=== PATIENT | male | born 1945 | race Caucasian/White ===

== ENCOUNTER 2019-01-15 12:32 | Observation (INO) | payer MEDICARE, OTHER, SELFPAY ==
[2018-10-01 10:01] VITALS: BMI 36.8
[2019-01-15] VITALS (12 sets, daily range): BP systolic 113–134; BP diastolic 54–76; PULSE 56–65; RESP 15–18; TEMP 36.4–36.9; O2SAT 92–95; BMI 36.1; BMI 36.2; BMI 35.9
--- NOTE | 2019-01-15 12:39 | EKG12_ITS ---
Test Reason : CP Blood Pressure : / mmHG Vent. Rate : 056 BPM Atrial Rate : 056 BPM P-R Int : 186 ms QRS Dur : 106 ms QT Int : 430 ms P-R-T Axes : 047 013 068 degrees QTc Int : 414 ms Sinus bradycardia Cannot rule out Inferior infarct , age undetermined Abnormal ECG Confirmed by WILLI CORDERO, CATRACHITO ([id number]), photo editor CRISTOPHER HALL ([id number]) on 01/18/2019 11:43:28 AM Referred By: Alma Dowling Confirmed By:CATRACHITO MÁRQUEZ MD
--- NOTE | 2019-01-15 12:39 | RAD_ITS ---
STUDY: X-RAY CHEST REASON FOR EXAM: Male, 73 years old. Chest pain. TECHNIQUE: Single AP portable view of the chest. COMPARISON: December 26, 2016. FINDINGS: The lungs are clear and expanded. There is no demonstrated pleural abnormality. Sternal cerclage wires are present from a prior sternotomy. Normal mediastinum and lei. Normal visualized pulmonary arteries. There is atherosclerotic calcification of the aortic arch with tortuosity. There are diffuse degenerative changes of the visualized thoracic spine. Normal visualized ribs, clavicles, and shoulders. There is no demonstrated abnormality of the visualized soft tissue structures of the upper abdomen. RAD/Chest 1 View (Portable) IMPRESSION: Degenerative changes, as described above. No demonstrated acute cardiopulmonary process. Electronically Signed: Gareth Garcia MD at 13:08 EDT , Service support ,
[2019-01-15 13:25] LABS: Absolute Neutrophil Count 5.8 X10^3/uL (2.0-7.7); Basophil# 0.04 X10^3/uL; Basophil% 0.4 % (0-1); Eosinophils% 2.2 % (0-5); Hematocrit 39.6 % (40-54); Lymphocyte % 23.5 % (19-41); Mean Corp Hgb Conc 32.8 g/gl (32-36); Mean Corpuscular Hgb 31.4 pg (27.0-32.0); Mean Corpuscular Volume 95.7 fL (80-94); Mean Platelet Vol. 11.5 fl (6.2-12.0); Monocyte# 0.78 X10^3/uL; Monocyte% 8.7 % (0-10); Neutrophil # 5.81 X10^3/uL (2.7-7.7); POSITIVE COUNT NO; POSITIVE DIFFERENTIAL NO; POSITIVE MORPHOLOGY NO; Platelet Count 206 K/mm3 (150-450); RBC Distribution Width SD 48.6 fl (35.1-43.9); Red Blood Count 4.14 M/mm3 (4.6-6.2)
[2019-01-15 13:41] LABS: Anion Gap 8 (5-15); BUN 28 mg/dL (7-18); BUN/Creat Ratio 26.7 RATIO (10-20); Calcium,Total 8.6 mg/dL (8.5-10.1); Chloride 111 mmol/L (98-107); Creatinine, Serum 1.05 mg/dL (0.70-1.30); EST Glomerular Filtration Rate 74 mL/min (>60); Est Glom Filt Rate - Afr Amer 89 mL/min (>60); Estimated Creatinine Clearance 61.52 ml/min; Glucose 70 mg/dL (74-106); Potassium 4.1 mmol/L (3.5-5.1); Sodium Level 142 mmol/L (136-145)
--- NOTE | 2019-01-15 14:22 | ED.DCSUM_ITS ---
- ER Visit Summary Date of Service: 01/15/19 Chief Complaint: Chest pain History of Present Illness: The patient is a 73 M who developed chest pain around 9 AM this morning. He points to the left upper chest wall. He denies shortness of breath or sweating. He took nitro without improvement. Patient does have history of coronary disease and OK. He has 12 cardiac stents and has had bypass surgery. Physical Examination: Vital signs unremarkable. Patient sitting upright in bed no acute distress. Head and neck examination normal. Heart is regular rate and rhythm. Lung sounds are clear. Abdomen is soft with no focal tenderness. Abdomen is distended. Lower extremity examination was 3+ edema to the left lower extremity and 1+ edema to the right lower extremity. Patient states this is chronic and unchanged after his cardiac bypass surgery. Test Results: Portable chest x-ray shows degenerative changes with no acute process. EKG is sinus bradycardia at 56 bpm with no sign of acute ischemia. CBC is unremarkable. Chemistry studies reveal BUN of 28 and a glucose of 70. Troponin is less than 0.015. Emergency Department Course and Treatment: Was given aspirin with EMS. On repeat evaluation patient is resting comfortably. Given his significant cardiac history I recommended observation overnight for cycling of cardiac enzymes. Patient is given oni angi to drink secondary to his blood glucose of 70. Treatment Plan: [] Disposition: Admit Impression: Chest pain This note was generated with [employer] dictation software. It may contain incorrect words, spelling, and punctuation that were not noted in review of the chart prior to signing ED Disposition - Plan for ED Patient: [facility] -
--- NOTE | 2019-01-15 14:28 | ED.RN ---
[facility]S AHEAD OF ME. I WAS NOT ABLE TO REACH THEM.
--- NOTE | 2019-01-15 14:28 | PCM.HP.STD ---
Problem List (1) Chest pain Status: Acute Qualifiers: Chest pain type: unspecified Qualified Code(s): R07.9 - Chest pain, unspecified (2) Atherosclerotic heart disease of [place] coronary artery without angina pectoris Status: Chronic Qualifiers: [place] vs. transplanted heart: unspecified whether [place] or transplanted heart Qualified Code(s): I25.10 - Atherosclerotic heart disease of [place] coronary artery without angina pectoris (3) AAA (abdominal aortic aneurysm) without rupture Status: Chronic (4) HLD (hyperlipidemia) Status: Chronic Qualifiers: Hyperlipidemia type: pure hypercholesterolemia Qualified Code(s): E78.00 - Pure hypercholesterolemia, unspecified; E78.0 - Pure hypercholesterolemia (5) Diabetes mellitus with polyneuropathy Status: Chronic Qualifiers: Diabetes mellitus type: type 2 Qualified Code(s): E11.42 - Type 2 diabetes mellitus with diabetic polyneuropathy (6) CAD (coronary artery disease) Status: Chronic Qualifiers: Coronary Disease-Associated Artery/Lesion type: unspecified vessel or lesion type [place] vs. transplanted heart: unspecified whether [place] or transplanted heart Associated angina: angina presence unspecified Qualified Code(s): I25.10 - Atherosclerotic heart disease of [place] coronary artery without angina pectoris Comment: 1995 JENSEN -LAD, SVG-om1. SVG-PLB of RCA, SVG-D1 (7) COPD (chronic obstructive pulmonary disease) Status: Chronic Qualifiers: COPD type: unspecified COPD Qualified Code(s): J44.9 - Chronic obstructive pulmonary disease, unspecified (8) Hx of CABG Status: Chronic Comment: [id number], SVG-OM1, SVG-PLB of RCA, SVG-D1; (9) HTN (hypertension) Status: Chronic Qualifiers: Hypertension type: essential hypertension Qualified Code(s): I10 - Essential (primary) hypertension (10) Venous stasis Status: Chronic Comment: chronic venous stasis with lymphedema History of Present Illness Date of Admission: 01/15/19 Chief Complaint: Chest pain The patient is a 73 y/o M w/ PMHx: HTN, HLD, Obesity, Diabetes mellitus type II w/ Neuropathy, Chronic COPD, CAD s/p PCI x 12 and CABG x 4, Chronic Venous Stasis w/ Chronic BL LE Lymphedema, Hx AAA who presents to the [facility] ED on 01/15/19 with history of sharp stabbing sensation chest pain, left upper chest without radiation starting at ~ 9 am, rated 4/10 when occurring, lasting seconds only and then dissipating, onset while working on the house but not markedly exerting himself, noted the discomfort coming on intermittently with no associated dyspnea, diaphoresis, nausea or emesis. His spouse passed within the last 2 weeks. Daughter noted concern for his mood but patient on examination appeared in decent spirts. Work-up in the ED included T 98, heart rate 61, BP 113/54, respiratory rate 15, 95% on room air, CBC with WBC 9, hemoglobin 13, platelet 206 without shift, BMP with chloride 111, BUN/creatinine 28/1.05, glucose 70, troponin less than 0.015, EKG with SR without acute evidence of ischemia, chest x-ray with no acute cardia pulmonary findings. In the ED patient ministered normal saline. Past Medical History Past Medical History (Chronic Problems): Chronic Problems (Last Reviewed 10/01/18 @ 10:23 by Shay Colon MD) Hypotension (Chronic) Encounter for long-term current use of high risk medication (Chronic) Old myocardial infarction (Chronic) Atherosclerotic heart disease of [place] coronary artery without angina pectoris (Chronic) AAA (abdominal aortic aneurysm) without rupture (Chronic) HLD (hyperlipidemia) (Chronic) Diabetes mellitus with polyneuropathy (Chronic) CAD (coronary artery disease) (Chronic) 1995 JENSEN -LAD, SVG-om1. SVG-PLB of RCA, SVG-D1 COPD (chronic obstructive pulmonary disease) (Chronic) Tinea pedis (Chronic) Hx of CABG (Chronic) [id number], SVG-OM1, SVG-PLB of RCA, SVG-D1; Type II diabetes mellitus (Chronic) HTN (hypertension) (Chronic) Stented coronary artery (Chronic) [facility] w/PCI-SETVE X 2-SVG-OM3 2008; [facility] w/PCI-Steve right post AV artery X 1; STEVE-RCA X 3 10/30/13; [facility]-PCI-PLB of RCA 8.12.16 @ [facility] Venous stasis (Chronic) chronic venous stasis with lymphedema Morbid obesity (Chronic) Peripheral neuropathy (Chronic) Medical History: Medical History (Last Reviewed 10/01/18 @ 10:23 by Shay Colon MD) HLD (hyperlipidemia) (Chronic) E78.5 CAD (coronary artery disease) (Chronic) I25.10 1995 JENSEN -LAD, SVG-om1. SVG-PLB of RCA, SVG-D1 HTN (hypertension) (Chronic) I10 Dyspnea on exertion R06.09 Allergies lisinopril Allergy (Verified 01/15/19 12:38) Angioedema Sulfa (Sulfonamide Antibiotics) Allergy (Verified 01/15/19 12:38) Hives piperacillin Adverse Reaction (Severe, Verified 01/15/19 12:38) Unknown Home Medications: Ambulatory Orders Medication Instructions Recorded Amlodipine [Norvasc] 5 mg PO DAILY 12/07/13 Clopidogrel Bisulfate [Plavix] 75 mg PO DAILY 12/07/13 Insulin Aspart [Novolog Flexpen] See Protocol SQ DINNER 12/07/13 Insulin Glargine [Lantus SoloStar 47 units SC BID 12/07/13 Pen] Isosorbide Mononitrate [Isosorbide 60 mg PO DAILY 12/07/13 Mononitrate ER] Losartan Potassium [Cozaar] 25 mg PO DAILY 12/07/13 Metformin HCl [Glucophage] 1,000 mg PO BIDCM 12/07/13 Metoprolol Tartrate [Lopressor 100 mg PO BID 12/07/13 (beta aixa)] buPROPion tablets [Wellbutrin 100 mg PO BID PRN PRN 12/07/13 tablets] Acetaminophen [Tylenol Tablet] 650 mg PO Q4H PRN PRN #0 tab 09/05/16 Albuterol Inhaler [Ventolin Hfa] 1 - 2 puff INHALATION Q4H PRN PRN 09/05/16 #1 inhaler Aspirin [Aspir-Low] 81 mg PO DAILY 12/26/16 Atorvastatin Calcium [Lipitor] 80 mg PO QHS 12/26/16 Budesonide/Formoterol 160/4.5 2 puff INHALATION BID 12/26/16 [Symbicort 160/4.5 Mcg Inhaler (SP)] Cefadroxil Hydrate [Duricef] 500 mg PO BID #60 cap 01/13/17 Ibuprofen 2 - 3 mg PO TID PRN #1 tab 01/13/17 nitroglycerin 0.4 mg sublingual 0.4 mg SUBLINGUAL Q5M PRN 02/09/18 tablet Surgical History: Surgical History (Last Reviewed 10/01/18 @ 10:23 by Shay Colon MD) Hx of cataract surgery (Resolved) Z98.49 Hx of CABG (Chronic) [id number], SVG-OM1, SVG-PLB of RCA, SVG-D1; Stented coronary artery (Chronic) [facility] w/PCI-STEVE X 2-SVG-OM3 2008; [facility] w/PCI-Steve right post AV artery X 1; STEVE-RCA X 3 10/30/13; [facility]-PCI-PLB of RCA 8.12.16 @ [facility] Surgical History: coronary bypass surgery - 20 years ago., - - cardiac stents x 13 Psychiatric History: Anxiety, Depression Lives: Alone - recently passed. Smoking Status: Former smoker - Patient quit approximately 30 years prior with prior to this a 2 to 3 pack/day tobacco cigarette usage. 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 Drugs: None - *Family History Paternal Family History: Family History (Last Reviewed 10/01/18 @ 10:23 by Shay Colon MD) Mother Heart disease History Items: Diabetes - Mother, Heart Disease - Father, - - Patient was notable alcoholic. Maternal Family History: Family History (Last Reviewed 10/01/18 @ 10:23 by Shay Colon MD) Mother Heart disease History Items: Diabetes, Heart Disease Review of Systems Constitutional: Reports: Fatigue. Denies: Chills, Fever, Weight Change HEENT: Denies: Head Aches, Sinus Congestion, Sinus Drainage Cardiovascular: Reports: Chest Pain, Edema. Denies: Chest Pressure, Chest Tightness, Heaviness, Light Headedness, Orthopnea, Palpitations, Syncope Respiratory: Denies: Cough, Shortness of Breath, Shortness of breath at rest, Shortness of breath upon exertion, Sputum production, Wheezing Gastrointestinal: Denies: Abdominal Pain, Nausea, Vomiting Genitourinary: Denies: Dysuria Musculoskeletal: Reports: Joint Pain, Leg Pain. Denies: Joint Tenderness Skin: Reports: Skin Changes. Denies: Rash, Wounds Neurological: Denies: Numbness, Tingling, Focal weakness Psychiatric: Reports: Anxiety, Depression. Denies: Homicidal Ideations, Suicidal Ideations Hematologic/ Lymphatic: Reports: Easy Bruising, Easy Bleeding VTE Information - Inpt Only VTE Present on Admission: No VTE Mechan Device Prophylaxis: SCD's VTE Pharm Prophylaxis ordered?: Yes Patient Problems: Active and Suspected Problems (Last Reviewed 10/01/18 @ 10:23 by Shay Colon MD) Chest pain (Acute) Subjective: Seated upright in ED bed, no acute distress, notes chest discomfort is very sharp in nature lasting only seconds to the left side of the chest. He denies any current discomfort. Objective: Physical Examination: General: awake, alert, oriented x 3 and cooperative, seated upright in the ED bed in no apparent distress, denies any current chest discomfort. Skin: normal color, turgor, no icterus, cyanosis. HEENT: AT/NC, EOMI, PERRLA, mildly dry MM, no carotid bruits or JVD noted. Lungs: CTA bilaterally, moderate effort, mild decrease BL bases, no rales, ronchi or wheezing. Heart: Mildly bradycardic with regular rhythm; no gallop, rub audible. Abdomen: soft, obese, NTTP, ND, normal BS, no HSM; however, habitus makes examination difficult. Extremities: no cyanosis, clubbing, chronic left greater than right edema, left pitting, chronic. Neurological: patient awake, alert, oriented x 3; cognitive function intact; pupils equally reactive to light and accomodation; cranial nerves II-XII grossly normal, moving all 4 extremities, no focal deficits, strength mildly globally decreased secondary to acute presentation. Psychiatric: affect appears normal, despite recent of his he does not appear depressed or anxious. - Physical Exam Vital Signs Temp Pulse Resp BP Pulse Ox 98.0 F 56 L 15 113/54 L 94 01/15/19 12:34 01/15/19 14:11 01/15/19 14:11 01/15/19 12:34 01/15/19 14:11 Oxygen Delivery Method Room Air Weight: 238 lb Body Mass Index (BMI) 36.1 Finger Stick Blood Glucose 133 Laboratory Tests Past 24 Hrs 01/15/19 01/15/19 13:00 13:00 WBC 9.0 RBC 4.14 L Hgb 13.0 Hct 39.6 L MCV 95.7 H MCH 31.4 MCHC 32.8 RDW 14.0 RDW Differential 48.6 H Plt Count 206 MPV 11.5 Immature Gran % (Auto) 0.200 Neut % (Auto) 65.0 Lymph % (Auto) 23.5 [place] % (Auto) 8.7 Eos % (Auto) 2.2 Baso % (Auto) 0.4 Absolute Neuts (auto) 5.8 Absolute Lymphs (auto) 2.10 Total Counted Not Reportable Sodium 142 Potassium 4.1 Chloride 111 H Carbon Dioxide 23.0 Anion Gap 8 BUN 28 H Creatinine 1.05 Estim Creat Clear Calc 61.52 Est GFR (MDRD) Af Amer 89 Est GFR (MDRD) Non-Af 74 BUN/Creatinine Ratio 26.7 H Glucose 70 L Calcium 8.6 Troponin I < 0.015 Assessment/Plan All Active Problems (Last Reviewed 10/01/18 @ 10:23 by Shay Colon MD) Chest pain (Acute) Hx of cataract surgery (Resolved) Fracture of phalanx of toe of right foot with delayed healing (Acute) Gout of knee (Acute) Cellulitis of toe of left foot (Acute) Septic arthritis of interphalangeal joint of toe of left foot (Acute) Septic arthritis of interphalangeal joint of toe of left foot (Acute) Gout of foot (Acute) Hypophosphatemia (Acute) Streptococcal cellulitis (Acute) Severe sepsis (Acute) Streptococcal bacteremia (Acute) Influenza A (Resolved) The patient is a 73 y/o M w/ PMHx: HTN, HLD, Obesity, Diabetes mellitus type II w/ Neuropathy, Chronic COPD, CAD s/p PCI x 12 and CABG x 4, Chronic Venous Stasis w/ Chronic BL LE Lymphedema, Hx AAA who presents to the [facility] ED on 01/15/19 with history of sharp stabbing sensation chest pain, left upper chest without radiation starting at ~ 9 am, rated 4/10 when occurring, lasting seconds only and then dissipating. (1) Chest Pain, Atypical: Given description, less suspicious for cardiac etiology, but notable cardiac history. Work-up in the ED included T 98, heart rate 61, BP 113/54, respiratory rate 15, 95% on room air, CBC with WBC 9, hemoglobin 13, platelet 206 without shift, BMP with chloride 111, BUN/creatinine 28/1.05, glucose 70, troponin less than 0.015, EKG with SR without acute evidence of ischemia, chest x-ray with no acute cardia pulmonary findings. Will admit to PCU, place on a monitored bed to assure no acute myocardial infarction with serial cardiac enzymes and EKGs. Patient is able to perform exercise and does not have LBBB or V-pacing but does have history of PCI/ST-T changes with unclear wall motion abnormality at rest thus will proceed with AM nuclear treadmill stress test. ASA, NG, morphine. FLP in AM. Mag pending. (2) CAD: s/p CABG x 4 and PCI x 12 total, 1995 JENSEN-LAD, SVG-om1, SVG-PLB of RCA, SVG-D1 and C w/PCI-STEVE X 2-SVG-OM3 2008; [facility] w/PCI-Steve right post AV artery X 1; STEVE-RCA X 3 10/30/13; [facility]-PCI-PLB of RCA, continue home regimen aspirin, Plavix, statin, metoprolol, losartan. (3) Hypertension: Continue home regimen including Norvasc, isosorbide, losartan, metoprolol, PRN hydralazine. (4) Hyperlipidemia: Continue home statin regimen. AM FLP. (5) Chronic COPD: ATC duonebs, PRN albuterol, HOB, IS parameters. (6) Diabetes mellitus type II: Hold oral home regimen, continue home insulin regimen, ADA diet, accu checks w/ ISS, in consultation for education and teaching. (7) Gout: Continue home allopurinol and colchicine regimen. (8) Anxiety and Depression: Continue home Wellbutrin regimen. (9) Obesity: Weight loss and lifestyle changes encouraged, nutrition consultation for education and teaching. (10) Chronic BL LE, L>L Lymphedema, PVD: RYAN wraps, elevation. (11) ALLISON: CPAP q HS. Needs to have CM assist w/ [facility]-ass[facility] of his machine. (12) DVT Prophylaxis: SCDs, lovenox. Code Visit OBSV E&M: 51419 Initial observation care L3
--- NOTE | 2019-01-15 14:43 | HP.PCM_ITS ---
Problem List (1) Chest pain Status: Acute Qualifiers: Chest pain type: unspecified Qualified Code(s): R07.9 - Chest pain, unspecified (2) Atherosclerotic heart disease of [place] coronary artery without angina pectoris Status: Chronic Qualifiers: [place] vs. transplanted heart: unspecified whether [place] or transplanted heart Qualified Code(s): I25.10 - Atherosclerotic heart disease of [place] coronary artery without angina pectoris (3) AAA (abdominal aortic aneurysm) without rupture Status: Chronic (4) HLD (hyperlipidemia) Status: Chronic Qualifiers: Hyperlipidemia type: pure hypercholesterolemia Qualified Code(s): E78.00 - Pure hypercholesterolemia, unspecified; E78.0 - Pure hypercholesterolemia (5) Diabetes mellitus with polyneuropathy Status: Chronic Qualifiers: Diabetes mellitus type: type 2 Qualified Code(s): E11.42 - Type 2 diabetes mellitus with diabetic polyneuropathy (6) CAD (coronary artery disease) Status: Chronic Qualifiers: Coronary Disease-Associated Artery/Lesion type: unspecified vessel or lesion type [place] vs. transplanted heart: unspecified whether [place] or transplanted heart Associated angina: angina presence unspecified Qualified Code(s): I25.10 - Atherosclerotic heart disease of [place] coronary artery without angina pectoris Comment: 1995 JENSEN -LAD, SVG-om1. SVG-PLB of RCA, SVG-D1 (7) COPD (chronic obstructive pulmonary disease) Status: Chronic Qualifiers: COPD type: unspecified COPD Qualified Code(s): J44.9 - Chronic obstructive pulmonary disease, unspecified (8) Hx of CABG Status: Chronic Comment: [id number], SVG-OM1, SVG-PLB of RCA, SVG-D1; (9) HTN (hypertension) Status: Chronic Qualifiers: Hypertension type: essential hypertension Qualified Code(s): I10 - Essential (primary) hypertension (10) Venous stasis Status: Chronic Comment: chronic venous stasis with lymphedema History of Present Illness Date of Admission: 01/15/19 Chief Complaint: Chest pain The patient is a 73 y/o M w/ PMHx: HTN, HLD, Obesity, Diabetes mellitus type II w/ Neuropathy, Chronic COPD, CAD s/p PCI x 12 and CABG x 4, Chronic Venous Stasis w/ Chronic BL LE Lymphedema, Hx AAA who presents to the [facility] ED on 01/15/19 with history of sharp stabbing sensation chest pain, left upper chest without radiation starting at ~ 9 am, rated 4/10 when occurring, lasting seconds only and then dissipating, onset while working on the house but not markedly exerting himself, noted the discomfort coming on intermittently with no associated dyspnea, diaphoresis, nausea or emesis. His spouse passed within the last 2 week s. Daughter noted concern for his mood but patient on examination appeared in decent spirts. Work-up in the ED included T 98, heart rate 61, BP 113/54, respiratory rate 15, 95% on room air, CBC with WBC 9, hemoglobin 13, platelet 206 without shift, BMP with chloride 111, BUN/creatinine 28/1.05, glucose 70, troponin less than 0.015, EKG with SR without acute evidence of ischemia, chest x-ray with no acute cardia pulmonary findings. In the ED patient ministered normal saline. Past Medical History Past Medical History (Chronic Problems): Chronic Problems (Last Reviewed 10/01/18 @ 10:23 by Shay Colon MD) Hypotension (Chronic) Encounter for long-term current use of high risk medication (Chronic) Old myocardial infarction (Chronic) Atherosclerotic heart disease of [place] coronary artery without angina pectoris (Chronic) AAA (abdominal aortic aneurysm) without rupture (Chronic) HLD (hyperlipidemia) (Chronic) Diabetes mellitus with polyneuropathy (Chronic) CAD (coronary artery disease) (Chronic) 1995 JENSEN -LAD, SVG-om1. SVG-PLB of RCA, SVG-D1 COPD (chronic obstructive pulmonary disease) (Chronic) Tinea pedis (Chronic) Hx of CABG (Chronic) [id number], SVG-OM1, SVG-PLB of RCA, SVG-D1; Type II diabetes mellitus (Chronic) HTN (hypertension) (Chronic) Stented coronary artery (Chronic) [facility] w/PCI-STEVE X 2-SVG-OM3 2008; [facility] w/PCI-Steve right post AV artery X 1; STEVE- RCA X 3 10/30/13; [facility]-PCI-PLB of RCA 8.12.16 @ [facility] Venous stasis (Chronic) chronic venous stasis with lymphedema Morbid obesity (Chronic) Peripheral neuropathy (Chronic) Medical History: Medical History (Last Reviewed 10/01/18 @ 10:23 by Shay Colon MD) HLD (hyperlipidemia) (Chronic) E78.5 CAD (coronary artery disease) (Chronic) I25.10 1995 JENSEN -LAD, SVG-om1. SVG-PLB of RCA, SVG-D1 HTN (hypertension) (Chronic) I10 Dyspnea on exertion R06.09 Allergies lisinopril Allergy (Verified 01/15/19 12:38) Angioedema Sulfa (Sulfonamide Antibiotics) Allergy (Verified 01/15/19 12:38) Hives piperacillin Adverse Reaction (Severe, Verified 01/15/19 12:38) Unknown Home Medications: Ambulatory Orders Medication Instructions Recorded Amlodipine [Norvasc] 5 mg PO DAILY 12/07/13 Clopidogrel Bisulfate [Plavix] 75 mg PO DAILY 12/07/13 Insulin Aspart [Novolog Flexpen] See Protocol SQ DINNER 12/07/13 Insulin Glargine [Lantus SoloStar 47 units SC BID 12/07/13 Pen] Isosorbide Mononitrate [Isosorbide 60 mg PO DAILY 12/07/13 Mononitrate ER] Losartan Potassium [Cozaar] 25 mg PO DAILY 12/07/13 Metformin HCl [Glucophage] 1,000 mg PO BIDCM 12/07/13 Metoprolol Tartrate [Lopressor 100 mg PO BID 12/07/13 (beta aixa)] buPROPion tablets [Wellbutrin 100 mg PO BID PRN PRN 12/07/13 tablets] Acetaminophen [Tylenol Tablet] 650 mg PO Q4H PRN PRN #0 tab 09/05/16 Albuterol Inhaler [Ventolin Hfa] 1 - 2 puff INHALATION Q4H PRN PRN 09/05/16 #1 inhaler Aspirin [Aspir-Low] 81 mg PO DAILY 12/26/16 Atorvastatin Calcium [Lipitor] 80 mg PO QHS 12/26/16 Budesonide/Formoterol 160/4.5 2 puff INHALATION BID 12/26/16 [Symbicort 160/4.5 Mcg Inhaler (SP)] Cefadroxil Hydrate [Duricef] 500 mg PO BID #60 cap 01/13/17 Ibuprofen 2 - 3 mg PO TID PRN #1 tab 01/13/17 nitroglycerin 0.4 mg sublingual 0.4 mg SUBLINGUAL Q5M PRN 02/09/18 tablet Surgical History: Surgical History (Last Reviewed 10/01/18 @ 10:23 by Shay Colon MD) Hx of cataract surgery (Resolved) Z98.49 Hx of CABG (Chronic) [id number], SVG-OM1, SVG-PLB of RCA, SVG-D1; Stented coronary artery (Chronic) [facility] w/PCI-STEVE X 2-SVG-OM3 2008; [facility] w/PCI-Steve right post AV artery X 1; STEVE- RCA X 3 10/30/13; [facility]-PCI-PLB of RCA 8.12.16 @ [facility] Surgical History: coronary bypass surgery - 20 years ago., - - cardiac stents x 13 Psychiatric History: Anxiety, Depression Lives: Alone - recently passed. Smoking Status: Former smoker - Patient quit approximately 30 years prior with prior to this a 2 to 3 pack/day tobacco cigarette usage. 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 Drugs: None - *Family History Paternal Family History: Family History (Last Reviewed 10/01/18 @ 10:23 by Shay Colon MD) Mother Heart disease History Items: Diabetes - Mother, Heart Disease - Father, - - Patient was notable alcoholic. Maternal Family History: Family History (Last Reviewed 10/01/18 @ 10:23 by Shay Colon MD) Mother Heart disease History Items: Diabetes, Heart Disease Review of Systems Constitutional: Reports: Fatigue. Denies: Chills, Fever, Weight Change HEENT: Denies: Head Aches, Sinus Congestion, Sinus Drainage Cardiovascular: Reports: Chest Pain, Edema. Denies: Chest Pressure, Chest Tightness, Heaviness, Light Headedness, Orthopnea, Palpitations, Syncope Respiratory: Denies: Cough, Shortness of Breath, Shortness of breath at rest, Shortness of breath upon exertion, Sputum production, Wheezing Gastrointestinal: Denies: Abdominal Pain, Nausea, Vomiting Genitourinary: Denies: Dysuria Musculoskeletal: Reports: Joint Pain, Leg Pain. Denies: Joint Tenderness Skin: Reports: Skin Changes. Denies: Rash, Wounds Neurological: Denies: Numbness, Tingling, Focal weakness Psychiatric: Reports: Anxiety, Depression. Denies: Homicidal Ideations, Suicidal Ideations Hematologic/ Lymphatic: Reports: Easy Bruising, Easy Bleeding VTE Information - Inpt Only VTE Present on Admission: No VTE Mechan Device Prophylaxis: SCD's VTE Pharm Prophylaxis ordered?: Yes Patient Problems: Active and Suspected Problems (Last Reviewed 10/01/18 @ 10:23 by Shay Colon MD) Chest pain (Acute) Subjective: Seated upright in ED bed, no acute distress, notes chest discomfort is very sharp in nature lasting only seconds to the left side of the chest. He denies any current discomfort. Objective: Physical Examination: General: awake, alert, oriented x 3 and cooperative, seated upright in the ED bed in no apparent distress, denies any current chest discomfort. Skin: normal color, turgor, no icterus, cyanosis. HEENT: AT/NC, EOMI, PERRLA, mildly dry MM, no carotid bruits or JVD noted. Lungs: CTA bilaterally, moderate effort, mild decrease BL bases, no rales, ronchi or wheezing. Heart: Mildly bradycardic with regular rhythm; no gallop, rub audible. Abdomen: soft, obese, NTTP, ND, normal BS, no HSM; however, habitus makes examination difficult. Extremities: no cyanosis, clubbing, chronic left greater than right edema, left pitting, chronic. Neurological: patient awake, alert, oriented x 3; cognitive function intact; pupils equally reactive to light and accomodation; cranial nerves II-XII grossly normal, moving all 4 extremities, no focal deficits, strength mildly globally decreased secondary to acute presentation. Psychiatric: affect appears normal, despite recent of his he does not appear depressed or anxious. - Physical Exam Vital Signs Temp Pulse Resp BP Pulse Ox 98.0 F 56 L 15 113/54 L 94 01/15/19 12:34 01/15/19 14:11 01/15/19 14:11 01/15/19 12:34 01/15/19 14:11 Oxygen Delivery Method Room Air Weight: 238 lb Body Mass Index (BMI) 36.1 Finger Stick Blood Glucose 133 Laboratory Tests Past 24 Hrs 01/15/19 01/15/19 13:00 13:00 WBC 9.0 RBC 4.14 L Hgb 13.0 Hct 39.6 L MCV 95.7 H MCH 31.4 MCHC 32.8 RDW 14.0 RDW Differential 48.6 H Plt Count 206 MPV 11.5 Immature Gran % (Auto) 0.200 Neut % (Auto) 65.0 Lymph % (Auto) 23.5 [place] % (Auto) 8.7 Eos % (Auto) 2.2 Baso % (Auto) 0.4 Absolute Neuts (auto) 5.8 Absolute Lymphs (auto) 2.10 Total Counted Not Reportable Sodium 142 Potassium 4.1 Chloride 111 H Carbon Dioxide 23.0 Anion Gap 8 BUN 28 H Creatinine 1.05 Estim Creat Clear Calc 61.52 Est GFR (MDRD) Af Amer 89 Est GFR (MDRD) Non-Af 74 BUN/Creatinine Ratio 26.7 H Glucose 70 L Calcium 8.6 Troponin I < 0.015 Assessment/Plan All Active Problems (Last Reviewed 10/01/18 @ 10:23 by Shay Colon MD) Chest pain (Acute) Hx of cataract surgery (Resolved) Fracture of phalanx of toe of right foot with delayed healing (Acute) Gout of knee (Acute) Cellulitis of toe of left foot (Acute) Septic arthritis of interphalangeal joint of toe of left foot (Acute) Septic arthritis of interphalangeal joint of toe of left foot (Acute) Gout of foot (Acute) Hypophosphatemia (Acute) Streptococcal cellulitis (Acute) Severe sepsis (Acute) Streptococcal bacteremia (Acute) Influenza A (Resolved) The patient is a 73 y/o M w/ PMHx: HTN, HLD, Obesity, Diabetes mellitus type II w/ Neuropathy, Chronic COPD, CAD s/p PCI x 12 and CABG x 4, Chronic Venous Stasis w/ Chronic BL LE Lymphedema, Hx AAA who presents to the [facility] ED on 01/15/19 with history of sharp stabbing sensation chest pain, left upper chest without radiation starting at ~ 9 am, rated 4/10 when occurring, lasting seconds only and then dissipating. (1) Chest Pain, Atypical: Given description, less suspicious for cardiac etiology, but notable cardiac history. Work-up in the ED included T 98, heart rate 61, BP 113/54, respiratory rate 15, 95% on room air, CBC with WBC 9, hemoglobin 13, platelet 206 without shift, BMP with chloride 111, BUN/creatinine 28/1.05, glucose 70, troponin less than 0.015, EKG with SR without acute evidence of ischemia, chest x-ray with no acute cardia pulmonary findings. Will admit to PCU, place on a monitored bed to assure no acute myocardial infarction with serial cardiac enzymes and EKGs. Patient is able to perform exercise and does not have LBBB or V-pacing but does have history of PCI/ST-T changes with unclear wall motion abnormality at rest thus will proceed with AM nuclear treadmill stress test. ASA, NG, morphine. FLP in AM. Mag pending. (2) CAD: s/p CABG x 4 and PCI x 12 total, 1995 JENSEN-LAD, SVG-om1, SVG-PLB of RCA, SVG-D1 and [facility] w/PCI-STEVE X 2-SVG-OM3 2008; [facility] w/PCI-Steve right post AV artery X 1; STEVE-RCA X 3 10/30/13; [facility]-PCI-PLB of RCA, continue home regimen aspirin, Plavix, statin, metoprolol, losartan. (3) Hypertension: Continue home regimen including Norvasc, isosorbide, losartan, metoprolol, PRN hydralazine. (4) Hyperlipidemia: Continue home statin regimen. AM FLP. (5) Chronic COPD: ATC duonebs, PRN albuterol, HOB, IS parameters. (6) Diabetes mellitus type II: Hold oral home regimen, continue home insulin regimen, ADA diet, accu checks w/ ISS, in consultation for education and teaching. (7) Gout: Continue home allopurinol and colchicine regimen. (8) Anxiety and Depression: Continue home Wellbutrin regimen. (9) Obesity: Weight loss and lifestyle changes encouraged, nutrition consultation for education and teaching. (10) Chronic BL LE, L>L Lymphedema, PVD: RYAN wraps, elevation. (11) ALLISON: CPAP q HS. Needs to have CM assist w/ [facility] set-up/re-assessment of his machine. (12) DVT Prophylaxis: SCDs, lovenox. Code Visit OBSV E&M: 22141 Initial observation care L3
--- NOTE | 2019-01-15 15:51 | EKG12_ITS ---
Test Reason : AM EKG Blood Pressure : / mmHG Vent. Rate : 063 BPM Atrial Rate : 063 BPM P-R Int : 190 ms QRS Dur : 114 ms QT Int : 422 ms P-R-T Axes : 056 029 062 degrees QTc Int : 431 ms Normal sinus rhythm Normal ECG Confirmed by WILLI CORDERO, CATRACHITO ([id number]), graphics editor CRISTOPHER HALL ([id number]) on 01/19/2019 11:28:20 AM Referred By: Alma Dowling Confirmed By:CATRACHITO MÁRQUEZ MD
[2019-01-15 16:12] LABS: Magnesium 1.7 mg/dL (1.6-2.6)
[2019-01-15 16:35] LABS: Bedside Glucose 60 mg/dL (70-110)
[2019-01-15] MEDS: Ipratropium/Albuterol Sulfate 3 ML AMPUL.NEB INHALATION (18:51)
[2019-01-15] MEDS: Metoprolol Tartrate 100 MG Tablet PO (22:07)
[2019-01-15] MEDS: Atorvastatin Calcium 80 MG Tablet PO (22:07)
[2019-01-15] MEDS: buPROPion 100 MG Tablet PO (22:08)
[2019-01-15] MEDS: Topiramate 100 MG Tablet PO (22:09)
[2019-01-15] MEDS: Insulin Lispro 100 UNIT/ML INSULN.PEN SC (22:11)
[2019-01-15 22:26] LABS: Bedside Glucose 170 mg/dL (70-110)
[2019-01-16] VITALS (15 sets, daily range): BP systolic 106–131; BP diastolic 57–68; PULSE 54–70; RESP 16–20; TEMP 36.4–37; O2SAT 92–98
[2019-01-16] MEDS: 0.9% Normal Saline 1,000 ML 100 ML IV ×3 (00:02→22:36)
--- NOTE | 2019-01-16 05:55 | EKG12_ITS ---
Test Reason : AM EKG Blood Pressure : / mmHG Vent. Rate : 061 BPM Atrial Rate : 061 BPM P-R Int : 202 ms QRS Dur : 110 ms QT Int : 412 ms P-R-T Axes : 051 024 063 degrees QTc Int : 414 ms Normal sinus rhythm Normal ECG Confirmed by WILLI CORDERO, CATRACHITO ([id number]), web editor CRISTOPHER AHLL ([id number]) on 01/19/2019 11:35:25 AM Referred By: Alma Dowling Confirmed By:CATRACHITO MÁRQUEZ MD
[2019-01-16] MEDS: Aspirin E.C. 81 MG Tablet PO (06:05)
[2019-01-16] MEDS: Losartan Potassium 25 MG Tablet PO (06:05)
[2019-01-16] MEDS: Clopidogrel Bisulfate 75 MG Tablet PO (06:05)
[2019-01-16 06:52] LABS: International Normalized Ratio 1.1; Prothrombin Time (Protime)PT. 13.6 SECONDS (11.7-14.9)
[2019-01-16 06:53] LABS: Hematocrit 37.9 % (40-54); Hemoglobin 12.6 g/dl (13.0-16.5); Mean Corp Hgb Conc 33.2 g/gl (32-36); Mean Corpuscular Hgb 31.8 pg (27.0-32.0); Mean Corpuscular Volume 95.7 fL (80-94); Mean Platelet Vol. 11.7 fl (6.2-12.0); Partial Thromboplast Time 26.8 Seconds (24.1-36.2); Platelet Count 191 K/mm3 (150-450); RBC Distribution Width CV 13.7 % (11.6-14.6); Red Blood Count 3.96 M/mm3 (4.6-6.2); White Blood Count 6.9 K/mm3 (4.4-11.0)
[2019-01-16 06:54] LABS: Scan Indicated on CBC? Y/N NO
[2019-01-16] MEDS: Ipratropium/Albuterol Sulfate 3 ML AMPUL.NEB INHALATION ×3 (06:55→21:51)
[2019-01-16 06:56] LABS: Bedside Glucose 90 mg/dL (70-110)
[2019-01-16 07:13] LABS: ALB/GLOB Ratio 0.8 RATIO (0.9-2.4); AST(SGOT) 23 U/L (15-37); Alanine Aminotransfer ALT/SGPT 35 U/L (16-61); Albumin, Serum 2.9 g/dL (3.2-5.0); Alkaline Phosphatase 63 U/L (45-117); Anion Gap 5 (5-15); BUN 19 mg/dL (7-18); BUN/Creat Ratio 19.1 RATIO (10-20); Calcium,Total 8.5 mg/dL (8.5-10.1); Chloride 113 mmol/L (98-107); Cholesterol 97 mg/dL (200); Creatinine, Serum 0.99 mg/dL (0.70-1.30); EST Glomerular Filtration Rate 79 mL/min (>60); Est Glom Filt Rate - Afr Amer 95 mL/min (>60); Estimated Creatinine Clearance 65.25 ml/min; Globulin 3.8 g/dL (2.2-4.2); Glucose 98 mg/dL (74-106); High Density Lipoprotein 30 mg/dL; Protein, Total 6.7 g/dL (6.4-8.2); Sodium Level 144 mmol/L (136-145); Triglycerides 128 mg/dL; Very Low Density Lipoprotein 26 mg/dL (5-40)
--- NOTE | 2019-01-16 08:08 | CM.UR ---
Addendum entered by Brenda Tripp 01/16/19 14:05: Also noted that there were orders from to help with cpap replacement. Fabiola states his is very old. Alerted him that [facility]. Explained they do not accept orders from non-[facility] for cpap. States he has one but it is very old. Instructed him to contact [facility] and ask for pulmonary. Explain to them his concerns and they will determine what is needed and get him scheduled. Verb understanding. Robert Tripp RN, CCM. Original Note: Addendum entered by Brenda Tripp 01/16/19 13:37: spoke with Angie again explaining fabiola's stress test was positive and needs a heart cath. Explained fabiola states he is 100% SC and would like transport to [facility] for further treatment. Angie stated there are currently no PCU beds available. Explained there may be some available tomorrow. States to fax clinical to [phone]. Done at this time. Robert Tripp RN, CCM. Original Note: Received call from CAYDEN Jeff, Charge nurse stating patient was very concerned about his bill. States he was hesitant to have stress test this am d/t cost. Spoke with him via phone and explained that I can't give him details about how much he would owe. Explained that in obs he has a copay for each procedure done. Discussed the [facility] option. Fabiola said he is 100% service connected. the ED hadn't been able to get ahold of anyone in transfer center yesterday so the admitted him under his [employer]. Fabiola states that his has been ill lately and he has a lot of medical bills associated with her care. Explained that he can always set up a payment plan. fabiola is agreeable to stay at this time. Contacted [place] transfer center at this time. Spoke with Angie. States they are changing their phone system and hence the trouble getting through. Gave information regarding Fabiola's admission at this time. Robert Tripp RN, CCM.
[2019-01-16] MEDS: Metoprolol Tartrate 100 MG Tablet PO ×2 (12:02→22:40)
[2019-01-16] MEDS: Topiramate 100 MG Tablet PO ×2 (12:03→22:41)
[2019-01-16] MEDS: buPROPion 100 MG Tablet PO ×2 (12:03→22:40)
[2019-01-16] MEDS: Isosorbide Mononitrate 60 MG Tablet PO (12:03)
[2019-01-16] MEDS: amLODIPine 5 MG Tablet PO (12:03)
--- NOTE | 2019-01-16 12:11 | STRESSREP ---
Stress Test Report Date: 01-16-19 Procedure: Pharmacologic stress nuclear imaging study Indications: Chest pain; CAD; status post PCI; status post CABG Consent: Per the patient Procedure: The patient underwent pharmacologic (Regadenoson) evaluation with a peak heart rate of 76 beats per minute (51 %predicted maximal heart rate) and a peak blood pressure of 124/68 mmHg. The baseline ECG demonstrated sinus bradycardia. The peak pharmacologic ECG demonstrated no obvious ECG changes. [There were no cardiac dysrhythmias pretest, during pharmacologic infusion, or recovery]. [There was no complaint of chest discomfort during pharmacologic infusion or recovery]. The examination was discontinued secondary to completion of protocol. Impression: 1. Pharmacologic (Regadenoson) evaluation 2. Peak pharmacologic ECG with no obvious ECG changes. 3. [There were no cardiac dysrhythmias pretest, during pharmacologic infusion, or recovery]. 4. Nuclear images pending Myocardial perfusion imaging study: Technique: The patient was injected with 14.5 millicuries of technetium 99m Cardiolite and subsequently rest SPECT Cardiolite nuclear imaging was obtained in the horizontal long, vertical long, and short axis views. The patient underwent pharmacologic (Regadenoson) evaluation with a peak heart rate of 76 beats per minute (51 % percent predicted maximal heart rate) and a peak blood pressure of 124/68 mmHg. The patient was injected with 44.7 millicuries of technetium 99m Cardiolite and subsequently stress SPECT Cardiolite nuclear imaging was obtained in the horizontal long, vertical long, and short axis views. A gated Cardiolite study at peak stress was obtained. Interpretation: Rest and stress SPECT Cardiolite nuclear imaging status post realignment, normalization, and attenuation correction demonstrate at rest the appearance of relative uniform tracer uptake and myocardial perfusion appearing within normal limits. Status post stress there is notation of diminished myocardial perfusion/tracer uptake in the basal towards distal lateral segments. There are similar type findings on the resting and stress polar map images.. There is diminished and systolic thickening and brightening.. [The gated Cardiolite study demonstrates myocardial thickening and inward wall motion]. The reported LVEF is 52%. Impression: 1. Rest and stress SPECT Cardiolite nuclear imaging demonstrate myocardial perfusion changes compatible with an area of stress-induced myocardial ischemia involving portions of the basal towards distal lateral segments. 2. The gated Cardiolite study reports an LVEF of 52%. This note was generated with Dragon dictation software. It may contain incorrect words, spelling, and punctuation that were not noted in checking the note before signing.
[2019-01-16 12:15] LABS: Bedside Glucose 141 mg/dL (70-110)
--- NOTE | 2019-01-16 12:59 | PCM.PN.HOSP ---
Patient Problems: Active and Suspected Problems (Last Reviewed 10/01/18 @ 10:23 by Shay Colon MD) Chest pain (Acute) Subjective: Patient seen and examined. He was admitted with complaint of chest pain. He has stressed that this morning which was abnormal. Patient has no complaints and feels well. Chest pain hasnt recurred. Labs and vitals reviewed. Vitals/I&O's: Vital Signs Temp Pulse Resp BP Pulse Ox 97.5 F L 60 16 119/57 L 98 01/16/19 11:57 01/16/19 12:02 01/16/19 11:57 01/16/19 12:02 01/16/19 11:57 Oxygen Delivery Method Room Air Weight: 235 lb 14.314 oz Body Mass Index (BMI) 35.9 Finger Stick Blood Glucose 133 Intake and Output for Last 24 Hours 01/14/19 01/15/19 01/16/19 23:59 23:59 23:59 Intake Total 480 / 480 877 / 877 Balance 480 / 480 877 / 877 General: Alert, Oriented x3, Cooperative, No apparent distress HEENT: Atraumatic, EOMI, Normocephalic Oral: Moist Mucosa Neck: Supple Lungs: Clear to auscultation, Normal air movement Cardiovascular: Regular rate, Regular Rhythm, Normal S1, Normal S2, No murmurs Abdomen: Bowel Sounds Present, Soft, Non Tender Extremities: No clubbing, No cyanosis, No edema, Capillary Refill Less than 3 Seconds Skin: No rashes, No breakdown Musculoskeletal: No Tenderness to Palpation of Joints or Extremities Lymphatic: No Cervical, Supraclavicular, or Inguinal Adenopathy Neurological: Cranial nerves II-XII grossly intact, Neuro grossly intact, Motor Exam 5/5 strength throughout Psych/Mental Status: Normal Affect, Appropriate, Alert and oriented to time, place, person, mood and affect Laboratory Results 01/15/19 13:00: WBC 9.0, RBC 4.14 L, Hgb 13.0, Hct 39.6 L, MCV 95.7 H, MCH 31.4, MCHC 32.8, RDW 14.0, RDW Differential 48.6 H, Plt Count 206, MPV 11.5, Immature Gran % (Auto) 0.200, Neut % (Auto) 65.0, Lymph % (Auto) 23.5, Ray % (Auto) 8.7, Eos % (Auto) 2.2, Baso % (Auto) 0.4, Absolute Neuts (auto) 5.8, Absolute Lymphs (auto) 2.10, Total Counted Not Reportable 01/15/19 13:00: Sodium 142, Potassium 4.1, Chloride 111 H, Carbon Dioxide 23.0, Anion Gap 8, BUN 28 H, Creatinine 1.05, Estim Creat Clear Calc 61.52, Est GFR (MDRD) Af Amer 89, Est GFR (MDRD) Non-Af 74, BUN/Creatinine Ratio 26.7 H, Glucose 70 L, Calcium 8.6, Troponin I < 0.015 01/15/19 13:00: Magnesium 1.7 01/15/19 16:31: POC Glucose 60 L 01/15/19 16:35: Troponin I < 0.015 01/15/19 19:15: Troponin I < 0.015 01/15/19 22:04: POC Glucose 170 H 01/16/19 06:18: WBC 6.9, RBC 3.96 L, Hgb 12.6 L, Hct 37.9 L, MCV 95.7 H, MCH 31.8, MCHC 33.2, RDW 13.7, RDW Differential 46.0 H, Plt Count 191, MPV 11.7 01/16/19 06:18: Sodium 144, Potassium 4.0, Chloride 113 H, Carbon Dioxide 26.0, Anion Gap 5, BUN 19 H, Creatinine 0.99, Estim Creat Clear Calc 65.25, Est GFR (MDRD) Af Amer 95, Est GFR (MDRD) Non-Af 79, BUN/Creatinine Ratio 19.1, Glucose 98, Calcium 8.5, Total Bilirubin 0.50, AST 23, ALT 35, Alkaline Phosphatase 63, Total Protein 6.7, Albumin 2.9 L, Globulin 3.8, Albumin/Globulin Ratio 0.8 L, Triglycerides 128, Cholesterol 97, LDL Cholesterol 41, VLDL Cholesterol 26, HDL Cholesterol 30 L 01/16/19 06:18: PT 13.6, INR 1.1, APTT 26.8 01/16/19 06:35: POC Glucose 90 01/16/19 11:54: POC Glucose 141 H Diagnostic Data Chest X-Ray 01/15/19 12:39 IMPRESSION: Degenerative changes, as described above. No demonstrated acute cardiopulmonary process. Electronically Signed: Gareth Garcia MD at 13:08 EDT , Service support , Current Medications Acetaminophen (Tylenol) 650 mg PO Q6H PRN PRN PRN Reason: Non-cardiac pain (mod-severe) Al Hydroxide/Mg Hydroxide (Mylanta Ii) 15 - 30 ml PO Q4H PRN PRN PRN Reason: INDIGESTION Albuterol Sulfate (Ventolin Aerosols) 2.5 mg INHALATION Q2H PRN PRN PRN Reason: dyspnea, wheezing Albuterol/Ipratropium (Duoneb) 3 ml INHALATION Q6HWA.RT [facility] Last Admin: 01/16/19 12:58 Dose: 3 ml Amlodipine Besylate (Norvasc) 5 mg PO DAILY [facility] Last Admin: 01/16/19 12:03 Dose: 5 mg Aspirin (Ecotrin) 81 mg PO DAILYCM [facility] Last Admin: 01/16/19 06:05 Dose: 81 mg Atorvastatin Calcium (Lipitor) 80 mg PO QHS [facility] Last Admin: 01/15/19 22:07 Dose: 80 mg Bupropion HCl (Wellbutrin Tablets) 100 mg PO BID [facility] Last Admin: 01/16/19 12:03 Dose: 100 mg Clopidogrel Bisulfate (Plavix) 75 mg PO DAILY [facility] Last Admin: 01/16/19 06:05 Dose: 75 mg Colchicine (Colchicine) 0.6 mg PO DAILY PRN PRN PRN Reason: GOUT FLARE UP Emollient Ointment (Eucerin Intensive Repair) 1 applic TOPICAL 4X/DAY [facility]; Protocol Last Admin: 01/16/19 12:04 Dose: 1 applicatio Enoxaparin Sodium (Lovenox) 40 mg SC DAILY@1000 [facility] Last Admin: 01/16/19 10:48 Dose: Not Given Hydralazine HCl (Apresoline Iv) 10 mg IV Q4H PRN PRN PRN Reason: SBP > 160 Sodium Chloride () 1,000 mls @ 100 mls/hr IV .Q10H [facility] Last Admin: 01/16/19 12:08 Dose: 100 mls/hr Insulin Glargine (Lantus (Bkc)) 47 units SC BID [facility] Last Admin: 01/16/19 12:03 Dose: 47 u Insulin Human Lispro (Humalog Kwikpen ([facility])) 0 unit SC ACHS [facility]; Protocol Last Admin: 01/16/19 11:59 Dose: Not Given Isosorbide Mononitrate (Imdur) 60 mg PO DAILY [facility] Last Admin: 01/16/19 12:03 Dose: 60 mg Losartan Potassium (Cozaar) 25 mg PO DAILY [facility] Last Admin: 01/16/19 06:05 Dose: 25 mg Magnesium Hydroxide (Milk Of Magnesia) 30 ml PO DAILY PRN PRN Reason: Constipation Metoprolol Tartrate (Lopressor (Beta Nhaeed)) 100 mg PO BID [facility] Last Admin: 01/16/19 12:02 Dose: 100 mg Morphine Sulfate () 1 - 2 mg IV Q4H PRN PRN PRN Reason: PAIN Nitroglycerin (Nitrostat) 0.4 mg SUBLINGUAL Q5M PRN PRN Reason: CARDIAC/CHEST PAIN Nutritional Formula (Lactose Free) (Glucerna Shake) 120 ml PO 4X/DAY [facility] Ondansetron HCl (Zofran) 4 mg IV Q8H PRN PRN PRN Reason: NAUSEA/VOMITING Oxycodone HCl (Oxyir) 5 - 10 mg PO Q4H PRN PRN PRN Reason: SEVERE PAIN (6-10/10) Sodium Chloride () 5 - 15 ml IV UD PRN PRN Reason: SALINE FLUSH Topiramate (Topamax) 100 mg PO BID [facility] Last Admin: 01/16/19 12:03 Dose: 100 mg Medical Necessity - Tobacco Use Smoking Status: Former smoker Tobacco Use: Cigarettes Assessment/Plan All Active Problems (Last Reviewed 10/01/18 @ 10:23 by Shay Colon MD) Chest pain (Acute) Hx of cataract surgery (Resolved) Fracture of phalanx of toe of right foot with delayed healing (Acute) Gout of knee (Acute) Cellulitis of toe of left foot (Acute) Septic arthritis of interphalangeal joint of toe of left foot (Acute) Septic arthritis of interphalangeal joint of toe of left foot (Acute) Gout of foot (Acute) Hypophosphatemia (Acute) Streptococcal cellulitis (Acute) Severe sepsis (Acute) Streptococcal bacteremia (Acute) Influenza A (Resolved) 1. Chest pain, to r/o ACS troponin x 3 wre negative stress test showed: Myocardial perfusion changes compatible with an area of stress-induced myocardial ischemia involving portions of the basal towards distal lateral segments and LVEF of 52%. Will consult cardiology. On aspirin 81 mg daily and statin as well as Imdur. Nitroglycerin as needed. 2. CAD status post stent x12 and CABG x4: On aspirin, Plavix, statin, metoprolol and losartan. 3. Hypertension: Controlled. On amlodipine, losartan and metoprolol. Hydralazine as needed. 4. Hyperlipidemia: On statin. 5. COPD: Chronic and currently stable. On breathing treatments. 6. Type 2 diabetes mellitus: On insulin. Hx AC at bedtime. Insulin sliding scale. 7. Gout: On allopurinol and colchicine 8. Anxiety depression: Wellbutrin. 9. ALLISON: On CPAP nightly. 10. Chronic bilateral lower extremity edema: Yoan wraps. To elevate lower extremities. DVT prophylaxis: Lovenox Code Visit Inpatient E&M: 68321 Subs Hosp L2
--- NOTE | 2019-01-16 13:03 | PN_ITS ---
Patient Problems: Active and Suspected Problems (Last Reviewed 10/01/18 @ 10:23 by Shay Colon MD) Chest pain (Acute) Subjective: Patient seen and examined. He was admitted with complaint of chest pain. He has stressed that this morning which was abnormal. Patient has no complaints and feels well. Chest pain hasnt recurred. Labs and vitals reviewed. Vitals/I&O's: Vital Signs Temp Pulse Resp BP Pulse Ox 97.5 F L 60 16 119/57 L 98 01/16/19 11:57 01/16/19 12:02 01/16/19 11:57 01/16/19 12:02 01/16/19 11:57 Oxygen Delivery Method Room Air Weight: 235 lb 14.314 oz Body Mass Index (BMI) 35.9 Finger Stick Blood Glucose 133 Intake and Output for Last 24 Hours 01/14/19 01/15/19 01/16/19 23:59 23:59 23:59 Intake Total 480 / 480 877 / 877 Balance 480 / 480 877 / 877 General: Alert, Oriented x3, Cooperative, No apparent distress HEENT: Atraumatic, EOMI, Normocephalic Oral: Moist Mucosa Neck: Supple Lungs: Clear to auscultation, Normal air movement Cardiovascular: Regular rate, Regular Rhythm, Normal S1, Normal S2, No murmurs Abdomen: Bowel Sounds Present, Soft, Non Tender Extremities: No clubbing, No cyanosis, No edema, Capillary Refill Less than 3 Seconds Skin: No rashes, No breakdown Musculoskeletal: No Tenderness to Palpation of Joints or Extremities Lymphatic: No Cervical, Supraclavicular, or Inguinal Adenopathy Neurological: Cranial nerves II-XII grossly intact, Neuro grossly intact, Motor Exam 5/5 strength throughout Psych/Mental Status: Normal Affect, Appropriate, Alert and oriented to time, place, person, mood and affect Laboratory Results 01/15/19 13:00: WBC 9.0, RBC 4.14 L, Hgb 13.0, Hct 39.6 L, MCV 95.7 H, MCH 31.4, MCHC 32.8, RDW 14.0, RDW Differential 48.6 H, Plt Count 206, MPV 11.5, Immature Gran % (Auto) 0.200, Neut % (Auto) 65.0, Lymph % (Auto) 23.5, [place] % (Auto) 8.7, Eos % (Auto) 2.2, Baso % (Auto) 0.4, Absolute Neuts (auto) 5.8, Absolute Lymphs (auto) 2.10, Total Counted Not Reportable 01/15/19 13:00: Sodium 142, Potassium 4.1, Chloride 111 H, Carbon Dioxide 23.0, Anion Gap 8, BUN 28 H, Creatinine 1.05, Estim Creat Clear Calc 61.52, Est GFR (MDRD) Af Amer 89, Est GFR (MDRD) Non-Af 74, BUN/Creatinine Ratio 26.7 H, Glucose 70 L, Calcium 8.6, Troponin I < 0.015 01/15/19 13:00: Magnesium 1.7 01/15/19 16:31: POC Glucose 60 L 01/15/19 16:35: Troponin I < 0.015 01/15/19 19:15: Troponin I < 0.015 01/15/19 22:04: POC Glucose 170 H 01/16/19 06:18: WBC 6.9, RBC 3.96 L, Hgb 12.6 L, Hct 37.9 L, MCV 95.7 H, MCH 31.8, MCHC 33.2, RDW 13.7, RDW Differential 46.0 H, Plt Count 191, MPV 11.7 01/16/19 06:18: Sodium 144, Potassium 4.0, Chloride 113 H, Carbon Dioxide 26.0, Anion Gap 5, BUN 19 H, Creatinine 0.99, Estim Creat Clear Calc 65.25, Est GFR (MDRD) Af Amer 95, Est GFR (MDRD) Non-Af 79, BUN/Creatinine Ratio 19.1, Glucose 98, Calcium 8.5, Total Bilirubin 0.50, AST 23, ALT 35, Alkaline Phosphatase 63, Total Protein 6.7, Albumin 2.9 L, Globulin 3.8, Albumin/Globulin Ratio 0.8 L, Triglycerides 128, Cholesterol 97, LDL Cholesterol 41, VLDL Cholesterol 26, HDL Cholesterol 30 L 01/16/19 06:18: PT 13.6, INR 1.1, APTT 26.8 01/16/19 06:35: POC Glucose 90 01/16/19 11:54: POC Glucose 141 H Diagnostic Data Chest X-Ray 01/15/19 12:39 IMPRESSION: Degenerative changes, as described above. No demonstrated acute cardiopulmonary process. Electronically Signed: Gareth Garcia MD at 13:08 EDT , Service support , Current Medications Acetaminophen (Tylenol) 650 mg PO Q6H PRN PRN PRN Reason: Non-cardiac pain (mod-severe) Al Hydroxide/Mg Hydroxide (Mylanta Ii) 15 - 30 ml PO Q4H PRN PRN PRN Reason: INDIGESTION Albuterol Sulfate (Ventolin Aerosols) 2.5 mg INHALATION Q2H PRN PRN PRN Reason: dyspnea, wheezing Albuterol/Ipratropium (Duoneb) 3 ml INHALATION Q6HWA.RT [facility] Last Admin: 01/16/19 12:58 Dose: 3 ml Amlodipine Besylate (Norvasc) 5 mg PO DAILY [facility] Last Admin: 01/16/19 12:03 Dose: 5 mg Aspirin (Ecotrin) 81 mg PO DAILYCM [facility] Last Admin: 01/16/19 06:05 Dose: 81 mg Atorvastatin Calcium (Lipitor) 80 mg PO QHS [facility] Last Admin: 01/15/19 22:07 Dose: 80 mg Bupropion HCl (Wellbutrin Tablets) 100 mg PO BID [facility] Last Admin: 01/16/19 12:03 Dose: 100 mg Clopidogrel Bisulfate (Plavix) 75 mg PO DAILY [facility] Last Admin: 01/16/19 06:05 Dose: 75 mg Colchicine (Colchicine) 0.6 mg PO DAILY PRN PRN PRN Reason: GOUT FLARE UP Emollient Ointment (Eucerin Intensive Repair) 1 applic TOPICAL 4X/DAY [facility]; Protocol Last Admin: 01/16/19 12:04 Dose: 1 applicatio Enoxaparin Sodium (Lovenox) 40 mg SC DAILY@1000 [facility] Last Admin: 01/16/19 10:48 Dose: Not Given Hydralazine HCl (Apresoline Iv) 10 mg IV Q4H PRN PRN PRN Reason: SBP > 160 Sodium Chloride () 1,000 mls @ 100 mls/hr IV .Q10H [facility] Last Admin: 01/16/19 12:08 Dose: 100 mls/hr Insulin Glargine (Lantus (Bkc)) 47 units SC BID [facility] Last Admin: 01/16/19 12:03 Dose: 47 u Insulin Human Lispro (Humalog Kwikpen ([facility])) 0 unit SC ACHS [facility]; Protocol Last Admin: 01/16/19 11:59 Dose: Not Given Isosorbide Mononitrate (Imdur) 60 mg PO DAILY [facility] Last Admin: 01/16/19 12:03 Dose: 60 mg Losartan Potassium (Cozaar) 25 mg PO DAILY [facility] Last Admin: 01/16/19 06:05 Dose: 25 mg Magnesium Hydroxide (Milk Of Magnesia) 30 ml PO DAILY PRN PRN Reason: Constipation Metoprolol Tartrate (Lopressor (Beta Naheed)) 100 mg PO BID [facility] Last Admin: 01/16/19 12:02 Dose: 100 mg Morphine Sulfate () 1 - 2 mg IV Q4H PRN PRN PRN Reason: PAIN Nitroglycerin (Nitrostat) 0.4 mg SUBLINGUAL Q5M PRN PRN Reason: CARDIAC/CHEST PAIN Nutritional Formula (Lactose Free) (Glucerna Shake) 120 ml PO 4X/DAY [facility] Ondansetron HCl (Zofran) 4 mg IV Q8H PRN PRN PRN Reason: NAUSEA/VOMITING Oxycodone HCl (Oxyir) 5 - 10 mg PO Q4H PRN PRN PRN Reason: SEVERE PAIN (6-10/10) Sodium Chloride () 5 - 15 ml IV UD PRN PRN Reason: SALINE FLUSH Topiramate (Topamax) 100 mg PO BID [facility] Last Admin: 01/16/19 12:03 Dose: 100 mg Medical Necessity - Tobacco Use Smoking Status: Former smoker Tobacco Use: Cigarettes Assessment/Plan All Active Problems (Last Reviewed 10/01/18 @ 10:23 by Shay Colon MD) Chest pain (Acute) Hx of cataract surgery (Resolved) Fracture of phalanx of toe of right foot with delayed healing (Acute) Gout of knee (Acute) Cellulitis of toe of left foot (Acute) Septic arthritis of interphalangeal joint of toe of left foot (Acute) Septic arthritis of interphalangeal joint of toe of left foot (Acute) Gout of foot (Acute) Hypophosphatemia (Acute) Streptococcal cellulitis (Acute) Severe sepsis (Acute) Streptococcal bacteremia (Acute) Influenza A (Resolved) 1. Chest pain, to r/o ACS * troponin x 3 wre negative * stress test showed: Myocardial perfusion changes compatible with an area of stress-induced myocardial ischemia involving portions of the basal towards distal lateral segments and LVEF of 52%. * Will consult cardiology. * On aspirin 81 mg daily and statin as well as Imdur. Nitroglycerin as needed. * 2. CAD status post stent x12 and CABG x4: On aspirin, Plavix, statin, metoprolol and losartan. 3. Hypertension: Controlled. On amlodipine, losartan and metoprolol. Hydralazine as needed. 4. Hyperlipidemia: On statin. 5. COPD: Chronic and currently stable. On breathing treatments. 6. Type 2 diabetes mellitus: On insulin. Hx AC at bedtime. Insulin sliding scale. 7. Gout: On allopurinol and colchicine 8. Anxiety depression: Wellbutrin. 9. ALLISON: On CPAP nightly. 10. Chronic bilateral lower extremity edema: Yoan wraps. To elevate lower extremities. DVT prophylaxis: Lovenox Code Visit Inpatient E&M: 16542 Subs Hosp L2
[2019-01-16] MEDS: Insulin Lispro 100 UNIT/ML INSULN.PEN SC (16:38)
[2019-01-16] MEDS: Glucerna Shake 120 ML LIQUID PO ×2 (16:43→22:37)
--- NOTE | 2019-01-16 16:57 | PCM.CONS.C ---
Problem List (1) Chest pain Status: Acute Qualifiers: Chest pain type: unspecified Qualified Code(s): R07.9 - Chest pain, unspecified (2) CAD (coronary artery disease) Status: Chronic Qualifiers: Coronary Disease-Associated Artery/Lesion type: unspecified vessel or lesion type [place] vs. transplanted heart: unspecified whether [place] or transplanted heart Associated angina: angina presence unspecified Qualified Code(s): I25.10 - Atherosclerotic heart disease of [place] coronary artery without angina pectoris Comment: 1995 JENSEN -LAD, SVG-om1. SVG-PLB of RCA, SVG-D1 (3) Hx of CABG Status: Chronic Comment: [id number], SVG-OM1, SVG-PLB of RCA, SVG-D1; (4) Stented coronary artery Status: Chronic Comment: [facility] w/PCI-STEVE X 2-SVG-OM3 2008; [facility] w/PCI-Steve right post AV artery X 1; STEVE-RCA X 3 10/30/13; [facility]-PCI-PLB of RCA 8.12.16 @ [facility] (5) HLD (hyperlipidemia) Status: Chronic Qualifiers: Hyperlipidemia type: pure hypercholesterolemia Qualified Code(s): E78.00 - Pure hypercholesterolemia, unspecified; E78.0 - Pure hypercholesterolemia (6) HTN (hypertension) Status: Chronic Qualifiers: Hypertension type: essential hypertension Qualified Code(s): I10 - Essential (primary) hypertension (7) Type II diabetes mellitus Status: Chronic (8) AAA (abdominal aortic aneurysm) without rupture Status: Chronic (9) COPD (chronic obstructive pulmonary disease) Status: Chronic Qualifiers: COPD type: unspecified COPD Qualified Code(s): J44.9 - Chronic obstructive pulmonary disease, unspecified Reason for Consult Date of Consultation: 01/16/19 History of Present Illness: The patient is a 73 year old white male with a past cardiovascular history which is included underlying hyperlipidemia, hypertension, CAD, PR, CABG, PCI, superimposed on diabetes mellitus and COPD who was referred for evaluation of chest pain and a subsequent abnormal pharmacologic stress nuclear imaging study. The patient states that his recently, his children have been in his home, and he was experiencing chest discomfort which he described as a sharp left-sided chest discomfort. He states he attributed this to the recent emotional stress . However based upon these concerns he presented to the emergency department for further evaluation and care. He was evaluated and soundly brought into the hospital for further evaluation and care. He states that he believes his symptoms abated without any specific therapy. He has been undergoing evaluation with cardiac enzymes which have been negative. His ECG demonstrated sinus rhythm with no acute ECG changes. A chest x-ray was performed which appeared to demonstrate no acute cardiopulmonary findings. He subsequently underwent evaluation with a pharmacologic stress nuclear imaging study. This was considered abnormal for evidence of stress-induced myocardial ischemia in the lateral distribution. The patient denies any ongoing symptoms of orthopnea or PND. He states he has had chronic left lower extremity edema since his CABG. He has had no near syncope or syncope. He notes that his chest discomfort appeared to be somewhat different from discomfort he has had in the past which he believes is correlated with his underlying CAD. He has undergone extensive cardiovascular evaluation in the past at the [facility] as well as [facility] in [facility]. He is undergone evaluation with diagnostic cardiac catheterization and subsequent PCI. [] Past Medical History Allergies/Adverse Reactions: Allergies lisinopril Allergy (Verified 01/15/19 12:38) Angioedema Sulfa (Sulfonamide Antibiotics) Allergy (Verified 01/15/19 12:38) Hives piperacillin Adverse Reaction (Severe, Verified 01/15/19 12:38) Unknown Home Medications: Ambulatory Orders Medication Instructions Recorded Amlodipine [Norvasc] 5 mg PO DAILY 12/07/13 Clopidogrel Bisulfate [Plavix] 75 mg PO DAILY 12/07/13 Insulin Aspart [Novolog Flexpen] See Protocol SQ TIDCM 12/07/13 Insulin Glargine [Lantus SoloStar 70 units SC QHS 12/07/13 Pen] Isosorbide Mononitrate [Isosorbide 60 mg PO DAILY 12/07/13 Mononitrate ER] Losartan Potassium [Cozaar] 25 mg PO DAILY 12/07/13 Metformin HCl [Glucophage] 1,000 mg PO BIDCM 12/07/13 Metoprolol Tartrate [Lopressor 100 mg PO BID 12/07/13 (beta aixa)] buPROPion tablets [Wellbutrin 100 mg PO BID 12/07/13 tablets] Acetaminophen [Tylenol Tablet] 650 mg PO Q4H PRN PRN #0 tab 09/05/16 Albuterol Inhaler [Ventolin Hfa] 1 - 2 puff INHALATION Q4H PRN PRN 09/05/16 #1 inhaler Aspirin [Aspir-Low] 81 mg PO DAILY 12/26/16 Atorvastatin Calcium [Lipitor] 80 mg PO QHS 12/26/16 Budesonide/Formoterol 160/4.5 2 puff INHALATION BID 12/26/16 [Symbicort 160/4.5 Mcg Inhaler (SP)] Cefadroxil Hydrate [Duricef] 500 mg PO BID #60 cap 01/13/17 Ibuprofen 2 - 3 mg PO TID PRN #1 tab 01/13/17 nitroglycerin 0.4 mg sublingual 0.4 mg SUBLINGUAL Q5M PRN 02/09/18 tablet Past Medical History (Chronic Problems): Chronic Problems (Last Reviewed 10/01/18 @ 10:23 by Shay Colon MD) Hypotension (Chronic) Encounter for long-term current use of high risk medication (Chronic) Old myocardial infarction (Chronic) Atherosclerotic heart disease of [place] coronary artery without angina pectoris (Chronic) AAA (abdominal aortic aneurysm) without rupture (Chronic) HLD (hyperlipidemia) (Chronic) Diabetes mellitus with polyneuropathy (Chronic) CAD (coronary artery disease) (Chronic) 1995 JENSEN -LAD, SVG-om1. SVG-PLB of RCA, SVG-D1 COPD (chronic obstructive pulmonary disease) (Chronic) Tinea pedis (Chronic) Hx of CABG (Chronic) [id number], SVG-OM1, SVG-PLB of RCA, SVG-D1; Type II diabetes mellitus (Chronic) HTN (hypertension) (Chronic) Stented coronary artery (Chronic) [facility] w/PCI-STEVE X 2-SVG-OM3 2008; [facility] w/PCI-Steve right post AV artery X 1; STEVE-RCA X 3 10/30/13; [facility]-PCI-PLB of RCA 8.12.16 @ [facility] Venous stasis (Chronic) chronic venous stasis with lymphedema Morbid obesity (Chronic) Peripheral neuropathy (Chronic) Surgical History: angioplasty, coronary bypass surgery - 20 years ago., - - cardiac stents x 13 Psychiatric History: Anxiety, Depression - *Family History Paternal Family History: Family History (Last Reviewed 10/01/18 @ 10:23 by Sahy Colon MD) Mother Heart disease History Items: Diabetes - Mother, Heart Disease - Father, - - Patient was notable alcoholic. Maternal Family History: Family History (Last Reviewed 10/01/18 @ 10:23 by Shay Colon MD) Mother Heart disease History Items: Diabetes, Heart Disease Lives: Alone - recently passed. 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 Drugs: None Review of Systems - Review of Systems General: Denies: Fever, Night Sweats, Fatigue Cardiovascular: Reports: Chest Discomfort, Chest Discomfort at Rest, Peripheral Edema. Denies: Shortness of Breath, Orthopnea, PND, Palpitations, Lightheadedness, Dizziness, Near Syncope, Syncope Respiratory: Denies: Cough, Sputum Production, Hemoptysis Gastrointestinal: Denies: Hematemesis, Hematochezia, Melena Genitourinary: Denies: Dysuria, Hematuria Skin: Denies: Rash Subjectve: This is a 73-year-old white male who appears to be resting comfortably at the moment in no acute distress. Objective: Vital Signs Temp Pulse Resp BP Pulse Ox 97.6 F L 59 L 16 109/61 97 01/16/19 15:35 01/16/19 15:35 01/16/19 15:35 01/16/19 15:35 01/16/19 15:35 Oxygen Delivery Method Room Air Weight: 235 lb 14.314 oz Body Mass Index (BMI) 35.9 Finger Stick Blood Glucose 133 Intake and Output for Last 24 Hours 01/14/19 01/15/19 01/16/19 23:59 23:59 23:59 Intake Total 480 / 480 877 / 877 Balance 480 / 480 877 / 877 General: Awake, Alert, Oriented x 3, Cooperative, No Acute Distress HEENT: Atraumatic, Normocephalic, PERRL, EOMI, Sclera Non Icteric Oral: Moist Mucosa Neck: Supple, Good ROM, No JVD Lungs: Clear to auscultation Cardiovascular: Regular Rhythm, Normal S1, Normal S2 Vascular: No Carotid Bruits Abdomen: Bowel Sounds Present, Soft, Non Tender Extremities: No Cyanosis, No Clubbing, Mild LLE Edema Neurological: No Focal Motor or Sensory Deficit Psych/Mental Status: Appropriate 01/15/19 16:35: Troponin I < 0.015 01/15/19 19:15: Troponin I < 0.015 01/16/19 06:18: WBC 6.9, RBC 3.96 L, Hgb 12.6 L, Hct 37.9 L, MCV 95.7 H, MCH 31.8, MCHC 33.2, RDW 13.7, RDW Differential 46.0 H, Plt Count 191, MPV 11.7 01/16/19 06:18: Sodium 144, Potassium 4.0, Chloride 113 H, Carbon Dioxide 26.0, Anion Gap 5, BUN 19 H, Creatinine 0.99, Est GFR (MDRD) Af Amer 95, Est GFR (MDRD) Non-Af 79, BUN/Creatinine Ratio 19.1, Glucose 98, Calcium 8.5, Total Bilirubin 0.50, Triglycerides 128, Cholesterol 97, LDL Cholesterol 41, VLDL Cholesterol 26, HDL Cholesterol 30 L 01/16/19 06:18: PT 13.6, INR 1.1, APTT 26.8 Rhythm: Sinus rhythm EKG: As noted above ECHO: 12-27-16: Left ventricle considered normal with reported LVEF of 65%; mild concentric LVH; moderate left atrial enlargement; moderate right atrial enlargement; moderate mitral annular calcification; mild diffuse mitral valve thickening with trivial MR; mild TR; mild diffuse aortic valve thickening; mild atherosclerosis of the aortic arch; estimated RV systolic pressure 58 mmHg compatible with pulmonary hypertension Stress Test: Date: 01-16-19 Procedure: Pharmacologic stress nuclear imaging study Indications: Chest pain; CAD; status post PCI; status post CABG Consent: Per the patient Procedure: The patient underwent pharmacologic (Regadenoson) evaluation with a peak heart rate of 76 beats per minute (51 %predicted maximal heart rate) and a peak blood pressure of 124/68 mmHg. The baseline ECG demonstrated sinus bradycardia. The peak pharmacologic ECG demonstrated no obvious ECG changes. [There were no cardiac dysrhythmias pretest, during pharmacologic infusion, or recovery]. [There was no complaint of chest discomfort during pharmacologic infusion or recovery]. The examination was discontinued secondary to completion of protocol. Impression: 1. Pharmacologic (Regadenoson) evaluation 2. Peak pharmacologic ECG with no obvious ECG changes. 3. [There were no cardiac dysrhythmias pretest, during pharmacologic infusion, or recovery]. 4. Nuclear images pending Myocardial perfusion imaging study: Technique: The patient was injected with 14.5 millicuries of technetium 99m Cardiolite and subsequently rest SPECT Cardiolite nuclear imaging was obtained in the horizontal long, vertical long, and short axis views. The patient underwent pharmacologic (Regadenoson) evaluation with a peak heart rate of 76 beats per minute (51 % percent predicted maximal heart rate) and a peak blood pressure of 124/68 mmHg. The patient was injected with 44.7 millicuries of technetium 99m Cardiolite and subsequently stress SPECT Cardiolite nuclear imaging was obtained in the horizontal long, vertical long, and short axis views. A gated Cardiolite study at peak stress was obtained. Interpretation: Rest and stress SPECT Cardiolite nuclear imaging status post realignment, normalization, and attenuation correction demonstrate at rest the appearance of relative uniform tracer uptake and myocardial perfusion appearing within normal limits. Status post stress there is notation of diminished myocardial perfusion/tracer uptake in the basal towards distal lateral segments. There are similar type findings on the resting and stress polar map images.. There is diminished and systolic thickening and brightening.. [The gated Cardiolite study demonstrates myocardial thickening and inward wall motion]. The reported LVEF is 52%. Impression: 1. Rest and stress SPECT Cardiolite nuclear imaging demonstrate myocardial perfusion changes compatible with an area of stress-induced myocardial ischemia involving portions of the basal towards distal lateral segments. 2. The gated Cardiolite study reports an LVEF of 52%. Cardiac Cath: 05-03-16: [facility]: Left ventricle: Moderate global left ventricular hypokinesis with an LVEF of 40 to 45% Left main coronary artery with no obstructing lesions LAD with proximal 90% stenosis and a patent pre-existing stent with 20% in-stent restenosis LCx with 100% occlusion RCA with a patent pre-existing stent which was patent Right AV segment with 90% stenosis JENSEN graft to the LAD and sequential portion to the diagonal branch patent Right to left collateral flow SVG grafts known to be occluded on previous cardiac catheterization Successful PTCA to the right AV segment 12-07-13: [facility]: Left ventricle: LVEF of 65% with moderate hypokinesis of the inferobasilar wall and moderate global left ventricular hypokinesis Left main coronary artery patent LAD reported as giving rise to a single diagonal branch artery LCx reported as giving rise to a single OM artery RCA reported as having a right AV artery being occluded and a subsequent proximal to mid 90% stenosis JENSEN graft to the LAD and diagonal branch patent SVG graft to the diagonal branch occluded SVG graft to the OM branch occluded SVG graft to the right posterior lateral branch occluded Left to left collateral flow Successful PTCA/STEVE to the right AV segment Successful PTCA/STEVE to the proximal to mid RCA PCI: 05-03-16: [facility]: Successful PTCA to the right AV segment 12-07-13: [facility]: Successful PTCA/STEVE to the right AV segment and successful PTCA/STEVE to the proximal to mid RCA CT Surgery: 1995: Reported with a JENSEN to the LAD with sequential portion to the diagonal branch; SVG to the diagonal branch; SVG to the OM; SVG to the RCA system CXR: Preliminary report: Post operative changes: No acute cardiopulmonary disease appreciated: Please see official report Assessment/Plan 1. Chest pain The patient has had chest pain. The chest pain appears to be somewhat atypical. However at the same time the patient has been found to have evidence of an abnormal pharmacologic stress nuclear imaging study suggesting stress-induced myocardial ischemia and portions of the lateral segments. At the present time the patient's rule out PR protocol appears to be negative based upon negative cardiac enzymes and no acute ECG changes. He has been on medical therapy with aspirin, antiplatelets, nitrates, beta-blockers, afterload reducing agents, and lipid-lowering agents. He is also been receiving anticoagulant therapy while in the hospital. At the present time the patient would be recommended for continued cardiac rhythm monitoring and subsequent evaluation with diagnostic cardiac catheterization. The procedure risks has been discussed with the patient. He is agreeable to this approach. Based upon his [facility] coverage an attempt is being made to have the patient transported to the [facility] for further evaluation and care. 2. CAD status post CABG status post PCI The patient has a history of extensive underlying cardiovascular disease as previously documented. At the moment his rule out PR protocol is negative. His pharmacologic stress nuclear imaging study is abnormal. He will continue medical management. He will continue with plans for future diagnostic cardiac catheterization. Again an attempt is being made to arrange for the patient to be transferred to the [facility] for further evaluation and care. 3. Hyperlipidemia The patient will continue risk factor modification and medical management. 4. Hypertension The patient's blood pressure will be followed. He will continue medical therapy with adjustment as needed. 5. Diabetes mellitus The patient will continue under the care of internal medicine. 6. Abdominal aortic aneurysm The patient has a history of an abdominal aortic aneurysm. The details are unknown at this time. Depending upon the details of his abdominal aortic aneurysm history and follow-up this may need to be reassessed noninvasively with either ultrasound studies or abdominal CT scans, etc. 7. COPD The patient will continue evaluation care per his primary care physicians. Comment: The above was discussed and reviewed with the patient. He was agreeable to this approach. This note was generated with [employer] dictation software. It may contain incorrect words, spelling, and punctuation that were not noted in checking the note before signing.
--- NOTE | 2019-01-16 17:01 | CON.PCM_ITS ---
Problem List (1) Chest pain Status: Acute Qualifiers: Chest pain type: unspecified Qualified Code(s): R07.9 - Chest pain, unspecified (2) CAD (coronary artery disease) Status: Chronic Qualifiers: Coronary Disease-Associated Artery/Lesion type: unspecified vessel or lesion type [place] vs. transplanted heart: unspecified whether barrow or transplanted heart Associated angina: angina presence unspecified Qualified Code(s): I25.10 - Atherosclerotic heart disease of barrow coronary artery without angina pectoris Comment: 1995 JENSEN -LAD, SVG-om1. SVG-PLB of RCA, SVG-D1 (3) Hx of CABG Status: Chronic Comment: [id number], SVG-OM1, SVG-PLB of RCA, SVG-D1; (4) Stented coronary artery Status: Chronic Comment: [facility] w/PCI-STEVE X 2-SVG-OM3 2008; [facility] w/PCI-Steve right post AV artery X 1; STEVE-RCA X 3 10/30/13; [facility]-PCI-PLB of RCA 8.12.16 @ [facility] (5) HLD (hyperlipidemia) Status: Chronic Qualifiers: Hyperlipidemia type: pure hypercholesterolemia Qualified Code(s): E78.00 - Pure hypercholesterolemia, unspecified; E78.0 - Pure hypercholesterolemia (6) HTN (hypertension) Status: Chronic Qualifiers: Hypertension type: essential hypertension Qualified Code(s): I10 - Essential (primary) hypertension (7) Type II diabetes mellitus Status: Chronic (8) AAA (abdominal aortic aneurysm) without rupture Status: Chronic (9) COPD (chronic obstructive pulmonary disease) Status: Chronic Qualifiers: COPD type: unspecified COPD Qualified Code(s): J44.9 - Chronic obstructive pulmonary disease, unspecified Reason for Consult Date of Consultation: 01/16/19 History of Present Illness: The patient is a 73 year old white male with a past cardiovascular history which is included underlying hyperlipidemia, hypertension, CAD, SC, CABG, PCI, superimposed on diabetes mellitus and COPD who was referred for evaluation of chest pain and a subsequent abnormal pharmacologic stress nuclear imaging study. The patient states that his recently, his children have been in his home, and he was experiencing chest discomfort which he described as a sharp left-sided chest discomfort. He states he attributed this to the recent emotional stress . However based upon these concerns he presented to the emergency department for further evaluation and care. He was evaluated and soundly brought into the hospital for further evaluation and care. He states that he believes his symptoms abated without any specific therapy. He has been undergoing evaluation with cardiac enzymes which have been negative. His ECG demonstrated sinus rhythm with no acute ECG changes. A chest x-ray was performed which appeared to demonstrate no acute cardiopulmonary findings. He subsequently underwent evaluation with a pharmacologic stress nuclear imaging study. This was considered abnormal for evidence of stress-induced myocardial ischemia in the lateral distribution. The patient denies any ongoing symptoms of orthopnea or PND. He states he has had chronic left lower extremity edema since his CABG. He has had no near syncope or syncope. He notes that his chest discomfort appeared to be somewhat different from discomfort he has had in the past which he believes is correlated with his underlying CAD. He has undergone extensive cardiovascular evaluation in the past at the [facility] as well as [facility] in [facility]. He is undergone evaluation with diagnostic cardiac catheterization and subsequent PCI. [] Past Medical History Allergies/Adverse Reactions: Allergies lisinopril Allergy (Verified 01/15/19 12:38) Angioedema Sulfa (Sulfonamide Antibiotics) Allergy (Verified 01/15/19 12:38) Hives piperacillin Adverse Reaction (Severe, Verified 01/15/19 12:38) Unknown Home Medications: Ambulatory Orders Medication Instructions Recorded Amlodipine [Norvasc] 5 mg PO DAILY 12/07/13 Clopidogrel Bisulfate [Plavix] 75 mg PO DAILY 12/07/13 Insulin Aspart [Novolog Flexpen] See Protocol SQ TIDCM 12/07/13 Insulin Glargine [Lantus SoloStar 70 units SC QHS 12/07/13 Pen] Isosorbide Mononitrate [Isosorbide 60 mg PO DAILY 12/07/13 Mononitrate ER] Losartan Potassium [Cozaar] 25 mg PO DAILY 12/07/13 Metformin HCl [Glucophage] 1,000 mg PO BIDCM 12/07/13 Metoprolol Tartrate [Lopressor 100 mg PO BID 12/07/13 (beta aixa)] buPROPion tablets [Wellbutrin 100 mg PO BID 12/07/13 tablets] Acetaminophen [Tylenol Tablet] 650 mg PO Q4H PRN PRN #0 tab 09/05/16 Albuterol Inhaler [Ventolin Hfa] 1 - 2 puff INHALATION Q4H PRN PRN 09/05/16 #1 inhaler Aspirin [Aspir-Low] 81 mg PO DAILY 12/26/16 Atorvastatin Calcium [Lipitor] 80 mg PO QHS 12/26/16 Budesonide/Formoterol 160/4.5 2 puff INHALATION BID 12/26/16 [Symbicort 160/4.5 Mcg Inhaler (SP)] Cefadroxil Hydrate [Duricef] 500 mg PO BID #60 cap 01/13/17 Ibuprofen 2 - 3 mg PO TID PRN #1 tab 01/13/17 nitroglycerin 0.4 mg sublingual 0.4 mg SUBLINGUAL Q5M PRN 02/09/18 tablet Past Medical History (Chronic Problems): Chronic Problems (Last Reviewed 10/01/18 @ 10:23 by Shay Colon MD) Hypotension (Chronic) Encounter for long-term current use of high risk medication (Chronic) Old myocardial infarction (Chronic) Atherosclerotic heart disease of barrow coronary artery without angina pectoris (Chronic) AAA (abdominal aortic aneurysm) without rupture (Chronic) HLD (hyperlipidemia) (Chronic) Diabetes mellitus with polyneuropathy (Chronic) CAD (coronary artery disease) (Chronic) 1995 JENSEN -LAD, SVG-om1. SVG-PLB of RCA, SVG-D1 COPD (chronic obstructive pulmonary disease) (Chronic) Tinea pedis (Chronic) Hx of CABG (Chronic) [id number], SVG-OM1, SVG-PLB of RCA, SVG-D1; Type II diabetes mellitus (Chronic) HTN (hypertension) (Chronic) Stented coronary artery (Chronic) [facility] w/PCI-STEVE X 2-SVG-OM3 2008; [facility] w/PCI-Steve right post AV artery X 1; STEVE- RCA X 3 10/30/13; [facility]-PCI-PLB of RCA 8.12.16 @ [facility] Venous stasis (Chronic) chronic venous stasis with lymphedema Morbid obesity (Chronic) Peripheral neuropathy (Chronic) Surgical History: angioplasty, coronary bypass surgery - 20 years ago., - - cardiac stents x 13 Psychiatric History: Anxiety, Depression - *Family History Paternal Family History: Family History (Last Reviewed 10/01/18 @ 10:23 by Shay Colon MD) Mother Heart disease History Items: Diabetes - Mother, Heart Disease - Father, - - Patient was notable alcoholic. Maternal Family History: Family History (Last Reviewed 10/01/18 @ 10:23 by Shay Colon MD) Mother Heart disease History Items: Diabetes, Heart Disease Lives: Alone - recently passed. 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 Drugs: None Review of Systems - Review of Systems General: Denies: Fever, Night Sweats, Fatigue Cardiovascular: Reports: Chest Discomfort, Chest Discomfort at Rest, Peripheral Edema. Denies: Shortness of Breath, Orthopnea, PND, Palpitations, Lightheadedness, Dizziness, Near Syncope, Syncope Respiratory: Denies: Cough, Sputum Production, Hemoptysis Gastrointestinal: Denies: Hematemesis, Hematochezia, Melena Genitourinary: Denies: Dysuria, Hematuria Skin: Denies: Rash Subjectve: This is a 73-year-old white male who appears to be resting comfortably at the moment in no acute distress. Objective: Vital Signs Temp Pulse Resp BP Pulse Ox 97.6 F L 59 L 16 109/61 97 01/16/19 15:35 01/16/19 15:35 01/16/19 15:35 01/16/19 15:35 01/16/19 15:35 Oxygen Delivery Method Room Air Weight: 235 lb 14.314 oz Body Mass Index (BMI) 35.9 Finger Stick Blood Glucose 133 Intake and Output for Last 24 Hours 01/14/19 01/15/19 01/16/19 23:59 23:59 23:59 Intake Total 480 / 480 877 / 877 Balance 480 / 480 877 / 877 General: Awake, Alert, Oriented x 3, Cooperative, No Acute Distress HEENT: Atraumatic, Normocephalic, PERRL, EOMI, Sclera Non Icteric Oral: Moist Mucosa Neck: Supple, Good ROM, No JVD Lungs: Clear to auscultation Cardiovascular: Regular Rhythm, Normal S1, Normal S2 Vascular: No Carotid Bruits Abdomen: Bowel Sounds Present, Soft, Non Tender Extremities: No Cyanosis, No Clubbing, Mild LLE Edema Neurological: No Focal Motor or Sensory Deficit Psych/Mental Status: Appropriate 01/15/19 16:35: Troponin I < 0.015 01/15/19 19:15: Troponin I < 0.015 01/16/19 06:18: WBC 6.9, RBC 3.96 L, Hgb 12.6 L, Hct 37.9 L, MCV 95.7 H, MCH 31.8, MCHC 33.2, RDW 13.7, RDW Differential 46.0 H, Plt Count 191, MPV 11.7 01/16/19 06:18: Sodium 144, Potassium 4.0, Chloride 113 H, Carbon Dioxide 26.0, Anion Gap 5, BUN 19 H, Creatinine 0.99, Est GFR (MDRD) Af Amer 95, Est GFR (MDRD) Non-Af 79, BUN/Creatinine Ratio 19.1, Glucose 98, Calcium 8.5, Total Bilirubin 0.50, Triglycerides 128, Cholesterol 97, LDL Cholesterol 41, VLDL Cholesterol 26, HDL Cholesterol 30 L 01/16/19 06:18: PT 13.6, INR 1.1, APTT 26.8 Rhythm: Sinus rhythm EKG: As noted above ECHO: 12-27-16: Left ventricle considered normal with reported LVEF of 65%; mild concentric LVH; moderate left atrial enlargement; moderate right atrial enlargement; moderate mitral annular calcification; mild diffuse mitral valve thickening with trivial MR; mild TR; mild diffuse aortic valve thickening; mild atherosclerosis of the aortic arch; estimated RV systolic pressure 58 mmHg compatible with pulmonary hypertension Stress Test: Date: 01-16-19 Procedure: Pharmacologic stress nuclear imaging study Indications: Chest pain; CAD; status post PCI; status post CABG Consent: Per the patient Procedure: The patient underwent pharmacologic (Regadenoson) evaluation with a peak heart rate of 76 beats per minute (51 %predicted maximal heart rate) and a peak blood pressure of 124/68 mmHg. The baseline ECG demonstrated sinus bradycardia. The peak pharmacologic ECG demonstrated no obvious ECG changes. [There were no cardiac dysrhythmias pretest, during pharmacologic infusion, or recovery]. [There was no complaint of chest discomfort during pharmacologic infusion or recovery]. The examination was discontinued secondary to completion of protocol. Impression: 1. Pharmacologic (Regadenoson) evaluation 2. Peak pharmacologic ECG with no obvious ECG changes. 3. [There were no cardiac dysrhythmias pretest, during pharmacologic infusion, or recovery]. 4. Nuclear images pending Myocardial perfusion imaging study: Technique: The patient was injected with 14.5 millicuries of technetium 99m Cardiolite and subsequently rest SPECT Cardiolite nuclear imaging was obtained in the horizontal long, vertical long, and short axis views. The patient underwent pharmacologic (Regadenoson) evaluation with a peak heart rate of 76 beats per minute (51 % percent predicted maximal heart rate) and a peak blood pressure of 124/68 mmHg. The patient was injected with 44.7 millicuries of technetium 99m Cardiolite and subsequently stress SPECT Cardiolite nuclear imaging was obtained in the horizontal long, vertical long, and short axis views. A gated Cardiolite study at peak stress was obtained. Interpretation: Rest and stress SPECT Cardiolite nuclear imaging status post realignment, normalization, and attenuation correction demonstrate at rest the appearance of relative uniform tracer uptake and myocardial perfusion appearing within normal limits. Status post stress there is notation of diminished myocardial perfusion/tracer uptake in the basal towards distal lateral segments. There are similar type findings on the resting and stress polar map images.. There is diminished and systolic thickening and brightening.. [The gated Cardiolite study demonstrates myocardial thickening and inward wall motion]. The reported LVEF is 52%. Impression: 1. Rest and stress SPECT Cardiolite nuclear imaging demonstrate myocardial perfusion changes compatible with an area of stress-induced myocardial ischemia involving portions of the basal towards distal lateral segments. 2. The gated Cardiolite study reports an LVEF of 52%. Cardiac Cath: 05-03-16: [facility]: Left ventricle: Moderate global left ventricular hypokinesis with an LVEF of 40 to 45% Left main coronary artery with no obstructing lesions LAD with proximal 90% stenosis and a patent pre-existing stent with 20% in-stent restenosis LCx with 100% occlusion RCA with a patent pre-existing stent which was patent Right AV segment with 90% stenosis JENSEN graft to the LAD and sequential portion to the diagonal branch patent Right to left collateral flow SVG grafts known to be occluded on previous cardiac catheterization Successful PTCA to the right AV segment 12-07-13: [facility]: Left ventricle: LVEF of 65% with moderate hypokinesis of the inferobasilar wall and moderate global left ventricular hypokinesis Left main coronary artery patent LAD reported as giving rise to a single diagonal branch artery LCx reported as giving rise to a single OM artery RCA reported as having a right AV artery being occluded and a subsequent proximal to mid 90% stenosis JENSEN graft to the LAD and diagonal branch patent SVG graft to the diagonal branch occluded SVG graft to the OM branch occluded SVG graft to the right posterior lateral branch occluded Left to left collateral flow Successful PTCA/STEVE to the right AV segment Successful PTCA/STEVE to the proximal to mid RCA PCI: 05-03-16: [facility]: Successful PTCA to the right AV segment 12-07-13: [facility]: Successful PTCA/STEVE to the right AV segment and successful PTCA/STEVE to the proximal to mid RCA CT Surgery: 1995: Reported with a JENSEN to the LAD with sequential portion to the diagonal branch; SVG to the diagonal branch; SVG to the OM; SVG to the RCA system CXR: Preliminary report: Post operative changes: No acute cardiopulmonary disease appreciated: Please see official report Assessment/Plan 1. Chest pain The patient has had chest pain. The chest pain appears to be somewhat atypical. However at the same time the patient has been found to have evidence of an abnormal pharmacologic stress nuclear imaging study suggesting stress-induced myocardial ischemia and portions of the lateral segments. At the present time the patient's rule out SC protocol appears to be negative based upon negative cardiac enzymes and no acute ECG changes. He has been on medical therapy with aspirin, antiplatelets, nitrates, beta- blockers, afterload reducing agents, and lipid-lowering agents. He is also been receiving anticoagulant therapy while in the hospital. At the present time the patient would be recommended for continued cardiac rhythm monitoring and subsequent evaluation with diagnostic cardiac catheterization. The procedure risks has been discussed with the patient. He is agreeable to this approach. Based upon his [facility] coverage an attempt is being made to have the patient khalil sported to the [facility] for further evaluation and care. 2. CAD status post CABG status post PCI The patient has a history of extensive underlying cardiovascular disease as previously documented. At the moment his rule out SC protocol is negative. His pharmacologic stress nuclear imaging study is abnormal. He will continue medical management. He will continue with plans for future diagnostic cardiac catheterization. Again an attempt is being made to arrange for the patient to be transferred to the [facility] for further evaluation and care. 3. Hyperlipidemia The patient will continue risk factor modification and medical management. 4. Hypertension The patient's blood pressure will be followed. He will continue medical therapy with adjustment as needed. 5. Diabetes mellitus The patient will continue under the care of internal medicine. 6. Abdominal aortic aneurysm The patient has a history of an abdominal aortic aneurysm. The details are unknown at this time. Depending upon the details of his abdominal aortic aneurysm history and follow-up this may need to be reassessed noninvasively with either ultrasound studies or abdominal CT scans, etc. 7. COPD The patient will continue evaluation care per his primary care physicians. Comment: The above was discussed and reviewed with the patient. He was agreeable to this approach. This note was generated with [employer] software. It may contain incorrect words, spelling, and punctuation that were not noted in checking the note before signing.
[2019-01-16] MEDS: Atorvastatin Calcium 80 MG Tablet PO (22:40)
[2019-01-16 22:56] LABS: Bedside Glucose 157 mg/dL (70-110)
[2019-01-16 22:56] LABS: Bedside Glucose 133 mg/dL (70-110)
[2019-01-17] VITALS (14 sets, daily range): BP systolic 115–129; BP diastolic 54–70; PULSE 57–70; RESP 16–18; TEMP 36.4–36.9; O2SAT 94–97
--- NOTE | 2019-01-17 02:38 | CPS ---
pt doesn''t wear cpap at home
[2019-01-17 06:12] LABS: Absolute Lymphocyte Count 2.02 X10^3/ul (0.83-4.51); Absolute Neutrophil Count 3.9 X10^3/uL (2.0-7.7); Basophil# 0.05 X10^3/uL; Basophil% 0.7 % (0-1); Eosinophil# 0.31 X10^3/uL; Eosinophils% 4.3 % (0-5); Hematocrit 36.9 % (40-54); Hemoglobin 12.1 g/dl (13.0-16.5); Lymphocyte # 2.02 X10^3/ul (4.0); Lymphocyte % 28.2 % (19-41); Mean Corp Hgb Conc 32.8 g/gl (32-36); Mean Corpuscular Hgb 31.4 pg (27.0-32.0); Mean Corpuscular Volume 95.8 fL (80-94); Mean Platelet Vol. 11.1 fl (6.2-12.0); Monocyte# 0.88 X10^3/uL; Monocyte% 12.3 % (0-10); Neutrophil # 3.88 X10^3/uL (2.7-7.7); Neutrophil % 54.1 % (47-70); Platelet Count 202 K/mm3 (150-450); RBC Distribution Width SD 48.9 fl (35.1-43.9); Red Blood Count 3.85 M/mm3 (4.6-6.2); White Blood Count 7.2 K/mm3 (4.4-11.0)
[2019-01-17 06:19] LABS: POSITIVE COUNT NO; POSITIVE DIFFERENTIAL NO; POSITIVE MORPHOLOGY NO
[2019-01-17 06:56] LABS: Anion Gap 7 (5-15); BUN 15 mg/dL (7-18); Calcium,Total 8.4 mg/dL (8.5-10.1); Chloride 116 mmol/L (98-107); Creatinine, Serum 0.94 mg/dL (0.70-1.30); EST Glomerular Filtration Rate 84 mL/min (>60); Est Glom Filt Rate - Afr Amer 102 mL/min (>60); Estimated Creatinine Clearance 68.72 ml/min; Glucose 86 mg/dL (74-106); Potassium 3.8 mmol/L (3.5-5.1); Sodium Level 146 mmol/L (136-145)
[2019-01-17] MEDS: Ipratropium/Albuterol Sulfate 3 ML AMPUL.NEB INHALATION ×2 (06:59→13:07)
[2019-01-17 07:00] LABS: Bedside Glucose 88 mg/dL (70-110)
[2019-01-17] MEDS: Glucerna Shake 120 ML LIQUID PO ×4 (08:45→21:17)
[2019-01-17] MEDS: Losartan Potassium 25 MG Tablet PO (08:46)
[2019-01-17] MEDS: Topiramate 100 MG Tablet PO ×2 (08:46→21:23)
[2019-01-17] MEDS: amLODIPine 5 MG Tablet PO (08:46)
[2019-01-17] MEDS: Metoprolol Tartrate 100 MG Tablet PO ×2 (08:46→21:23)
[2019-01-17] MEDS: Enoxaparin 40 MG/0.4 ML Syringe SC (08:47)
[2019-01-17] MEDS: Isosorbide Mononitrate 60 MG Tablet PO (08:47)
[2019-01-17] MEDS: Aspirin E.C. 81 MG Tablet PO (08:47)
[2019-01-17] MEDS: buPROPion 100 MG Tablet PO ×2 (08:47→21:23)
[2019-01-17] MEDS: Clopidogrel Bisulfate 75 MG Tablet PO (08:48)
[2019-01-17] MEDS: Insulin Lispro 100 UNIT/ML INSULN.PEN SC ×3 (11:25→21:24)
[2019-01-17 11:30] LABS: Bedside Glucose 165 mg/dL (70-110)
--- NOTE | 2019-01-17 12:58 | PCM.PN.CARD ---
Subjectve: The patient states he is resting comfortably at this time. He has been up and ambulating in his room. He denies ongoing chest discomfort. He is still waiting for word from the [facility] as to whether or not he can be transferred there for further evaluation and care. Objective: Vital Signs Temp Pulse Resp BP Pulse Ox 98.4 F 61 18 123/54 H 96 01/17/19 08:40 01/17/19 10:47 01/17/19 08:40 01/17/19 08:46 01/17/19 08:40 Oxygen Flow Rate (L/min) 2 Oxygen Delivery Method Room Air Weight: 235 lb 14.314 oz Body Mass Index (BMI) 35.9 Finger Stick Blood Glucose 133 Intake and Output for Last 24 Hours 01/15/19 01/16/19 01/17/19 23:59 23:59 23:59 Intake Total 480 / 480 2365 / 2365 1338 / 1338 Balance 480 / 480 2365 / 2365 1338 / 1338 General: Awake, Alert, Oriented x 3, Cooperative, No Acute Distress, Obese HEENT: Atraumatic, Normocephalic, PERRL Oral: Moist Mucosa Neck: Supple, Good ROM, No JVD Lungs: Clear to auscultation Cardiovascular: Regular Rhythm, Normal S1, Normal S2 Abdomen: Bowel Sounds Present, Soft, Non Tender Extremities: Mild LLE Edema Psych/Mental Status: Appropriate 01/17/19 05:20: WBC 7.2, RBC 3.85 L, Hgb 12.1 L, Hct 36.9 L, MCV 95.8 H, MCH 31.4, MCHC 32.8, RDW 14.0, RDW Differential 48.9 H, Plt Count 202, MPV 11.1, Immature Gran % (Auto) 0.400, Neut % (Auto) 54.1, Lymph % (Auto) 28.2, [place] % (Auto) 12.3 H, Eos % (Auto) 4.3, Baso % (Auto) 0.7, Absolute Neuts (auto) 3.9, Total Counted Not Reportable 01/17/19 05:20: Sodium 146 H, Potassium 3.8, Chloride 116 H, Carbon Dioxide 23.0, Anion Gap 7, BUN 15, Creatinine 0.94, Est GFR (MDRD) Af Amer 102, Est GFR (MDRD) Non-Af 84, BUN/Creatinine Ratio 16.0, Glucose 86, Calcium 8.4 L Rhythm: Sinus rhythm Medical Necessity - Tobacco Use Smoking Status: Former smoker Tobacco Use: Cigarettes Assessment/Plan 1. Chest pain The patient has had chest pain. The chest pain appears to be somewhat atypical. However at the same time the patient has been found to have evidence of an abnormal pharmacologic stress nuclear imaging study suggesting stress-induced myocardial ischemia and portions of the lateral segments. At the present time the patient's rule out WI protocol appears to be negative based upon negative cardiac enzymes and no acute ECG changes. He has been on medical therapy with aspirin, antiplatelets, nitrates, beta-blockers, afterload reducing agents, and lipid-lowering agents. He is also been receiving anticoagulant therapy while in the hospital. At the present time the patient would be recommended for continued cardiac rhythm monitoring and subsequent evaluation with diagnostic cardiac catheterization. The procedure risks has been discussed with the patient. He is agreeable to this approach. Based upon his [facility] coverage an attempt is being made to have the patient transported to the [facility] for further evaluation and care. 2. CAD status post CABG status post PCI The patient has a history of extensive underlying cardiovascular disease as previously documented. At the moment his rule out WI protocol is negative. His pharmacologic stress nuclear imaging study is abnormal. He will continue medical management. He will continue with plans for future diagnostic cardiac catheterization. Again an attempt is being made to arrange for the patient to be transferred to the [facility] for further evaluation and care. 3. Hyperlipidemia The patient will continue risk factor modification and medical management. 4. Hypertension The patient's blood pressure will be followed. He will continue medical therapy with adjustment as needed. 5. Diabetes mellitus The patient will continue under the care of internal medicine. 6. Abdominal aortic aneurysm The patient has a history of an abdominal aortic aneurysm. The details are unknown at this time. Depending upon the details of his abdominal aortic aneurysm history and follow-up this may need to be reassessed noninvasively with either ultrasound studies or abdominal CT scans, etc. 7. COPD The patient will continue evaluation care per his primary care physicians. Overall, the patient will continue medical management. The patient is waiting for word from the [facility] as to whether or not he can be accepted and transferred there for further evaluation care based upon his insurance related/financial related issues. Otherwise, he states he may have to proceed with further evaluation and care at [facility]. Comment: The above was discussed and reviewed with the patient. He was agreeable to this approach. This note was generated with [employer] dictation software. It may contain incorrect words, spelling, and punctuation that were not noted in checking the note before signing.
--- NOTE | 2019-01-17 13:01 | PN.CARD_ITS ---
Subjectve: The patient states he is resting comfortably at this time. He has been up and ambulating in his room. He denies ongoing chest discomfort. He is still waiting for word from the [facility] as to whether or not he can be transferred there for further evaluation and care. Objective: Vital Signs Temp Pulse Resp BP Pulse Ox 98.4 F 61 18 123/54 H 96 01/17/19 08:40 01/17/19 10:47 01/17/19 08:40 01/17/19 08:46 01/17/19 08:40 Oxygen Flow Rate (L/min) 2 Oxygen Delivery Method Room Air Weight: 235 lb 14.314 oz Body Mass Index (BMI) 35.9 Finger Stick Blood Glucose 133 Intake and Output for Last 24 Hours 01/15/19 01/16/19 01/17/19 23:59 23:59 23:59 Intake Total 480 / 480 2365 / 2365 1338 / 1338 Balance 480 / 480 2365 / 2365 1338 / 1338 General: Awake, Alert, Oriented x 3, Cooperative, No Acute Distress, Obese HEENT: Atraumatic, Normocephalic, PERRL Oral: Moist Mucosa Neck: Supple, Good ROM, No JVD Lungs: Clear to auscultation Cardiovascular: Regular Rhythm, Normal S1, Normal S2 Abdomen: Bowel Sounds Present, Soft, Non Tender Extremities: Mild LLE Edema Psych/Mental Status: Appropriate 01/17/19 05:20: WBC 7.2, RBC 3.85 L, Hgb 12.1 L, Hct 36.9 L, MCV 95.8 H, MCH 31.4, MCHC 32.8, RDW 14.0, RDW Differential 48.9 H, Plt Count 202, MPV 11.1, Immature Gran % (Auto) 0.400, Neut % (Auto) 54.1, Lymph % (Auto) 28.2, Bureau % (Auto) 12.3 H, Eos % (Auto) 4.3, Baso % (Auto) 0.7, Absolute Neuts (auto) 3.9, Total Counted Not Reportable 01/17/19 05:20: Sodium 146 H, Potassium 3.8, Chloride 116 H, Carbon Dioxide 23.0, Anion Gap 7, BUN 15, Creatinine 0.94, Est GFR (MDRD) Af Amer 102, Est GFR (MDRD) Non-Af 84, BUN/Creatinine Ratio 16.0, Glucose 86, Calcium 8.4 L Rhythm: Sinus rhythm Medical Necessity - Tobacco Use Smoking Status: Former smoker Tobacco Use: Cigarettes Assessment/Plan 1. Chest pain The patient has had chest pain. The chest pain appears to be somewhat atypical. However at the same time the patient has been found to have evidence of an abnormal pharmacologic stress nuclear imaging study suggesting stress-induced myocardial ischemia and portions of the lateral segments. At the present time the patient's rule out MO protocol appears to be negative based upon negative cardiac enzymes and no acute ECG changes. He has been on medical therapy with aspirin, antiplatelets, nitrates, beta- blockers, afterload reducing agents, and lipid-lowering agents. He is also been receiving anticoagulant therapy while in the hospital. At the present time the patient would be recommended for continued cardiac rhythm monitoring and subsequent evaluation with diagnostic cardiac catheterization. The procedure risks has been discussed with the patient. He is agreeable to this approach. Based upon his [facility] coverage an attempt is being made to have the patient transported to the [facility] for further evaluation and care. 2. CAD status post CABG status post PCI The patient has a history of extensive underlying cardiovascular disease as previously documented. At the moment his rule out MO protocol is negative. His pharmacologic stress nuclear imaging study is abnormal. He will continue medical management. He will continue with plans for future diagnostic cardiac catheterization. Again an attempt is being made to arrange for the patient to be transferred to the [facility] for further evaluation and care. 3. Hyperlipidemia The patient will continue risk factor modification and medical management. 4. Hypertension The patient's blood pressure will be followed. He will continue medical therapy with adjustment as needed. 5. Diabetes mellitus The patient will continue under the care of internal medicine. 6. Abdominal aortic aneurysm The patient has a history of an abdominal aortic aneurysm. The details are unknown at this time. Depending upon the details of his abdominal aortic an eurysm history and follow-up this may need to be reassessed noninvasively with either ultrasound studies or abdominal CT scans, etc. 7. COPD The patient will continue evaluation care per his primary care physicians. Overall, the patient will continue medical management. The patient is waiting for word from the [facility] as to whether or not he can be accepted and transferred there for further evaluation care based upon his insurance related/financial related issues. Otherwise, he states he may have to proceed with further evaluation and care at [facility]. Comment: The above was discussed and reviewed with the patient. He was agreeable to this approach. This note was generated with [employer] dictation software. It may contain incorrect words, spelling, and punctuation that were not noted in checking the note before signing.
--- NOTE | 2019-01-17 13:54 | PCM.PN.HOSP ---
Patient Problems: Active and Suspected Problems (Last Reviewed 10/01/18 @ 10:23 by Shay Colon MD) Chest pain (Acute) Subjective: Patient seen and examined. He had no complaints and was resting comfortably in bed. Chest pain did okay overnight. Review of systems otherwise negative. Labs and vitals reviewed. [facility] was [facility] yesterday but they did not have any beds to accept patient. We are still awaiting word from the [facility] about accepting patient. Vitals/I&O's: Vital Signs Temp Pulse Resp BP Pulse Ox 98.4 F 60 16 123/54 H 96 01/17/19 08:40 01/17/19 13:08 01/17/19 13:08 01/17/19 08:46 01/17/19 13:08 Oxygen Flow Rate (L/min) 2 Oxygen Delivery Method Room Air Weight: 235 lb 14.314 oz Body Mass Index (BMI) 35.9 Finger Stick Blood Glucose 133 Intake and Output for Last 24 Hours 01/15/19 01/16/19 01/17/19 23:59 23:59 23:59 Intake Total 480 / 480 2365 / 2365 1338 / 1338 Balance 480 / 480 2365 / 2365 1338 / 1338 General: Alert, Oriented x3, Cooperative, No apparent distress HEENT: Atraumatic, EOMI, Normocephalic Oral: Moist Mucosa Neck: Supple Lungs: Clear to auscultation, Normal air movement Cardiovascular: Regular rate, Regular Rhythm, Normal S1, Normal S2, No murmurs Abdomen: Bowel Sounds Present, Soft, Non Tender Extremities: No clubbing, No cyanosis, No edema, Capillary Refill Less than 3 Seconds Skin: No rashes, No breakdown Musculoskeletal: No Tenderness to Palpation of Joints or Extremities Lymphatic: No Cervical, Supraclavicular, or Inguinal Adenopathy Neurological: Cranial nerves II-XII grossly intact, Neuro grossly intact, Motor Exam 5/5 strength throughout Psych/Mental Status: Normal Affect, Appropriate, Alert and oriented to time, place, person, mood and affect Laboratory Results 01/16/19 16:35: POC Glucose 157 H 01/16/19 22:35: POC Glucose 133 H 01/17/19 05:20: WBC 7.2, RBC 3.85 L, Hgb 12.1 L, Hct 36.9 L, MCV 95.8 H, MCH 31.4, MCHC 32.8, RDW 14.0, RDW Differential 48.9 H, Plt Count 202, MPV 11.1, Immature Gran % (Auto) 0.400, Neut % (Auto) 54.1, Lymph % (Auto) 28.2, Garrett % (Auto) 12.3 H, Eos % (Auto) 4.3, Baso % (Auto) 0.7, Absolute Neuts (auto) 3.9, Absolute Lymphs (auto) 2.02, Total Counted Not Reportable 01/17/19 05:20: Sodium 146 H, Potassium 3.8, Chloride 116 H, Carbon Dioxide 23.0, Anion Gap 7, BUN 15, Creatinine 0.94, Estim Creat Clear Calc 68.72, Est GFR (MDRD) Af Amer 102, Est GFR (MDRD) Non-Af 84, BUN/Creatinine Ratio 16.0, Glucose 86, Calcium 8.4 L 01/17/19 06:53: POC Glucose 88 01/17/19 11:24: POC Glucose 165 H Current Medications Acetaminophen (Tylenol) 650 mg PO Q6H PRN PRN PRN Reason: Non-cardiac pain (mod-severe) Al Hydroxide/Mg Hydroxide (Mylanta Ii) 15 - 30 ml PO Q4H PRN PRN PRN Reason: INDIGESTION Albuterol Sulfate (Ventolin Aerosols) 2.5 mg INHALATION Q2H PRN PRN PRN Reason: dyspnea, wheezing Albuterol/Ipratropium (Duoneb) 3 ml INHALATION Q6HWA.RT [facility] Last Admin: 01/17/19 13:07 Dose: 3 ml Amlodipine Besylate (Norvasc) 5 mg PO DAILY [facility] Last Admin: 01/17/19 08:46 Dose: 5 [facility] Admin: 01/17/19 08:47 Dose: 81 mg Atorvastatin Calcium (Lipitor) 80 mg PO QHS [facility] Last Admin: 01/16/19 22:40 Dose: 80 mg Bupropion HCl (Wellbutrin Tablets) 100 mg PO BID [facility] Last Admin: 01/17/19 08:47 Dose: 100 mg Clopidogrel Bisulfate (Plavix) 75 mg PO DAILY [facility] Last Admin: 01/17/19 08:48 Dose: 75 mg Colchicine (Colchicine) 0.6 mg PO DAILY PRN PRN PRN Reason: GOUT FLARE UP Emollient Ointment (Eucerin Intensive Repair) 1 applic TOPICAL 4X/DAY [facility]; Protocol Last Admin: 01/17/19 13:15 Dose: 1 applicatio Enoxaparin Sodium (Lovenox) 40 mg SC DAILY@1000 [facility] Last Admin: 01/17/19 08:47 Dose: 40 mg Hydralazine HCl (Apresoline Iv) 10 mg IV Q4H PRN PRN PRN Reason: SBP > 160 Sodium Chloride () 1,000 mls @ 0 mls/hr IV .Q0M [facility] Insulin Glargine (Lantus ([facility])) 47 units SC BID [facility] Last Admin: 01/17/19 08:45 Dose: 47 u Insulin Human Lispro (Humalog Kwikpen ([facility])) 0 unit SC ACHS [facility]; Protocol Last Admin: 01/17/19 11:25 Dose: 1 u Isosorbide Mononitrate (Imdur) 60 mg PO DAILY [facility] Last Admin: 01/17/19 08:47 Dose: 60 mg Losartan Potassium (Cozaar) 25 mg PO DAILY [facility] Last Admin: 01/17/19 08:46 Dose: 25 mg Magnesium Hydroxide (Milk Of Magnesia) 30 ml PO DAILY PRN PRN Reason: Constipation Metoprolol Tartrate (Lopressor (Beta Naheed)) 100 mg PO BID [facility] Last Admin: 01/17/19 08:46 Dose: 100 mg Morphine Sulfate () 1 - 2 mg IV Q4H PRN PRN PRN Reason: PAIN Nitroglycerin (Nitrostat) 0.4 mg SUBLINGUAL Q5M PRN PRN Reason: CARDIAC/CHEST PAIN Nutritional Formula (Lactose Free) (Glucerna Shake) 120 ml PO 4X/DAY [facility] Last Admin: 01/17/19 13:16 Dose: 120 ml Ondansetron HCl (Zofran) 4 mg IV Q8H PRN PRN PRN Reason: NAUSEA/VOMITING Oxycodone HCl (Oxyir) 5 - 10 mg PO Q4H PRN PRN PRN Reason: SEVERE PAIN (6-10/10) Sodium Chloride () 5 - 15 ml IV UD PRN PRN Reason: SALINE FLUSH Topiramate (Topamax) 100 mg PO BID [facility] Last Admin: 01/17/19 08:46 Dose: 100 mg Medical Necessity - Tobacco Use Smoking Status: Former smoker Tobacco Use: Cigarettes Assessment/Plan All Active Problems (Last Reviewed 10/01/18 @ 10:23 by Shay Colon MD) Chest pain (Acute) Hx of cataract surgery (Resolved) Fracture of phalanx of toe of right foot with delayed healing (Acute) Gout of knee (Acute) Cellulitis of toe of left foot (Acute) Septic arthritis of interphalangeal joint of toe of left foot (Acute) Septic arthritis of interphalangeal joint of toe of left foot (Acute) Gout of foot (Acute) Hypophosphatemia (Acute) Streptococcal cellulitis (Acute) Severe sepsis (Acute) Streptococcal bacteremia (Acute) Influenza A (Resolved) 1. Chest pain, to r/o ACS troponin x 3 were negative stress test showed: Myocardial perfusion changes compatible with an area of stress-induced myocardial ischemia involving portions of the basal towards distal lateral segments and LVEF of 52%. cardiology on board; johana is a [facility], and attempts have been made to transfer the patient to the [facility] for further evaluation and care. If there is no bed obtained for patient by tomorrow, then plan will be for cardiac cath here. On aspirin 81 mg daily and statin as well as Imdur. Nitroglycerin as needed. 2. CAD status post stent x12 and CABG x4: On aspirin, Plavix, statin, metoprolol and losartan. 3. Hypertension: Controlled. On amlodipine, losartan and metoprolol. Hydralazine as needed. 4. Hyperlipidemia: On statin. 5. COPD: Chronic and currently stable. On breathing treatments. 6. Type 2 diabetes mellitus: On insulin. Hx AC at bedtime. Insulin sliding scale. 7. Gout: On allopurinol and colchicine 8. Anxiety depression: Wellbutrin. 9. ALLISON: On CPAP nightly. 10. Chronic bilateral lower extremity edema: Yoan wraps. DVT prophylaxis: Lovenox Code Visit Inpatient E&M: 14629 Subs Hosp L2
--- NOTE | 2019-01-17 13:57 | PN_ITS ---
Patient Problems: Active and Suspected Problems (Last Reviewed 10/01/18 @ 10:23 by Shay Colon MD) Chest pain (Acute) Subjective: Patient seen and examined. He had no complaints and was resting comfortably in bed. Chest pain did okay overnight. Review of systems otherwise negative. Labs and vitals reviewed. [facility] but they did not have any beds to accept patient. We are still awaiting word from the [facility] about accepting patient. Vitals/I&O's: Vital Signs Temp Pulse Resp BP Pulse Ox 98.4 F 60 16 123/54 H 96 01/17/19 08:40 01/17/19 13:08 01/17/19 13:08 01/17/19 08:46 01/17/19 13:08 Oxygen Flow Rate (L/min) 2 Oxygen Delivery Method Room Air Weight: 235 lb 14.314 oz Body Mass Index (BMI) 35.9 Finger Stick Blood Glucose 133 Intake and Output for Last 24 Hours 01/15/19 01/16/19 01/17/19 23:59 23:59 23:59 Intake Total 480 / 480 2365 / 2365 1338 / 1338 Balance 480 / 480 2365 / 2365 1338 / 1338 General: Alert, Oriented x3, Cooperative, No apparent distress HEENT: Atraumatic, EOMI, Normocephalic Oral: Moist Mucosa Neck: Supple Lungs: Clear to auscultation, Normal air movement Cardiovascular: Regular rate, Regular Rhythm, Normal S1, Normal S2, No murmurs Abdomen: Bowel Sounds Present, Soft, Non Tender Extremities: No clubbing, No cyanosis, No edema, Capillary Refill Less than 3 Seconds Skin: No rashes, No breakdown Musculoskeletal: No Tenderness to Palpation of Joints or Extremities Lymphatic: No Cervical, Supraclavicular, or Inguinal Adenopathy Neurological: Cranial nerves II-XII grossly intact, Neuro grossly intact, Motor Exam 5/5 strength throughout Psych/Mental Status: Normal Affect, Appropriate, Alert and oriented to time, place, person, mood and affect Laboratory Results 01/16/19 16:35: POC Glucose 157 H 01/16/19 22:35: POC Glucose 133 H 01/17/19 05:20: WBC 7.2, RBC 3.85 L, Hgb 12.1 L, Hct 36.9 L, MCV 95.8 H, MCH 31.4, MCHC 32.8, RDW 14.0, RDW Differential 48.9 H, Plt Count 202, MPV 11.1, Immature Gran % (Auto) 0.400, Neut % (Auto) 54.1, Lymph % (Auto) 28.2, Foster % (Auto) 12.3 H, Eos % (Auto) 4.3, Baso % (Auto) 0.7, Absolute Neuts (auto) 3.9, Absolute Lymphs (auto) 2.02, Total Counted Not Reportable 01/17/19 05:20: Sodium 146 H, Potassium 3.8, Chloride 116 H, Carbon Dioxide 23.0, Anion Gap 7, BUN 15, Creatinine 0.94, Estim Creat Clear Calc 68.72, Est GFR (MDRD) Af Amer 102, Est GFR (MDRD) Non-Af 84, BUN/Creatinine Ratio 16.0, Glucose 86, Calcium 8.4 L 01/17/19 06:53: POC Glucose 88 01/17/19 11:24: POC Glucose 165 H Current Medications Acetaminophen (Tylenol) 650 mg PO Q6H PRN PRN PRN Reason: Non-cardiac pain (mod-severe) Al Hydroxide/Mg Hydroxide (Mylanta Ii) 15 - 30 ml PO Q4H PRN PRN PRN Reason: INDIGESTION Albuterol Sulfate (Ventolin Aerosols) 2.5 mg INHALATION Q2H PRN PRN PRN Reason: dyspnea, wheezing Albuterol/Ipratropium (Duoneb) 3 ml INHALATION Q6HWA.RT [facility] Last Admin: 01/17/19 13:07 Dose: 3 ml Amlodipine Besylate (Norvasc) 5 mg PO DAILY [facility] Last Admin: 01/17/19 08:46 Dose: 5 [facility] Admin: 01/17/19 08:47 Dose: 81 mg Atorvastatin Calcium (Lipitor) 80 mg PO QHS [facility] Last Admin: 01/16/19 22:40 Dose: 80 mg Bupropion HCl (Wellbutrin Tablets) 100 mg PO BID [facility] Last Admin: 01/17/19 08:47 Dose: 100 mg Clopidogrel Bisulfate (Plavix) 75 mg PO DAILY [facility] Last Admin: 01/17/19 08:48 Dose: 75 mg Colchicine (Colchicine) 0.6 mg PO DAILY PRN PRN PRN Reason: GOUT FLARE UP Emollient Ointment (Eucerin Intensive Repair) 1 applic TOPICAL 4X/DAY [facility]; Protocol Last Admin: 01/17/19 13:15 Dose: 1 applicatio Enoxaparin Sodium (Lovenox) 40 mg SC DAILY@1000 [facility] Last Admin: 01/17/19 08:47 Dose: 40 mg Hydralazine HCl (Apresoline Iv) 10 mg IV Q4H PRN PRN PRN Reason: SBP > 160 Sodium Chloride () 1,000 mls @ 0 mls/hr IV .Q0M [facility] Insulin Glargine (Lantus ([facility])) 47 units SC BID [facility] Last Admin: 01/17/19 08:45 Dose: 47 u Insulin Human Lispro (Humalog Kwikpen ([facility])) 0 unit SC ACHS [facility]; Protocol Last Admin: 01/17/19 11:25 Dose: 1 u Isosorbide Mononitrate (Imdur) 60 mg PO DAILY [facility] Last Admin: 01/17/19 08:47 Dose: 60 mg Losartan Potassium (Cozaar) 25 mg PO DAILY [facility] Last Admin: 01/17/19 08:46 Dose: 25 mg Magnesium Hydroxide (Milk Of Magnesia) 30 ml PO DAILY PRN PRN Reason: Constipation Metoprolol Tartrate (Lopressor (Beta Naheed)) 100 mg PO BID [facility] Last Admin: 01/17/19 08:46 Dose: 100 mg Morphine Sulfate () 1 - 2 mg IV Q4H PRN PRN PRN Reason: PAIN Nitroglycerin (Nitrostat) 0.4 mg SUBLINGUAL Q5M PRN PRN Reason: CARDIAC/CHEST PAIN Nutritional Formula (Lactose Free) (Glucerna Shake) 120 ml PO 4X/DAY [facility] Last Admin: 01/17/19 13:16 Dose: 120 ml Ondansetron HCl (Zofran) 4 mg IV Q8H PRN PRN PRN Reason: NAUSEA/VOMITING Oxycodone HCl (Oxyir) 5 - 10 mg PO Q4H PRN PRN PRN Reason: SEVERE PAIN (6-10/10) Sodium Chloride () 5 - 15 ml IV UD PRN PRN Reason: SALINE FLUSH Topiramate (Topamax) 100 mg PO BID [facility] Last Admin: 01/17/19 08:46 Dose: 100 mg Medical Necessity - Tobacco Use Smoking Status: Former smoker Tobacco Use: Cigarettes Assessment/Plan All Active Problems (Last Reviewed 10/01/18 @ 10:23 by Shay Colon MD) Chest pain (Acute) Hx of cataract surgery (Resolved) Fracture of phalanx of toe of right foot with delayed healing (Acute) Gout of knee (Acute) Cellulitis of toe of left foot (Acute) Septic arthritis of interphalangeal joint of toe of left foot (Acute) Septic arthritis of interphalangeal joint of toe of left foot (Acute) Gout of foot (Acute) Hypophosphatemia (Acute) Streptococcal cellulitis (Acute) Severe sepsis (Acute) Streptococcal bacteremia (Acute) Influenza A (Resolved) 1. Chest pain, to r/o ACS * troponin x 3 were negative * stress test showed: Myocardial perfusion changes compatible with an area of stress-induced myocardial ischemia involving portions of the basal towards distal lateral segments and LVEF of 52%. * cardiology on board; johana is a [facility], and attempts have been made to [facility] and [facility]. If there is no bed obtained for patient by tomorrow, then plan will be for cardiac cath here. * On aspirin 81 mg daily and statin as well as Imdur. Nitroglycerin as needed. * 2. CAD status post stent x12 and CABG x4: On aspirin, Plavix, statin, metoprolol and losartan. 3. Hypertension: Controlled. On amlodipine, losartan and metoprolol. Hydralazine as needed. 4. Hyperlipidemia: On statin. 5. COPD: Chronic and currently stable. On breathing treatments. 6. Type 2 diabetes mellitus: On insulin. Hx AC at bedtime. Insulin sliding scale. 7. Gout: On allopurinol and colchicine 8. Anxiety depression: Wellbutrin. 9. ALLISON: On CPAP nightly. 10. Chronic bilateral lower extremity edema: Yoan wraps. DVT prophylaxis: Lovenox Code Visit Inpatient E&M: 79312 Subs Hosp L2
[2019-01-17 16:30] LABS: Bedside Glucose 230 mg/dL (70-110)
[2019-01-17] MEDS: Atorvastatin Calcium 80 MG Tablet PO (21:23)
[2019-01-17 22:06] LABS: Bedside Glucose 199 mg/dL (70-110)
[2019-01-18] VITALS (13 sets, daily range): BP systolic 95–131; BP diastolic 44–68; PULSE 54–66; RESP 12–19; TEMP 36.8–36.9; O2SAT 91–96
--- NOTE | 2019-01-18 01:57 | EKG12_ITS ---
Test Reason : CP ADMIT Blood Pressure : / mmHG Vent. Rate : 061 BPM Atrial Rate : 061 BPM P-R Int : 208 ms QRS Dur : 108 ms QT Int : 434 ms P-R-T Axes : 050 020 064 degrees QTc Int : 436 ms Normal sinus rhythm Normal ECG Confirmed by WILLI CORDERO, CATRACHITO ([id number]), purchase request editor CRISTOPHER HALL ([id number]) on 01/19/2019 11:36:21 AM Referred By: Alma Dowling Confirmed By:CATRACHITO MÁRQUEZ MD
[2019-01-18] MEDS: Clopidogrel Bisulfate 75 MG Tablet PO (05:31)
[2019-01-18] MEDS: Losartan Potassium 25 MG Tablet PO (05:31)
[2019-01-18] MEDS: Isosorbide Mononitrate 60 MG Tablet PO (05:31)
[2019-01-18] MEDS: Metoprolol Tartrate 100 MG Tablet PO (05:31)
[2019-01-18] MEDS: Aspirin E.C. 81 MG Tablet PO (05:31)
[2019-01-18] MEDS: amLODIPine 5 MG Tablet PO (05:31)
[2019-01-18 05:37] LABS: Bacteria 0 SEEN /hpf (None Seen); Mucous, Urine 0 SEEN /hpf (<or=2+); Red Blood Cells-Urine 0 SEEN /hpf (0-5); Squamous Epithelial Cells - UA 0 SEEN /hpf (0-5); White Blood Cells 0 SEEN /hpf (0-5)
[2019-01-18 06:12] LABS: Color, Urine Straw (Yellow); Glucose, Dipstick Normal (Normal); Ketone-Dipstick Negative (Negative); Leukocyte Esterase-Dipstick Negative /ul (Negative); Nitrite-Dipstick Negative (Negative); Occult Blood-Urine Negative /ul (Negative); Protein-Dipstick Negative (Negative); Urine Bilirubin Dipstick Negative (Negative); Urine Clarity Clear (Clear); Urine Urobilinogen Normal (Normal)
[2019-01-18 06:15] LABS: Bedside Glucose 143 mg/dL (70-110)
[2019-01-18 07:05] LABS: Anion Gap 4 (5-15); BUN 19 mg/dL (7-18); BUN/Creat Ratio 18.1 RATIO (10-20); Calcium,Total 8.3 mg/dL (8.5-10.1); Chloride 114 mmol/L (98-107); Creatinine, Serum 1.05 mg/dL (0.70-1.30); EST Glomerular Filtration Rate 74 mL/min (>60); Est Glom Filt Rate - Afr Amer 89 mL/min (>60); Estimated Creatinine Clearance 61.52 ml/min; Glucose 152 mg/dL (74-106); Sodium Level 141 mmol/L (136-145)
[2019-01-18 07:16] LABS: Absolute Lymphocyte Count 2.06 X10^3/ul (0.83-4.51); Absolute Neutrophil Count 4.1 X10^3/uL (2.0-7.7); Basophil# 0.06 X10^3/uL; Basophil% 0.8 % (0-1); Eosinophil# 0.27 X10^3/uL; Eosinophils% 3.7 % (0-5); Hematocrit 38.4 % (40-54); Hemoglobin 12.9 g/dl (13.0-16.5); Lymphocyte # 2.06 X10^3/ul (4.0); Lymphocyte % 27.9 % (19-41); Mean Corp Hgb Conc 33.6 g/gl (32-36); Mean Corpuscular Hgb 32.6 pg (27.0-32.0); Mean Platelet Vol. 11.8 fl (6.2-12.0); Monocyte# 0.84 X10^3/uL; Monocyte% 11.4 % (0-10); Neutrophil # 4.13 X10^3/uL (2.7-7.7); Neutrophil % 55.8 % (47-70); Platelet Count 200 K/mm3 (150-450); RBC Distribution Width CV 13.7 % (11.6-14.6); RBC Distribution Width SD 47.1 fl (35.1-43.9); Red Blood Count 3.96 M/mm3 (4.6-6.2); White Blood Count 7.4 K/mm3 (4.4-11.0)
[2019-01-18] MEDS: Ipratropium/Albuterol Sulfate 3 ML AMPUL.NEB INHALATION (07:16)
[2019-01-18 07:19] LABS: POSITIVE COUNT NO; POSITIVE DIFFERENTIAL NO; POSITIVE MORPHOLOGY NO
[2019-01-18 07:24] LABS: Prothrombin Time (Protime)PT. 13.2 SECONDS (11.7-14.9)
--- NOTE | 2019-01-18 09:34 | PCM.PN.CARD ---
Subjectve: The patient is now status post diagnostic cardiac catheterization. He has had no acute adverse events. Objective: Vital Signs Temp Pulse Resp BP Pulse Ox 98.3 F 57 L 16 131/68 H 95 01/18/19 05:22 01/18/19 07:16 01/18/19 07:16 01/18/19 05:22 01/18/19 07:16 Oxygen Flow Rate (L/min) 2 Oxygen Delivery Method Room Air Weight: 235 lb 14.314 oz Body Mass Index (BMI) 35.9 Finger Stick Blood Glucose 133 Intake and Output for Last 24 Hours 01/16/19 01/17/19 01/18/19 23:59 23:59 23:59 Intake Total 2364 / 236 1778 / 177 60 / 60 Balance 2365 / 2361777 / 1777 60 General: Awake, Alert, Oriented x 3, Cooperative, No Acute Distress, Obese HEENT: Atraumatic, Normocephalic, PERRL, EOMI, Sclera Non Icteric Oral: Moist Mucosa Neck: Supple, Good ROM, No JVD Lungs: Clear to auscultation Cardiovascular: Regular Rhythm, Normal S1, Normal S2 Abdomen: Bowel Sounds Present, Soft, Non Tender Extremities: Mild LLE Edema Psych/Mental Status: Appropriate 01/18/19 05:15: Urine Color Straw, Urine Clarity Clear, Urine pH 7.0, Ur Specific [place] 1.010, Urine Protein Negative, Urine Glucose (UA) Normal, Urine Ketones Negative, Urine Occult Blood Negative, Urine Nitrite Negative, Urine Bilirubin Negative, Urine Urobilinogen Normal, Ur Leukocyte Esterase Negative, Urine RBC 0 SEEN, Urine WBC 0 SEEN 01/18/19 05:40: WBC 7.4, RBC 3.96 L, Hgb 12.9 L, Hct 38.4 L, MCV 97.0 H, MCH 32.6 H, MCHC 33.6, RDW 13.7, RDW Differential 47.1 H, Plt Count 200, MPV 11.8, Immature Gran % (Auto) 0.400, Neut % (Auto) 55.8, Lymph % (Auto) 27.9, [place] % (Auto) 11.4 H, Eos % (Auto) 3.7, Baso % (Auto) 0.8, Absolute Neuts (auto) 4.1, Total Counted Not Reportable 01/18/19 05:40: Sodium 141, Potassium 4.0, Chloride 114 H, Carbon Dioxide 23.0, Anion Gap 4 L, BUN 19 H, Creatinine 1.05, Est GFR (MDRD) Af Amer 89, Est GFR (MDRD) Non-Af 74, BUN/Creatinine Ratio 18.1, Glucose 152 H, Calcium 8.3 L 01/18/19 05:40: PT 13.2, INR 1.0, APTT 26.0 Rhythm: Sinus rhythm Medical Necessity - Tobacco Use Smoking Status: Former smoker Tobacco Use: Cigarettes Assessment/Plan 1. CAD status post CABG status post PCI The patient has a history of extensive underlying cardiovascular disease as previously documented. At the moment his rule out [place] protocol is negative. His pharmacologic stress nuclear imaging study is abnormal. He is now status post diagnostic cardiac catheterization. His JENSEN to the LAD is patent. His SVG's have been previously documented as occluded. His LCx is occluded and receives both left to left and right to left collateral flow. The RCA has been previously stented and is patent. At the present time it appears that his stress test findings in the lateral distribution are compatible with his LCx disease and under stress outstripping his collateral flow to that distribution. He will continue medical management. He does not appear to require further catheter-based revascularization therapy at this time. 2. Hyperlipidemia The patient will continue risk factor modification and medical management. 3. Hypertension The patient's blood pressure will be followed. He will continue medical therapy with adjustment as needed. 4. Diabetes mellitus The patient will continue under the care of internal medicine. 5. Abdominal aortic aneurysm The patient has a history of an abdominal aortic aneurysm. The details are unknown at this time. Depending upon the details of his abdominal aortic aneurysm history and follow-up this may need to be reassessed noninvasively with either ultrasound studies or abdominal CT scans, etc. 6. COPD The patient will continue evaluation care per his primary care physicians. This note was generated with [email or web address] software. It may contain incorrect words, spelling, and punctuation that were not noted in checking the note before signing.
--- NOTE | 2019-01-18 09:37 | PN.CARD_ITS ---
Subjectve: The patient is now status post diagnostic cardiac catheterization. He has had no acute adverse events. Objective: Vital Signs Temp Pulse Resp BP Pulse Ox 98.3 F 57 L 16 131/68 H 95 01/18/19 05:22 01/18/19 07:16 01/18/19 07:16 01/18/19 05:22 01/18/19 07:16 Oxygen Flow Rate (L/min) 2 Oxygen Delivery Method Room Air Weight: 235 lb 14.314 oz Body Mass Index (BMI) 35.9 Finger Stick Blood Glucose 133 Intake and Output for Last 24 Hours 01/16/19 01/17/19 01/18/19 23:59 23:59 23:59 Intake Total 236 / 236 1778 / 177 60 / 60 Balance 2365 / 2361777 / 177 60 General: Awake, Alert, Oriented x 3, Cooperative, No Acute Distress, Obese HEENT: Atraumatic, Normocephalic, PERRL, EOMI, Sclera Non Icteric Oral: Moist Mucosa Neck: Supple, Good ROM, No JVD Lungs: Clear to auscultation Cardiovascular: Regular Rhythm, Normal S1, Normal S2 Abdomen: Bowel Sounds Present, Soft, Non Tender Extremities: Mild LLE Edema Psych/Mental Status: Appropriate 01/18/19 05:15: Urine Color Straw, Urine Clarity Clear, Urine pH 7.0, Ur Specific [place] 1.010, Urine Protein Negative, Urine Glucose (UA) Normal, Urine Ketones Negative, Urine Occult Blood Negative, Urine Nitrite Negative, Urine B ilirubin Negative, Urine Urobilinogen Normal, Ur Leukocyte Esterase Negative, Urine RBC 0 SEEN, Urine WBC 0 SEEN 01/18/19 05:40: WBC 7.4, RBC 3.96 L, Hgb 12.9 L, Hct 38.4 L, MCV 97.0 H, MCH 32.6 H, MCHC 33.6, RDW 13.7, RDW Differential 47.1 H, Plt Count 200, MPV 11.8, Immature Gran % (Auto) 0.400, Neut % (Auto) 55.8, Lymph % (Auto) 27.9, [place] % (Auto) 11.4 H, Eos % (Auto) 3.7, Baso % (Auto) 0.8, Absolute Neuts (auto) 4.1, Total Counted Not Reportable 01/18/19 05:40: Sodium 141, Potassium 4.0, Chloride 114 H, Carbon Dioxide 23.0, Anion Gap 4 L, BUN 19 H, Creatinine 1.05, Est GFR (MDRD) Af Amer 89, Est GFR (MDRD) Non-Af 74, BUN/Creatinine Ratio 18.1, Glucose 152 H, Calcium 8.3 L 01/18/19 05:40: PT 13.2, INR 1.0, APTT 26.0 Rhythm: Sinus rhythm Medical Necessity - Tobacco Use Smoking Status: Former smoker Tobacco Use: Cigarettes Assessment/Plan 1. CAD status post CABG status post PCI The patient has a history of extensive underlying cardiovascular disease as previously documented. At the moment his rule out ND protocol is negative. His pharmacologic stress nuclear imaging study is abnormal. He is now status post diagnostic cardiac catheterization. His JENSEN to the LAD is patent. His SVG's have been previously documented as occluded. His LCx is occluded and receives both left to left and right to left collateral flow. The RCA has been previously stented and is patent. At the present time it appears that his stress test findings in the lateral distribution are compatible with his LCx disease and under stress outstripping his collateral flow to that distribution. He will continue medical management. He does not appear to require further catheter-based revascularization therapy at this time. 2. Hyperlipidemia The patient will continue risk factor modification and medical management. 3. Hypertension The patient's blood pressure will be followed. He will continue medical therapy with adjustment as needed. 4. Diabetes mellitus The patient will continue under the care of internal medicine. 5. Abdominal aortic aneurysm The patient has a history of an abdominal aortic aneurysm. The details are unknown at this time. Depending upon the details of his abdominal aortic aneurysm history and follow-up this may need to be reassessed noninvasively with either ultrasound studies or abdominal CT scans, etc. 6. COPD The patient will continue evaluation care per his primary care physicians. This note was generated with [employer] software. It may contain incorrect words, spelling, and punctuation that were not noted in checking the note before signing.
[2019-01-18] MEDS: 0.9% Normal Saline 1,000 ML 75 ML IV (11:17)
[2019-01-18] MEDS: Topiramate 100 MG Tablet PO (11:18)
[2019-01-18] MEDS: buPROPion 100 MG Tablet PO (11:18)
[2019-01-18 11:26] LABS: Bedside Glucose 114 mg/dL (70-110)
--- NOTE | 2019-01-18 11:27 | CASEMGMT ---
Call from Sylvia at the [place] transfer center and she is aware that pt to be discharged today and requests that updated clinicals be faxed at this time. Updated clinicals faxed at this time. Lazaro RODARTE CM
--- NOTE | 2019-01-18 13:00 | PCM.DC ---
- Discharge Diagnoses Current Active Problems: Current Active and Chronic Problems (Last Reviewed 10/01/18 @ 10:23 by Shay Colon MD) Chest pain (Acute) You will use the following diet at home:: Calorie/Carbohydrate Controlled (specify 1200, 1400, etc), Cardiac Discharge Activity: Return to Normal Activity, - - Follow post-cath instructions. Call your doctor if you observe: Shortness of breath, Dizziness, Fainting spells, Chest pain Allergies/Adverse Reactions: Allergies lisinopril Allergy (Verified 01/15/19 12:38) Angioedema Sulfa (Sulfonamide Antibiotics) Allergy (Verified 01/15/19 12:38) Hives piperacillin Adverse Reaction (Severe, Verified 01/15/19 12:38) Unknown Medications to take at Discharge Amlodipine [Norvasc] 5 mg PO DAILY 12/07/13 Clopidogrel Bisulfate [Plavix] 75 mg PO DAILY 12/07/13 Insulin Aspart [Novolog Flexpen] See Protocol SQ TIDCM 12/07/13 Insulin Glargine [Lantus SoloStar Pen] 70 units SC QHS 12/07/13 Isosorbide Mononitrate [Isosorbide Mononitrate ER] 60 mg PO DAILY 12/07/13 Losartan Potassium [Cozaar] 25 mg PO DAILY 12/07/13 Metformin HCl [Glucophage] 1,000 mg PO BIDCM 12/07/13 Metoprolol Tartrate [Lopressor (beta aixa)] 100 mg PO BID 12/07/13 buPROPion tablets [Wellbutrin tablets] 100 mg PO BID 12/07/13 Acetaminophen [Tylenol Tablet] 650 mg PO Q4H PRN PRN #0 tab 09/05/16 Albuterol Inhaler [Ventolin Hfa] 1 - 2 puff INHALATION Q4H PRN PRN #1 inhaler 09/05/16 Aspirin [Aspir-Low] 81 mg PO DAILY 12/26/16 Atorvastatin Calcium [Lipitor] 80 mg PO QHS 12/26/16 Budesonide/Formoterol 160/4.5 [Symbicort 160/4.5 Mcg Inhaler (SP)] 2 puff INHALATION BID 12/26/16 Cefadroxil Hydrate [Duricef] 500 mg PO BID #60 cap 01/13/17 Ibuprofen 2 - 3 mg PO TID PRN #1 tab 01/13/17 nitroglycerin 0.4 mg sublingual tablet 0.4 mg SUBLINGUAL Q5M PRN 02/09/18 [facility] Physician: [facility] [Primary Care Provider] - Please follow up with your Primary Care Physician in: 1 Week Test Results: Test results from this visit will be discussed in further detail at your follow-up appointment, if applicable. Please Follow Up With: Shay Colon MD - May see BUTTONHOLE MAKER/PA When: 1-2 Weeks Proposed Discharge Date: 01/18/19
--- NOTE | 2019-01-18 13:03 | DCINST_ITS ---
- Discharge Diagnoses Current Active Problems: Current Active and Chronic Problems (Last Reviewed 10/01/18 @ 10:23 by Shay Colon MD) Chest pain (Acute) You will use the following diet at home:: Calorie/Carbohydrate Controlled (specify 1200, 1400, etc), Cardiac Discharge Activity: Return to Normal Activity, - - Follow post-cath instructions. Call your doctor if you observe: Shortness of breath, Dizziness, Fainting spells, Chest pain Allergies/Adverse Reactions: Allergies lisinopril Allergy (Verified 01/15/19 12:38) Angioedema Sulfa (Sulfonamide Antibiotics) Allergy (Verified 01/15/19 12:38) Hives piperacillin Adverse Reaction (Severe, Verified 01/15/19 12:38) Unknown Medications to take at Discharge Amlodipine [Norvasc] 5 mg PO DAILY 12/07/13 Clopidogrel Bisulfate [Plavix] 75 mg PO DAILY 12/07/13 Insulin Aspart [Novolog Flexpen] See Protocol SQ TIDCM 12/07/13 Insulin Glargine [Lantus SoloStar Pen] 70 units SC QHS 12/07/13 Isosorbide Mononitrate [Isosorbide Mononitrate ER] 60 mg PO DAILY 12/07/13 Losartan Potassium [Cozaar] 25 mg PO DAILY 12/07/13 Metformin HCl [Glucophage] 1,000 mg PO BIDCM 12/07/13 Metoprolol Tartrate [Lopressor (beta aixa)] 100 mg PO BID 12/07/13 buPROPion tablets [Wellbutrin tablets] 100 mg PO BID 12/07/13 Acetaminophen [Tylenol Tablet] 650 mg PO Q4H PRN PRN #0 tab 09/05/16 Albuterol Inhaler [Ventolin Hfa] 1 - 2 puff INHALATION Q4H PRN PRN #1 inhaler 09/05/16 Aspirin [Aspir-Low] 81 mg PO DAILY 12/26/16 Atorvastatin Calcium [Lipitor] 80 mg PO QHS 12/26/16 Budesonide/Formoterol 160/4.5 [Symbicort 160/4.5 Mcg Inhaler (SP)] 2 puff INHALATION BID 12/26/16 Cefadroxil Hydrate [Duricef] 500 mg PO BID #60 cap 01/13/17 Ibuprofen 2 - 3 mg PO TID PRN #1 tab 01/13/17 nitroglycerin 0.4 mg sublingual tablet 0.4 mg SUBLINGUAL Q5M PRN 02/09/18 [facility] Physician: [facility] [Primary [facility] Provider] - Please follow up with your Primary Care Physician in: 1 Week Test Results: Test results from this visit will be discussed in further detail at your follow- up appointment, if applicable. Please Follow Up With: Shay Colon MD - May see PARALEGAL LEGAL SECRETARY/PA When: 1-2 Weeks Proposed Discharge Date: 01/18/19
--- NOTE | 2019-01-18 13:05 | PCM.DC.SUM ---
<Kayleigh Roldan - Last Filed: 01/18/19 13:19> Discharge Date and Diagnosis Date of Admission: 01/15/19 Date of Discharge: 01/18/19 - Primary Discharge Diagnosis Active and Suspected Problems (Last Reviewed 10/01/18 @ 10:23 by Shay Colon MD) 1. Chest pain, ACS ruled out 2. CAD status post CABG and stents 3. Hypertension 4. Hyperlipidemia 5. Chronic COPD 6. Type 2 diabetes mellitus 7. Gout 8. Anxiety/depression 9. ALLISON 10. Chronic bilateral lower extremity lymphedema - Secondary Discharge Diagnosis Chronic Problems (Last Reviewed 10/01/18 @ 10:23 by Shay Colon MD) Hypotension (Chronic) Encounter for long-term current use of high risk medication (Chronic) Old myocardial infarction (Chronic) Atherosclerotic heart disease of [place] coronary artery without angina pectoris (Chronic) AAA (abdominal aortic aneurysm) without rupture (Chronic) HLD (hyperlipidemia) (Chronic) Diabetes mellitus with polyneuropathy (Chronic) CAD (coronary artery disease) (Chronic) 1995 JENSEN -LAD, SVG-om1. SVG-PLB of RCA, SVG-D1 COPD (chronic obstructive pulmonary disease) (Chronic) Tinea pedis (Chronic) Hx of CABG (Chronic) [id number], SVG-OM1, SVG-PLB of RCA, SVG-D1; Type II diabetes mellitus (Chronic) HTN (hypertension) (Chronic) Stented coronary artery (Chronic) [facility] w/PCI-STEVE X 2-SVG-OM3 2008; [facility] w/PCI-Steve right post AV artery X 1; STEVE-RCA X 3 10/30/13; [facility] [place]-PCI-PLB of RCA 8.12.16 @ [facility] Venous stasis (Chronic) chronic venous stasis with lymphedema Morbid obesity (Chronic) Peripheral neuropathy (Chronic) Hospital Course and Treatment Imaging Results: Diagnostic Data Chest X-Ray 01/15/19 12:39 IMPRESSION: Degenerative changes, as described above. No demonstrated acute cardiopulmonary process. Electronically Signed: Gareth Garcia MD at 13:08 EDT , Service support , Dr. Colunga- Cardiology Operations: None Procedures: Cardiac catheterization Summary of Care Provided: The patient is a 73 year old M admitted 01/15/2019 due to chest pain. 1. Chest pain, ACS ruled out-cardiology consulted given history of CAD status post CABG and stents. Troponin negative. Stress test abnormal, showing stress-induced myocardial ischemia involving portions of the basal towards distal lateral segments. Patient underwent cardiac catheterization 01/18/2019 which showed patent jensen to LAD, patent previous RCA stent, LCx occluded with left and right collateral flow, SVGs previously documented as occluded. No new intervention performed. Patient will continue medical management including aspirin, Plavix, statin, beta-aixa, imdur, losartan. Follow-up with primary care provider in 1 week. Follow up with Dr. Colon in 1 Week. 2. CAD status post CABG and stents-continue aspirin, Plavix, statin, metoprolol, losartan. Continue outpatient follow-up with cardiology. 3. Hypertension-stable, continue home amlodipine, isosorbide, losartan, metoprolol regimen. 4. Hyperlipidemia-continue statin. 5. Chronic COPD-no acute exacerbation. 6. Type 2 diabetes mellitus-continue home insulin regimen. Blood glucose well controlled during admission. 7. Gout-not on regimen. 8. Anxiety/depression- Continue wellbutrin. 9. ALLISON- CPAP qHS. 10. Chronic bilateral lower extremity lymphedema General: Alert, Oriented x3, Cooperative, No apparent distress HEENT: Atraumatic, EOMI, Normocephalic Oral: Moist Mucosa Neck: Supple Lungs: Clear to auscultation, Normal air movement Cardiovascular: Regular rate, Regular Rhythm, Normal S1, Normal S2, No murmurs Abdomen: Bowel Sounds Present, Soft, Non Tender Extremities: No clubbing, No cyanosis, Capillary Refill Less than 3 Seconds, chronic bilateral lower extremity lymphedema Skin: No rashes, No breakdown Musculoskeletal: No Tenderness to Palpation of Joints or Extremities Lymphatic: No Cervical, Supraclavicular, or Inguinal Adenopathy Neurological: Cranial nerves II-XII grossly intact, Neuro grossly intact Psych/Mental Status: Normal Affect, Appropriate Patient seen and examined prior to discharge. Physical assessment as noted above. Patient is stable for discharge with follow up recommendations as noted above. This patient was seen by BRITTNEE Hilliard under the supervision of Dr. Castle. - Physical Exam Vital Signs Temp Pulse Resp BP Pulse Ox 98.4 F 55 L 14 130/59 H 95 01/18/19 10:00 01/18/19 12:45 01/18/19 12:45 01/18/19 12:45 01/18/19 12:45 Oxygen Flow Rate (L/min) 2 Oxygen Delivery Method Room Air Weight: 235 lb 14.314 oz Body Mass Index (BMI) 35.9 Finger Stick Blood Glucose 133 Intake and Output for Last 24 Hours 01/16/19 01/17/19 01/18/19 23:59 23:59 23:59 Intake Total 2365 / 2365 1778 / 1778 450 / 450 Balance 2365 / 2365 1778 / 1778 450 / 450 Laboratory Tests Past 24 Hrs 01/18/19 01/18/19 01/18/19 05:15 05:40 05:40 WBC 7.4 RBC 3.96 L Hgb 12.9 L Hct 38.4 L MCV 97.0 H MCH 32.6 H MCHC 33.6 RDW 13.7 RDW Differential 47.1 H Plt Count 200 MPV 11.8 Immature Gran % (Auto) 0.400 Neut % (Auto) 55.8 Lymph % (Auto) 27.9 [place] % (Auto) 11.4 H Eos % (Auto) 3.7 Baso % (Auto) 0.8 Absolute Neuts (auto) 4.1 Absolute Lymphs (auto) 2.06 Total Counted Not Reportable PT INR APTT Sodium 141 Potassium 4.0 Chloride 114 H Carbon Dioxide 23.0 Anion Gap 4 L BUN 19 H Creatinine 1.05 Estim Creat Clear Calc 61.52 Est GFR (MDRD) Af Amer 89 Est GFR (MDRD) Non-Af 74 BUN/Creatinine Ratio 18.1 Glucose 152 H Calcium 8.3 L Urine Color Straw Urine Clarity Clear Urine pH 7.0 Ur Specific [place] 1.010 Urine Protein Negative Urine Glucose (UA) Normal Urine Ketones Negative Urine Occult Blood Negative Urine Nitrite Negative Urine Bilirubin Negative Urine Urobilinogen Normal Ur Leukocyte Esterase Negative Urine RBC 0 SEEN Urine WBC 0 SEEN Ur Squamous Epith Cells 0 SEEN Urine Bacteria 0 SEEN Urine Mucus 0 SEEN 01/18/19 05:40 WBC RBC Hgb Hct MCV MCH MCHC RDW RDW Differential Plt Count MPV Immature Gran % (Auto) Neut % (Auto) Lymph % (Auto) [place] % (Auto) Eos % (Auto) Baso % (Auto) Absolute Neuts (auto) Absolute Lymphs (auto) Total Counted PT 13.2 INR 1.0 APTT 26.0 Sodium Potassium Chloride Carbon Dioxide Anion Gap BUN Creatinine Estim Creat Clear Calc Est GFR (MDRD) Af Amer Est GFR (MDRD) Non-Af BUN/Creatinine Ratio Glucose Calcium Urine Color Urine Clarity Urine pH Ur Specific [place] Urine Protein Urine Glucose (UA) Urine Ketones Urine Occult Blood Urine Nitrite Urine Bilirubin Urine Urobilinogen Ur Leukocyte Esterase Urine RBC Urine WBC Ur Squamous Epith Cells Urine Bacteria Urine Mucus POC Glucose 01/18/19 01/18/19 01/17/19 11:16 06:07 21:22 POC Glucose 114 H 143 H 199 H 01/17/19 16:21 POC Glucose 230 H Discharge Diet: Low fat/ Low Cholesterol, Carb Control Diet Discharge Activity: Return to Normal Activity, - - Follow post-cath instructions. Call your doctor if you observe: Shortness of breath, Dizziness, Fainting spells, Chest pain Home Medications: Medications to take at Discharge Amlodipine [Norvasc] 5 mg PO DAILY 12/07/13 Clopidogrel Bisulfate [Plavix] 75 mg PO DAILY 12/07/13 Insulin Aspart [Novolog Flexpen] See Protocol SQ TIDCM 12/07/13 Insulin Glargine [Lantus SoloStar Pen] 70 units SC QHS 12/07/13 Isosorbide Mononitrate [Isosorbide Mononitrate ER] 60 mg PO DAILY 12/07/13 Losartan Potassium [Cozaar] 25 mg PO DAILY 12/07/13 Metformin HCl [Glucophage] 1,000 mg PO BIDCM 12/07/13 Metoprolol Tartrate [Lopressor (beta aixa)] 100 mg PO BID 12/07/13 buPROPion tablets [Wellbutrin tablets] 100 mg PO BID 12/07/13 Acetaminophen [Tylenol Tablet] 650 mg PO Q4H PRN PRN #0 tab 09/05/16 Albuterol Inhaler [Ventolin Hfa] 1 - 2 puff INHALATION Q4H PRN PRN #1 inhaler 09/05/16 Aspirin [Aspir-Low] 81 mg PO DAILY 12/26/16 Atorvastatin Calcium [Lipitor] 80 mg PO QHS 12/26/16 Budesonide/Formoterol 160/4.5 [Symbicort 160/4.5 Mcg Inhaler (SP)] 2 puff INHALATION BID 12/26/16 Cefadroxil Hydrate [Duricef] 500 mg PO BID #60 cap 01/13/17 Ibuprofen 2 - 3 mg PO TID PRN #1 tab 01/13/17 nitroglycerin 0.4 mg sublingual tablet 0.4 mg SUBLINGUAL Q5M PRN 02/09/18 [facility] Phys[facility] [Primary [facility] [place]] - Please follow up with your Primary Care Physician in: 1 Week Please Follow Up With: Shay Colon MD - May see CERTIFIED REGISTERED NURSE PRACTITIONER/PA When: 1-2 Weeks Disposition: Home Minutes spent on discharge:: 35 Patient Condition:: Stable Medical Necessity - Tobacco Use Smoking Status: Former smoker Tobacco Use: Cigarettes Meaningful Use Info Meaningful Use Diagnoses (Choose all that apply): None applicable <Omega Castle - Last Filed: 01/18/19 17:02> Discharge Date and Diagnosis - Secondary Discharge Diagnosis Chronic Problems (Last Reviewed 10/01/18 @ 10:23 by Shay Colon MD) Hypotension (Chronic) Encounter for long-term current use of high risk medication (Chronic) Old myocardial infarction (Chronic) Atherosclerotic heart disease of [place] coronary artery without angina pectoris (Chronic) AAA (abdominal aortic aneurysm) without rupture (Chronic) HLD (hyperlipidemia) (Chronic) Diabetes mellitus with polyneuropathy (Chronic) CAD (coronary artery disease) (Chronic) 1995 JENSEN -LAD, SVG-om1. SVG-PLB of RCA, SVG-D1 COPD (chronic obstructive pulmonary disease) (Chronic) Tinea pedis (Chronic) Hx of CABG (Chronic) [id number], SVG-OM1, SVG-PLB of RCA, SVG-D1; Type II diabetes mellitus (Chronic) HTN (hypertension) (Chronic) Stented coronary artery (Chronic) [facility] w/PCI-STEVE X 2-SVG-OM3 2008; [facility] w/PCI-Steve right post AV artery X 1; STEVE-RCA X 3 10/30/13; [facility] [place]-PCI-PLB of RCA 8.12.16 @ [facility] Venous stasis (Chronic) chronic venous stasis with lymphedema Morbid obesity (Chronic) Peripheral neuropathy (Chronic) Hospital Course and Treatment Summary of Care Provided: This patient was seen in conjunction with Kayleigh RIVAS. I have independently interviewed and examined the patient and reviewed pertinent history, examination findings, laboratory and plan of management. I have reviewed the note and agree with the documented findings with the few additional points. In brief, patient is 73-year-old gentleman admitted with chest pain with history of coronary artery disease status post CABG and stents. Serial troponin enzymes were negative. Stress test was reported abnormal showing stress-induced myocardial ischemia. Patient had further cardiac cath on 01/18/2019 which showed patent JENSEN to LAD, patent previous RCA stent, LCx occluded with left and right collateral flow, SVGs previously documented as occluded. Patient did not require PCI. Medical management to continue. Discharge medication reconciliation done. Discharge follow-up instructions completed. Discharge process discussed with the patient and all questions were answered to patient's satisfaction. I have discussed my assessment with Kayleigh RIVAS and orders have been reviewed. [] Subjective: Patient denies chest pain. Acute coronary syndrome ruled out. Blood pressure is controlled. Heart rate in 50s. - Physical Exam General: Alert, Oriented x3, Cooperative HEENT: Atraumatic, PERRLA, EOMI, Normocephalic Neck: Supple, No JVD, Negative Carotid Bruits Lungs: Clear to auscultation, Normal air movement, No rhonchi, No wheeze, No rales Cardiovascular: Regular rate, Regular Rhythm, Normal S1, Normal S2, No murmurs Abdomen: Bowel Sounds Present, Soft, Non Tender, Non-Distended Extremities: Capillary Refill Less than 3 Seconds, Edema - Chronic edema, bilateral lower extremity lymphedema Skin: No rashes, No breakdown Musculoskeletal: No Tenderness to Palpation of Joints or Extremities, Arthritic Changes Lymphatic: No Cervical, Supraclavicular, or Inguinal Adenopathy Neurological: Cranial nerves II-XII grossly intact, Deep Tendon Reflexes 2+/4 and Symmetrical, Neuro grossly intact Psych/Mental Status: Normal Affect, Appropriate Vital Signs Temp Pulse Resp BP Pulse Ox 98.4 F 55 L 14 130/59 H 95 01/18/19 10:00 01/18/19 12:45 01/18/19 12:45 01/18/19 12:45 01/18/19 12:45 Oxygen Flow Rate (L/min) 2 Oxygen Delivery Method Room Air Weight: 235 lb 14.314 oz Body Mass Index (BMI) 35.9 Finger Stick Blood Glucose 133 Intake and Output for Last 24 Hours 01/16/19 01/17/19 01/18/19 23:59 23:59 23:59 Intake Total 2365 / 2365 1778 / 1778 450 / 450 Balance 2365 / 2365 1778 / 1778 450 / 450 Laboratory Tests Past 24 Hrs 01/18/19 01/18/19 01/18/19 05:15 05:40 05:40 WBC 7.4 RBC 3.96 L Hgb 12.9 L Hct 38.4 L MCV 97.0 H MCH 32.6 H MCHC 33.6 RDW 13.7 RDW Differential 47.1 H Plt Count 200 MPV 11.8 Immature Gran % (Auto) 0.400 Neut % (Auto) 55.8 Lymph % (Auto) 27.9 [place] % (Auto) 11.4 H Eos % (Auto) 3.7 Baso % (Auto) 0.8 Absolute Neuts (auto) 4.1 Absolute Lymphs (auto) 2.06 Total Counted Not Reportable PT INR APTT Sodium 141 Potassium 4.0 Chloride 114 H Carbon Dioxide 23.0 Anion Gap 4 L BUN 19 H Creatinine 1.05 Estim Creat Clear Calc 61.52 Est GFR (MDRD) Af Amer 89 Est GFR (MDRD) Non-Af 74 BUN/Creatinine Ratio 18.1 Glucose 152 H Calcium 8.3 L Urine Color Straw Urine Clarity Clear Urine pH 7.0 Ur Specific [place] 1.010 Urine Protein Negative Urine Glucose (UA) Normal Urine Ketones Negative Urine Occult Blood Negative Urine Nitrite Negative Urine Bilirubin Negative Urine Urobilinogen Normal Ur Leukocyte Esterase Negative Urine RBC 0 SEEN Urine WBC 0 SEEN Ur Squamous Epith Cells 0 SEEN Urine Bacteria 0 SEEN Urine Mucus 0 SEEN 01/18/19 05:40 WBC RBC Hgb Hct MCV MCH MCHC RDW RDW Differential Plt Count MPV Immature Gran % (Auto) Neut % (Auto) Lymph % (Auto) [place] % (Auto) Eos % (Auto) Baso % (Auto) Absolute Neuts (auto) Absolute Lymphs (auto) Total Counted PT 13.2 INR 1.0 APTT 26.0 Sodium Potassium Chloride Carbon Dioxide Anion Gap BUN Creatinine Estim Creat Clear Calc Est GFR (MDRD) Af Amer Est GFR (MDRD) Non-Af BUN/Creatinine Ratio Glucose Calcium Urine Color Urine Clarity Urine pH Ur Specific [place] Urine Protein Urine Glucose (UA) Urine Ketones Urine Occult Blood Urine Nitrite Urine Bilirubin Urine Urobilinogen Ur Leukocyte Esterase Urine RBC Urine WBC Ur Squamous Epith Cells Urine Bacteria Urine Mucus POC Glucose 01/18/19 01/18/19 01/17/19 11:16 06:07 21:22 POC Glucose 114 H 143 H 199 H Code Visit OBSV E&M: [id number] Observation care discharge
--- NOTE | 2019-01-18 13:19 | DS.PCM_ITS ---
<Kayleigh Roldan - Last Filed: 01/18/19 13:19> Discharge Date and Diagnosis Date of Admission: 01/15/19 Date of Discharge: 01/18/19 - Primary Discharge Diagnosis Active and Suspected Problems (Last Reviewed 10/01/18 @ 10:23 by Shay Colon MD) 1. Chest pain, ACS ruled out 2. CAD status post CABG and stents 3. Hypertension 4. Hyperlipidemia 5. Chronic COPD 6. Type 2 diabetes mellitus 7. Gout 8. Anxiety/depression 9. ALLISON 10. Chronic bilateral lower extremity lymphedema - Secondary Discharge Diagnosis Chronic Problems (Last Reviewed 10/01/18 @ 10:23 by Shay Colon MD) Hypotension (Chronic) Encounter for long-term current use of high risk medication (Chronic) Old myocardial infarction (Chronic) Atherosclerotic heart disease of cabazon coronary artery without angina pectoris (Chronic) AAA (abdominal aortic aneurysm) without rupture (Chronic) HLD (hyperlipidemia) (Chronic) Diabetes mellitus with polyneuropathy (Chronic) CAD (coronary artery disease) (Chronic) 1995 JENSEN -LAD, SVG-om1. SVG-PLB of RCA, SVG-D1 COPD (chronic obstructive pulmonary disease) (Chronic) Tinea pedis (Chronic) Hx of CABG (Chronic) [id number], SVG-OM1, SVG-PLB of RCA, SVG-D1; Type II diabetes mellitus (Chronic) HTN (hypertension) (Chronic) Stented coronary artery (Chronic) [facility] w/PCI-STEVE X 2-SVG-OM3 2008; [facility] w/PCI-Steve right post AV artery X 1; STEVE- RCA X 3 10/30/13; [facility]-PCI-PLB of RCA 8.12.16 @ [facility] Venous stasis (Chronic) chronic venous stasis with lymphedema Morbid obesity (Chronic) Peripheral neuropathy (Chronic) Hospital Course and Treatment Imaging Results: Diagnostic Data Chest X-Ray 01/15/19 12:39 IMPRESSION: Degenerative changes, as described above. No demonstrated acute cardiopulmonary process. Electronically Signed: Gareth Garcia MD at 13:08 EDT , Service support , Dr. Colunga- Cardiology Operations: None Procedures: Cardiac catheterization Summary of Care Provided: The patient is a 73 year old M admitted 01/15/2019 due to chest pain. 1. Chest pain, ACS ruled out-cardiology consulted given history of CAD status post CABG and stents. Troponin negative. Stress test abnormal, showing stress- induced myocardial ischemia involving portions of the basal towards distal lateral segments. Patient underwent cardiac catheterization 01/18/2019 which showed patent jensen to LAD, patent previous RCA stent, LCx occluded with left and right collateral flow, SVGs previously documented as occluded. No new intervention performed. Patient will continue medical management including aspirin, Plavix, statin, beta-aixa, imdur, losartan. Follow-up with primary care provider in 1 week. Follow up with Dr. Colon in 1 Week. 2. CAD status post CABG and stents-continue aspirin, Plavix, statin, metoprolol, losartan. Continue outpatient follow-up with cardiology. 3. Hypertension-stable, continue home amlodipine, isosorbide, losartan, metoprolol regimen. 4. Hyperlipidemia-continue statin. 5. Chronic COPD-no acute exacerbation. 6. Type 2 diabetes mellitus-continue home insulin regimen. Blood glucose well controlled during admission. 7. Gout-not on regimen. 8. Anxiety/depression- Continue wellbutrin. 9. ALLISON- CPAP qHS. 10. Chronic bilateral lower extremity lymphedema General: Alert, Oriented x3, Cooperative, No apparent distress HEENT: Atraumatic, EOMI, Normocephalic Oral: Moist Mucosa Neck: Supple Lungs: Clear to auscultation, Normal air movement Cardiovascular: Regular rate, Regular Rhythm, Normal S1, Normal S2, No murmurs Abdomen: Bowel Sounds Present, Soft, Non Tender Extremities: No clubbing, No cyanosis, Capillary Refill Less than 3 Seconds, chronic bilateral lower extremity lymphedema Skin: No rashes, No breakdown Musculoskeletal: No Tenderness to Palpation of Joints or Extremities Lymphatic: No Cervical, Supraclavicular, or Inguinal Adenopathy Neurological: Cranial nerves II-XII grossly intact, Neuro grossly intact Psych/Mental Status: Normal Affect, Appropriate Patient seen and examined prior to discharge. Physical assessment as noted above. Patient is stable for discharge with follow up recommendations as noted above. This patient was seen by BRITTNEE Hilliard under the supervision of Dr. Castle. - Physical Exam Vital Signs Temp Pulse Resp BP Pulse Ox 98.4 F 55 L 14 130/59 H 95 01/18/19 10:00 01/18/19 12:45 01/18/19 12:45 01/18/19 12:45 01/18/19 12:45 Oxygen Flow Rate (L/min) 2 Oxygen Delivery Method Room Air Weight: 235 lb 14.314 oz Body Mass Index (BMI) 35.9 Finger Stick Blood Glucose 133 Intake and Output for Last 24 Hours 01/16/19 01/17/19 01/18/19 23:59 23:59 23:59 Intake Total 2365 / 2365 1778 / 1778 450 / 450 Balance 2365 / 2365 1778 / 1778 450 / 450 Laboratory Tests Past 24 Hrs 01/18/19 01/18/19 01/18/19 05:15 05:40 05:40 WBC 7.4 RBC 3.96 L Hgb 12.9 L Hct 38.4 L MCV 97.0 H MCH 32.6 H MCHC 33.6 RDW 13.7 RDW Differential 47.1 H Plt Count 200 MPV 11.8 Immature Gran % (Auto) 0.400 Neut % (Auto) 55.8 Lymph % (Auto) 27.9 Butler % (Auto) 11.4 H Eos % (Auto) 3.7 Baso % (Auto) 0.8 Absolute Neuts (auto) 4.1 Absolute Lymphs (auto) 2.06 Total Counted Not Reportable PT INR APTT Sodium 141 Potassium 4.0 Chloride 114 H Carbon Dioxide 23.0 Anion Gap 4 L BUN 19 H Creatinine 1.05 Estim Creat Clear Calc 61.52 Est GFR (MDRD) Af Amer 89 Est GFR (MDRD) Non-Af 74 BUN/Creatinine Ratio 18.1 Glucose 152 H Calcium 8.3 L Urine Color Straw Urine Clarity Clear Urine pH 7.0 Ur Specific [place] 1.010 Urine Protein Negative Urine Glucose (UA) Normal Urine Ketones Negative Urine Occult Blood Negative Urine Nitrite Negative Urine Bilirubin Negative Urine Urobilinogen Normal Ur Leukocyte Esterase Negative Urine RBC 0 SEEN Urine WBC 0 SEEN Ur Squamous Epith Cells 0 SEEN Urine Bacteria 0 SEEN Urine Mucus 0 SEEN 01/18/19 05:40 WBC RBC Hgb Hct MCV MCH MCHC RDW RDW Differential Plt Count MPV Immature Gran % (Auto) Neut % (Auto) Lymph % (Auto) Butler % (Auto) Eos % (Auto) Baso % (Auto) Absolute Neuts (auto) Absolute Lymphs (auto) Total Counted PT 13.2 INR 1.0 APTT 26.0 Sodium Potassium Chloride Carbon Dioxide Anion Gap BUN Creatinine Estim Creat Clear Calc Est GFR (MDRD) Af Amer Est GFR (MDRD) Non-Af BUN/Creatinine Ratio Glucose Calcium Urine Color Urine Clarity Urine pH Ur Specific [place] Urine Protein Urine Glucose (UA) Urine Ketones Urine Occult Blood Urine Nitrite Urine Bilirubin Urine Urobilinogen Ur Leukocyte Esterase Urine RBC Urine WBC Ur Squamous Epith Cells Urine Bacteria Urine Mucus POC Glucose 01/18/19 01/18/19 01/17/19 11:16 06:07 21:22 POC Glucose 114 H 143 H 199 H 01/17/19 16:21 POC Glucose 230 H Discharge Diet: Low fat/ Low Cholesterol, Carb Control Diet Discharge Activity: Return to Normal Activity, - - Follow post-cath instructions. Call your doctor if you observe: Shortness of breath, Dizziness, Fainting spells, Chest pain Home Medications: Medications to take at Discharge Amlodipine [Norvasc] 5 mg PO DAILY 12/07/13 Clopidogrel Bisulfate [Plavix] 75 mg PO DAILY 12/07/13 Insulin Aspart [Novolog Flexpen] See Protocol SQ TIDCM 12/07/13 Insulin Glargine [Lantus SoloStar Pen] 70 units SC QHS 12/07/13 Isosorbide Mononitrate [Isosorbide Mononitrate ER] 60 mg PO DAILY 12/07/13 Losartan Potassium [Cozaar] 25 mg PO DAILY 12/07/13 Metformin HCl [Glucophage] 1,000 mg PO BIDCM 12/07/13 Metoprolol Tartrate [Lopressor (beta aixa)] 100 mg PO BID 12/07/13 buPROPion tablets [Wellbutrin tablets] 100 mg PO BID 12/07/13 Acetaminophen [Tylenol Tablet] 650 mg PO Q4H PRN PRN #0 tab 09/05/16 Albuterol Inhaler [Ventolin Hfa] 1 - 2 puff INHALATION Q4H PRN PRN #1 inhaler 09/05/16 Aspirin [Aspir-Low] 81 mg PO DAILY 12/26/16 Atorvastatin Calcium [Lipitor] 80 mg PO QHS 12/26/16 Budesonide/Formoterol 160/4.5 [Symbicort 160/4.5 Mcg Inhaler (SP)] 2 puff INHALATION BID 12/26/16 Cefadroxil Hydrate [Duricef] 500 mg PO BID #60 cap 01/13/17 Ibuprofen 2 - 3 mg PO TID PRN #1 tab 01/13/17 nitroglycerin 0.4 mg sublingual tablet 0.4 mg SUBLINGUAL Q5M PRN 02/09/18 [facility] [Primary [facility]] - Please follow up with your Primary Care Physician in: 1 Week Please Follow Up With: Shay Colon MD - May see [employer]/PA When: 1-2 Weeks Disposition: Home Minutes spent on discharge:: 35 Patient Condition:: Stable Medical Necessity - Tobacco Use Smoking Status: Former smoker Tobacco Use: Cigarettes Meaningful Use Info Meaningful Use Diagnoses (Choose all that apply): None applicable <Omega Castle - Last Filed: 01/18/19 17:02> Discharge Date and Diagnosis - Secondary Discharge Diagnosis Chronic Problems (Last Reviewed 10/01/18 @ 10:23 by Shay Colon MD) Hypotension (Chronic) Encounter for long-term current use of high risk medication (Chronic) Old myocardial infarction (Chronic) Atherosclerotic heart disease of cabazon coronary artery without angina pectoris (Chronic) AAA (abdominal aortic aneurysm) without rupture (Chronic) HLD (hyperlipidemia) (Chronic) Diabetes mellitus with polyneuropathy (Chronic) CAD (coronary artery disease) (Chronic) 1995 JENSEN -LAD, SVG-om1. SVG-PLB of RCA, SVG-D1 COPD (chronic obstructive pulmonary disease) (Chronic) Tinea pedis (Chronic) Hx of CABG (Chronic) [id number], SVG-OM1, SVG-PLB of RCA, SVG-D1; Type II diabetes mellitus (Chronic) HTN (hypertension) (Chronic) Stented coronary artery (Chronic) [facility] w/PCI-STEVE X 2-SVG-OM3 2008; [facility] w/PCI-Steve right post AV artery X 1; STEVE- RCA X 3 10/30/13; [facility]-PCI-PLB of RCA 8.12.16 @ [facility] Venous stasis (Chronic) chronic venous stasis with lymphedema Morbid obesity (Chronic) Peripheral neuropathy (Chronic) Hospital Course and Treatment Summary of Care Provided: This patient was seen in conjunction with Kayleigh RIVAS. I have independently interviewed and examined the patient and reviewed pertinent history, examination findings, laboratory and plan of management. I have reviewed the note and agree with the documented findings with the few additional points. In brief, patient is 73-year-old gentleman admitted with chest pain with history of coronary artery disease status post CABG and stents. Serial troponin enzymes were negative. Stress test was reported abnormal showing stres s-induced myocardial ischemia. Patient had further cardiac cath on 01/18/2019 which showed patent JENSEN to LAD, patent previous RCA stent, LCx occluded with left and right collateral flow, SVGs previously documented as occluded. Patient did not require PCI. Medical management to continue. Discharge medication reconciliation done. Discharge follow-up instructions completed. Discharge process discussed with the patient and all questions were answered to patient's satisfaction. I have discussed my assessment with Kayleigh RIVAS and orders have been reviewed. [] Subjective: Patient denies chest pain. Acute coronary syndrome ruled out. Blood pressure is controlled. Heart rate in 50s. - Physical Exam General: Alert, Oriented x3, Cooperative HEENT: Atraumatic, PERRLA, EOMI, Normocephalic Neck: Supple, No JVD, Negative Carotid Bruits Lungs: Clear to auscultation, Normal air movement, No rhonchi, No wheeze, No rales Cardiovascular: Regular rate, Regular Rhythm, Normal S1, Normal S2, No murmurs Abdomen: Bowel Sounds Present, Soft, Non Tender, Non-Distended Extremities: Capillary Refill Less than 3 Seconds, Edema - Chronic edema, bilateral lower extremity lymphedema Skin: No rashes, No breakdown Musculoskeletal: No Tenderness to Palpation of Joints or Extremities, Arthritic Changes Lymphatic: No Cervical, Supraclavicular, or Inguinal Adenopathy Neurological: Cranial nerves II-XII grossly intact, Deep Tendon Reflexes 2+/4 and Symmetrical, Neuro grossly intact Psych/Mental Status: Normal Affect, Appropriate Vital Signs Temp Pulse Resp BP Pulse Ox 98.4 F 55 L 14 130/59 H 95 01/18/19 10:00 01/18/19 12:45 01/18/19 12:45 01/18/19 12:45 01/18/19 12:45 Oxygen Flow Rate (L/min) 2 Oxygen Delivery Method Room Air Weight: 235 lb 14.314 oz Body Mass Index (BMI) 35.9 Finger Stick Blood Glucose 133 Intake and Output for Last 24 Hours 01/16/19 01/17/19 01/18/19 23:59 23:59 23:59 Intake Total 2365 / 2365 1778 / 1778 450 / 450 Balance 2365 / 2365 1778 / 1778 450 / 450 Laboratory Tests Past 24 Hrs 01/18/19 01/18/19 01/18/19 05:15 05:40 05:40 WBC 7.4 RBC 3.96 L Hgb 12.9 L Hct 38.4 L MCV 97.0 H MCH 32.6 H MCHC 33.6 RDW 13.7 RDW Differential 47.1 H Plt Count 200 MPV 11.8 Immature Gran % (Auto) 0.400 Neut % (Auto) 55.8 Lymph % (Auto) 27.9 Butler % (Auto) 11.4 H Eos % (Auto) 3.7 Baso % (Auto) 0.8 Absolute Neuts (auto) 4.1 Absolute Lymphs (auto) 2.06 Total Counted Not Reportable PT INR APTT Sodium 141 Potassium 4.0 Chloride 114 H Carbon Dioxide 23.0 Anion Gap 4 L BUN 19 H Creatinine 1.05 Estim Creat Clear Calc 61.52 Est GFR (MDRD) Af Amer 89 Est GFR (MDRD) Non-Af 74 BUN/Creatinine Ratio 18.1 Glucose 152 H Calcium 8.3 L Urine Color Straw Urine Clarity Clear Urine pH 7.0 Ur Specific [place] 1.010 Urine Protein Negative Urine Glucose (UA) Normal Urine Ketones Negative Urine Occult Blood Negative Urine Nitrite Negative Urine Bilirubin Negative Urine Urobilinogen Normal Ur Leukocyte Esterase Negative Urine RBC 0 SEEN Urine WBC 0 SEEN Ur Squamous Epith Cells 0 SEEN Urine Bacteria 0 SEEN Urine Mucus 0 SEEN 01/18/19 05:40 WBC RBC Hgb Hct MCV MCH MCHC RDW RDW Differential Plt Count MPV Immature Gran % (Auto) Neut % (Auto) Lymph % (Auto) Butler % (Auto) Eos % (Auto) Baso % (Auto) Absolute Neuts (auto) Absolute Lymphs (auto) Total Counted PT 13.2 INR 1.0 APTT 26.0 Sodium Potassium Chloride Carbon Dioxide Anion Gap BUN Creatinine Estim Creat Clear Calc Est GFR (MDRD) Af Amer Est GFR (MDRD) Non-Af BUN/Creatinine Ratio Glucose Calcium Urine Color Urine Clarity Urine pH Ur Specific [place] Urine Protein Urine Glucose (UA) Urine Ketones Urine Occult Blood Urine Nitrite Urine Bilirubin Urine Urobilinogen Ur Leukocyte Esterase Urine RBC Urine WBC Ur Squamous Epith Cells Urine Bacteria Urine Mucus POC Glucose 01/18/19 01/18/19 01/17/19 11:16 06:07 21:22 POC Glucose 114 H 143 H 199 H Code Visit OBSV E&M: 09147 Observation care discharge
--- NOTE | 2019-01-18 17:02 | CL.D_ITS ---
Patient Name: ULISSES ISBELL Study Date: 01/18/2019 Performing: Nicolas Colunga MD Ht: 68 inches 173 cm : 1945 Wt: 236.2 lbs 107 kg Age: 73 Gender: male BSA: 2.2 PROCEDURE(S) PERFORMED [id number]/LV CLINICAL PROFILE AND INDICATIONS Indications: Suspected CAD Heart Failure: None Stress/Imaging Date: 01/16/2019Stress Test with SPECT MPI: Positive Angina Classification Anginal Classification w/in 2 Weeks: CCS IV CAD Presentations: Other: Atypical Chest Pain CONCLUSIONS Elevated Left Ventricular End Diastolic Pressure Segmented LV systolic dysfunction- Mild LVEF: by LV gram 55 % [place] Multivessel CAD JENSEN to the LAD patent with the sequential portion to the DX occluded DX filling from left to left collaterals LCX distribution filling from left to left and right to left collaterals Comment: SVG grafts to the DX, OM, and RPDA previously documented as occluded and not reevaluated dur ing this examination RECOMMENDATIONS Risk factor modification Medical therapy DESCRIPTION OF PROCEDURE The patient arrived to the procedure lab. The risks and benefits of the procedure as well as a full d escription of our services here and current unavailability of surgical backup were fully explained to the patient and/or their significant other prior to the catheterization. The Timeout was completed, verifying the correct patient and procedure. The patient's procedural site was prepped and draped in the usual fashion. Local anesthetic was given subcutaneously to right groin region with Lidocaine 2%. Using a modified Seldinger technique, arterial access was obtained via the right femoral artery, a 4 Fr sheath was inserted Left Coronary Artery selective angiography was performed in multiple views us ing a 4 Fr. JL5 catheter. Right Coronary Artery selective angiography was then performed in multiple views using a 4 Fr. 3DRC catheter. Left internal mammary artery graft to the LAD selective angiograph y was performed in multiple views using a 4 Fr. JR4 catheter. Left Ventriculography was performed in [place] projection using a 4 Fr. Pigtail catheter. LV to AO pullback pressures were then rec orded. CORONARY ANGIOGRAPHY DOMINANCE: Right Dominant LEFT HEART ASSESSMENT Left Ventricular Ejection Fraction: by LV Gram 55 % Inferior Basal Akinesis Elevated Left Ventricular End Diastolic Pressure LVEDP: 24 mmHg LEFT MAIN: Mild luminal irregularities LEFT ANTERIOR DECENDING ARTERY: PROX LAD: diffuse irregular 85 % Stenosis MID LAD: mid to distal vessel filling predominantly from JENSEN graft flow with no angiographically sig nificant appearing disease distal to the graft attachment DIAGONAL 1: Proximal - diffuse irregular 85 % Stenosis, Mid - to distal vessel filling from left to l eft collateral flow CIRCUMFLEX ARTERY: PROX CIRC: is occluded RIGHT CORONARY ARTERY: Mild luminal irregularities MID RCA: Previously placed stent is patent DISTAL RCA: Previously placed stent is patent RIGHT AV SEGMENT: Previously placed stent is patent GRAFTS: JENSEN graft to the Mid LAD is patent JENSEN graft to the 1st Diagonal is totally occluded (sequential portion) COLLATERAL FLOW: Collateral flow from Left to Left (to the DX and LCX distribution) Collateral flow from Right to Left (to the LCX distribution) VALVE FINDINGS: Normal Aortic Valve function Mitral Valve Insufficiency - Grade 1 AORTIC ROOT: Angiographically normal COMPLICATIONS No Complications PROCEDURE MEDICATIONS Versed .5 mg IV Versed 1 mg IV Oxygen: 2 L/min via nasal cannula SUMMARY OF HEMODYNAMIC DATA Time AIR REST ECG 08:40:57 AO 120/57 (79) SA 09:01:12 LV 118/2, 24 09:18:02 LV 118/1, 24 09:18:09 LV 114/15, 29 09:18:58 LV 115/11, 25 09:19:04 LVp 120/14, 33 09:19:21 AOp 114/58 (79) 09:19:26 Signed By Nicolas oClunga MD On 01/18/2019 17:01:42 Nicolas Colunga MD
== END 2019-01-18 13:01 | disposition home or self-care (01) ==
LOC: ED 13:09 → PCU 15:16
PROVIDERS: Internal Medicine Cardiovascular Disease; Student in an Organized Health Care Education/Training Program; Admitting Provider Family Medicine; Emergency Provider Emergency Medicine; Referring Provider Family Medicine; Visit Provider Internal Medicine
DX: R07.89 Other chest pain (principal); I25.2 Old myocardial infarction; I25.10 Atherosclerotic heart disease of native coronary artery without angina pectoris; E78.5 Hyperlipidemia, unspecified; J44.9 Chronic obstructive pulmonary disease, unspecified; I10 Essential (primary) hypertension; E11.42 Type 2 diabetes mellitus with diabetic polyneuropathy; E66.9 Obesity, unspecified; I89.0 Lymphedema, not elsewhere classified; F32.9 Major depressive disorder, single episode, unspecified; F41.9 Anxiety disorder, unspecified; G47.33 Obstructive sleep apnea (adult) (pediatric); E11.51 Type 2 diabetes mellitus with diabetic peripheral angiopathy without gangrene; M10.9 Gout, unspecified; Z95.1 Presence of aortocoronary bypass graft; Z95.5 Presence of coronary angioplasty implant and graft; Z79.899 Other long term (current) drug therapy; Z79.4 Long term (current) use of insulin; Z79.02 Long term (current) use of antithrombotics/antiplatelets; Z79.82 Long term (current) use of aspirin; Z68.35 Body mass index [BMI] 35.0-35.9, adult; Z71.3 Dietary counseling and surveillance; Z87.891 Personal history of nicotine dependence
CPT/HCPCS: 36415; 71045; 78452; 80048; 80053; 80061; 81001; 82962; 83735; 84484; 85025; 85027; 85610; 85730; 93005; 93017; 93458; 94640; 96360; 96361; 96372; 99152; 99153; 99218; 99285; A9500; J7030; A4216; C1769; C1894; G0378; J2785; Q9967

== ENCOUNTER 2020-07-22 11:54 | Inpatient (IN) | payer OTHER, MEDICARE, SELFPAY ==
[2019-03-26 08:41] VITALS: BMI 37.0
[2020-07-22] VITALS (17 sets, daily range): BP systolic 117–158; BP diastolic 65–93; PULSE 68–88; RESP 17–24; TEMP 2.8–37.1; O2SAT 77–98; BMI 33.1; BMI 33.5
--- NOTE | 2020-07-22 12:02 | EKG12_ITS ---
Test Reason : SOB Blood Pressure : / mmHG Vent. Rate : 068 BPM Atrial Rate : 068 BPM P-R Int : 178 ms QRS Dur : 108 ms QT Int : 428 ms P-R-T Axes : 001 026 081 degrees QTc Int : 455 ms Normal sinus rhythm Nonspecific T wave abnormality Abnormal ECG Confirmed by NIRAV CORDERO, MAYKEL ([id number]), dictionary editor CRISTOPHER HALL ([id number]) on 07/25/2020 11:18:20 AM Referred By: ESTEFANY Confirmed By:MAYKEL GASTELUM MD
--- NOTE | 2020-07-22 12:02 | RAD_ITS ---
STUDY: X-RAY CHEST REASON FOR EXAM: Male, 74 years old. sob, getting worse TECHNIQUE: AP COMPARISON: 01/15/2019 FINDINGS: Lungs are under expanded with coarsened interstitial lung markings but no airspace consolidation. There is no demonstrated pleural abnormality. There is mild cardiac enlargement. Sternal wires and mediastinal surgical clips compatible with prior CABG. Normal visualized pulmonary arteries. Normal visualized aortic arch and descending thoracic aorta. There are diffuse degenerative changes of the visualized thoracic spine. Normal visualized ribs, clavicles, and shoulders. There is no demonstrated abnormality of the visualized soft tissue structures of the upper abdomen. RAD/Chest 1 View (Portable) IMPRESSION: Stable, nonacute portable x-ray examination of the chest. Electronically Signed: Nitish Luis MD ([place]) at 12:33 EDT , Service support ,
--- NOTE | 2020-07-22 12:11 | ED.VISSUMM ---
- ER Visit Summary Date of Service: 07/22/20 Chief Complaint: Shortness of breath and positive History of Present Illness: The patient is a 74 M history of CAD, TX with prior four-vessel bypass and 13 cardiac stents. Also history of insulin-dependent diabetes hypertension and COPD. Patient states he was diagnosed with Covid at another [facility] on Friday. The last several days has progressively become more short of breath. He is not on home O2. He does have a cough, fever and chills. He denies any vomiting or diarrhea. Physical Examination: Older male hypoxic. Initial blood pressure 141/68. On nasal cannula his pulse ox is 96. On room air his oxygen is 70. H EENT exam unremarkable. Neck nontender. No JVD. Lungs coarse breath sounds bilaterally. Decreased air movement. Expiratory wheezing. Heart regular rhythm no murmur. Rate about 70. Abdomen soft nontender mildly obese. No peritoneal signs. Patient moving all 4 extremities. He does have mild edema in his left leg he said that is chronic from his prior bypass surgery. His left leg is always slightly larger than his right. Patient is moving all 4 extremities. He has normal [employer] strength. Normal dorsi plantarflexion. Neurologically is awake and alert. He is answering questions and following commands. He has no focal motor deficits. Test Results: EKG shows normal sinus rhythm rate of [address]-T wave changes which I feel are chronic. There is no acute signs of an TX nor ischemia. Chest x-ray portable 1 view shows chronic changes no acute process. CBC white count of 6. Hemoglobin 15. No bands. Chemistries show BUN 24 creatinine 1.3 normal gap liver enzymes unremarkable normal PT PTT. Lactic acid elevated 3.0. Blood cultures pending. CTA of the chest shows bilateral infiltrates consistent with COVID-19 pneumonia. No pulmonary emboli. Read by the radiologist and reviewed by me. Emergency Department Course and Treatment: Older male hypoxic with known Covid. Will undergo a sepsis work-up. He will need admitted. He will be started on IV Solu-Medrol. Treatment Plan: Multiple repeat exams patient is doing well on oxygen. I just spoke to him and went over all his test results with him at 1405 p.m. I have also spoken to the hospitalist. He will be admitted. Disposition: Admission Impression: Acute hypoxia and dyspnea COVID-19 positive pneumonia History of COPD with flare History of CAD with prior bypass and multiple stents Anticoagulated on Plavix History of insulin-dependent diabetes This note was generated with [employer] dictation software. It may contain incorrect words, spelling, and punctuation that were not noted in review of the chart prior to signing ED Disposition - Plan for ED Patient: [facility]errals: [facility] [Primary Care Provider] -
[2020-07-22] MEDS: MethylPREDNISolone 125 MG/2 ML Vial IV (12:14)
[2020-07-22 12:17] LABS: Absolute Lymphocyte Count 0.87 X10^3/uL (0.83-4.51); Absolute Neutrophil Count 5.1 X10^3/uL (2.0-7.7); Basophil# 0.01 X10^3/uL; Basophil% 0.1 % (0-1); Eosinophil# 0.02 X10^3/uL; Eosinophils% 0.3 % (0-5); Hemoglobin 15.2 g/dL (13.0-16.5); Lymphocyte # 0.87 X10^3/ul (4.0); Lymphocyte % 12.8 % (19-41); Mean Corp Hgb Conc 31.7 g/dL (32-36); Mean Corpuscular Hgb 30.6 pg (27.0-32.0); Mean Corpuscular Volume 96.6 fL (80-94); Mean Platelet Vol. 11.7 fl (6.2-12.0); Monocyte% 11.8 % (0-10); NRBC Flagged by Analyzer 0 % (0-5); Neutrophil # 5.05 X10^3/uL (2.7-7.7); Neutrophil % 74.6 % (47-70); Platelet Count 204 K/mm3 (150-450); RBC Distribution Width CV 14.6 % (11.6-14.6); Red Blood Count 4.97 M/mm3 (4.6-6.2); White Blood Count 6.8 K/mm3 (4.4-11.0)
[2020-07-22 12:26] LABS: Prothrombin Time (Protime)PT. 13.1 SECONDS (11.7-14.9)
[2020-07-22 12:27] LABS: Partial Thromboplast Time 27.8 Seconds (24.1-36.2)
[2020-07-22 12:34] LABS: ALB/GLOB Ratio 0.6 RATIO (0.9-2.4); AST(SGOT) 29 U/L (15-37); Alanine Aminotransfer ALT/SGPT 34 U/L (16-61); Alkaline Phosphatase 79 U/L (45-117); Anion Gap 9 (5-15); BUN 24 mg/dL (7-18); BUN/Creat Ratio 18.2 RATIO (10-20); Calcium,Total 8.9 mg/dL (8.5-10.1); Chloride 107 mmol/L (98-107); Creatinine, Serum 1.32 mg/dL (0.70-1.30); EST Glomerular Filtration Rate 56 mL/min (>60); Est Glom Filt Rate - Afr Amer 68 mL/min (>60); Estimated Creatinine Clearance 49.84 ml/min; Globulin 4.9 g/dL (2.2-4.2); Glucose 173 mg/dL (74-106); Protein, Total 7.9 g/dL (6.4-8.2); Sodium Level 139 mmol/L (136-145)
--- NOTE | 2020-07-22 12:39 | CT_ITS ---
STUDY: CTA CHEST REASON FOR EXAM: Male, 74 years old. HYPOXIC, COVID+ RADIATION DOSAGE (If Supplied By Facility): CTDIvol = ( 15.03 ) mGy, DLP = ( 527.15 ) mGycm TECHNIQUE: The examination was performed with the intravenous administration of IV 100mL Isovue-370. Post-processing of the angiographic images was performed, with multiplanar reformation and 3D reconstruction. Individualized dose optimization techniques were used for this CT. COMPARISON: None. FINDINGS: Normal enhancement of the main pulmonary artery and right and left pulmonary arteries. Normal enhancement of the bilateral peripheral pulmonary arteries. There is no demonstrated pulmonary embolism. Normal thoracic aorta and visualized great vessels. There is no demonstrated aortic dissection. Normal heart and pericardium. Sternal wires and mediastinal surgical clips compatible with prior CABG. Normal mediastinum. Normal hilar regions. Normal visualized trachea and bronchi. The lungs are well expanded. There are patchy areas of peripheral dominant localized groundglass opacities involving multiple pulmonary lobes. No dense airspace consolidation or cavitating process. Normal chest wall structures. There are degenerative changes of the thoracic spine. Normal visualized upper abdomen. CT/CTA Chest W/WO Contrast IMPRESSION: 1. No central or segmental pulmonary embolism. 2. Multifocal, multilobar/bilateral peripheral dominant groundglass opacities are imaging features suggestive of COVID 19 pneumonia although can be seen in a variety of infectious and noninfectious processes. Electronically Signed: Nitish Luis MD ([place]) at 13:57 EDT , Service support ,
[2020-07-22] MEDS: 0.9% Normal Saline 1,000 ML 999 ML IV (13:15)
--- NOTE | 2020-07-22 14:22 | PCM.HP.STD ---
Problem List (1) Acute respiratory failure with hypoxia Status: Acute (2) Pneumonia due to COVID-19 virus Status: Acute (3) COPD (chronic obstructive pulmonary disease) Status: Chronic (4) Type 2 diabetes mellitus Status: Chronic (5) Atherosclerotic heart disease of [place] coronary artery without angina pectoris Status: Chronic Qualifiers: Comment: (6) History of coronary artery stent placement Status: Chronic Comment: PCI-HASMUKH X 2-SVG-OM3 2008;PCI-HASMUKH right post AV; HASMUKH-RCA X 3 10/30/13; [id number] 05/03/16 (7) H/O coronary artery bypass surgery Status: Chronic Comment: CABG x 5 Sequential JENSEN-LAD and D3, SVG-OM1, SVG-RBLB2, SVG-D1 1995 (8) Essential (primary) hypertension Status: Chronic (9) HLD (hyperlipidemia) Status: Chronic Qualifiers: History of Present Illness Date of Admission: 07/22/20 Chief Complaint: Shortness of breath. The patient is a 74 year old M with past medical history as mentioned above presented to the emergency room because of shortness of breath. Patient symptoms started 2 days ago with shortness of breath, has been progressively increasing, both at rest and with minimal activity, aggravated by any type of activity, not relieved with rest, associated with productive cough with small amount of light green sputum as well as generalized body aches and pains. He mentioned that he tested positive for COVID-19 3 days ago. In the first couple of days, his main symptoms were body aches and pains as well as malaise with subjective fever. 2 days after he was diagnosed with COVID-19, he started having increasing shortness of breath and that is why he came in today. Reported some diarrhea, no nausea or vomiting. In the emergency department, he was afebrile, blood pressure and heart rate were stable, initial pulse ox was 77% on room air, currently on oxygen by nasal cannula at 6 L. Routine blood work was remarkable for BUN of 24, creatinine is 1.32. LFT was unremarkable. Lactic acid was 3. EKG revealed normal sinus rhythm with nonspecific T wave changes, no ischemic changes. Chest x-ray revealed minimal faint infiltrate versus atelectasis more prominent on the left lung. CTA chest showed no PE or dissection, revealed multifocal multilobar bilateral groundglass opacities. Patient is being admitted for acute bilateral COVID-19 pneumonia complicated by acute hypoxic respiratory failure. Past Medical History Past Medical History (Chronic Problems): Chronic Problems (Last Updated 07/22/20 @ 14:[address] Carmen Tilley MD) COPD (chronic obstructive pulmonary disease) (Chronic) Type 2 diabetes mellitus (Chronic) Atherosclerotic heart disease of [place] coronary artery without angina pectoris (Chronic) History of coronary artery stent placement (Chronic 05/03/16) PCI-HASMUKH X 2-SVG-OM3 2008;PCI-HASMUKH right post AV; HASMUKH-RCA X 3 10/30/13; [id number] 05/03/16 H/O coronary artery bypass surgery (Chronic 1995) CABG x 5 Sequential JENSEN-LAD and D3, SVG-OM1, SVG-RBLB2, SVG-D1 1995 Secondary pulmonary arterial hypertension (Chronic) Essential (primary) hypertension (Chronic) AAA (abdominal aortic aneurysm) without rupture (Chronic) HLD (hyperlipidemia) (Chronic) Medical History: Medical History (Last Updated 07/22/20 @ 14:[address] Carmen Tilley MD) Atherosclerotic heart disease of [place] coronary artery without angina pectoris (Chronic) I25.10 Secondary pulmonary arterial hypertension (Chronic) I27.21 Essential (primary) hypertension (Chronic) I10 AAA (abdominal aortic aneurysm) without rupture (Chronic) I71.4 HLD (hyperlipidemia) (Chronic) E78.5 COPD (chronic obstructive pulmonary disease) J44.9 Diabetes mellitus with polyneuropathy E11.42 Gout M10.9 Obesity E66.9 Obstructive sleep apnea G47.33 Venous stasis I87.8 Sepsis A41.9 Allergies lisinopril Allergy (Verified 03/26/19 08:41) Angioedema Sulfa (Sulfonamide Antibiotics) Allergy (Verified 03/26/19 08:41) Hives piperacillin Adverse Reaction (Severe, Verified 03/26/19 08:41) Unknown Home Medications: Ambulatory Orders Medication Instructions Recorded Amlodipine [Norvasc] 5 mg PO DAILY 12/07/13 Clopidogrel Bisulfate [Plavix] 75 mg PO DAILY 12/07/13 Insulin Aspart [Novolog Flexpen] See Protocol SQ TIDCM 12/07/13 Insulin Glargine [Lantus SoloStar 72 units SC QHS 12/07/13 Pen] Isosorbide Mononitrate [Isosorbide 60 mg PO DAILY 12/07/13 Mononitrate ER] Losartan Potassium [Cozaar] 25 mg PO DAILY 12/07/13 Metformin HCl [Glucophage] 1,000 mg PO BIDCM 12/07/13 Metoprolol Tartrate [Lopressor 100 mg PO BID 12/07/13 (beta aixa)] buPROPion tablets [Wellbutrin 100 mg PO BID 12/07/13 tablets] Acetaminophen [Tylenol Tablet] 650 mg PO Q4H PRN PRN #0 tab 09/05/16 Albuterol Inhaler [Ventolin Hfa] 1 - 2 puff INHALATION Q4H PRN PRN 09/05/16 #1 inhaler Aspirin [Aspir-Low] 81 mg PO DAILY 12/26/16 Atorvastatin Calcium [Lipitor] 80 mg PO QHS 12/26/16 Cefadroxil Hydrate [Duricef] 500 mg PO BID #60 cap 01/13/17 Ibuprofen 2 - 3 mg PO TID PRN #1 tab 01/13/17 nitroglycerin 0.4 mg sublingual 0.4 mg SUBLINGUAL Q5M PRN 02/09/18 tablet Surgical History: Surgical History (Last Reviewed 07/22/20 @ 14:[address] Carmen Tilley MD) History of coronary artery stent placement (Chronic) Onset Date: 05/03/16 Z95.5 PCI-HASMUKH X 2-SVG-OM3 2008;PCI-HASMUKH right post AV; HASMUKH-RCA X 3 10/30/13; [id number] 05/03/16 H/O coronary artery bypass surgery (Chronic) Onset Date: 1995 Z95.1 CABG x 5 Sequential JENSEN-LAD and D3, SVG-OM1, SVG-RBLB2, SVG-D1 1995 History of cataract surgery Z98.49 History of left heart catheterization Onset Date: 01/18/19 Z98.890 Surgical History: angioplasty, coronary bypass surgery - 20 years ago., - - cardiac stents x 13 Psychiatric History: Depression Lives: Spouse/ Significant Other Smoking Status: Never smoker Alcohol: None, Rare - *Family History Paternal Family History: Family History (Last Reviewed 03/26/19 @ 09:[address] Shay Colon MD) Mother Heart disease Maternal Family History: Family History (Last Reviewed 03/26/19 @ 09:[address] Shay Colon MD) Mother Heart disease History Items: Diabetes, Heart Disease Review of Systems Constitutional: Reports: Fever, Malaise, Fatigue. Denies: Anorexia, Chills Eyes: Denies: Blurred vision, Double vision, Drainage, Redness HEENT: Denies: Difficulty Hearing, Ear Pain, Eye Pain, Nasal Congestion, Sore Throat Cardiovascular: Denies: Chest Pain, Chest Pressure, Chest Tightness, Heaviness, Light Headedness, Palpitations, Syncope Respiratory: Reports: Cough, Shortness of Breath, Shortness of breath at rest, Shortness of breath upon exertion, Sputum production. Denies: Hemoptysis, Pleuritic Pain, Wheezing Gastrointestinal: Reports: Diarrhea. Denies: Abdominal Pain, Constipation, Nausea, Vomiting Genitourinary: Denies: Dysuria, Frequency, Hematuria Musculoskeletal: Reports: Muscle pain. Denies: Arm Pain, Back Pain, Foot Pain Skin: Denies: Dryness, Rash Neurological: Denies: Balance problems, Double vision, Change in Speech, Slurred speech, Confusion, Focal weakness, Headaches, Incoordination, Numbness Psychiatric: Reports: Depression. Denies: Anxiety Endocrine: Reports: Change in Body Habitus, Polydipsia, Polyuria VTE Information - Inpt Only VTE Present on Admission: No VTE Mechan Device Prophylaxis: None VTE Pharm Prophylaxis ordered?: Yes Patient Problems: Active and Suspected Problems (Last Updated 07/22/20 @ 14:[address] Carmen Tilley MD) Acute respiratory failure with hypoxia (Acute) Pneumonia due to COVID-19 virus (Acute) - Physical Exam Vitals/I&O's: Vital Signs Temp Pulse Resp BP Pulse Ox 98.1 F 76 23 H 130/92 H 92 07/22/20 13:18 07/22/20 13:18 07/22/20 13:18 07/22/20 13:18 07/22/20 13:18 Oxygen Flow Rate (L/min) 6 Oxygen Delivery Method Nasal Cannula Weight: 224 lb 6.889 oz Body Mass Index (BMI) 33.1 Finger Stick Blood Glucose 133 General: Alert, Oriented x3, Cooperative, - - Minimally short of breath. HEENT: Atraumatic, PERRLA, EOMI, Normocephalic Oral: Moist Mucosa, No Gingival or Mucosal Lesions/ Ulcerations Neck: Supple, No JVD, Negative Carotid Bruits, Trachea Midline, Thyroid Normal Size and Texture Lungs: No wheeze, No rales, Diminished, Rhonchi, Short of Breath, - - Decreased breath sounds bilateral, occasional rhonchi. Cardiovascular: Regular rate, Regular Rhythm, Normal S1, Normal S2, PMI Normal Abdomen: Bowel Sounds Present, Soft, Non Tender, Non-Distended, No Hepato-splenomegaly, Obese Extremities: No clubbing, No cyanosis, No edema Skin: No rashes, No breakdown Lymphatic: No Cervical, Supraclavicular, or Inguinal Adenopathy Neurological: Cranial nerves II-XII grossly intact, Motor Exam 5/5 strength throughout Psych/Mental Status: Normal Affect, Appropriate, Alert and oriented to time, place, person, mood and affect Laboratory Results 07/22/20 12:00: WBC 6.8, RBC 4.97, Hgb 15.2, Hct 48.0, MCV 96.6 H, MCH 30.6, MCHC 31.7 L, RDW Std Deviation 52.0 H, RDW Coeff of Love 14.6, Plt Count 204, MPV 11.7, Immature Gran % (Auto) 0.400, Neut % (Auto) 74.6 H, Lymph % (Auto) 12.8 L, [place] % (Auto) 11.8 H, Eos % (Auto) 0.3, Baso % (Auto) 0.1, Absolute Neuts (auto) 5.1, Absolute Lymphs (auto) 0.87, Nucleated RBC % 0 07/22/20 12:00: PT 13.1, INR 1.0, APTT 27.8 07/22/20 12:00: Sodium 139, Potassium 4.0, Chloride 107, Carbon Dioxide 23.0, Anion Gap 9, BUN 24 H, Creatinine 1.32 H, Estim Creat Clear Calc 49.84, Est GFR (MDRD) Af Amer 68, Est GFR (MDRD) Non-Af 56 L, BUN/Creatinine Ratio 18.2, Glucose 173 H, Calcium 8.9, Total Bilirubin 1.10 H, AST 29, ALT 34, Alkaline Phosphatase 79, Total Protein 7.9, Albumin 3.0 L, Globulin 4.9 H, Albumin/Globulin Ratio 0.6 L 07/22/20 12:00: Lactic Acid 3.0 H* Clinical Impression(s) from Imaging Studies Chest X-Ray 07/22/20 12:02 IMPRESSION: Stable, nonacute portable x-ray examination of the chest. Electronically Signed: Nitish Luis MD ([place]) at 12:33 EDT , Service support , Chest CTA 07/22/20 12:39 IMPRESSION: 1. No central or segmental pulmonary embolism. 2. Multifocal, multilobar/bilateral peripheral dominant groundglass opacities are imaging features suggestive of COVID 19 pneumonia although can be seen in a variety of infectious and noninfectious processes. Electronically Signed: Nitish Luis MD ([place]) at 13:57 EDT , Service support , Current Medications Iopamidol (Contrast Allergy Safety Check) 0 ml IV X1 MAXINE Assessment/Plan All Active Problems (Last Updated 07/22/20 @ 14:[address] Carmen Tilley MD) Acute respiratory failure with hypoxia (Acute) Pneumonia due to COVID-19 virus (Acute) This is a 74 years old male patient presented to the emergency room because progressively increasing shortness of breath with productive cough, was diagnosed with COVID-19 3 days ago, found to have bilateral multilobar opacities on CTA chest and he is being admitted for acute bilateral COVID-19 pneumonia complicated by acute hypoxic respiratory failure. #1 acute bilateral COVID-19 pneumonia: Chest x-ray and CT chest reviewed. No PE on CTA chest. Currently, patient is on 6 L of oxygen. Lactic acid was elevated. He is afebrile, no leukocytosis. No evidence of sepsis or severe sepsis. Plan: Admit to [facility] COVID-19 floor, isolation precautions, blood culture, urine culture, sputum culture, start IV Decadron, check serum troponin, BNP, CPK, D-dimer, LDH, albuterol inhaler as needed, Advair inhaler twice daily, infectious disease consult, pulmonology consult, repeat CBC and BMP tomorrow morning, PT OT evaluation and treatment. #2 acute hypoxic respiratory failure: Secondary to #1, patient had COPD in the past but never been on oxygen at home. Currently, he is on 6 L of oxygen. Upon arrival to ED, pulse ox was 70% on room air. Plan to treat underlying COVID-19 pneumonia as above, albuterol as needed, Advair inhaler twice daily, incentive spirometer. #3 CAD status post CABG x4/status post PCI x13: EKG reviewed, no acute changes. Patient reported episode of chest pain/discomfort upon coughing. Plan for rn cardiac rehab, troponin x1, continue aspirin, Plavix, statins, nitrates, losartan and metoprolol. #4 type 2 diabetes mellitus: ADA diet, Accu-Cheks, insulin sliding scale, continue Lantus insulin, hold Metformin for now. #5 hypertension: Blood pressure stable, continue Norvasc, isosorbide mononitrate, losartan and metoprolol. #7 COPD: Albuterol inhaler as needed, Advair inhaler twice daily, incentive spirometer. #8 hyperlipidemia: Continue statins. #9 anxiety/depression: Continue Wellbutrin. #10 CODE STATUS: Full code, discussed with the patient. Patient agreed to intubation, mechanical ventilation, CPR and chest compressions. #11 DVT prophylaxis: Subcu Lovenox. This note was generated with [employer] dictation software. It may contain incorrect words, spelling, and punctuation that were not noted in checking the note before signing. Inpatient E&M: 09596 Init Hosp L3
[2020-07-22 14:59] LABS: Mucous, Urine 0 SEEN /hpf (<or=2+); Red Blood Cells-Urine 0 SEEN /hpf (0-5); Squamous Epithelial Cells - UA 0 SEEN /hpf (0-5); White Blood Cells 0 SEEN /hpf (0-5)
[2020-07-22 15:09] LABS: Color, Urine Yellow (Yellow); Glucose, Dipstick 1000 mg/dl (Normal); Ketone-Dipstick 5 mg/dl (Negative); Leukocyte Esterase-Dipstick Negative /ul (Negative); Nitrite-Dipstick Negative (Negative); Occult Blood-Urine Negative /ul (Negative); Protein-Dipstick 30 mg/dl (Negative); Urine Bilirubin Dipstick Negative (Negative); Urine Clarity Clear (Clear); Urine Urobilinogen Normal (Normal)
[2020-07-22 15:23] LABS: Bacteria 1+ /hpf (None Seen)
[2020-07-22 16:09] LABS: Reflex Lactate? Y
[2020-07-22 17:27] LABS: Lactic Acid 1.5 mmol/L (0.4-1.9)
[2020-07-22] MEDS: Insulin Lispro 100 UNIT/ML INSULN.PEN SC ×2 (18:18→22:35)
[2020-07-22 18:25] LABS: D-Dimer Quantitative (DVT/PE) 1.54 FEU/ug/m (0.27-0.49)
[2020-07-22 18:26] LABS: Bedside Glucose 191 mg/dL (70-110)
[2020-07-22 18:33] LABS: BNP,B-Type NATRIURETIC PEPTIDE 54.5 pg/mL (0-100)
[2020-07-22 19:05] LABS: CPK Total, Creatine Kinase 88 U/L (39-308); LDH 378 U/L (87-241)
[2020-07-22] MEDS: Fluticasone/Salmeterol 232-14 Inhaler 1 PUFF IH (22:35)
[2020-07-22] MEDS: Metoprolol Tartrate 100 MG Tablet PO (22:36)
[2020-07-22] MEDS: Atorvastatin Calcium 80 MG Tablet PO (22:36)
[2020-07-22] MEDS: buPROPion 100 MG Tablet PO (22:36)
[2020-07-22] MEDS: Enoxaparin 40 MG/0.4 ML Syringe SC (22:37)
[2020-07-22 22:55] LABS: Bedside Glucose 300 mg/dL (70-110)
[2020-07-23] VITALS (12 sets, daily range): BP systolic 104–158; BP diastolic 52–63; PULSE 59–88; RESP 16–20; TEMP 36.6–36.9; O2SAT 92–96
[2020-07-23 07:06] LABS: Bedside Glucose 101 mg/dL (70-110)
[2020-07-23 07:29] LABS: Absolute Lymphocyte Count 0.73 X10^3/uL (0.83-4.51); Absolute Neutrophil Count 4.2 X10^3/uL (2.0-7.7); Basophil# 0.01 X10^3/uL; Basophil% 0.2 % (0-1); Eosinophil# 0.01 X10^3/uL; Eosinophils% 0.2 % (0-5); Hematocrit 44.7 % (40-54); Hemoglobin 14.3 g/dL (13.0-16.5); Lymphocyte # 0.73 X10^3/ul (4.0); Lymphocyte % 12.3 % (19-41); Mean Corpuscular Volume 96.8 fL (80-94); Mean Platelet Vol. 11.2 fl (6.2-12.0); Monocyte# 0.93 X10^3/uL; Monocyte% 15.7 % (0-10); NRBC Flagged by Analyzer 0 % (0-5); Neutrophil # 4.21 X10^3/uL (2.7-7.7); Neutrophil % 71.1 % (47-70); POSITIVE MORPHOLOGY YES; Platelet Count 207 K/mm3 (150-450); RBC Distribution Width CV 14.2 % (11.6-14.6); RBC Distribution Width SD 51.1 fl (35.1-43.9); Red Blood Count 4.62 M/mm3 (4.6-6.2); White Blood Count 5.9 K/mm3 (4.4-11.0)
[2020-07-23 07:42] LABS: Differential Indicated SCAN CRITERIA MET
--- NOTE | 2020-07-23 07:44 | PN_ITS ---
Patient Problems: Active and Suspected Problems (Last Updated 07/22/20 @ 14:[address] Carmen Tilley MD) Acute respiratory failure with hypoxia (Acute) Pneumonia due to COVID-19 virus (Acute) Reason for Visit: Follow-up on hypoxia/acute COVID-19 infection Subjective: Patient was seen and examined. He feels slightly better. Weaned from 6 L to 4 L. Denied any fever or chills or diarrhea. Review of systems was unremarkable. Objective: Physical exam: General: Alert, Oriented x3, Cooperative HEENT: Atraumatic, PERRLA, EOMI, Normocephalic Oral: Moist Mucosa, No Gingival or Mucosal Lesions/ Ulcerations Neck: Supple, No JVD, Negative Carotid Bruits, Trachea Midline, Thyroid Normal Size and Texture Lungs: No wheeze, No rales, Diminished, Rhonchi, Short of Breath, - - Decreased breath sounds bilateral, occasional rhonchi. Cardiovascular: Regular rate, Regular Rhythm, Normal S1, Normal S2, PMI Normal Abdomen: Bowel Sounds Present, Soft, Non Tender, Non-Distended, No Hepato- splenomegaly, Obese Extremities: No clubbing, No cyanosis, No edema Skin: No rashes, No breakdown Lymphatic: No Cervical, Supraclavicular, or Inguinal Adenopathy Neurological: Cranial nerves II-XII grossly intact, Motor Exam 5/5 strength throughout Psych/Mental Status: Normal Affect, Appropriate, Alert and oriented to time, place, person, mood and affect Vitals/I&O's: Vital Signs Temp Pulse Resp BP Pulse Ox 98.1 F 88 20 H 158/63 H 93 07/23/20 03:50 07/23/20 03:50 07/23/20 03:50 07/23/20 03:50 07/23/20 03:50 Oxygen Flow Rate (L/min) 6 Oxygen Delivery Method Nasal Cannula Weight: 100.017 kg Body Mass Index (BMI) 33.5 Finger Stick Blood Glucose 133 Intake and Output for Last 24 Hours 07/21/20 07/22/20 07/23/20 23:59 23:59 22:59 Intake Total 1000 / 1000 120 / 120 Balance 1000 / 1000 120 / 120 Laboratory Results 07/22/20 12:00: WBC 6.8, RBC 4.97, Hgb 15.2, Hct 48.0, MCV 96.6 H, MCH 30.6, MCHC 31.7 L, RDW Std Deviation 52.0 H, RDW Coeff of Love 14.6, Plt Count 204, MPV 11.7, Immature Gran % (Auto) 0.400, Neut % (Auto) 74.6 H, Lymph % (Auto) 12.8 L, [place] % (Auto) 11.8 H, Eos % (Auto) 0.3, Baso % (Auto) 0.1, Absolute Neuts (auto) 5.1, Absolute Lymphs (auto) 0.87, Nucleated RBC % 0 07/22/20 12:00: PT 13.1, INR 1.0, APTT 27.8 07/22/20 12:00: Sodium 139, Potassium 4.0, Chloride 107, Carbon Dioxide 23.0, Anion Gap 9, BUN 24 H, Creatinine 1.32 H, Estim Creat Clear Calc 49.84, Est GFR (MDRD) Af Amer 68, Est GFR (MDRD) Non-Af 56 L, BUN/Creatinine Ratio 18.2, Glucose 173 H, Calcium 8.9, Total Bilirubin 1.10 H, AST 29, ALT 34, Alkaline Phosphatase 79, Total Protein 7.9, Albumin 3.0 L, Globulin 4.9 H, Albumin/Globulin Ratio 0.6 L 07/22/20 12:00: Lactic Acid 3.0 H* 07/22/20 12:00: D-Dimer Quant (PE/DVT) 1.54 H* 07/22/20 12:00: B-Natriuretic Peptide 54.5 07/22/20 14:45: Urine Color Yellow, Urine Clarity Clear, Urine pH 5.0, Ur Specific [place] 1.020, Urine Protein 30 H, Urine Glucose (UA) 1000 H, Urine Ketones 5 H, Urine Occult Blood Negative, Urine Nitrite Negative, Urine Bilirubin Negative, Urine Urobilinogen Normal, Ur Leukocyte Esterase Negative, Urine RBC 0 SEEN, Urine WBC 0 SEEN, Ur Squamous Epith Cells 0 SEEN, Urine Bacteria 1+, Urine Mucus 0 SEEN 07/22/20 16:47: Lactic Acid 1.5 07/22/20 16:47: Lactate Dehydrogenase 378 H, Total Creatine Kinase 88, Troponin I < 0.015 07/22/20 18:13: POC Glucose 191 H 07/22/20 22:34: POC Glucose 300 H 07/23/20 06:15: WBC 5.9, RBC 4.62, Hgb 14.3, Hct 44.7, MCV 96.8 H, MCH 31.0, MCHC 32.0, RDW Std Deviation 51.1 H, RDW Coeff of Love 14.2, Plt Count 207, MPV 11.2, Immature Gran % (Auto) 0.500, Neut % (Auto) 71.1 H, Lymph % (Auto) 12.3 L, [place] % (Auto) 15.7 H, Eos % (Auto) 0.2, Baso % (Auto) 0.2, Absolute Neuts (auto) 4.2, Absolute Lymphs (auto) 0.73 L, Nucleated RBC % 0 07/23/20 06:15: Sodium Pending, Potassium Pending, Chloride Pending, Carbon Dioxide Pending, Anion Gap Pending, BUN Pending, Creatinine Pending, Est GFR (MDRD) Af Amer Pending, Est GFR (MDRD) Non-Af Pending, BUN/Creatinine Ratio Pending, Glucose Pending, Calcium Pending 07/23/20 06:55: POC Glucose 101 Current Medications Acetaminophen (Acetaminophen 325 Mg Tablet) 650 mg PO Q6H PRN PRN PRN Reason: Pain Score 1-10/Temp > 100.7 F Albuterol Sulfate (Albuterol Ih 8.5 Gm (Proair) Inhaler (200 Puffs)) 2 puff INHALATION Q4H PRN PRN PRN Reason: Shortness of breath, wheezing Amlodipine Besylate (Amlodipine 5 Mg Tablet) 5 mg PO DAILY [facility] Aspirin (Aspirin E.C. 81 Mg Tablet) 81 mg PO DAILY [facility] Atorvastatin Calcium (Atorvastatin Calcium 80 Mg Tablet) 80 mg PO QHS [facility] Last Admin: 07/22/20 22:36 Dose: 80 mg Documented by: Bupropion HCl (Bupropion 100 Mg Tablet) 100 mg PO BID [facility] Last Admin: 07/22/20 22:36 Dose: 100 mg Documented by: Clopidogrel Bisulfate (Clopidogrel Bisulfate 75 Mg Tablet) 75 mg PO DAILY [facility] Dexamethasone Sodium Phosphate (Dexamethasone 10 Mg/Ml Vial) 6 mg IV DAILY [facility] Enoxaparin Sodium (Enoxaparin 40 Mg/0.4 Ml Syringe) 40 mg SC BID [facility] Last Admin: 07/22/20 22:37 Dose: 40 mg Documented by: Influenza Virus Vaccine Quadrival (Influenza Vaccine (6mos+)/Pf 0.5 Ml Syringe) 0.5 ml IM .ONCE ONE Stop: 07/23/20 10:01 Insulin Glargine (Insulin Glargine 100 Units/Ml Pen) 72 units SC QHS [facility] Last Admin: 07/22/20 22:36 Dose: 72 units Documented by: Insulin Human Lispro (Insulin Lispro 100 Unit/Ml Insuln.Pen) 0 unit SC ACHS [facility]; Protocol Last Admin: 07/22/20 22:35 Dose: 3 u Documented by: Isosorbide Mononitrate (Isosorbide Mononitrate 60 Mg Tablet) 60 mg PO DAILY [facility] Losartan Potassium (Losartan Potassium 25 Mg Tablet) 25 mg PO DAILY [facility] Metoprolol Tartrate (Metoprolol Tartrate 100 Mg Tablet) 100 mg PO BID [facility] Last Admin: 07/22/20 22:36 Dose: 100 mg Documented by: Ondansetron HCl (Ondansetron 4 Mg/2 Ml Vial) 4 mg IV Q8H PRN PRN PRN Reason: NAUSEA/VOMITING Fluticasone/Salmeterol (Fluticasone/Salmeterol 232-14 Inhaler) 1 puff IH Q12 [facility] Last Admin: 07/22/20 22:35 Dose: 1 puff Documented by: Senna/Docusate Sodium (Senna/Docusate Sodium 1 Tablet) 2 tablet PO BID PRN PRN PRN Reason: Constipation Sodium Chloride (0.9% Saline Lock 10 Ml Syringe) 10 - 40 ml IV UD PRN PRN Reason: SALINE FLUSH Zolpidem Tartrate (Zolpidem Tartrate 5 Mg Tablet) 5 mg PO QHS PRN PRN PRN Reason: INSOMNIA STROKE Vital Signs/Narrative: Vital Signs Temp Pulse Resp BP Pulse Ox 07/23/20 03:50 98.1 F 88 20 H 158/63 H 93 Medical Necessity - Tobacco Use Smoking Status: Former smoker Assessment/Plan All Active Problems (Last Updated 07/22/20 @ 14:[address] Carmen Tilley MD) Acute respiratory failure with hypoxia (Acute) Pneumonia due to COVID-19 virus (Acute) 1. Acute hypoxic respiratory failure secondary to acute COVID-19 pneumonia Continue with breathing treatments, IV steroids, encourage use of incentive spirometer. Wean off oxygen for SPO2 more than 94% 2. Acute COVID-19 pneumonia, with hypoxia Seen on chest x-ray and CTA of the chest. No PE seen On IV Dexamethasone ID and pulmonology following 3. Hypertension, controlled, continue on Norvasc, isosorbide, losartan and metoprolol 4. Type II DM, Metformin on hold, glucoses fairly controlled Continue on Lantus, blood glucose check with insulin sliding scale 5. CAD status post CABG, status post PCI/hyperlipidemia Continue on aspirin, Plavix, statin, nitro, losartan and metoprolol 6. Anxiety/depression, continue Wellbutrin 7. DVT prophylaxis with Lovenox subcu Inpatient E&M: 54165 Subs Hosp L2
[2020-07-23 07:57] LABS: Anion Gap 7 (5-15); BUN 25 mg/dL (7-18); BUN/Creat Ratio 30.7 RATIO (10-20); Calcium,Total 8.2 mg/dL (8.5-10.1); Chloride 109 mmol/L (98-107); Creatinine, Serum 0.81 mg/dL (0.70-1.30); EST Glomerular Filtration Rate 99 mL/min (>60); Est Glom Filt Rate - Afr Amer 119 mL/min (>60); Estimated Creatinine Clearance 78.58 ml/min; Glucose 102 mg/dL (74-106); Potassium 3.8 mmol/L (3.5-5.1); Sodium Level 139 mmol/L (136-145)
[2020-07-23 10:12] LABS: Differential Comment SCANNED
[2020-07-23] MEDS: Isosorbide Mononitrate 60 MG Tablet PO (10:29)
[2020-07-23] MEDS: dexAMETHasone 10 MG/ML Vial 6 MG IV (10:29)
[2020-07-23] MEDS: Enoxaparin 40 MG/0.4 ML Syringe SC ×2 (10:29→22:41)
[2020-07-23] MEDS: Clopidogrel Bisulfate 75 MG Tablet PO (10:30)
[2020-07-23] MEDS: amLODIPine 5 MG Tablet PO (10:30)
[2020-07-23] MEDS: Aspirin E.C. 81 MG Tablet PO (10:30)
[2020-07-23] MEDS: buPROPion 100 MG Tablet PO ×2 (10:30→22:41)
[2020-07-23] MEDS: Fluticasone/Salmeterol 232-14 Inhaler 1 PUFF IH ×2 (10:31→22:49)
[2020-07-23] MEDS: Metoprolol Tartrate 100 MG Tablet PO ×2 (10:39→22:41)
[2020-07-23] MEDS: Losartan Potassium 25 MG Tablet PO (10:39)
--- NOTE | 2020-07-23 11:49 | CON.PCM_ITS ---
Problem List (1) Acute respiratory failure with hypoxia Status: Acute (2) Pneumonia due to COVID-19 virus Status: Acute (3) COPD (chronic obstructive pulmonary disease) Status: Chronic (4) Type 2 diabetes mellitus Status: Chronic (5) History of coronary artery stent placement Status: Chronic Comment: PCI-HASMUKH X 2-SVG-OM3 2008;PCI-HASMUKH right post AV; HASMUKH- RCA X 3 10/30/13; [id number] 05/03/16 (6) H/O coronary artery bypass surgery Status: Chronic Comment: CABG x 5 Sequential JENSEN-LAD and D3, SVG-OM1, SVG- RBLB2, SVG-D1 1995 (7) Secondary pulmonary arterial hypertension Status: Chronic (8) Essential (primary) hypertension Status: Chronic (9) AAA (abdominal aortic aneurysm) without rupture Status: Chronic (10) HLD (hyperlipidemia) Status: Chronic Qualifiers: Reason for Consult Date of Consultation: 07/23/20 Reason for Consultation: COVID-19 pneumonia History of Present Illness: The patient is a 74 year old M, with past medical history listed below, who presented [facility] on 07/22/2020 secondary to progressive shortness of breath and a recent diagnosis of Covid 19. Patient states that he was noting symptoms of cough, fever, chills and shortness of breath 10 days prior to presentation. Patient states that he is not normally on supplemental oxygen, but felt like he may needed secondary to his recent diagnosis of Covid pneumonia. Patient states this was diagnosed at an outside facility and he and all of his friends that went to a local restaurant tested positive around the same time. On presentation to the ER, patient was hypertensive at 141/68 with a room air saturation of 70%. EKG showed no specific ST changes. Chest x-ray was relatively unremarkable. Patient did not have a leukocytosis with a white count of 6000. No bands were noted. Patient did have a slightly elevated creatinine of 1.3, lactate at 3 and unremarkable coagulation studies. CTA of the chest showed bilateral infiltrates consistent with Covid pneumonia. Patient was initiated on IV Solu-Medrol and admitted to the floor for further evaluation. Since being admitted to the hospital, patient feels subjectively improved compared to previous. Patient states he is not required supplemental oxygen previously, but has been diagnosed with COPD in the past. 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 Patient states he also has an extensi ve cardiac history, but feels this has been well controlled recently. Review of systems otherwise negative from a constitutional, HEENT, respiratory, cardiovascular, GI, genitourinary, musculoskeletal, skin, neurologic, psychiatric and hematologic system unless stated above. Past Medical History Past Medical History (Chronic Problems): Chronic Problems (Last Updated 07/22/20 @ 14:[address] Carmen Tilley MD) COPD (chronic obstructive pulmonary disease) (Chronic) Type 2 diabetes mellitus (Chronic) Atherosclerotic heart disease of [place] coronary artery without angina pectoris (Chronic) History of coronary artery stent placement (Chronic 05/03/16) PCI-HASMUKH X 2-SVG-OM3 2008;PCI-HASMUKH right post AV; HASMUKH-RCA X 3 10/30/13; [id number] 05/03/16 H/O coronary artery bypass surgery (Chronic 1995) CABG x 5 Sequential JENSEN-LAD and D3, SVG-OM1, SVG-RBLB2, SVG-D1 1995 Secondary pulmonary arterial hypertension (Chronic) Essential (primary) hypertension (Chronic) AAA (abdominal aortic aneurysm) without rupture (Chronic) HLD (hyperlipidemia) (Chronic) Medical History: Medical History (Last Updated 07/22/20 @ 14:[address] Carmen Tilley MD) Atherosclerotic heart disease of [place] coronary artery without angina pectoris (Chronic) I25.10 Secondary pulmonary arterial hypertension (Chronic) I27.21 Essential (primary) hypertension (Chronic) I10 AAA (abdominal aortic aneurysm) without rupture (Chronic) I71.4 HLD (hyperlipidemia) (Chronic) E78.5 COPD (chronic obstructive pulmonary disease) J44.9 Diabetes mellitus with polyneuropathy E11.42 Gout M10.9 Obesity E66.9 Obstructive sleep apnea G47.33 Venous stasis I87.8 Sepsis A41.9 Allergies lisinopril Allergy (Verified 03/26/19 08:41) Angioedema Sulfa (Sulfonamide Antibiotics) Allergy (Verified 03/26/19 08:41) Hives piperacillin Adverse Reaction (Severe, Verified 03/26/19 08:41) Unknown Home Medications: Ambulatory Orders Medication Instructions Recorded Amlodipine [Norvasc] 5 mg PO DAILY 12/07/13 Clopidogrel Bisulfate [Plavix] 75 mg PO DAILY 12/07/13 Insulin Aspart [Novolog Flexpen] See Protocol SQ TIDCM 12/07/13 Insulin Glargine [Lantus SoloStar 72 units SC QHS 12/07/13 Pen] Isosorbide Mononitrate [Isosorbide 60 mg PO DAILY 12/07/13 Mononitrate ER] Losartan Potassium [Cozaar] 25 mg PO DAILY 12/07/13 Metformin HCl [Glucophage] 1,000 mg PO BIDCM 12/07/13 Metoprolol Tartrate [Lopressor 100 mg PO BID 12/07/13 (beta aixa)] buPROPion tablets [Wellbutrin 100 mg PO BID 12/07/13 tablets] Acetaminophen [Tylenol Tablet] 650 mg PO Q4H PRN PRN #0 tab 09/05/16 Albuterol Inhaler [Ventolin Hfa] 1 - 2 puff INHALATION Q4H PRN PRN 09/05/16 #1 inhaler Aspirin [Aspir-Low] 81 mg PO DAILY 12/26/16 Atorvastatin Calcium [Lipitor] 80 mg PO QHS 12/26/16 Cefadroxil Hydrate [Duricef] 500 mg PO BID #60 cap 01/13/17 Ibuprofen 2 - 3 mg PO TID PRN #1 tab 01/13/17 nitroglycerin 0.4 mg sublingual 0.4 mg SUBLINGUAL Q5M PRN 02/09/18 tablet Surgical History: Surgical History (Last Reviewed 07/22/20 @ 14:[address] Carmen Tilley MD) History of coronary artery stent placement (Chronic) Onset Date: 05/03/16 Z95.5 PCI-HASMUKH X 2-SVG-OM3 2008;PCI-HASMUKH right post AV; HASMUKH-RCA X 3 10/30/13; [id number] 05/03/16 H/O coronary artery bypass surgery (Chronic) Onset Date: 1995 Z95.1 CABG x 5 Sequential JENSEN-LAD and D3, SVG-OM1, SVG-RBLB2, SVG-D1 1995 History of cataract surgery Z98.49 History of left heart catheterization Onset Date: 01/18/19 Z98.890 Surgical History: angioplasty, coronary bypass surgery - 20 years ago., - - cardiac stents x 13 Psychiatric History: Depression Lives: Spouse/ Significant Other Smoking Status: Former smoker Alcohol: None, Rare - *Family History Paternal Family History: Family History (Last Reviewed 03/26/19 @ 09:[address] Shay Colon MD) Mother Heart disease History Items: Diabetes - Mother, Heart Disease - Father, - - Patient was notable alcoholic. Maternal Family History: Family History (Last Reviewed 03/26/19 @ 09:[address] Shay Colon MD) Mother Heart disease History Items: Diabetes, Heart Disease Review of Systems Comment: See HPI Patient Problems: Active and Suspected Problems (Last Updated 07/22/20 @ 14:[address] Carmen Tilley MD) Acute respiratory failure with hypoxia (Acute) Pneumonia due to COVID-19 virus (Acute) Objective: All imaging was personally reviewed. Agree with formal interpretation. Patient did have a cardiac catheterization completed here in 2019 showing EF of 55% with patent grafts and collaterals. Patient has never had a pulmonary function test here. - Physical Exam Vitals/I&O's: Vital Signs Temp Pulse Resp BP Pulse Ox 36.6 C 61 16 121/62 H 96 07/23/20 10:24 07/23/20 10:39 07/23/20 10:24 07/23/20 10:24 07/23/20 10:24 Oxygen Flow Rate (L/min) 4 Oxygen Delivery Method Nasal Cannula Weight: 100.017 kg Body Mass Index (BMI) 33.5 Finger Stick Blood Glucose 133 Intake and Output for Last 24 Hours 07/21/20 07/22/20 07/23/20 23:59 23:59 22:59 Intake Total 1000 / 1000 120 / 120 Balance 1000 / 1000 120 / 120 General: Alert, Oriented x3, Cooperative, - - Mild conversational dyspnea. Obese. HEENT: Atraumatic, PERRLA, EOMI, Normocephalic, - - No scleral icterus or injection noted. Nasal cannula in place. Oral: Moist Mucosa, No Gingival or Mucosal Lesions/ Ulcerations, - - Crowded posterior pharynx Neck: Supple, No JVD, No Nodes, Trachea Midline Lungs: No rhonchi, No wheeze, No rales, Diminished, - - Symmetric expansion. Cardiovascular: Regular rate, Regular Rhythm, Normal S1, Normal S2, No murmurs, No rub noted, No Gallop Abdomen: Bowel Sounds Present, Soft, Non Tender, Non-Distended, Obese Extremities: No clubbing, No cyanosis, No edema Skin: No rashes, No breakdown Musculoskeletal: No Tenderness to Palpation of Joints or Extremities Lymphatic: No Cervical, Supraclavicular, or Inguinal Adenopathy Neurological: Cranial nerves II-XII grossly intact, Neuro grossly intact, Motor Exam 5/5 strength throughout Psych/Mental Status: Alert and oriented to time, place, person, mood and affect Laboratory Results 07/22/20 12:00: D-Dimer Quant (PE/DVT) 1.54 H* 07/22/20 12:00: B-Natriuretic Peptide 54.5 07/22/20 14:45: Urine Color Yellow, Urine Clarity Clear, Urine pH 5.0, Ur Specific [place] 1.020, Urine Protein 30 H, Urine Glucose (UA) 1000 H, Urine Ketones 5 H, Urine Occult Blood Negative, Urine Nitrite Negative, Urine Bilirubin Negative, Urine Urobilinogen Normal, Ur Leukocyte Esterase Negative, Urine RBC 0 SEEN, Urine WBC 0 SEEN, Ur Squamous Epith Cells 0 SEEN, Urine Bacteria 1+, Urine Mucus 0 SEEN 07/22/20 16:47: Lactic Acid 1.5 07/22/20 16:47: Lactate Dehydrogenase 378 H, Total Creatine Kinase 88, Troponin I < 0.015 07/22/20 18:13: POC Glucose 191 H 07/22/20 22:34: POC Glucose 300 H 07/23/20 06:15: WBC 5.9, RBC 4.62, Hgb 14.3, Hct 44.7, MCV 96.8 H, MCH 31.0, MCHC 32.0, RDW Std Deviation 51.1 H, RDW Coeff of Love 14.2, Plt Count 207, MPV 11.2, Immature Gran % (Auto) 0.500, Neut % (Auto) 71.1 H, Lymph % (Auto) 12.3 L, [place] % (Auto) 15.7 H, Eos % (Auto) 0.2, Baso % (Auto) 0.2, Absolute Neuts (auto) 4.2, Absolute Lymphs (auto) 0.73 L, Nucleated RBC % 0, Differential Comment SCANNED 07/23/20 06:15: Sodium 139, Potassium 3.8, Chloride 109 H, Carbon Dioxide 23.0, Anion Gap 7, BUN 25 H, Creatinine 0.81, Estim Creat Clear Calc 78.58, Est GFR (MDRD) Af Amer 119, Est GFR (MDRD) Non-Af 99, BUN/Creatinine Ratio 30.7 H, Glucose 102, Calcium 8.2 L 07/23/20 06:55: POC Glucose 101 Current Medications Acetaminophen (Acetaminophen 325 Mg Tablet) 650 mg PO Q6H PRN PRN PRN Reason: Pain Score 1-10/Temp > 100.7 F Albuterol Sulfate (Albuterol Ih 8.5 Gm (Proair) Inhaler (200 Puffs)) 2 puff INHALATION Q4H PRN PRN PRN Reason: Shortness of breath, wheezing Amlodipine Besylate (Amlodipine 5 Mg Tablet) 5 mg PO DAILY [facility] Last Admin: 07/23/20 10:30 Dose: 5 mg Documented by: Aspirin (Aspirin E.C. 81 Mg Tablet) 81 mg PO DAILY [facility] Last Admin: 07/23/20 10:30 Dose: 81 mg Documented by: Atorvastatin Calcium (Atorvastatin Calcium 80 Mg Tablet) 80 mg PO QHS [facility] Last Admin: 07/22/20 22:36 Dose: 80 mg Documented by: Bupropion HCl (Bupropion 100 Mg Tablet) 100 mg PO BID [facility] Last Admin: 07/23/20 10:30 Dose: 100 mg Documented by: Clopidogrel Bisulfate (Clopidogrel Bisulfate 75 Mg Tablet) 75 mg PO DAILY [facility] Last Admin: 07/23/20 10:30 Dose: 75 mg Documented by: Dexamethasone Sodium Phosphate (Dexamethasone 10 Mg/Ml Vial) 6 mg IV DAILY [facility] Last Admin: 07/23/20 10:29 Dose: 6 mg Documented by: Enoxaparin Sodium (Enoxaparin 40 Mg/0.4 Ml Syringe) 40 mg SC BID [facility] Last Admin: 07/23/20 10:29 Dose: 40 mg Documented by: Insulin Glargine (Insulin Glargine 100 Units/Ml Pen) 72 units SC QHS [facility] Last Admin: 07/22/20 22:36 Dose: 72 units Documented by: Insulin Human Lispro (Insulin Lispro 100 Unit/Ml Insuln.Pen) 0 unit SC [facility]; Protocol Last Admin: 07/23/20 07:49 Dose: Not Given Documented by: Isosorbide Mononitrate (Isosorbide Mononitrate 60 Mg Tablet) 60 mg PO DAILY [facility] Last Admin: 07/23/20 10:29 Dose: 60 mg Documented by: Losartan Potassium (Losartan Potassium 25 Mg Tablet) 25 mg PO DAILY [facility] Last Admin: 07/23/20 10:39 Dose: 25 mg Documented by: Metoprolol Tartrate (Metoprolol Tartrate 100 Mg Tablet) 100 mg PO BID [facility] Last Admin: 07/23/20 10:39 Dose: 100 mg Documented by: Ondansetron HCl (Ondansetron 4 Mg/2 Ml Vial) 4 mg IV Q8H PRN PRN PRN Reason: NAUSEA/VOMITING Fluticasone/Salmeterol (Fluticasone/Salmeterol 232-14 Inhaler) 1 puff IH Q12 [facility] Last Admin: 07/23/20 10:31 Dose: 1 puff Documented by: Senna/Docusate Sodium (Senna/Docusate Sodium 1 Tablet) 2 tablet PO BID PRN PRN PRN Reason: Constipation Sodium Chloride (0.9% Saline Lock 10 Ml Syringe) 10 - 40 ml IV UD PRN PRN Reason: SALINE FLUSH Zolpidem Tartrate (Zolpidem Tartrate 5 Mg Tablet) 5 mg PO QHS PRN PRN PRN Reason: INSOMNIA Clinical Impression(s) from Imaging Studies Chest CTA 07/22/20 12:39 IMPRESSION: 1. No central or segmental pulmonary embolism. 2. Multifocal, multilobar/bilateral peripheral dominant groundglass opacities are imaging features suggestive of COVID 19 pneumonia although can be seen in a variety of infectious and noninfectious processes. Electronically Signed: Nitish Luis MD ([place]) at 13:57 EDT , Service support , Assessment/Plan All Active Problems (Last Updated 07/22/20 @ 14:[address] Carmen Tilley MD) Acute respiratory failure with hypoxia (Acute) Pneumonia due to COVID-19 virus (Acute) RECOMMENDATIONS: 1. Continue Decadron and Lovenox 2. Hold on convalescent serum and remdesivir for now given delayed presentation 3. Wean oxygen as tolerated 4. Possible need for BiPAP overnight given concerns of untreated sleep apnea 5. Close monitoring of blood sugars IMPRESSIONS: 1. Acute hypoxic respiratory insufficiency Likely multifactorial at baseline. Patient does carry a diagnosis of COPD of unclear severity and has tested positive for COVID-19. Patient does have groundglass opacities noted. Patient has been initiated on Decadron and Lovenox therapy. We will hold on convalescent serum and remdesivir as patient has a delayed presentation. Continue to wean oxygen as tolerated. Would not be surprised the patient required noninvasive therapy overnight secondary to underlying condition with possible untreated obstructive sleep apnea. Likely not necessary to use inhaled corticosteroid given patient is on Decadron. 2. Diabetes mellitus/hypertension Clinical suspicion for an increase Lantus requirement given Decadron therapy. Agree with holding Metformin for now. Sliding scale in place. Hypertension may also be uncontrolled secondary to steroid therapy. Anticipate titration of current medications. Continue to monitor. 3. Advanced age/obesity/anxiety/hyperlipidemia/extensive cardiac history Complicates care, management, recovery and prognosis. Okay to continue with baseline medications from my perspective. Do have clinical suspicion for untreated sleep apnea, but this could be investigated as an outpatient. Inpatient E&M: 02223 Init Hosp L3
[2020-07-23 14:01] LABS: Bedside Glucose 90 mg/dL (70-110)
[2020-07-23] MEDS: Insulin Lispro 100 UNIT/ML INSULN.PEN SC ×2 (16:17→22:49)
[2020-07-23 16:30] LABS: Bedside Glucose 170 mg/dL (70-110)
[2020-07-23] MEDS: Atorvastatin Calcium 80 MG Tablet PO (22:41)
[2020-07-23] MEDS: 0.9% Saline Lock 10 ML Syringe IV ×2 (22:42→22:48)
[2020-07-23 23:26] LABS: Bedside Glucose 232 mg/dL (70-110)
[2020-07-23] MEDS: Zolpidem Tartrate 5 MG Tablet PO (23:56)
[2020-07-23] MEDS: guaiFENesin 1,200 MG Tablet 1200 MG PO (23:56)
[2020-07-24] VITALS (7 sets, daily range): BP systolic 110–139; BP diastolic 56–73; PULSE 56–62; RESP 18–20; TEMP 36.4–36.7; O2SAT 90–94
[2020-07-24 06:35] LABS: Bedside Glucose 103 mg/dL (70-110)
[2020-07-24] MEDS: Aspirin E.C. 81 MG Tablet PO (09:11)
[2020-07-24] MEDS: Losartan Potassium 25 MG Tablet PO (09:11)
[2020-07-24] MEDS: Isosorbide Mononitrate 60 MG Tablet PO (09:12)
[2020-07-24] MEDS: Enoxaparin 40 MG/0.4 ML Syringe SC ×2 (09:12→22:39)
[2020-07-24] MEDS: guaiFENesin 1,200 MG Tablet 1200 MG PO ×2 (09:12→22:40)
[2020-07-24] MEDS: amLODIPine 5 MG Tablet PO (09:13)
[2020-07-24] MEDS: buPROPion 100 MG Tablet PO ×2 (09:13→22:40)
[2020-07-24] MEDS: Clopidogrel Bisulfate 75 MG Tablet PO (09:13)
[2020-07-24] MEDS: Metoprolol Tartrate 100 MG Tablet PO ×2 (09:14→22:40)
[2020-07-24] MEDS: Fluticasone/Salmeterol 232-14 Inhaler 1 PUFF IH ×2 (09:14→22:39)
[2020-07-24] MEDS: dexAMETHasone 2 MG TABLET 6 MG PO (10:10)
--- NOTE | 2020-07-24 10:55 | CASEMGMT ---
RN LOPEZ called patient in room for initial transition planning/care coordination assessment. RN LOPEZ introduced self and role at [facility]. Patient is alert and oriented. Patient willing to participate in assessment and is able to answer all questions appropriately. Care providers, pharmacy, and demographics verified. Patient wishes to discharge home, denies need for home health at this time. Patient states he has no further needs or concerns at this time. CM to follow for discharge planning needs that may arise. PCP: [facility] Specialists: none [facility] at discharge. Insurance: [employer] [place] Pres[place] Benefit: yes Living Will/HPOA: none LNOK: son Living Arrangements: Patient lives alone in a condo with no steps to enter the home. Patient states he is independent at home. Patient states son can assist with groceries and supplies at discharge. Transportation: self/son DME/HHC: Patient states he has cane, walker, raised toilet, and grab bars at home. No previous HHC. Will monitor for home oxygen at discharge. Patient has no preference for DME as long as in-network with insurance. Disposition Plan: Patient to discharge home with family support and follow-up plans in place. Porsche MALDONADO, RN, CM
[2020-07-24 12:15] LABS: Bedside Glucose 113 mg/dL (70-110)
--- NOTE | 2020-07-24 15:36 | PCM.PN.PUL ---
Patient Problems: Active and Suspected Problems (Last Updated 07/22/20 @ 14:[address] Carmen Tilley MD) Acute respiratory failure with hypoxia (Acute) Pneumonia due to COVID-19 virus (Acute) Subjective: The patient was seen and examined at the bedside this morning. Events from the last 24 hours have been reviewed. The patient is currently afebrile, hemodynamically stable and maintaining appropriate oxygen saturations on 4 L/min via nasal cannula. Objective: The patient's most recent lab work, culture data and imaging studies have all been personally reviewed. - Physical Exam Vitals/I&O's: Vital Signs Temp Pulse Resp BP Pulse Ox 97.8 F 56 L 20 H 139/73 H 92 07/24/20 09:20 07/24/20 09:20 07/24/20 09:20 07/24/20 09:20 07/24/20 09:20 Oxygen Flow Rate (L/min) 4 Oxygen Delivery Method Nasal Cannula Weight: 220 lb 7.996 oz Body Mass Index (BMI) 33.5 Finger Stick Blood Glucose 133 Intake and Output for Last 24 Hours 07/23/20 07/23/20 07/24/20 00:59 23:59 23:59 Intake Total 784 / 784 Balance 784 / 784 General: Alert, Cooperative, No apparent distress HEENT: Atraumatic, PERRLA, Normocephalic Oral: Moist Mucosa, No Gingival or Mucosal Lesions/ Ulcerations Neck: Supple, No Nodes, Trachea Midline Lungs: Diminished Cardiovascular: Regular rate, Regular Rhythm Abdomen: Bowel Sounds Present, Soft, Non Tender, Obese Extremities: No clubbing, No cyanosis, No edema Skin: No breakdown Musculoskeletal: No Tenderness to Palpation of Joints or Extremities Lymphatic: No Cervical, Supraclavicular, or Inguinal Adenopathy Neurological: Cranial nerves II-XII grossly intact, Neuro grossly intact Psych/Mental Status: Normal Affect, Appropriate Labs (Last 48 Hours) 07/22/20 07/22/20 07/22/20 12:00 12:00 16:47 WBC RBC Hgb Hct MCV MCH MCHC RDW Std Deviation RDW Coeff of Love Plt Count MPV Immature Gran % (Auto) Neut % (Auto) Lymph % (Auto) [place] % (Auto) Eos % (Auto) Baso % (Auto) Absolute Neuts (auto) Absolute Lymphs (auto) Nucleated RBC % Differential Comment D-Dimer Quant (PE/DVT) 1.54 H* Sodium Potassium Chloride Carbon Dioxide Anion Gap BUN Creatinine Estim Creat Clear Calc Est GFR (MDRD) Af Amer Est GFR (MDRD) Non-Af BUN/Creatinine Ratio Glucose Lactic Acid 1.5 Calcium Lactate Dehydrogenase Total Creatine Kinase Troponin I B-Natriuretic Peptide 54.5 POC Glucose 07/22/20 07/22/20 07/22/20 16:47 18:13 22:34 WBC RBC Hgb Hct MCV MCH MCHC RDW Std Deviation RDW Coeff of Love Plt Count MPV Immature Gran % (Auto) Neut % (Auto) Lymph % (Auto) [place] % (Auto) Eos % (Auto) Baso % (Auto) Absolute Neuts (auto) Absolute Lymphs (auto) Nucleated RBC % Differential Comment D-Dimer Quant (PE/DVT) Sodium Potassium Chloride Carbon Dioxide Anion Gap BUN Creatinine Estim Creat Clear Calc Est GFR (MDRD) Af Amer Est GFR (MDRD) Non-Af BUN/Creatinine Ratio Glucose Lactic Acid Calcium Lactate Dehydrogenase 378 H Total Creatine Kinase 88 Troponin I < 0.015 B-Natriuretic Peptide POC Glucose 191 H 300 H 07/23/20 07/23/20 07/23/20 06:15 06:15 06:55 WBC 5.9 RBC 4.62 Hgb 14.3 Hct 44.7 MCV 96.8 H MCH 31.0 MCHC 32.0 RDW Std Deviation 51.1 H RDW Coeff of Love 14.2 Plt Count 207 MPV 11.2 Immature Gran % (Auto) 0.500 Neut % (Auto) 71.1 H Lymph % (Auto) 12.3 L [place] % (Auto) 15.7 H Eos % (Auto) 0.2 Baso % (Auto) 0.2 Absolute Neuts (auto) 4.2 Absolute Lymphs (auto) 0.73 L Nucleated RBC % 0 Differential Comment SCANNED D-Dimer Quant (PE/DVT) Sodium 139 Potassium 3.8 Chloride 109 H Carbon Dioxide 23.0 Anion Gap 7 BUN 25 H Creatinine 0.81 Estim Creat Clear Calc 78.58 Est GFR (MDRD) Af Amer 119 Est GFR (MDRD) Non-Af 99 BUN/Creatinine Ratio 30.7 H Glucose 102 Lactic Acid Calcium 8.2 L Lactate Dehydrogenase Total Creatine Kinase Troponin I B-Natriuretic Peptide POC Glucose 101 07/23/20 07/23/20 07/23/20 11:59 16:14 22:47 WBC RBC Hgb Hct MCV MCH MCHC RDW Std Deviation RDW Coeff of Love Plt Count MPV Immature Gran % (Auto) Neut % (Auto) Lymph % (Auto) [place] % (Auto) Eos % (Auto) Baso % (Auto) Absolute Neuts (auto) Absolute Lymphs (auto) Nucleated RBC % Differential Comment D-Dimer Quant (PE/DVT) Sodium Potassium Chloride Carbon Dioxide Anion Gap BUN Creatinine Estim Creat Clear Calc Est GFR (MDRD) Af Amer Est GFR (MDRD) Non-Af BUN/Creatinine Ratio Glucose Lactic Acid Calcium Lactate Dehydrogenase Total Creatine Kinase Troponin I B-Natriuretic Peptide POC Glucose 90 170 H 232 H 07/24/20 07/24/20 06:26 12:06 WBC RBC Hgb Hct MCV MCH MCHC RDW Std Deviation RDW Coeff of Love Plt Count MPV Immature Gran % (Auto) Neut % (Auto) Lymph % (Auto) [place] % (Auto) Eos % (Auto) Baso % (Auto) Absolute Neuts (auto) Absolute Lymphs (auto) Nucleated RBC % Differential Comment D-Dimer Quant (PE/DVT) Sodium Potassium Chloride Carbon Dioxide Anion Gap BUN Creatinine Estim Creat Clear Calc Est GFR (MDRD) Af Amer Est GFR (MDRD) Non-Af BUN/Creatinine Ratio Glucose Lactic Acid Calcium Lactate Dehydrogenase Total Creatine Kinase Troponin I B-Natriuretic Peptide POC Glucose 103 113 H Microbiology 07/22/20 14:45 Urine, Clean Catch Urine Culture - Final Culture exhibits no growth. Clinical Impression(s) from Imaging Studies Chest X-Ray 07/22/20 12:02 IMPRESSION: Stable, nonacute portable x-ray examination of the chest. Electronically Signed: Nitish Luis MD ([place]) at 12:33 EDT , Service support , Chest CTA 07/22/20 12:39 IMPRESSION: 1. No central or segmental pulmonary embolism. 2. Multifocal, multilobar/bilateral peripheral dominant groundglass opacities are imaging features suggestive of COVID 19 pneumonia although can be seen in a variety of infectious and noninfectious processes. Electronically Signed: Nitish Luis MD ([place]) at 13:57 EDT , Service support , Current Medications Acetaminophen (Acetaminophen 325 Mg Tablet) 650 mg PO Q6H PRN PRN PRN Reason: Pain Score 1-10/Temp > 100.7 F Albuterol Sulfate (Albuterol Ih 8.5 Gm (Proair) Inhaler (200 Puffs)) 2 puff INHALATION Q4H PRN PRN PRN Reason: Shortness of breath, wheezing Amlodipine Besylate (Amlodipine 5 Mg Tablet) 5 mg PO DAILY [facility] Last Admin: 07/24/20 09:13 Dose: 5 mg Documented by: Aspirin (Aspirin E.C. 81 Mg Tablet) 81 mg PO DAILY [facility] Last Admin: 07/24/20 09:11 Dose: 81 mg Documented by: Atorvastatin Calcium (Atorvastatin Calcium 80 Mg Tablet) 80 mg PO QHS [facility] Last Admin: 07/23/20 22:41 Dose: 80 mg Documented by: Bupropion HCl (Bupropion 100 Mg Tablet) 100 mg PO BID [facility] Last Admin: 07/24/20 09:13 Dose: 100 mg Documented by: Clopidogrel Bisulfate (Clopidogrel Bisulfate 75 Mg Tablet) 75 mg PO DAILY [facility] Last Admin: 07/24/20 09:13 Dose: 75 mg Documented by: Dexamethasone (Dexamethasone 2 Mg Tablet) 6 mg PO DAILY@0800 [facility] Enoxaparin Sodium (Enoxaparin 40 Mg/0.4 Ml Syringe) 40 mg SC BID [facility] Last Admin: 07/24/20 09:12 Dose: 40 mg Documented by: Guaifenesin (Guaifenesin 1,200 Mg Tablet) 1,200 mg PO BID [facility] Last Admin: 07/24/20 09:12 Dose: 1,200 mg Documented by: Remdesivir 100 mg/ Sodium (Chloride) 250 mls @ 125 mls/hr IV DAILY [facility]; Protocol Stop: 07/28/20 11:59 Remdesivir 200 mg/ Sodium (Chloride) 250 mls @ 125 mls/hr IV X1 ONE; Protocol Stop: 07/24/20 17:05 Insulin Glargine (Insulin Glargine 100 Units/Ml Pen) 72 units SC QHS [facility] Last Admin: 07/23/20 22:48 Dose: 72 units Documented by: Insulin Human Lispro (Insulin Lispro 100 Unit/Ml Insuln.Pen) 0 unit SC ACHS [facility]; Protocol Last Admin: 07/24/20 12:14 Dose: Not Given Documented by: Isosorbide Mononitrate (Isosorbide Mononitrate 60 Mg Tablet) 60 mg PO DAILY [facility] Last Admin: 07/24/20 09:12 Dose: 60 mg Documented by: Losartan Potassium (Losartan Potassium 25 Mg Tablet) 25 mg PO DAILY [facility] Last Admin: 07/24/20 09:11 Dose: 25 mg Documented by: Metoprolol Tartrate (Metoprolol Tartrate 100 Mg Tablet) 100 mg PO BID [facility] Last Admin: 07/24/20 09:14 Dose: 100 mg Documented by: Ondansetron HCl (Ondansetron 4 Mg/2 Ml Vial) 4 mg IV Q8H PRN PRN PRN Reason: NAUSEA/VOMITING Fluticasone/Salmeterol (Fluticasone/Salmeterol 232-14 Inhaler) 1 puff IH Q12 [facility] Last Admin: 07/24/20 09:14 Dose: 1 puff Documented by: Senna/Docusate Sodium (Senna/Docusate Sodium 1 Tablet) 2 tablet PO BID PRN PRN PRN Reason: Constipation Sodium Chloride (0.9% Saline Lock 10 Ml Syringe) 10 - 40 ml IV UD PRN PRN Reason: SALINE FLUSH Last Admin: 07/23/20 22:48 Dose: 10 ml Documented by: Zolpidem Tartrate (Zolpidem Tartrate 5 Mg Tablet) 5 mg PO QHS PRN PRN PRN Reason: INSOMNIA Last Admin: 07/23/20 23:56 Dose: 5 mg Documented by: Medical Necessity - Tobacco Use Smoking Status: Former smoker Assessment/Plan All Active Problems (Last Updated 07/22/20 @ 14:[address] Carmen Tilley MD) Acute respiratory failure with hypoxia (Acute) Pneumonia due to COVID-19 virus (Acute) RECOMMENDATIONS: 1. Continue Decadron and Lovenox 2. Continue remdesivir 3. Wean supplemental oxygen to maintain saturations at or above 90%. 4. Encourage incentive spirometer use and mobilize patient as tolerated. 5. Continue bronchodilators. IMPRESSIONS: 1. Acute hypoxic respiratory insufficiency Likely multifactorial in etiology. The patient does carry a diagnosis of COPD of unclear severity and has tested positive for COVID-19. Patient does have groundglass opacities noted. He will be continued on Decadron, Lovenox and remdesivir to complete his treatment courses. Infectious diseases is following. Continue to wean supplemental oxygen to maintain saturations at or above 90%. Continue bronchodilator therapy. Encourage incentive spirometer use and mobilize patient as tolerated. 2. Diabetes mellitus/hypertension Continue Lantus and sliding scale insulin coverage. 3. Advanced age/obesity/anxiety/hyperlipidemia/extensive cardiac history Complicates care, management, recovery and prognosis. Okay to continue with baseline medications from my perspective. Do have clinical suspicion for untreated sleep apnea, but this could be investigated as an outpatient. This note was generated with [employer] dictation software. It may contain incorrect words, spelling, and punctuation that were not noted in checking the note before signing. Inpatient E&M: 65827 Subs Hosp L2
[2020-07-24] MEDS: Insulin Lispro 100 UNIT/ML INSULN.PEN SC ×2 (16:49→22:41)
[2020-07-24 18:26] LABS: Bedside Glucose 198 mg/dL (70-110)
--- NOTE | 2020-07-24 19:42 | PN_ITS ---
Patient Problems: Active and Suspected Problems (Last Updated 07/22/20 @ 14:[address] Carmen Tilley MD) Acute respiratory failure with hypoxia (Acute) Pneumonia due to COVID-19 virus (Acute) Subjective: Patient was seen and examined today, he appears comfortable on nasal cannula oxygen. He is currently at 4 L/min. Patient states he has a history of COPD and goes to the [facility] for his care, he does not complain of any shortness of breath or chest discomfort to this examiner today. - Physical Exam Vitals/I&O's: Vital Signs Temp Pulse Resp BP Pulse Ox 98.1 F 60 18 118/68 90 07/24/20 18:24 07/24/20 18:24 07/24/20 18:24 07/24/20 18:24 07/24/20 18:24 Oxygen Flow Rate (L/min) 4 Oxygen Delivery Method Nasal Cannula Weight: 100.017 kg Body Mass Index (BMI) 33.5 Finger Stick Blood Glucose 133 Intake and Output for Last 24 Hours 07/23/20 07/23/20 07/24/20 00:59 23:59 23:59 Intake Total 784 / 784 Balance 784 / 784 General: Alert, Oriented x3, Cooperative, No apparent distress, Well developed, Well nourished HEENT: Atraumatic, PERRLA, EOMI, Normocephalic Oral: Moist Mucosa Neck: Supple, No JVD, Trachea Midline, Thyroid Normal Size and Texture Lungs: Clear to auscultation, No rhonchi, No wheeze, Diminished Cardiovascular: Regular rate, Regular Rhythm, Normal S1, Normal S2, No murmurs, PMI Normal, No rub noted, No Gallop Abdomen: Bowel Sounds Present, Soft, Non Tender, Non-Distended Extremities: No clubbing, No cyanosis, No edema, Capillary Refill Less than 3 Seconds Skin: No rashes, No breakdown Musculoskeletal: No Tenderness to Palpation of Joints or Extremities Neurological: Cranial nerves II-XII grossly intact, Neuro grossly intact, Sensory exam intact to light touch and pain, Coordination normal Psych/Mental Status: Normal Affect, Appropriate, Alert and oriented to time, place, person, mood and affect Microbiology Past 72 Hours 07/22/20 12:05 Blood Culture (Wb) - Anticubital Right Blood Culture - Preliminary No growth in 48 hours. 07/22/20 12:00 Blood Culture (Wb) - Left Wrist Blood Culture - Preliminary No growth in 48 hours. 07/22/20 14:45 Urine, Clean Catch Urine Culture - Final Culture exhibits no growth. Laboratory Results 07/23/20 22:47: POC Glucose 232 H 07/24/20 06:26: POC Glucose 103 07/24/20 12:06: POC Glucose 113 H 07/24/20 16:47: POC Glucose 198 H Current Medications Acetaminophen (Acetaminophen 325 Mg Tablet) 650 mg PO Q6H PRN PRN PRN Reason: Pain Score 1-10/Temp > 100.7 F Albuterol Sulfate (Albuterol Ih 8.5 Gm (Proair) Inhaler (200 Puffs)) 2 puff INHALATION Q4H PRN PRN PRN Reason: Shortness of breath, wheezing Amlodipine Besylate (Amlodipine 5 Mg Tablet) 5 mg PO DAILY [facility] Last Admin: 07/24/20 09:13 Dose: 5 mg Documented by: Aspirin (Aspirin E.C. 81 Mg Tablet) 81 mg PO DAILY [facility] Last Admin: 07/24/20 09:11 Dose: 81 mg Documented by: Atorvastatin Calcium (Atorvastatin Calcium 80 Mg Tablet) 80 mg PO QHS [facility] Last Admin: 07/23/20 22:41 Dose: 80 mg Documented by: Bupropion HCl (Bupropion 100 Mg Tablet) 100 mg PO BID [facility] Last Admin: 07/24/20 09:13 Dose: 100 mg Documented by: Clopidogrel Bisulfate (Clopidogrel Bisulfate 75 Mg Tablet) 75 mg PO DAILY [facility] Last Admin: 07/24/20 09:13 Dose: 75 mg Documented by: Dexamethasone (Dexamethasone 2 Mg Tablet) 6 mg PO DAILY@0800 [facility] Enoxaparin Sodium (Enoxaparin 40 Mg/0.4 Ml Syringe) 40 mg SC BID [facility] Last Admin: 07/24/20 09:12 Dose: 40 mg Documented by: Guaifenesin (Guaifenesin 1,200 Mg Tablet) 1,200 mg PO BID [facility] Last Admin: 07/24/20 09:12 Dose: 1,200 mg Documented by: Remdesivir 100 mg/ Sodium (Chloride) 250 mls @ 125 mls/hr IV DAILY [facility]; Protocol Stop: 07/28/20 11:59 Insulin Glargine (Insulin Glargine 100 Units/Ml Pen) 72 units SC QHS [facility] Last Admin: 07/23/20 22:48 Dose: 72 units Documented by: Insulin Human Lispro (Insulin Lispro 100 Unit/Ml Insuln.Pen) 0 unit SC [facility]; Protocol Last Admin: 07/24/20 16:49 Dose: 1 u Documented by: Isosorbide Mononitrate (Isosorbide Mononitrate 60 Mg Tablet) 60 mg PO DAILY [facility] Last Admin: 07/24/20 09:12 Dose: 60 mg Documented by: Losartan Potassium (Losartan Potassium 25 Mg Tablet) 25 mg PO DAILY [facility] Last Admin: 07/24/20 09:11 Dose: 25 mg Documented by: Metoprolol Tartrate (Metoprolol Tartrate 100 Mg Tablet) 100 mg PO BID [facility] Last Admin: 07/24/20 09:14 Dose: 100 mg Documented by: Ondansetron HCl (Ondansetron 4 Mg/2 Ml Vial) 4 mg IV Q8H PRN PRN PRN Reason: NAUSEA/VOMITING Fluticasone/Salmeterol (Fluticasone/Salmeterol 232-14 Inhaler) 1 puff IH Q12 [facility] Last Admin: 07/24/20 09:14 Dose: 1 puff Documented by: Senna/Docusate Sodium (Senna/Docusate Sodium 1 Tablet) 2 tablet PO BID PRN PRN PRN Reason: Constipation Sodium Chloride (0.9% Saline Lock 10 Ml Syringe) 10 - 40 ml IV UD PRN PRN Reason: SALINE FLUSH Last Admin: 07/23/20 22:48 Dose: 10 ml Documented by: Zolpidem Tartrate (Zolpidem Tartrate 5 Mg Tablet) 5 mg PO QHS PRN PRN PRN Reason: INSOMNIA Last Admin: 07/23/20 23:56 Dose: 5 mg Documented by: Medical Necessity - Tobacco Use Smoking Status: Former smoker Assessment/Plan All Active Problems (Last Updated 07/22/20 @ 14:[address] Carmen Tilley MD) Acute respiratory failure with hypoxia (Acute) Pneumonia due to COVID-19 virus (Acute) #1 acute COVID-19 pneumonia-patient is receiving remdesivir and dexamethasone at this time, infectious diseases and pulmonary medicine are seeing patient at this time #2 acute hypoxic respiratory failure secondary to COVID-19 pneumonia-continue to wean the oxygen as tolerated #3 chronic obstructive pulmonary disease #4 type 2 diabetes #5 coronary artery disease #6 pulmonary hypertension #7 hyperlipidemia #8 lactic acidosis-secondary to acute hypoxic respiratory failure Inpatient E&M: 70629 Subs Hosp L2
--- NOTE | 2020-07-24 20:15 | PCM.HP.ID ---
Problem List (1) Pneumonia due to COVID-19 virus Status: Acute Reason for Consult: covid Consulted by: Dr. Kemp History of Present Illness: The patient is a 74 year old M, developed sx 07/15 after going to [employer] game with son and his family. They all got covid, he developed progressive headache, diarrhea, aches, cough/SOB, fever. Came to ED, sat was 77%, no fever here. Feeling about the same today. Full ROS performed and neg except as noted above. - Medical History Past Medical History (Chronic Problems): Chronic Problems (Last Updated 07/22/20 @ 14:[address] Carmen Tilley MD) COPD (chronic obstructive pulmonary disease) (Chronic) Type 2 diabetes mellitus (Chronic) Atherosclerotic heart disease of [place] coronary artery without angina pectoris (Chronic) History of coronary artery stent placement (Chronic 05/03/16) PCI-HASMUKH X 2-SVG-OM3 2008;PCI-HASMUKH right post AV; HASMUKH-RCA X 3 10/30/13; TZM-NCC-HDGO 05/03/16 H/O coronary artery bypass surgery (Chronic 1995) CABG x 5 Sequential JENSEN-LAD and D3, SVG-OM1, SVG-RBLB2, SVG-D1 1995 Secondary pulmonary arterial hypertension (Chronic) Essential (primary) hypertension (Chronic) AAA (abdominal aortic aneurysm) without rupture (Chronic) HLD (hyperlipidemia) (Chronic) Allergies/Adverse Reactions: Allergies lisinopril Allergy (Verified 03/26/19 08:41) Angioedema Sulfa (Sulfonamide Antibiotics) Allergy (Verified 03/26/19 08:41) Hives piperacillin Adverse Reaction (Severe, Verified 03/26/19 08:41) Unknown Home Medications: Ambulatory Orders Medication Instructions Recorded Amlodipine [Norvasc] 5 mg PO DAILY 12/07/13 Clopidogrel Bisulfate [Plavix] 75 mg PO DAILY 12/07/13 Insulin Aspart [Novolog Flexpen] See Protocol SQ TIDCM 12/07/13 Insulin Glargine [Lantus SoloStar 72 units SC QHS 12/07/13 Pen] Isosorbide Mononitrate [Isosorbide 60 mg PO DAILY 12/07/13 Mononitrate ER] Losartan Potassium [Cozaar] 25 mg PO DAILY 03/18/14 Metformin HCl [Glucophage] 1,000 mg PO BIDCM 12/07/13 Metoprolol Tartrate [Lopressor 100 mg PO BID 12/07/13 (beta aixa)] buPROPion tablets [Wellbutrin 100 mg PO BID 12/07/13 tablets] Acetaminophen [Tylenol Tablet] 650 mg PO Q4H PRN PRN #0 tab 09/05/16 Albuterol Inhaler [Ventolin Hfa] 1 - 2 puff INHALATION Q4H PRN PRN 09/05/16 #1 inhaler Aspirin [Aspir-Low] 81 mg PO DAILY 12/26/16 Atorvastatin Calcium [Lipitor] 80 mg PO QHS 12/26/16 Cefadroxil Hydrate [Duricef] 500 mg PO BID #60 cap 01/13/17 Ibuprofen 2 - 3 mg PO TID PRN #1 tab 01/13/17 nitroglycerin 0.4 mg sublingual 0.4 mg SUBLINGUAL Q5M PRN 02/09/18 tablet - Social History SMOKING STATUS:: Former smoker Vital Signs Temp Pulse Resp BP Pulse Ox 98.1 F 60 18 118/68 90 07/24/20 18:24 07/24/20 18:24 07/24/20 18:24 07/24/20 18:24 07/24/20 18:24 Oxygen Flow Rate (L/min) 4 Oxygen Delivery Method Nasal Cannula Weight: 100.017 kg Body Mass Index (BMI) 33.5 Finger Stick Blood Glucose 133 Microbiology Past 72 Hours 07/22/20 12:05 Blood Culture - Preliminary Blood Culture (Wb) - Anticubital Right No growth in 48 hours. 07/22/20 12:00 Blood Culture - Preliminary Blood Culture (Wb) - Left Wrist No growth in 48 hours. 07/22/20 14:45 Urine Culture - Final Urine, Clean Catch Culture exhibits no growth. - Other Studies Radiology: [] reviewed Other Studies: [] Route of nutrition/ use of supplements: [] Nutritional Intake: [] IV Site: [] Tan Catheter: [] - Physical Exam General: Alert, Oriented x3, Cooperative HEENT: Atraumatic, PERRLA, EOMI Neck: Supple, No Nodes Lungs: Diminished Cardiovascular: Regular rate, Regular Rhythm Abdomen: Soft, Non Tender, Non-Distended Extremities: No edema Skin: No rashes IV Site: Peripheral, without redness Musculoskeletal: No Tenderness to Palpation of Joints or Extremities Neurological: Cranial nerves II-XII grossly intact - Assessment/Plan Antibiotics: [] Assessment/Plan: [] Active and Suspected Problems (Last Updated 07/22/20 @ 14:[address] Carmen Tilley MD) Acute respiratory failure with hypoxia (Acute) Pneumonia due to COVID-19 virus (Acute) On dex, lovenox 40mg bid, will start remdesivir. ASIF resolved. On 4L this afternoon. Will follow, thank you
[2020-07-24] MEDS: Atorvastatin Calcium 80 MG Tablet PO (22:40)
[2020-07-24 22:50] LABS: Bedside Glucose 288 mg/dL (70-110)
[2020-07-24] MEDS: Zolpidem Tartrate 5 MG Tablet PO (23:10)
[2020-07-25] VITALS (7 sets, daily range): BP systolic 102–128; BP diastolic 52–71; PULSE 57–65; RESP 16–20; TEMP 36.4–36.7; O2SAT 90–95
[2020-07-25 06:51] LABS: Bedside Glucose 87 mg/dL (70-110)
[2020-07-25 07:41] LABS: Hematocrit 43.8 % (40-54); Hemoglobin 13.9 g/dL (13.0-16.5); Mean Corp Hgb Conc 31.7 g/dL (32-36); Mean Corpuscular Hgb 30.8 pg (27.0-32.0); Mean Corpuscular Volume 97.1 fL (80-94); Mean Platelet Vol. 10.9 fl (6.2-12.0); Platelet Count 252 K/mm3 (150-450); RBC Distribution Width CV 14.1 % (11.6-14.6); RBC Distribution Width SD 50.6 fl (35.1-43.9); Red Blood Count 4.51 M/mm3 (4.6-6.2); White Blood Count 6.2 K/mm3 (4.4-11.0)
[2020-07-25 08:09] LABS: ALB/GLOB Ratio 0.6 RATIO (0.9-2.4); AST(SGOT) 35 U/L (15-37); Alanine Aminotransfer ALT/SGPT 55 U/L (16-61); Albumin, Serum 2.4 g/dL (3.2-5.0); Alkaline Phosphatase 68 U/L (45-117); Anion Gap 7 (5-15); BUN 26 mg/dL (7-18); BUN/Creat Ratio 32.6 RATIO (10-20); Calcium,Total 8.1 mg/dL (8.5-10.1); Chloride 111 mmol/L (98-107); EST Glomerular Filtration Rate 101 mL/min (>60); Est Glom Filt Rate - Afr Amer 122 mL/min (>60); Estimated Creatinine Clearance 79.56 ml/min; Globulin 4.3 g/dL (2.2-4.2); Glucose 83 mg/dL (74-106); Potassium 3.8 mmol/L (3.5-5.1); Protein, Total 6.7 g/dL (6.4-8.2); Sodium Level 143 mmol/L (136-145)
[2020-07-25] MEDS: Losartan Potassium 25 MG Tablet PO (08:15)
[2020-07-25] MEDS: Isosorbide Mononitrate 60 MG Tablet PO (08:15)
[2020-07-25] MEDS: dexAMETHasone 2 MG TABLET 6 MG PO (08:15)
[2020-07-25] MEDS: Metoprolol Tartrate 100 MG Tablet PO ×2 (08:16→21:31)
[2020-07-25] MEDS: Aspirin E.C. 81 MG Tablet PO (08:16)
[2020-07-25] MEDS: Fluticasone/Salmeterol 232-14 Inhaler 1 PUFF IH ×2 (08:16→21:32)
[2020-07-25] MEDS: amLODIPine 5 MG Tablet PO (08:17)
[2020-07-25] MEDS: Enoxaparin 40 MG/0.4 ML Syringe SC ×2 (08:17→21:32)
[2020-07-25] MEDS: guaiFENesin 1,200 MG Tablet 1200 MG PO ×2 (08:17→21:32)
[2020-07-25] MEDS: buPROPion 100 MG Tablet PO ×2 (08:17→21:32)
[2020-07-25] MEDS: Clopidogrel Bisulfate 75 MG Tablet PO (08:17)
--- NOTE | 2020-07-25 11:09 | PCM.PN.ID ---
Patient Problems: Active and Suspected Problems (Last Updated 07/22/20 @ 14:[address] Carmen Tilley MD) Acute respiratory failure with hypoxia (Acute) Pneumonia due to COVID-19 virus (Acute) Subjective: Feeling better, no fever, on 4L. No n/v/d. - Physical Exam Vitals/I&O's: Vital Signs Temp Pulse Resp BP Pulse Ox 98.0 F 57 L 18 120/67 90 07/25/20 09:00 07/25/20 09:00 07/25/20 09:00 07/25/20 09:00 07/25/20 09:00 Oxygen Flow Rate (L/min) 4 Oxygen Delivery Method Nasal Cannula Weight: 100.017 kg Body Mass Index (BMI) 33.5 Finger Stick Blood Glucose 133 Intake and Output for Last 24 Hours 07/23/20 07/24/20 07/25/20 23:59 23:59 23:59 Intake Total 1034 / 1034 Balance 1034 / 1034 General: Alert, Cooperative, No apparent distress Lungs: Clear to auscultation, Diminished Cardiovascular: Regular rate, Regular Rhythm Abdomen: Soft, Non Tender, Non-Distended Skin: No rashes Microbiology Past 72 Hours 07/22/20 12:05 Blood Culture (Wb) - Anticubital Right Blood Culture - Preliminary No growth in 48 hours. 07/22/20 12:00 Blood Culture (Wb) - Left Wrist Blood Culture - Preliminary No growth in 48 hours. 07/22/20 14:45 Urine, Clean Catch Urine Culture - Final Culture exhibits no growth. Laboratory Results 07/24/20 12:06: POC Glucose 113 H 07/24/20 16:47: POC Glucose 198 H 07/24/20 22:35: POC Glucose 288 H 07/25/20 06:40: WBC 6.2, RBC 4.51 L, Hgb 13.9, Hct 43.8, MCV 97.1 H, MCH 30.8, MCHC 31.7 L, RDW Std Deviation 50.6 H, RDW Coeff of Love 14.1, Plt Count 252, MPV 10.9 07/25/20 06:40: Sodium 143, Potassium 3.8, Chloride 111 H, Carbon Dioxide 25.0, Anion Gap 7, BUN 26 H, Creatinine 0.80, Estim Creat Clear Calc 79.56, Est GFR (MDRD) Af Amer 122, Est GFR (MDRD) Non-Af 101, BUN/Creatinine Ratio 32.6 H, Glucose 83, Calcium 8.1 L, Total Bilirubin 0.70, AST 35, ALT 55, Alkaline Phosphatase 68, Total Protein 6.7, Albumin 2.4 L, Globulin 4.3 H, Albumin/Globulin Ratio 0.6 L 07/25/20 06:44: POC Glucose 87 Current Medications Acetaminophen (Acetaminophen 325 Mg Tablet) 650 mg PO Q6H PRN PRN PRN Reason: Pain Score 1-10/Temp > 100.7 F Albuterol Sulfate (Albuterol Ih 8.5 Gm (Proair) Inhaler (200 Puffs)) 2 puff INHALATION Q4H PRN PRN PRN Reason: Shortness of breath, wheezing Amlodipine Besylate (Amlodipine 5 Mg Tablet) 5 mg PO DAILY [facility] Last Admin: 07/25/20 08:17 Dose: 5 mg Documented by: Aspirin (Aspirin E.C. 81 Mg Tablet) 81 mg PO DAILY [facility] Last Admin: 07/25/20 08:16 Dose: 81 mg Documented by: Atorvastatin Calcium (Atorvastatin Calcium 80 Mg Tablet) 80 mg PO QHS [facility] Last Admin: 07/24/20 22:40 Dose: 80 mg Documented by: Bupropion HCl (Bupropion 100 Mg Tablet) 100 mg PO BID [facility] Last Admin: 07/25/20 08:17 Dose: 100 mg Documented by: Clopidogrel Bisulfate (Clopidogrel Bisulfate 75 Mg Tablet) 75 mg PO DAILY [facility] Last Admin: 07/25/20 08:17 Dose: 75 mg Documented by: Dexamethasone (Dexamethasone 2 Mg Tablet) 6 mg PO DAILY@0800 [facility] Last Admin: 07/25/20 08:15 Dose: 6 mg Documented by: Enoxaparin Sodium (Enoxaparin 40 Mg/0.4 Ml Syringe) 40 mg SC BID [facility] Last Admin: 07/25/20 08:17 Dose: 40 mg Documented by: Guaifenesin (Guaifenesin 1,200 Mg Tablet) 1,200 mg PO BID [facility] Last Admin: 07/25/20 08:17 Dose: 1,200 mg Documented by: Remdesivir 100 mg/ Sodium (Chloride) 250 mls @ 125 mls/hr IV DAILY [facility]; Protocol Stop: 07/28/20 11:59 Last Admin: 07/25/20 10:19 Dose: 125 mls/hr Documented by: Insulin Glargine (Insulin Glargine 100 Units/Ml Pen) 72 units SC QHS [facility] Last Admin: 07/24/20 22:42 Dose: 72 units Documented by: Insulin Human Lispro (Insulin Lispro 100 Unit/Ml Insuln.Pen) 0 unit SC ACHS [facility]; Protocol Last Admin: 07/25/20 06:44 Dose: Not Given Documented by: Isosorbide Mononitrate (Isosorbide Mononitrate 60 Mg Tablet) 60 mg PO DAILY [facility] Last Admin: 07/25/20 08:15 Dose: 60 mg Documented by: Losartan Potassium (Losartan Potassium 25 Mg Tablet) 25 mg PO DAILY [facility] Last Admin: 07/25/20 08:15 Dose: 25 mg Documented by: Metoprolol Tartrate (Metoprolol Tartrate 100 Mg Tablet) 100 mg PO BID [facility] Last Admin: 07/25/20 08:16 Dose: 100 mg Documented by: Ondansetron HCl (Ondansetron 4 Mg/2 Ml Vial) 4 mg IV Q8H PRN PRN PRN Reason: NAUSEA/VOMITING Fluticasone/Salmeterol (Fluticasone/Salmeterol 232-14 Inhaler) 1 puff IH Q12 [facility] Last Admin: 07/25/20 08:16 Dose: 1 puff Documented by: Senna/Docusate Sodium (Senna/Docusate Sodium 1 Tablet) 2 tablet PO BID PRN PRN PRN Reason: Constipation Sodium Chloride (0.9% Saline Lock 10 Ml Syringe) 10 - 40 ml IV UD PRN PRN Reason: SALINE FLUSH Last Admin: 07/23/20 22:48 Dose: 10 ml Documented by: Zolpidem Tartrate (Zolpidem Tartrate 5 Mg Tablet) 5 mg PO QHS PRN PRN PRN Reason: INSOMNIA Last Admin: 07/24/20 23:10 Dose: 5 mg Documented by: Medical Necessity - Tobacco Use Smoking Status: Former smoker Route of nutrition/ use of supplements: [] Nutritional Intake: [] IV Site: [] Tan Catheter: [] - Assessment/Plan Antibiotics: [] Assessment/Plan: [] Active and Suspected Problems (Last Updated 07/22/20 @ 14:[address] Carmen Tilley MD) Acute respiratory failure with hypoxia (Acute) Pneumonia due to COVID-19 virus (Acute) On dex, lovenox 40mg bid, 07/24 started remdesivir. ASIF resolved. On 4L this AM. Ok for home when on 2L. Will follow
[2020-07-25 11:50] LABS: Bedside Glucose 140 mg/dL (70-110)
--- NOTE | 2020-07-25 13:50 | PN_ITS ---
Patient Problems: Active and Suspected Problems (Last Updated 07/22/20 @ 14:[address] Carmen Tilley MD) Acute respiratory failure with hypoxia (Acute) Pneumonia due to COVID-19 virus (Acute) Subjective: The patient was seen and examined at the bedside this morning. Events from the last 24 hours have been reviewed. The patient is currently afebrile, hemodynamically stable and maintaining appropriate oxygen saturations on 4 L/min via nasal cannula. The patient reports that he feels well and denies any significant shortness of breath. Objective: The patient's most recent lab work, culture data and imaging studies have all been personally reviewed. - Physical Exam Vitals/I&O's: Vital Signs Temp Pulse Resp BP Pulse Ox 98.0 F 57 L 18 120/67 90 07/25/20 09:00 07/25/20 09:00 07/25/20 09:00 07/25/20 09:00 07/25/20 09:00 Oxygen Flow Rate (L/min) 4 Oxygen Delivery Method Nasal Cannula Weight: 220 lb 7.996 oz Body Mass Index (BMI) 33.5 Finger Stick Blood Glucose 133 Intake and Output for Last 24 Hours 07/23/20 07/24/20 07/25/20 23:59 23:59 23:59 Intake Total 1034 / 1034 250 / 250 Balance 1034 / 1034 250 / 250 General: Alert, Oriented x3, Cooperative, No apparent distress HEENT: Atraumatic, PERRLA, Normocephalic Oral: Moist Mucosa, No Gingival or Mucosal Lesions/ Ulcerations Neck: Supple, No Nodes, Trachea Midline Lungs: No rhonchi, No wheeze, No rales, Diminished Cardiovascular: Regular rate, Regular Rhythm Abdomen: Bowel Sounds Present, Soft, Non Tender, Obese Extremities: No clubbing, No cyanosis, No edema Skin: No breakdown Musculoskeletal: No Tenderness to Palpation of Joints or Extremities, No Muscle Wasting Lymphatic: No Cervical, Supraclavicular, or Inguinal Adenopathy Neurological: Cranial nerves II-XII grossly intact, Neuro grossly intact Psych/Mental Status: Normal Affect, Appropriate Labs (Last 48 Hours) 07/23/20 07/23/20 07/23/20 11:59 16:14 22:47 WBC RBC Hgb Hct MCV MCH MCHC RDW Std Deviation RDW Coeff of Love Plt Count MPV Sodium Potassium Chloride Carbon Dioxide Anion Gap BUN Creatinine Estim Creat Clear Calc Est GFR (MDRD) Af Amer Est GFR (MDRD) Non-Af BUN/Creatinine Ratio Glucose Calcium Total Bilirubin AST ALT Alkaline Phosphatase Total Protein Albumin Globulin Albumin/Globulin Ratio POC Glucose 90 170 H 232 H 07/24/20 07/24/20 07/24/20 06:26 12:06 16:47 WBC RBC Hgb Hct MCV MCH MCHC RDW Std Deviation RDW Coeff of Love Plt Count MPV Sodium Potassium Chloride Carbon Dioxide Anion Gap BUN Creatinine Estim Creat Clear Calc Est GFR (MDRD) Af Amer Est GFR (MDRD) Non-Af BUN/Creatinine Ratio Glucose Calcium Total Bilirubin AST ALT Alkaline Phosphatase Total Protein Albumin Globulin Albumin/Globulin Ratio POC Glucose 103 113 H 198 H 07/24/20 07/25/20 07/25/20 22:35 06:40 06:40 WBC 6.2 RBC 4.51 L Hgb 13.9 Hct 43.8 MCV 97.1 H MCH 30.8 MCHC 31.7 L RDW Std Deviation 50.6 H RDW Coeff of Love 14.1 Plt Count 252 MPV 10.9 Sodium 143 Potassium 3.8 Chloride 111 H Carbon Dioxide 25.0 Anion Gap 7 BUN 26 H Creatinine 0.80 Estim Creat Clear Calc 79.56 Est GFR (MDRD) Af Amer 122 Est GFR (MDRD) Non-Af 101 BUN/Creatinine Ratio 32.6 H Glucose 83 Calcium 8.1 L Total Bilirubin 0.70 AST 35 ALT 55 Alkaline Phosphatase 68 Total Protein 6.7 Albumin 2.4 L Globulin 4.3 H Albumin/Globulin Ratio 0.6 L POC Glucose 288 H 07/25/20 07/25/20 06:44 11:41 WBC RBC Hgb Hct MCV MCH MCHC RDW Std Deviation RDW Coeff of Love Plt Count MPV Sodium Potassium Chloride Carbon Dioxide Anion Gap BUN Creatinine Estim Creat Clear Calc Est GFR (MDRD) Af Amer Est GFR (MDRD) Non-Af BUN/Creatinine Ratio Glucose Calcium Total Bilirubin AST ALT Alkaline Phosphatase Total Protein Albumin Globulin Albumin/Globulin Ratio POC Glucose 87 140 H Microbiology 07/22/20 12:05 Blood Culture (Wb) - Anticubital Right Blood Culture - Preliminary No growth in 48 hours. 07/22/20 12:00 Blood Culture (Wb) - Left Wrist Blood Culture - Preliminary No growth in 48 hours. 07/22/20 14:45 Urine, Clean Catch Urine Culture - Final Culture exhibits no growth. Clinical Impression(s) from Imaging Studies Chest X-Ray 07/22/20 12:02 IMPRESSION: Stable, nonacute portable x-ray examination of the chest. Electronically Signed: Nitish Luis MD ([place]) at 12:33 EDT , Service support , Chest CTA 07/22/20 12:39 IMPRESSION: 1. No central or segmental pulmonary embolism. 2. Multifocal, multilobar/bilateral peripheral dominant groundglass opacities are imaging features suggestive of COVID 19 pneumonia although can be seen in a variety of infectious and noninfectious processes. Electronically Signed: Nitish Luis MD ([place]) at 13:57 EDT , Service support , Current Medications Acetaminophen (Acetaminophen 325 Mg Tablet) 650 mg PO Q6H PRN PRN PRN Reason: Pain Score 1-10/Temp > 100.7 F Albuterol Sulfate (Albuterol Ih 8.5 Gm (Proair) Inhaler (200 Puffs)) 2 puff INHALATION Q4H PRN PRN PRN Reason: Shortness of breath, wheezing Amlodipine Besylate (Amlodipine 5 Mg Tablet) 5 mg PO DAILY [facility] Last Admin: 07/25/20 08:17 Dose: 5 mg Documented by: Aspirin (Aspirin E.C. 81 Mg Tablet) 81 mg PO DAILY [facility] Last Admin: 07/25/20 08:16 Dose: 81 mg Documented by: Atorvastatin Calcium (Atorvastatin Calcium 80 Mg Tablet) 80 mg PO QHS [facility] Last Admin: 07/24/20 22:40 Dose: 80 mg Documented by: Bupropion HCl (Bupropion 100 Mg Tablet) 100 mg PO BID [facility] Last Admin: 07/25/20 08:17 Dose: 100 mg Documented by: Clopidogrel Bisulfate (Clopidogrel Bisulfate 75 Mg Tablet) 75 mg PO DAILY [facility] Last Admin: 07/25/20 08:17 Dose: 75 mg Documented by: Dexamethasone (Dexamethasone 2 Mg Tablet) 6 mg PO DAILY@0800 [facility] Last Admin: 07/25/20 08:15 Dose: 6 mg Documented by: Enoxaparin Sodium (Enoxaparin 40 Mg/0.4 Ml Syringe) 40 mg SC BID [facility] Last Admin: 07/25/20 08:17 Dose: 40 mg Documented by: Guaifenesin (Guaifenesin 1,200 Mg Tablet) 1,200 mg PO BID [facility] Last Admin: 07/25/20 08:17 Dose: 1,200 mg Documented by: Remdesivir 100 mg/ Sodium (Chloride) 250 mls @ 125 mls/hr IV DAILY [facility]; Protocol Stop: 07/28/20 11:59 Last Infusion: 07/25/20 13:19 Dose: Infused Documented by: Insulin Glargine (Insulin Glargine 100 Units/Ml Pen) 72 units SC QHS [facility] Last Admin: 07/24/20 22:42 Dose: 72 units Documented by: Insulin Human Lispro (Insulin Lispro 100 Unit/Ml Insuln.Pen) 0 unit SC ACHS [facility]; Protocol Last Admin: 07/25/20 13:18 Dose: Not Given Documented by: Isosorbide Mononitrate (Isosorbide Mononitrate 60 Mg Tablet) 60 mg PO DAILY [facility] Last Admin: 07/25/20 08:15 Dose: 60 mg Documented by: Losartan Potassium (Losartan Potassium 25 Mg Tablet) 25 mg PO DAILY [facility] Last Admin: 07/25/20 08:15 Dose: 25 mg Documented by: Metoprolol Tartrate (Metoprolol Tartrate 100 Mg Tablet) 100 mg PO BID [facility] Last Admin: 07/25/20 08:16 Dose: 100 mg Documented by: Ondansetron HCl (Ondansetron 4 Mg/2 Ml Vial) 4 mg IV Q8H PRN PRN PRN Reason: NAUSEA/VOMITING Fluticasone/Salmeterol (Fluticasone/Salmeterol 232-14 Inhaler) 1 puff IH Q12 [facility] Last Admin: 07/25/20 08:16 Dose: 1 puff Documented by: Senna/Docusate Sodium (Senna/Docusate Sodium 1 Tablet) 2 tablet PO BID PRN PRN PRN Reason: Constipation Sodium Chloride (0.9% Saline Lock 10 Ml Syringe) 10 - 40 ml IV UD PRN PRN Reason: SALINE FLUSH Last Admin: 07/23/20 22:48 Dose: 10 ml Documented by: Zolpidem Tartrate (Zolpidem Tartrate 5 Mg Tablet) 5 mg PO QHS PRN PRN PRN Reason: INSOMNIA Last Admin: 07/24/20 23:10 Dose: 5 mg Documented by: Medical Necessity - Tobacco Use Smoking Status: Former smoker Assessment/Plan All Active Problems (Last Updated 07/22/20 @ 14:[address] Carmen Tilley MD) Acute respiratory failure with hypoxia (Acute) Pneumonia due to COVID-19 virus (Acute) RECOMMENDATIONS: 1. Continue Decadron and Lovenox 2. Continue remdesivir 3. Wean supplemental oxygen to maintain saturations at or above 90%. 4. Encourage incentive spirometer use and mobilize patient as tolerated. 5. Continue bronchodilators. IMPRESSIONS: 1. Acute hypoxic respiratory insufficiency Likely multifactorial in etiology. The patient does carry a diagnosis of COPD of unclear severity and has tested positive for COVID-19. Patient does have groundglass opacities noted. He will be continued on Decadron, Lovenox and remdesivir to complete his treatment courses. Infectious diseases is following. Continue to wean supplemental oxygen to maintain saturations at or above 90%. Continue bronchodilator therapy. Encourage incentive spirometer use and mobilize patient as tolerated. 2. Diabetes mellitus/hypertension Continue Lantus and sliding scale insulin coverage. 3. Advanced age/obesity/anxiety/hyperlipidemia/extensive cardiac history Complicates care, management, recovery and prognosis. Okay to continue with baseline medications from my perspective. Do have clinical suspicion for untreated sleep apnea, but this could be investigated as an outpatient. This note was generated with [employer] dictation software. It may contain incorrect words, spelling, and punctuation that were not noted in checking the note before signing. Inpatient E&M: 84126 Subs Hosp L2
--- NOTE | 2020-07-25 13:53 | NURSING ---
therapy up and walked pt with 4l and pt dropped to 81% with exertion. increased to 6l and was 91%. back to bed and o2 down to 4l.
[2020-07-25] MEDS: Insulin Lispro 100 UNIT/ML INSULN.PEN SC ×2 (17:10→21:35)
[2020-07-25 18:51] LABS: Bedside Glucose 217 mg/dL (70-110)
--- NOTE | 2020-07-25 19:37 | PCM.PROGNOTE ---
Patient Problems: Active and Suspected Problems (Last Updated 07/22/20 @ 14:[address] Carmen Tilley MD) Acute respiratory failure with hypoxia (Acute) Pneumonia due to COVID-19 virus (Acute) Subjective: Patient was seen and examined today, he is sitting in chair and appears comfortable on nasal cannula oxygen. Patient denies any shortness of breath, chills, or chest pain. - Physical Exam Vitals/I&O's: Vital Signs Temp Pulse Resp BP Pulse Ox 98.0 F 65 20 H 102/52 L 95 07/25/20 15:00 07/25/20 15:00 07/25/20 15:00 07/25/20 15:00 07/25/20 15:00 Oxygen Flow Rate (L/min) 4 Oxygen Delivery Method Nasal Cannula Weight: 100.017 kg Body Mass Index (BMI) 33.5 Finger Stick Blood Glucose 133 Intake and Output for Last 24 Hours 07/23/20 07/24/20 07/25/20 23:59 23:59 23:59 Intake Total 1034 / 1034 1190 / 1190 Balance 1034 / 1034 1190 / 1190 General: Alert, Oriented x3, Cooperative, No apparent distress, Well developed, Well nourished HEENT: Atraumatic, PERRLA, EOMI, Normocephalic Oral: Moist Mucosa Neck: Supple, No JVD, Trachea Midline, Thyroid Normal Size and Texture Lungs: Clear to auscultation, Normal air movement, No rhonchi, No wheeze, Rales - Scattered fine inspiratory rales are noted bilaterally Cardiovascular: Regular rate, Regular Rhythm, Normal S1, Normal S2, No murmurs, PMI Normal, No rub noted, No Gallop Abdomen: Bowel Sounds Present, Soft, Non Tender, Non-Distended Extremities: No clubbing, No cyanosis, No edema, Capillary Refill Less than 3 Seconds Skin: No rashes, No breakdown Musculoskeletal: No Tenderness to Palpation of Joints or Extremities Neurological: Cranial nerves II-XII grossly intact, Neuro grossly intact, Sensory exam intact to light touch and pain, Coordination normal Psych/Mental Status: Normal Affect, Appropriate, Alert and oriented to time, place, person, mood and affect Microbiology Past 72 Hours 07/22/20 12:05 Blood Culture (Wb) - Anticubital Right Blood Culture - Preliminary No growth in 48 hours. 10/31/20 12:00 Blood Culture (Wb) - Left Wrist Blood Culture - Preliminary No growth in 48 hours. 07/22/20 14:45 Urine, Clean Catch Urine Culture - Final Culture exhibits no growth. Laboratory Results 07/24/20 22:35: POC Glucose 288 H 07/25/20 06:40: WBC 6.2, RBC 4.51 L, Hgb 13.9, Hct 43.8, MCV 97.1 H, MCH 30.8, MCHC 31.7 L, RDW Std Deviation 50.6 H, RDW Coeff of Love 14.1, Plt Count 252, MPV 10.9 07/25/20 06:40: Sodium 143, Potassium 3.8, Chloride 111 H, Carbon Dioxide 25.0, Anion Gap 7, BUN 26 H, Creatinine 0.80, Estim Creat Clear Calc 79.56, Est GFR (MDRD) Af Amer 122, Est GFR (MDRD) Non-Af 101, BUN/Creatinine Ratio 32.6 H, Glucose 83, Calcium 8.1 L, Total Bilirubin 0.70, AST 35, ALT 55, Alkaline Phosphatase 68, Total Protein 6.7, Albumin 2.4 L, Globulin 4.3 H, Albumin/Globulin Ratio 0.6 L 07/25/20 06:44: POC Glucose 87 07/25/20 11:41: POC Glucose 140 H 07/25/20 17:09: POC Glucose 217 H Current Medications Acetaminophen (Acetaminophen 325 Mg Tablet) 650 mg PO Q6H PRN PRN PRN Reason: Pain Score 1-10/Temp > 100.7 F Albuterol Sulfate (Albuterol Ih 8.5 Gm (Proair) Inhaler (200 Puffs)) 2 puff INHALATION Q4H PRN PRN PRN Reason: Shortness of breath, wheezing Amlodipine Besylate (Amlodipine 5 Mg Tablet) 5 mg PO DAILY [facility] Last Admin: 07/25/20 08:17 Dose: 5 mg Documented by: Aspirin (Aspirin E.C. 81 Mg Tablet) 81 mg PO DAILY [facility] Last Admin: 07/25/20 08:16 Dose: 81 mg Documented by: Atorvastatin Calcium (Atorvastatin Calcium 80 Mg Tablet) 80 mg PO QHS [facility] Last Admin: 07/24/20 22:40 Dose: 80 mg Documented by: Bupropion HCl (Bupropion 100 Mg Tablet) 100 mg PO BID [facility] Last Admin: 07/25/20 08:17 Dose: 100 mg Documented by: Clopidogrel Bisulfate (Clopidogrel Bisulfate 75 Mg Tablet) 75 mg PO DAILY [facility] Last Admin: 07/25/20 08:17 Dose: 75 mg Documented by: Dexamethasone (Dexamethasone 2 Mg Tablet) 6 mg PO DAILY@0800 [facility] Last Admin: 07/25/20 08:15 Dose: 6 mg Documented by: Enoxaparin Sodium (Enoxaparin 40 Mg/0.4 Ml Syringe) 40 mg SC BID [facility] Last Admin: 07/25/20 08:17 Dose: 40 mg Documented by: Guaifenesin (Guaifenesin 1,200 Mg Tablet) 1,200 mg PO BID [facility] Last Admin: 07/25/20 08:17 Dose: 1,200 mg Documented by: Remdesivir 100 mg/ Sodium (Chloride) 250 mls @ 125 mls/hr IV DAILY [facility]; Protocol Stop: 07/28/20 11:59 Last Infusion: 07/25/20 13:19 Dose: Infused Documented by: Insulin Glargine (Insulin Glargine 100 Units/Ml Pen) 72 units SC QHS [facility] Last Admin: 07/24/20 22:42 Dose: 72 units Documented by: Insulin Human Lispro (Insulin Lispro 100 Unit/Ml Insuln.Pen) 0 unit SC ACHS [facility]; Protocol Last Admin: 07/25/20 17:10 Dose: 2 u Documented by: Isosorbide Mononitrate (Isosorbide Mononitrate 60 Mg Tablet) 60 mg PO DAILY [facility] Last Admin: 07/25/20 08:15 Dose: 60 mg Documented by: Losartan Potassium (Losartan Potassium 25 Mg Tablet) 25 mg PO DAILY [facility] Last Admin: 07/25/20 08:15 Dose: 25 mg Documented by: Metoprolol Tartrate (Metoprolol Tartrate 100 Mg Tablet) 100 mg PO BID [facility] Last Admin: 07/25/20 08:16 Dose: 100 mg Documented by: Ondansetron HCl (Ondansetron 4 Mg/2 Ml Vial) 4 mg IV Q8H PRN PRN PRN Reason: NAUSEA/VOMITING Fluticasone/Salmeterol (Fluticasone/Salmeterol 232-14 Inhaler) 1 puff IH Q12 [facility] Last Admin: 07/25/20 08:16 Dose: 1 puff Documented by: Senna/Docusate Sodium (Senna/Docusate Sodium 1 Tablet) 2 tablet PO BID PRN PRN PRN Reason: Constipation Sodium Chloride (0.9% Saline Lock 10 Ml Syringe) 10 - 40 ml IV UD PRN PRN Reason: SALINE FLUSH Last Admin: 07/23/20 22:48 Dose: 10 ml Documented by: Zolpidem Tartrate (Zolpidem Tartrate 5 Mg Tablet) 5 mg PO QHS PRN PRN PRN Reason: INSOMNIA Last Admin: 07/24/20 23:10 Dose: 5 mg Documented by: Medical Necessity - Tobacco Use Smoking Status: Former smoker Assessment/Plan All Active Problems (Last Updated 07/22/20 @ 14:[address] Carmen Tilley MD) Acute respiratory failure with hypoxia (Acute) Pneumonia due to COVID-19 virus (Acute) #1 acute COVID-19 pneumonia-patient is receiving remdesivir and dexamethasone at this time, infectious diseases and pulmonary medicine are seeing patient at this time, his oxygen requirement appears to be stable at this time #2 acute hypoxic respiratory failure secondary to COVID-19 pneumonia-continue to wean the oxygen as tolerated #3 chronic obstructive pulmonary disease #4 type 2 diabetes #5 coronary artery disease #6 pulmonary hypertension #7 hyperlipidemia #8 lactic acidosis-secondary to acute hypoxic respiratory failure Inpatient E&M: 49424 [facility] Hosp L2
[2020-07-25] MEDS: Atorvastatin Calcium 80 MG Tablet PO (21:31)
[2020-07-25 22:15] LABS: Bedside Glucose 227 mg/dL (70-110)
[2020-07-26] VITALS (8 sets, daily range): BP systolic 104–141; BP diastolic 61–85; PULSE 60–64; RESP 16–20; TEMP 36.4–36.8; O2SAT 93–96
[2020-07-26 06:56] LABS: Bedside Glucose 80 mg/dL (70-110)
[2020-07-26 07:25] LABS: Hematocrit 43.1 % (40-54); Hemoglobin 14.1 g/dL (13.0-16.5); Mean Corp Hgb Conc 32.7 g/dL (32-36); Mean Corpuscular Hgb 31.3 pg (27.0-32.0); Mean Corpuscular Volume 95.8 fL (80-94); Mean Platelet Vol. 11.1 fl (6.2-12.0); Platelet Count 259 K/mm3 (150-450); RBC Distribution Width CV 13.8 % (11.6-14.6); RBC Distribution Width SD 48.8 fl (35.1-43.9); White Blood Count 7.4 K/mm3 (4.4-11.0)
[2020-07-26] MEDS: Enoxaparin 40 MG/0.4 ML Syringe SC ×2 (08:08→21:23)
[2020-07-26] MEDS: dexAMETHasone 2 MG TABLET 6 MG PO (08:09)
[2020-07-26] MEDS: Aspirin E.C. 81 MG Tablet PO (08:09)
[2020-07-26] MEDS: Isosorbide Mononitrate 60 MG Tablet PO (08:09)
[2020-07-26] MEDS: Losartan Potassium 25 MG Tablet PO (08:09)
[2020-07-26] MEDS: 0.9% Saline Lock 10 ML Syringe IV (08:09)
[2020-07-26] MEDS: guaiFENesin 1,200 MG Tablet 1200 MG PO ×2 (08:09→23:20)
[2020-07-26] MEDS: Metoprolol Tartrate 100 MG Tablet PO ×2 (08:09→21:23)
[2020-07-26] MEDS: Fluticasone/Salmeterol 232-14 Inhaler 1 PUFF IH ×2 (08:10→21:24)
[2020-07-26] MEDS: Clopidogrel Bisulfate 75 MG Tablet PO (08:10)
[2020-07-26] MEDS: amLODIPine 5 MG Tablet PO (08:10)
[2020-07-26] MEDS: buPROPion 100 MG Tablet PO ×2 (08:10→23:20)
[2020-07-26 08:13] LABS: ALB/GLOB Ratio 0.6 RATIO (0.9-2.4); AST(SGOT) 27 U/L (15-37); Alanine Aminotransfer ALT/SGPT 56 U/L (16-61); Albumin, Serum 2.5 g/dL (3.2-5.0); Alkaline Phosphatase 73 U/L (45-117); Anion Gap 6 (5-15); BUN 25 mg/dL (7-18); BUN/Creat Ratio 31.7 RATIO (10-20); Calcium,Total 8.4 mg/dL (8.5-10.1); Chloride 112 mmol/L (98-107); Creatinine, Serum 0.79 mg/dL (0.70-1.30); EST Glomerular Filtration Rate 102 mL/min (>60); Est Glom Filt Rate - Afr Amer 124 mL/min (>60); Estimated Creatinine Clearance 63.65 ml/min; Globulin 4.2 g/dL (2.2-4.2); Glucose 79 mg/dL (74-106); Potassium 3.7 mmol/L (3.5-5.1); Protein, Total 6.7 g/dL (6.4-8.2); Sodium Level 143 mmol/L (136-145)
[2020-07-26] MEDS: Insulin Lispro 100 UNIT/ML INSULN.PEN SC ×3 (12:00→21:24)
[2020-07-26 12:15] LABS: Bedside Glucose 156 mg/dL (70-110)
--- NOTE | 2020-07-26 13:55 | CASEMGMT ---
This CAYDEN MARROQUIN received message from Lindsey at [facility] transfer in regards to pt and possible transfer at this time. Lindsey's contact info [phone] Kemp, pt to get 2 more days of Remdesivir to complete treatment and then plan for discharge on 07/28/2020. Lindsey at [facility] updated on this at this time and states no point in transferring pt if plan to discharge on friday. Lindsey to be updated on change in condition or discharge date and clinicals to be faxed to [facility] by [facility] at this time. Pt updated on all, voices understanding. Pt states no preference for DME company or whether it goes thru [facility] or [facility] at this time. Pt voices no further questions/concerns/needs at this time. Per therapy, pt needs no therapy at this time. CM to follow for home oxygen. [place] CAYDEN MARROQUIN
--- NOTE | 2020-07-26 14:17 | PN_ITS ---
Patient Problems: Active and Suspected Problems (Last Updated 07/22/20 @ 14:[address] Carmen Tilley MD) Acute respiratory failure with hypoxia (Acute) Pneumonia due to COVID-19 virus (Acute) Subjective: The patient was seen and examined at the bedside this morning. Events from the last 24 hours have been reviewed. The patient is currently afebrile, hemodynamically stable and maintaining appropriate oxygen saturations on 4 L/min via nasal cannula. The patient remains on Decadron and remdesivir. Objective: The patient's most recent lab work, culture data and imaging studies have all been personally reviewed. - Physical Exam Vitals/I&O's: Vital Signs Temp Pulse Resp BP Pulse Ox 98.3 F 64 18 104/61 94 07/26/20 12:40 07/26/20 12:40 07/26/20 12:40 07/26/20 12:40 07/26/20 12:40 Oxygen Flow Rate (L/min) 5 Oxygen Delivery Method Nasal Cannula Weight: 220 lb 7.996 oz Body Mass Index (BMI) 33.5 Finger Stick Blood Glucose 133 Intake and Output for Last 24 Hours 07/24/20 07/25/20 07/26/20 23:59 23:59 23:59 Intake Total 1034 / 1034 1190 / 1840 1360 / 1360 Balance 1034 / 1034 1190 / 1840 1360 / 1360 General: Alert, Cooperative, No apparent distress HEENT: Atraumatic, Normocephalic Oral: Moist Mucosa, No Gingival or Mucosal Lesions/ Ulcerations Neck: Supple, No Nodes, Trachea Midline Lungs: No rhonchi, No wheeze, No rales, Diminished Cardiovascular: Regular rate, Regular Rhythm Abdomen: Bowel Sounds Present, Soft, Non Tender, Obese Extremities: No clubbing, No cyanosis, No edema Skin: No breakdown Musculoskeletal: No Tenderness to Palpation of Joints or Extremities, No Muscle Wasting Lymphatic: No Cervical, Supraclavicular, or Inguinal Adenopathy Neurological: Cranial nerves II-XII grossly intact, Neuro grossly intact Psych/Mental Status: Normal Affect, Appropriate Labs (Last 48 Hours) 07/24/20 07/24/20 07/25/20 16:47 22:35 06:40 WBC 6.2 RBC 4.51 L Hgb 13.9 Hct 43.8 MCV 97.1 H MCH 30.8 MCHC 31.7 L RDW Std Deviation 50.6 H RDW Coeff of Love 14.1 Plt Count 252 MPV 10.9 Sodium Potassium Chloride Carbon Dioxide Anion Gap BUN Creatinine Estim Creat Clear Calc Est GFR (MDRD) Af Amer Est GFR (MDRD) Non-Af BUN/Creatinine Ratio Glucose Calcium Total Bilirubin AST ALT Alkaline Phosphatase Total Protein Albumin Globulin Albumin/Globulin Ratio POC Glucose 198 H 288 H 07/25/20 07/25/20 07/25/20 06:40 06:44 11:41 WBC RBC Hgb Hct MCV MCH MCHC RDW Std Deviation RDW Coeff of Love Plt Count MPV Sodium 143 Potassium 3.8 Chloride 111 H Carbon Dioxide 25.0 Anion Gap 7 BUN 26 H Creatinine 0.80 Estim Creat Clear Calc 79.56 Est GFR (MDRD) Af Amer 122 Est GFR (MDRD) Non-Af 101 BUN/Creatinine Ratio 32.6 H Glucose 83 Calcium 8.1 L Total Bilirubin 0.70 AST 35 ALT 55 Alkaline Phosphatase 68 Total Protein 6.7 Albumin 2.4 L Globulin 4.3 H Albumin/Globulin Ratio 0.6 L POC Glucose 87 140 H 07/25/20 07/25/20 07/26/20 17:09 21:31 06:44 WBC RBC Hgb Hct MCV MCH MCHC RDW Std Deviation RDW Coeff of Love Plt Count MPV Sodium Potassium Chloride Carbon Dioxide Anion Gap BUN Creatinine Estim Creat Clear Calc Est GFR (MDRD) Af Amer Est GFR (MDRD) Non-Af BUN/Creatinine Ratio Glucose Calcium Total Bilirubin AST ALT Alkaline Phosphatase Total Protein Albumin Globulin Albumin/Globulin Ratio POC Glucose 217 H 227 H 80 07/26/20 07/26/20 07/26/20 06:50 06:50 11:58 WBC 7.4 RBC 4.50 L Hgb 14.1 Hct 43.1 MCV 95.8 H MCH 31.3 MCHC 32.7 RDW Std Deviation 48.8 H RDW Coeff of Love 13.8 Plt Count 259 MPV 11.1 Sodium 143 Potassium 3.7 Chloride 112 H Carbon Dioxide 25.0 Anion Gap 6 BUN 25 H Creatinine 0.79 Estim Creat Clear Calc 63.65 Est GFR (MDRD) Af Amer 124 Est GFR (MDRD) Non-Af 102 BUN/Creatinine Ratio 31.7 H Glucose 79 Calcium 8.4 L Total Bilirubin 0.70 AST 27 ALT 56 Alkaline Phosphatase 73 Total Protein 6.7 Albumin 2.5 L Globulin 4.2 Albumin/Globulin Ratio 0.6 L POC Glucose 156 H Microbiology 07/22/20 12:05 Blood Culture (Wb) - Anticubital Right Blood Culture - Prelim inary No growth in 48 hours. 07/22/20 12:00 Blood Culture (Wb) - Left Wrist Blood Culture - Preliminary No growth in 48 hours. 07/22/20 14:45 Urine, Clean Catch Urine Culture - Final Culture exhibits no growth. Clinical Impression(s) from Imaging Studies Chest X-Ray 07/22/20 12:02 IMPRESSION: Stable, nonacute portable x-ray examination of the chest. Electronically Signed: Nitish Luis MD ([place]) at 12:33 EDT , Service support , Chest CTA 07/22/20 12:39 IMPRESSION: 1. No central or segmental pulmonary embolism. 2. Multifocal, multilobar/bilateral peripheral dominant groundglass opacities are imaging features suggestive of COVID 19 pneumonia although can be seen in a variety of infectious and noninfectious processes. Electronically Signed: Nitish Luis MD ([place]) at 13:57 EDT , Service support , Current Medications Acetaminophen (Acetaminophen 325 Mg Tablet) 650 mg PO Q6H PRN PRN PRN Reason: Pain Score 1-10/Temp > 100.7 F Albuterol Sulfate (Albuterol Ih 8.5 Gm (Proair) Inhaler (200 Puffs)) 2 puff INHALATION Q4H PRN PRN PRN Reason: Shortness of breath, wheezing Amlodipine Besylate (Amlodipine 5 Mg Tablet) 5 mg PO DAILY [facility] Last Admin: 07/26/20 08:10 Dose: 5 mg Documented by: Aspirin (Aspirin E.C. 81 Mg Tablet) 81 mg PO DAILY [facility] Last Admin: 07/26/20 08:09 Dose: 81 mg Documented by: Atorvastatin Calcium (Atorvastatin Calcium 80 Mg Tablet) 80 mg PO QHS [facility] Last Admin: 07/25/20 21:31 Dose: 80 mg Documented by: Bupropion HCl (Bupropion 100 Mg Tablet) 100 mg PO BID [facility] Last Admin: 07/26/20 08:10 Dose: 100 mg Documented by: Clopidogrel Bisulfate (Clopidogrel Bisulfate 75 Mg Tablet) 75 mg PO DAILY [facility] Last Admin: 07/26/20 08:10 Dose: 75 mg Documented by: Dexamethasone (Dexamethasone 2 Mg Tablet) 6 mg PO DAILY@0800 [facility] Last Admin: 07/26/20 08:09 Dose: 6 mg Documented by: Enoxaparin Sodium (Enoxaparin 40 Mg/0.4 Ml Syringe) 40 mg SC BID [facility] Last Admin: 07/26/20 08:08 Dose: 40 mg Documented by: Guaifenesin (Guaifenesin 1,200 Mg Tablet) 1,200 mg PO BID [facility] Last Admin: 07/26/20 08:09 Dose: 1,200 mg Documented by: Remdesivir 100 mg/ Sodium (Chloride) 250 mls @ 125 mls/hr IV DAILY [facility]; Protocol Stop: 07/28/20 11:59 Last Admin: 07/26/20 10:37 Dose: 125 mls/hr Documented by: Insulin Glargine (Insulin Glargine 100 Units/Ml Pen) 72 units SC QHS [facility] Last Admin: 07/25/20 21:34 Dose: 72 units Documented by: Insulin Human Lispro (Insulin Lispro 100 Unit/Ml Insuln.Pen) 0 unit SC ACHS [facility]; Protocol Last Admin: 07/26/20 12:00 Dose: 1 u Documented by: Isosorbide Mononitrate (Isosorbide Mononitrate 60 Mg Tablet) 60 mg PO DAILY [facility] Last Admin: 07/26/20 08:09 Dose: 60 mg Documented by: Losartan Potassium (Losartan Potassium 25 Mg Tablet) 25 mg PO DAILY [facility] Last Admin: 07/26/20 08:09 Dose: 25 mg Documented by: Metoprolol Tartrate (Metoprolol Tartrate 100 Mg Tablet) 100 mg PO BID [facility] Last Admin: 07/26/20 08:09 Dose: 100 mg Documented by: Ondansetron HCl (Ondansetron 4 Mg/2 Ml Vial) 4 mg IV Q8H PRN PRN PRN Reason: NAUSEA/VOMITING Fluticasone/Salmeterol (Fluticasone/Salmeterol 232-14 Inhaler) 1 puff IH Q12 [facility] Last Admin: 07/26/20 08:10 Dose: 1 puff Documented by: Senna/Docusate Sodium (Senna/Docusate Sodium 1 Tablet) 2 tablet PO BID PRN PRN PRN Reason: Constipation Sodium Chloride (0.9% Saline Lock 10 Ml Syringe) 10 - 40 ml IV UD PRN PRN Reason: SALINE FLUSH Last Admin: 07/26/20 08:09 Dose: 10 ml Documented by: Zolpidem Tartrate (Zolpidem Tartrate 5 Mg Tablet) 5 mg PO QHS PRN PRN PRN Reason: INSOMNIA Last Admin: 07/24/20 23:10 Dose: 5 mg Documented by: Medical Necessity - Tobacco Use Smoking Status: Former smoker Assessment/Plan All Active Problems (Last Updated 07/22/20 @ 14:[address] Carmen Tilley MD) Acute respiratory failure with hypoxia (Acute) Pneumonia due to COVID-19 virus (Acute) RECOMMENDATIONS: 1. Continue Decadron and Lovenox 2. Continue remdesivir 3. Wean supplemental oxygen to maintain saturations at or above 90%. 4. Encourage incentive spirometer use and mobilize patient as tolerated. 5. Continue bronchodilators. IMPRESSIONS: 1. Acute hypoxic respiratory insufficiency Likely multifactorial in etiology. The patient does carry a diagnosis of COPD of unclear severity and has tested positive for COVID-19. Patient does have groundglass opacities noted. He will be continued on Decadron, Lovenox and remdesivir to complete his treatment courses. Infectious diseases is following. Continue to wean supplemental oxygen to maintain saturations at or above 90%. Continue bronchodilator therapy. Encourage incentive spirometer use and mobilize patient as tolerated. 2. Diabetes mellitus/hypertension Continue Lantus and sliding scale insulin coverage. 3. Advanced age/obesity/anxiety/hyperlipidemia/extensive cardiac history Complicates care, management, recovery and prognosis. Okay to continue with baseline medications from my perspective. Do have clinical suspicion for untreated sleep apnea, but this could be investigated as an outpatient. This note was generated with [employer] software. It may contain incorrect words, spelling, and punctuation that were not noted in checking the note before signing. Inpatient E&M: 94772 Subs Hosp L2
[2020-07-26 16:10] LABS: Bedside Glucose 250 mg/dL (70-110)
--- NOTE | 2020-07-26 18:40 | PN_ITS ---
Patient Problems: Active and Suspected Problems (Last Updated 07/22/20 @ 14:[address] Carmen Tilley MD) Acute respiratory failure with hypoxia (Acute) Pneumonia due to COVID-19 virus (Acute) Subjective: She was seen and examined today, he continues to receive remdesivir, he remains on 4 to 5 L of oxygen but appears to be comfortable. I talked him briefly about going home later in the week after his remdesivir is finished, I believe he will need supplemental oxygen for the time being when he goes home. Objective: General: Alert, Oriented x3, Cooperative, No apparent distress, Well developed, Well nourished HEENT: Atraumatic, PERRLA, EOMI, Normocephalic Oral: Moist Mucosa Neck: Supple, No JVD, Trachea Midline, Thyroid Normal Size and Texture Lungs: Clear to auscultation, Normal air movement, No rhonchi, No wheeze, Cardiovascular: Regular rate, Regular Rhythm, Normal S1, Normal S2, No murmurs, PMI Normal, No rub noted, No Gallop Abdomen: Bowel Sounds Present, Soft, Non Tender, Non-Distended Extremities: No clubbing, No cyanosis, No edema, Capillary Refill Less than 3 Seconds Skin: No rashes, No breakdown Musculoskeletal: No Tenderness to Palpation of Joints or Extremities Neurological: Cranial nerves II-XII grossly intact, Neuro grossly intact, Sensory exam intact to light touch and pain, Coordination normal Psych/Mental Status: Normal Affect, Appropriate, Alert and oriented to time, place, person, mood and affect - Physical Exam Vitals/I&O's: Vital Signs Temp Pulse Resp BP Pulse Ox 98.3 F 64 18 104/61 96 07/26/20 12:40 07/26/20 12:40 07/26/20 12:40 07/26/20 12:40 07/26/20 14:36 Oxygen Flow Rate (L/min) 5 Oxygen Delivery Method Nasal Cannula Weight: 100.017 kg Body Mass Index (BMI) 33.5 Finger Stick Blood Glucose 133 Intake and Output for Last 24 Hours 07/24/20 07/25/20 07/26/20 23:59 23:59 23:59 Intake Total 1034 / 1034 1190 / 1840 1610 / 1610 Balance 1034 / 1034 1190 / 1840 1610 / 1610 Microbiology Past 72 Hours 10/31/20 12:05 Blood Culture (Wb) - Anticubital Right Blood Culture - Preliminary No growth in 48 hours. 07/22/20 12:00 Blood Culture (Wb) - Left Wrist Blood Culture - Preliminary No growth in 48 hours. 07/22/20 14:45 Urine, Clean Catch Urine Culture - Final Culture exhibits no growth. Laboratory Results 07/25/20 17:09: POC Glucose 217 H 07/25/20 21:31: POC Glucose 227 H 07/26/20 06:44: POC Glucose 80 07/26/20 06:50: WBC 7.4, RBC 4.50 L, Hgb 14.1, Hct 43.1, MCV 95.8 H, MCH 31.3, MCHC 32.7, RDW Std Deviation 48.8 H, RDW Coeff of Love 13.8, Plt Count 259, MPV 11.1 07/26/20 06:50: Sodium 143, Potassium 3.7, Chloride 112 H, Carbon Dioxide 25.0, Anion Gap 6, BUN 25 H, Creatinine 0.79, Estim Creat Clear Calc 63.65, Est GFR (MDRD) Af Amer 124, Est GFR (MDRD) Non-Af 102, BUN/Creatinine Ratio 31.7 H, Glucose 79, Calcium 8.4 L, Total Bilirubin 0.70, AST 27, ALT 56, Alkaline Phosphatase 73, Total Protein 6.7, Albumin 2.5 L, Globulin 4.2, Albumin/Globulin Ratio 0.6 L 07/26/20 11:58: POC Glucose 156 H 07/26/20 15:37: POC Glucose 250 H Current Medications Acetaminophen (Acetaminophen 325 Mg Tablet) 650 mg PO Q6H PRN PRN PRN Reason: Pain Score 1-10/Temp > 100.7 F Albuterol Sulfate (Albuterol Ih 8.5 Gm (Proair) Inhaler (200 Puffs)) 2 puff INHALATION Q4H PRN PRN PRN Reason: Shortness of breath, wheezing Amlodipine Besylate (Amlodipine 5 Mg Tablet) 5 mg PO DAILY [facility] Last Admin: 07/26/20 08:10 Dose: 5 mg Documented by: Aspirin (Aspirin E.C. 81 Mg Tablet) 81 mg PO DAILY [facility] Last Admin: 07/26/20 08:09 Dose: 81 mg Documented by: Atorvastatin Calcium (Atorvastatin Calcium 80 Mg Tablet) 80 mg PO QHS [facility] Last Admin: 07/25/20 21:31 Dose: 80 mg Documented by: Bupropion HCl (Bupropion 100 Mg Tablet) 100 mg PO BID [facility] Last Admin: 07/26/20 08:10 Dose: 100 mg Documented by: Clopidogrel Bisulfate (Clopidogrel Bisulfate 75 Mg Tablet) 75 mg PO DAILY [facility] Last Admin: 07/26/20 08:10 Dose: 75 mg Documented by: Dexamethasone (Dexamethasone 2 Mg Tablet) 6 mg PO DAILY@0800 [facility] Last Admin: 07/26/20 08:09 Dose: 6 mg Documented by: Enoxaparin Sodium (Enoxaparin 40 Mg/0.4 Ml Syringe) 40 mg SC BID [facility] Last Admin: 07/26/20 08:08 Dose: 40 mg Documented by: Guaifenesin (Guaifenesin 1,200 Mg Tablet) 1,200 mg PO BID [facility] Last Admin: 07/26/20 08:09 Dose: 1,200 mg Documented by: Remdesivir 100 mg/ Sodium (Chloride) 250 mls @ 125 mls/hr IV DAILY [facility]; Protocol Stop: 07/28/20 11:59 Last Infusion: 07/26/20 12:45 Dose: Infused Documented by: Insulin Glargine (Insulin Glargine 100 Units/Ml Pen) 72 units SC QHS [facility] Last Admin: 07/25/20 21:34 Dose: 72 units Documented by: Insulin Human Lispro (Insulin Lispro 100 Unit/Ml Insuln.Pen) 0 unit SC ACHS [facility]; Protocol Last Admin: 07/26/20 15:39 Dose: 2 u Documented by: Isosorbide Mononitrate (Isosorbide Mononitrate 60 Mg Tablet) 60 mg PO DAILY [facility] Last Admin: 07/26/20 08:09 Dose: 60 mg Documented by: Losartan Potassium (Losartan Potassium 25 Mg Tablet) 25 mg PO DAILY [facility] Last Admin: 07/26/20 08:09 Dose: 25 mg Documented by: Metoprolol Tartrate (Metoprolol Tartrate 100 Mg Tablet) 100 mg PO BID [facility] Last Admin: 07/26/20 08:09 Dose: 100 mg Documented by: Ondansetron HCl (Ondansetron 4 Mg/2 Ml Vial) 4 mg IV Q8H PRN PRN PRN Reason: NAUSEA/VOMITING Fluticasone/Salmeterol (Fluticasone/Salmeterol 232-14 Inhaler) 1 puff IH Q12 [facility] Last Admin: 07/26/20 08:10 Dose: 1 puff Documented by: Senna/Docusate Sodium (Senna/Docusate Sodium 1 Tablet) 2 tablet PO BID PRN PRN PRN Reason: Constipation Sodium Chloride (0.9% Saline Lock 10 Ml Syringe) 10 - 40 ml IV UD PRN PRN Reason: SALINE FLUSH Last Admin: 07/26/20 08:09 Dose: 10 ml Documented by: Zolpidem Tartrate (Zolpidem Tartrate 5 Mg Tablet) 5 mg PO QHS PRN PRN PRN Reason: INSOMNIA Last Admin: 07/24/20 23:10 Dose: 5 mg Documented by: Medical Necessity - Tobacco Use Smoking Status: Former smoker Assessment/Plan All Active Problems (Last Updated 07/22/20 @ 14:[address] Carmen Tilley MD) Acute respiratory failure with hypoxia (Acute) Pneumonia due to COVID-19 virus (Acute) #1 acute COVID-19 pneumonia-patient is receiving remdesivir and dexamethasone at this time, infectious diseases and pulmonary medicine are seeing patient at this time, his oxygen requirement appears to be stable at this time #2 acute hypoxic respiratory failure secondary to COVID-19 pneumonia-continue to wean the oxygen as tolerated #3 chronic obstructive pulmonary disease #4 type 2 diabetes #5 coronary artery disease #6 pulmonary hypertension #7 hyperlipidemia #8 lactic acidosis-secondary to acute hypoxic respiratory failure Again, patient will probably need supplemental oxygen when he is discharged home, this will be set up for him. Inpatient E&M: 50312 Subs Hosp L2
[2020-07-26] MEDS: Atorvastatin Calcium 80 MG Tablet PO (21:23)
[2020-07-26 22:15] LABS: Bedside Glucose 300 mg/dL (70-110)
[2020-07-27] VITALS (7 sets, daily range): BP systolic 122–150; BP diastolic 57–95; PULSE 58–63; RESP 18–20; TEMP 36.3–37.1; O2SAT 93–97
[2020-07-27 06:33] LABS: Hematocrit 44.3 % (40-54); Hemoglobin 14.3 g/dL (13.0-16.5); Mean Corp Hgb Conc 32.3 g/dL (32-36); Mean Corpuscular Hgb 31.1 pg (27.0-32.0); Mean Corpuscular Volume 96.3 fL (80-94); Mean Platelet Vol. 10.8 fl (6.2-12.0); Platelet Count 267 K/mm3 (150-450); RBC Distribution Width CV 13.9 % (11.6-14.6); RBC Distribution Width SD 49.1 fl (35.1-43.9); White Blood Count 7.5 K/mm3 (4.4-11.0)
[2020-07-27] MEDS: Insulin Lispro 100 UNIT/ML INSULN.PEN SC ×3 (06:44→21:46)
[2020-07-27 06:58] LABS: ALB/GLOB Ratio 0.6 RATIO (0.9-2.4); AST(SGOT) 41 U/L (15-37); Alanine Aminotransfer ALT/SGPT 79 U/L (16-61); Albumin, Serum 2.4 g/dL (3.2-5.0); Alkaline Phosphatase 72 U/L (45-117); Anion Gap 6 (5-15); BUN 28 mg/dL (7-18); BUN/Creat Ratio 32.3 RATIO (10-20); Calcium,Total 8.1 mg/dL (8.5-10.1); Chloride 110 mmol/L (98-107); Creatinine, Serum 0.87 mg/dL (0.70-1.30); EST Glomerular Filtration Rate 92 mL/min (>60); Est Glom Filt Rate - Afr Amer 111 mL/min (>60); Estimated Creatinine Clearance 73.16 ml/min; Globulin 4.1 g/dL (2.2-4.2); Glucose 185 mg/dL (74-106); Potassium 3.8 mmol/L (3.5-5.1); Protein, Total 6.5 g/dL (6.4-8.2); Sodium Level 141 mmol/L (136-145)
[2020-07-27 07:05] LABS: Bedside Glucose 186 mg/dL (70-110)
--- NOTE | 2020-07-27 09:15 | PN_ITS ---
Patient Problems: Active and Suspected Problems (Last Updated 07/22/20 @ 14:[address] Carmen Tilley MD) Acute respiratory failure with hypoxia (Acute) Pneumonia due to COVID-19 virus (Acute) Subjective: Patient was seen and examined today, he is resting quietly, he does not complain of any shortness of breath, fever, or chills. Patient will complete his course of remdesivir tomorrow. Objective: General: Alert, Oriented x3, Cooperative, No apparent distress, Well developed, Well nourished HEENT: Atraumatic, PERRLA, EOMI, Normocephalic Oral: Moist Mucosa Neck: Supple, No JVD, Trachea Midline, Thyroid Normal Size and Texture Lungs: Clear to auscultation, Normal air movement, No rhonchi, No wheeze, Cardiovascular: Regular rate, Regular Rhythm, Normal S1, Normal S2, No murmurs, PMI Normal, No rub noted, No Gallop Abdomen: Bowel Sounds Present, Soft, Non Tender, Non-Distended Extremities: No clubbing, No cyanosis, No edema, Capillary Refill Less than 3 Seconds Skin: No rashes, No breakdown Musculoskeletal: No Tenderness to Palpation of Joints or Extremities Neurological: Cranial nerves II-XII grossly intact, Neuro grossly intact, Sensory exam intact to light touch and pain, Coordination normal Psych/Mental Status: Normal Affect, Appropriate, Alert and oriented to time, place, person, mood and affect - Physical Exam Vitals/I&O's: Vital Signs Temp Pulse Resp BP Pulse Ox 97.4 F L 60 18 122/62 H 95 07/27/20 03:35 07/27/20 03:35 07/27/20 03:35 07/27/20 03:35 07/27/20 08:11 Oxygen Flow Rate (L/min) 4 Oxygen Delivery Method Nasal Cannula Weight: 100.017 kg Body Mass Index (BMI) 33.5 Finger Stick Blood Glucose 133 Intake and Output for Last 24 Hours 07/25/20 07/26/20 07/27/20 23:59 23:59 23:59 Intake Total 1190 / 1840 1610 / 1610 880 / 880 Balance 1190 / 1840 1610 / 1610 880 / 880 Microbiology Past 72 Hours 07/22/20 12:05 Blood Culture (Wb) - Anticubital Right Blood Culture - Preliminary No growth in 48 hours. 07/22/20 12:00 Blood Culture (Wb) - Left Wrist Blood Culture - Preliminary No growth in 48 hours. 07/22/20 14:45 Urine, Clean Catch Urine Culture - Final Culture exhibits no growth. Laboratory Results 07/26/20 11:58: POC Glucose 156 H 07/26/20 15:37: POC Glucose 250 H 07/26/20 21:22: POC Glucose 300 H 07/27/20 06:20: WBC 7.5, RBC 4.60, Hgb 14.3, Hct 44.3, MCV 96.3 H, MCH 31.1, MCH C 32.3, RDW Std Deviation 49.1 H, RDW Coeff of Love 13.9, Plt Count 267, MPV 10.8 07/27/20 06:20: Sodium 141, Potassium 3.8, Chloride 110 H, Carbon Dioxide 25.0, Anion Gap 6, BUN 28 H, Creatinine 0.87, Estim Creat Clear Calc 73.16, Est GFR (MDRD) Af Amer 111, Est GFR (MDRD) Non-Af 92, BUN/Creatinine Ratio 32.3 H, Glucose 185 H, Calcium 8.1 L, Total Bilirubin 0.60, AST 41 H, ALT 79 H, Alkaline Phosphatase 72, Total Protein 6.5, Albumin 2.4 L, Globulin 4.1, Albumin/Globulin Ratio 0.6 L 07/27/20 06:43: POC Glucose 186 H Current Medications Acetaminophen (Acetaminophen 325 Mg Tablet) 650 mg PO Q6H PRN PRN PRN Reason: Pain Score 1-10/Temp > 100.7 F Albuterol Sulfate (Albuterol Ih 8.5 Gm (Proair) Inhaler (200 Puffs)) 2 puff INHALATION Q4H PRN PRN PRN Reason: Shortness of breath, wheezing Amlodipine Besylate (Amlodipine 5 Mg Tablet) 5 mg PO DAILY [facility] Last Admin: 07/26/20 08:10 Dose: 5 mg Documented by: Aspirin (Aspirin E.C. 81 Mg Tablet) 81 mg PO DAILY [facility] Last Admin: 07/26/20 08:09 Dose: 81 mg Documented by: Atorvastatin Calcium (Atorvastatin Calcium 80 Mg Tablet) 80 mg PO QHS [facility] Last Admin: 07/26/20 21:23 Dose: 80 mg Documented by: Bupropion HCl (Bupropion 100 Mg Tablet) 100 mg PO BID [facility] Last Admin: 07/26/20 23:20 Dose: 100 mg Documented by: Clopidogrel Bisulfate (Clopidogrel Bisulfate 75 Mg Tablet) 75 mg PO DAILY [facility] Last Admin: 07/26/20 08:10 Dose: 75 mg Documented by: Dexamethasone (Dexamethasone 2 Mg Tablet) 6 mg PO DAILY [facility] Enoxaparin Sodium (Enoxaparin 40 Mg/0.4 Ml Syringe) 40 mg SC BID [facility] Last Admin: 07/26/20 21:23 Dose: 40 mg Documented by: Guaifenesin (Guaifenesin 1,200 Mg Tablet) 1,200 mg PO BID [facility] Last Admin: 07/26/20 23:20 Dose: 1,200 mg Documented by: Remdesivir 100 mg/ Sodium (Chloride) 250 mls @ 125 mls/hr IV DAILY [facility]; Protocol Stop: 07/28/20 11:59 Last Infusion: 07/26/20 12:45 Dose: Infused Documented by: Insulin Glargine (Insulin Glargine 100 Units/Ml Pen) 72 units SC QHS [facility] Last Admin: 07/26/20 21:24 Dose: 72 units Documented by: Insulin Human Lispro (Insulin Lispro 100 Unit/Ml Insuln.Pen) 0 unit SC [facility]; Protocol Last Admin: 07/27/20 06:44 Dose: 1 u Documented by: Isosorbide Mononitrate (Isosorbide Mononitrate 60 Mg Tablet) 60 mg PO DAILY [facility] Last Admin: 07/26/20 08:09 Dose: 60 mg Documented by: Losartan Potassium (Losartan Potassium 25 Mg Tablet) 25 mg PO DAILY [facility] Last Admin: 07/26/20 08:09 Dose: 25 mg Documented by: Metoprolol Tartrate (Metoprolol Tartrate 100 Mg Tablet) 100 mg PO BID [facility] Last Admin: 07/26/20 21:23 Dose: 100 mg Documented by: Ondansetron HCl (Ondansetron 4 Mg/2 Ml Vial) 4 mg IV Q8H PRN PRN PRN Reason: NAUSEA/VOMITING Fluticasone/Salmeterol (Fluticasone/Salmeterol 232-14 Inhaler) 1 puff IH Q12 [facility] Last Admin: 07/26/20 21:24 Dose: 1 puff Documented by: Senna/Docusate Sodium (Senna/Docusate Sodium 1 Tablet) 2 tablet PO BID PRN PRN PRN Reason: Constipation Sodium Chloride (0.9% Saline Lock 10 Ml Syringe) 10 - 40 ml IV UD PRN PRN Reason: SALINE FLUSH Last Admin: 07/26/20 08:09 Dose: 10 ml Documented by: Zolpidem Tartrate (Zolpidem Tartrate 5 Mg Tablet) 5 mg PO QHS PRN PRN PRN Reason: INSOMNIA Last Admin: 07/24/20 23:10 Dose: 5 mg Documented by: Medical Necessity - Tobacco Use Smoking Status: Former smoker Assessment/Plan All Active Problems (Last Updated 07/22/20 @ 14:[address] Carmen Tilley MD) Acute respiratory failure with hypoxia (Acute) Pneumonia due to COVID-19 virus (Acute) #1 acute COVID-19 pneumonia-patient is receiving remdesivir and dexamethasone at this time, infectious diseases and pulmonary medicine are seeing patient at this time, his oxygen requirement appears to be stable at this time #2 acute hypoxic respiratory failure secondary to COVID-19 pneumonia-continue to wean the oxygen as tolerated, I strongly suspect he will need supplemental oxygen when he goes home #3 chronic obstructive pulmonary disease #4 type 2 diabetes #5 coronary artery disease #6 pulmonary hypertension #7 hyperlipidemia #8 lactic acidosis-secondary to acute hypoxic respiratory failure Again, patient will probably need supplemental oxygen when he is discharged home, this will be set up for him. Inpatient E&M: 33289 [facility] Hosp L2
[2020-07-27] MEDS: Clopidogrel Bisulfate 75 MG Tablet PO (10:47)
[2020-07-27] MEDS: amLODIPine 5 MG Tablet PO (10:47)
[2020-07-27] MEDS: Isosorbide Mononitrate 60 MG Tablet PO (10:47)
[2020-07-27] MEDS: Losartan Potassium 25 MG Tablet PO (10:47)
[2020-07-27] MEDS: dexAMETHasone 2 MG TABLET 6 MG PO (10:47)
[2020-07-27] MEDS: Metoprolol Tartrate 100 MG Tablet PO ×2 (10:48→21:47)
[2020-07-27] MEDS: Aspirin E.C. 81 MG Tablet PO (10:48)
[2020-07-27] MEDS: guaiFENesin 1,200 MG Tablet 1200 MG PO ×2 (10:48→21:47)
[2020-07-27] MEDS: Enoxaparin 40 MG/0.4 ML Syringe SC ×2 (10:48→21:50)
[2020-07-27] MEDS: buPROPion 100 MG Tablet PO ×2 (10:48→21:47)
[2020-07-27] MEDS: Fluticasone/Salmeterol 232-14 Inhaler 1 PUFF IH ×2 (10:48→21:46)
[2020-07-27] MEDS: 0.9% Saline Lock 10 ML Syringe IV (10:50)
--- NOTE | 2020-07-27 12:04 | PN.ID_ITS ---
Patient Problems: Active and Suspected Problems (Last Updated 07/22/20 @ 14:[address] Carmen Tilley MD) Acute respiratory failure with hypoxia (Acute) Pneumonia due to COVID-19 virus (Acute) Subjective: Feeling much better today, no fever, no n/v/d. - Physical Exam Vitals/I&O's: Vital Signs Temp Pulse Resp BP Pulse Ox 97.9 F 60 18 150/95 H 93 07/27/20 10:42 07/27/20 10:48 07/27/20 10:42 07/27/20 10:42 07/27/20 10:42 Oxygen Flow Rate (L/min) 4 Oxygen Delivery Method Nasal Cannula Weight: 100.017 kg Body Mass Index (BMI) 33.5 Finger Stick Blood Glucose 133 Intake and Output for Last 24 Hours 07/25/20 07/26/20 07/27/20 23:59 23:59 23:59 Intake Total 1190 / 1840 1610 / 1610 880 / 880 Balance 1190 / 1840 1610 / 1610 880 / 880 General: Alert, Cooperative, No apparent distress Lungs: Diminished Cardiovascular: Regular rate, Regular Rhythm Abdomen: Soft, Non Tender, Non-Distended Skin: No rashes Microbiology Past 72 Hours 07/22/20 12:05 Blood Culture (Wb) - Anticubital Right Blood Culture - Preliminary No growth in 48 hours. 07/22/20 12:00 Blood Culture (Wb) - Left Wrist Blood Culture - Preliminary No growth in 48 hours. 07/22/20 14:45 Urine, Clean Catch Urine Culture - Final Culture exhibits no growth. Laboratory Results 07/26/20 11:58: POC Glucose 156 H 07/26/20 15:37: POC Glucose 250 H 07/26/20 21:22: POC Glucose 300 H 07/27/20 06:20: WBC 7.5, RBC 4.60, Hgb 14.3, Hct 44.3, MCV 96.3 H, MCH 31.1, MCHC 32.3, RDW Std Deviation 49.1 H, RDW Coeff of Love 13.9, Plt Count 267, MPV 10.8 07/27/20 06:20: Sodium 141, Potassium 3.8, Chloride 110 H, Carbon Dioxide 25.0, Anion Gap 6, BUN 28 H, Creatinine 0.87, Estim Creat Clear Calc 73.16, Est GFR (MDRD) Af Amer 111, Est GFR (MDRD) Non-Af 92, BUN/Creatinine Ratio 32.3 H, Glucose 185 H, Calcium 8.1 L, Total Bilirubin 0.60, AST 41 H, ALT 79 H, Alkaline Phosphatase 72, Total Protein 6.5, Albumin 2.4 L, Globulin 4.1, Albumin/Globulin Ratio 0.6 L 07/27/20 06:43: POC Glucose 186 H Current Medications Acetaminophen (Acetaminophen 325 Mg Tablet) 650 mg PO Q6H PRN PRN PRN Reason: Pain Score 1-10/Temp > 100.7 F Albuterol Sulfate (Albuterol Ih 8.5 Gm (Proair) Inhaler (200 Puffs)) 2 puff INHALATION Q4H PRN PRN PRN Reason: Shortness of breath, wheezing Amlodipine Besylate (Amlodipine 5 Mg Tablet) 5 mg PO DAILY [facility] Last Admin: 07/27/20 10:47 Dose: 5 mg Documented by: Aspirin (Aspirin E.C. 81 Mg Tablet) 81 mg PO DAILY [facility] Last Admin: 07/27/20 10:48 Dose: 81 mg Documented by: Atorvastatin Calcium (Atorvastatin Calcium 80 Mg Tablet) 80 mg PO QHS [facility] Last Admin: 07/26/20 21:23 Dose: 80 mg Documented by: Bupropion HCl (Bupropion 100 Mg Tablet) 100 mg PO BID [facility] Last Admin: 07/27/20 10:48 Dose: 100 mg Documented by: Clopidogrel Bisulfate (Clopidogrel Bisulfate 75 Mg Tablet) 75 mg PO DAILY [facility] Last Admin: 07/27/20 10:47 Dose: 75 mg Documented by: Dexamethasone (Dexamethasone 2 Mg Tablet) 6 mg PO DAILY [facility] Last Admin: 07/27/20 10:47 Dose: 6 mg Documented by: Enoxaparin Sodium (Enoxaparin 40 Mg/0.4 Ml Syringe) 40 mg SC BID [facility] Last Admin: 07/27/20 10:48 Dose: 40 mg Documented by: Guaifenesin (Guaifenesin 1,200 Mg Tablet) 1,200 mg PO BID [facility] Last Admin: 07/27/20 10:48 Dose: 1,200 mg Documented by: Remdesivir 100 mg/ Sodium (Chloride) 250 mls @ 125 mls/hr IV DAILY [facility]; Protocol Stop: 07/28/20 11:59 Last Admin: 07/27/20 10:46 Dose: 125 mls/hr Documented by: Insulin Glargine (Insulin Glargine 100 Units/Ml Pen) 72 units SC QHS [facility] Last Admin: 07/26/20 21:24 Dose: 72 units Documented by: Insulin Human Lispro (Insulin Lispro 100 Unit/Ml Insuln.Pen) 0 unit SC ACHS [facility]; Protocol Last Admin: 07/27/20 06:44 Dose: 1 u Documented by: Isosorbide Mononitrate (Isosorbide Mononitrate 60 Mg Tablet) 60 mg PO DAILY [facility] Last Admin: 07/27/20 10:47 Dose: 60 mg Documented by: Losartan Potassium (Losartan Potassium 25 Mg Tablet) 25 mg PO DAILY [facility] Last Admin: 07/27/20 10:47 Dose: 25 mg Documented by: Metoprolol Tartrate (Metoprolol Tartrate 100 Mg Tablet) 100 mg PO BID [facility] Last Admin: 07/27/20 10:48 Dose: 100 mg Documented by: Ondansetron HCl (Ondansetron 4 Mg/2 Ml Vial) 4 mg IV Q8H PRN PRN PRN Reason: NAUSEA/VOMITING Fluticasone/Salmeterol (Fluticasone/Salmeterol 232-14 Inhaler) 1 puff IH Q12 [facility] Last Admin: 07/27/20 10:48 Dose: 1 puff Documented by: Senna/Docusate Sodium (Senna/Docusate Sodium 1 Tablet) 2 tablet PO BID PRN PRN PRN Reason: Constipation Sodium Chloride (0.9% Saline Lock 10 Ml Syringe) 10 - 40 ml IV UD PRN PRN Reason: SALINE FLUSH Last Admin: 07/27/20 10:50 Dose: 10 ml Documented by: Zolpidem Tartrate (Zolpidem Tartrate 5 Mg Tablet) 5 mg PO QHS PRN PRN PRN Reason: INSOMNIA Last Admin: 07/24/20 23:10 Dose: 5 mg Documented by: Medical Necessity - Tobacco Use Smoking Status: Former smoker Route of nutrition/ use of supplements: [] Nutritional Intake: [] IV Site: [] Tan Catheter: [] - Assessment/Plan Antibiotics: [] Assessment/Plan: [] Active and Suspected Problems (Last Updated 07/22/20 @ 14:[address] Carmen Tilley MD) Acute respiratory failure with hypoxia (Acute) Pneumonia due to COVID-19 virus (Acute) On dex, lovenox 40mg bid, 07/24 started remdesivir. ASIF resolved. On 4L this AM. Ok for home when on 2L. Feeling much better this AM. Will follow
[2020-07-27 12:20] LABS: Bedside Glucose 127 mg/dL (70-110)
[2020-07-27 17:10] LABS: Bedside Glucose 283 mg/dL (70-110)
[2020-07-27] MEDS: Atorvastatin Calcium 80 MG Tablet PO (21:48)
[2020-07-27 22:01] LABS: Bedside Glucose 328 mg/dL (70-110)
[2020-07-28] VITALS (7 sets, daily range): BP systolic 95–124; BP diastolic 56–67; PULSE 54–60; RESP 16–18; TEMP 36.3–37.1; O2SAT 77–95
[2020-07-28] MEDS: Insulin Lispro 100 UNIT/ML INSULN.PEN SC ×2 (06:50→11:22)
[2020-07-28 07:02] LABS: Hemoglobin 14.1 g/dL (13.0-16.5); Mean Corp Hgb Conc 32.8 g/dL (32-36); Mean Corpuscular Hgb 31.4 pg (27.0-32.0); Mean Corpuscular Volume 95.8 fL (80-94); Mean Platelet Vol. 10.8 fl (6.2-12.0); Platelet Count 279 K/mm3 (150-450); RBC Distribution Width CV 13.7 % (11.6-14.6); RBC Distribution Width SD 48.5 fl (35.1-43.9); Red Blood Count 4.49 M/mm3 (4.6-6.2); White Blood Count 8.5 K/mm3 (4.4-11.0)
[2020-07-28 07:10] LABS: Bedside Glucose 242 mg/dL (70-110)
[2020-07-28 07:36] LABS: ALB/GLOB Ratio 0.6 RATIO (0.9-2.4); AST(SGOT) 40 U/L (15-37); Alanine Aminotransfer ALT/SGPT 97 U/L (16-61); Albumin, Serum 2.5 g/dL (3.2-5.0); Alkaline Phosphatase 74 U/L (45-117); Anion Gap 7 (5-15); BUN 27 mg/dL (7-18); BUN/Creat Ratio 31.2 RATIO (10-20); Calcium,Total 8.3 mg/dL (8.5-10.1); Chloride 106 mmol/L (98-107); Creatinine, Serum 0.87 mg/dL (0.70-1.30); EST Glomerular Filtration Rate 92 mL/min (>60); Est Glom Filt Rate - Afr Amer 111 mL/min (>60); Estimated Creatinine Clearance 73.16 ml/min; Glucose 231 mg/dL (74-106); Protein, Total 6.5 g/dL (6.4-8.2); Sodium Level 139 mmol/L (136-145)
[2020-07-28] MEDS: guaiFENesin 1,200 MG Tablet 1200 MG PO (08:58)
[2020-07-28] MEDS: Enoxaparin 40 MG/0.4 ML Syringe SC (08:58)
[2020-07-28] MEDS: amLODIPine 5 MG Tablet PO (08:59)
[2020-07-28] MEDS: Metoprolol Tartrate 100 MG Tablet PO (08:59)
[2020-07-28] MEDS: buPROPion 100 MG Tablet PO (08:59)
[2020-07-28] MEDS: Losartan Potassium 25 MG Tablet PO (09:00)
[2020-07-28] MEDS: Isosorbide Mononitrate 60 MG Tablet PO (09:00)
[2020-07-28] MEDS: dexAMETHasone 2 MG TABLET 6 MG PO (09:00)
[2020-07-28] MEDS: Aspirin E.C. 81 MG Tablet PO (09:00)
[2020-07-28] MEDS: Fluticasone/Salmeterol 232-14 Inhaler 1 PUFF IH (09:01)
--- NOTE | 2020-07-28 10:11 | PCM.HOSP.N ---
Hospitalist Note At rest, patient's room air pulse ox is 90%, on ambulating on room air his pulse ox falls to 77%, on ambulation with 3 L of nasal cannula oxygen, his pulse ox is 92%. Patient will require 3 L of oxygen via nasal cannula when ambulating, he is expected to use this oxygen inside his home when ambulating and outside his home on activities of daily living. He has been instructed that he will need this oxygen at least short term.
[2020-07-28] MEDS: Clopidogrel Bisulfate 75 MG Tablet PO (10:16)
--- NOTE | 2020-07-28 10:21 | DCINST_ITS ---
- Discharge Diagnoses Current Active Problems: Current Active and Chronic Problems (Last Updated 07/22/20 @ 14:[address] Carmen Tilley MD) Acute respiratory failure with hypoxia (Acute) Pneumonia due to COVID-19 virus (Acute) COPD (chronic obstructive pulmonary disease) (Chronic) Type 2 diabetes mellitus (Chronic) Atherosclerotic heart disease of [place] coronary artery without angina pectoris (Chronic) History of coronary artery stent placement (Chronic 05/03/16) PCI-HASMUKH X 2-SVG-OM3 2008;PCI-HASMUKH right post AV; HASMUKH-RCA X 3 10/30/13; [id number] 05/03/16 H/O coronary artery bypass surgery (Chronic 1995) CABG x 5 Sequential JENSEN-LAD and D3, SVG-OM1, SVG-RBLB2, SVG-D1 1995 Secondary pulmonary arterial hypertension (Chronic) Essential (primary) hypertension (Chronic) AAA (abdominal aortic aneurysm) without rupture (Chronic) HLD (hyperlipidemia) (Chronic) You will use the following diet at home:: Calorie/Carbohydrate Controlled (specify 1200, 1400, etc) - 1800 mau Your food should be the consistency of: Regular Your liquids should be the consistency of: Regular/Thin Discharge Activity: Return to Normal Activity Weight Bearing Status: Full weight bearing Additional Instructions: Oxygen at 3 L/min via nasal cannula when ambulating and for comfort Allergies/Adverse Reactions: Allergies lisinopril Allergy (Verified 03/26/19 08:41) Angioedema Sulfa (Sulfonamide Antibiotics) Allergy (Verified 03/26/19 08:41) Hives piperacillin Adverse Reaction (Severe, Verified 03/26/19 08:41) Unknown Medications to take at Discharge Amlodipine [Norvasc] 5 mg PO DAILY 12/07/13 Clopidogrel Bisulfate [Plavix] 75 mg PO DAILY 12/07/13 Insulin Aspart [Novolog Flexpen] See Protocol SQ TIDCM 12/07/13 Insulin Glargine [Lantus SoloStar Pen] 72 units SC QHS 12/07/13 Isosorbide Mononitrate [Isosorbide Mononitrate ER] 60 mg PO DAILY 12/07/13 Losartan Potassium [Cozaar] 25 mg PO DAILY 12/07/13 Metformin HCl [Glucophage] 1,000 mg PO BIDCM 12/07/13 Metoprolol Tartrate [Lopressor (beta aixa)] 100 mg PO BID 12/07/13 buPROPion tablets [Wellbutrin tablets] 100 mg PO BID 12/07/13 Acetaminophen [Tylenol Tablet] 650 mg PO Q4H PRN PRN #0 tab 09/05/16 Albuterol Inhaler [Ventolin Hfa] 1 - 2 puff INHALATION Q4H PRN PRN #1 inhaler 09/05/16 Aspirin [Aspir-Low] 81 mg PO DAILY 12/26/16 Atorvastatin Calcium [Lipitor] 80 mg PO QHS 12/26/16 Ibuprofen 2 - 3 mg PO TID PRN #1 tab 01/13/17 nitroglycerin 0.4 mg sublingual tablet 0.4 mg SUBLINGUAL Q5M PRN 02/09/18 Acetaminophen [Tylenol Tablet] 650 mg PO Q6H PRN PRN tab 07/28/20 dexAMETHasone [Dexamethasone] 6 mg PO DAILY #9 tab 07/28/20 The following prescriptions were given: dexAMETHasone [Dexamethasone] 6 mg PO DAILY #9 tab Transmission Status: Pending to [facility] [Primary [facility] Provider] - Please follow up with your Primary Care Physician in: in 7 days Test Results: Test results from this visit will be discussed in further detail at your follow- up appointment, if applicable.
--- NOTE | 2020-07-28 10:28 | CASEMGMT ---
Addendum entered by Porsche Mosqueda 07/28/20 11:29: Call from Lyssa at [facility] and she states she will have a tank over in the next hour or so. Lazaro RODARTE CM Addendum entered by Porsche Mosqueda 07/28/20 10:42: Call to [facility] to notify of referral, discharge, and pt COVID +, Erika voices understanding. F2F notes faxed to [facility] as well at this time. Lazaro RODARTE CM Original Note: Pt qualifies for 3liters with exertion at this time. Referral faxed to [facility] at this time [facility] Pt is updated at this time, voices understanding. Pt voices no need for any further therapy or resources at this time. Pt states 'I can't even tell you how great I was treated here. All the nurses and doctors are working their butts off. I am very impressed.' Pt voices no further questions/concerns/needs at this time. Lazaro RODARTE CM
[2020-07-28 11:50] LABS: Bedside Glucose 183 mg/dL (70-110)
--- NOTE | 2020-07-28 18:14 | PCM.DC.SUM ---
Discharge Date and Diagnosis - Problem List Patient Problems: Active and Suspected Problems (Last Updated 07/22/20 @ 14:[address] Carmen Tilley MD) Acute respiratory failure with hypoxia (Acute) Pneumonia due to COVID-19 virus (Acute) Date of Admission: 07/22/20 Date of Discharge: 07/28/20 - Primary Discharge Diagnosis Acute Problems: Active Problems (Last Updated 07/22/20 @ 14:[address] Carmen Tilley MD) #1 acute COVID-19 pneumonia #2 acute hypoxic respiratory failure secondary to COVID-19 pneumonia #3 chronic obstructive pulmonary disease #4 type 2 diabetes #5 coronary artery disease #6 pulmonary hypertension #7 hyperlipidemia #8 lactic acidosis-secondary to acute hypoxic respiratory failure - Secondary Discharge Diagnosis Chronic Problems: Chronic Problems (Last Updated 07/22/20 @ 14:[address] Carmen Tilley MD) COPD (chronic obstructive pulmonary disease) (Chronic) Type 2 diabetes mellitus (Chronic) Atherosclerotic heart disease of [place] coronary artery without angina pectoris (Chronic) History of coronary artery stent placement (Chronic 05/03/16) PCI-HASMUKH X 2-SVG-OM3 2008;PCI-HASMUKH right post AV; HASMUKH-RCA X 3 10/30/13; [id number] 05/03/16 H/O coronary artery bypass surgery (Chronic 1995) CABG x 5 Sequential JENSEN-LAD and D3, SVG-OM1, SVG-RBLB2, SVG-D1 1995 Secondary pulmonary arterial hypertension (Chronic) Essential (primary) hypertension (Chronic) AAA (abdominal aortic aneurysm) without rupture (Chronic) HLD (hyperlipidemia) (Chronic) Hospital Course and Treatment Operations: None Procedures: None Summary of Care Provided: The patient is a 74 year old M was seen in the emergency room at [facility] with a chief complaint of shortness of breath and recent positive Covid test performed as an outpatient. Patient is not on home oxygen, he complained of a cough, fever, and chills. Work-up in the emergency room included a chest x-ray which showed chronic changes and no acute process, patient's white blood cell count was normal, lactic acid was elevated at 3. CT of the chest was performed which showed bilateral infiltrates suggestive of COVID-19 pneumonia with no pulmonary emboli present. Patient was admitted to PCU, his oxygen saturation was monitored, he was seen by pulmonary medicine and infectious diseases and over his hospital stay, his oxygen was able to be weaned down. On 07/28/2020, patient was seen and examined: On examination he appeared in good health and spirits. Vital signs as documented. Skin warm and dry and without overt rashes. Neck without JVD, neck was supple, trachea midline, thyroid was normal. Lungs clear bilaterally, normal air movement was noted. Heart exam notable for regular rhythm, normal sounds and absence of murmurs, rubs or gallops. Abdomen unremarkable and without evidence of organomegaly, masses, or abdominal aortic enlargement. Bowel sounds are present, abdomen is not distended. Extremities nonedematous, no cyanosis was noted, no clubbing was noted. Neuro: Cranial nerves II through XII are grossly intact, no focal motor deficits were noted, sensation to light touch and pinprick intact, motor exam 5/5 throughout. Psych: Patient is alert and oriented x3, he does not appear anxious or depressed, he does not appear agitated. On 07/28/2020, patient was seen and examined and felt to be stable for discharge home, he needed supplemental oxygen on ambulation at home which was provided with a written prescription. Patient Problems: Active and Suspected Problems (Last Updated 07/22/20 @ 14:[address] Carmen Tilley MD) Acute respiratory failure with hypoxia (Acute) Pneumonia due to COVID-19 virus (Acute) - Physical Exam Vitals/I&O's: Vital Signs Temp Pulse Resp BP Pulse Ox 98.1 F 60 16 117/56 L 93 07/28/20 12:00 07/28/20 12:00 07/28/20 12:00 07/28/20 12:00 07/28/20 12:00 Oxygen Flow Rate (L/min) [ 3 AMBULATION with Oxygen] Oxygen Flow Rate (L/min) [ 0 AMBULATING on Room Air] Oxygen Flow Rate (L/min) [At 0 REST on Room Air] Oxygen Flow Rate (L/min) 3 Oxygen Delivery Method Nasal Cannula Weight: 100.017 kg Body Mass Index (BMI) 33.5 Finger Stick Blood Glucose 133 Intake and Output for Last 24 Hours 07/26/20 07/27/20 07/28/20 23:59 23:59 23:59 Intake Total 1610 / 1610 1730 / 1730 770 / 770 Balance 1610 / 1610 1730 / 1730 770 / 770 Microbiology Past 72 Hours 07/22/20 12:05 Blood Culture (Wb) - Anticubital Right Blood Culture - Final No growth in 5 days. 07/22/20 12:00 Blood Culture (Wb) - Left Wrist Blood Culture - Final No growth in 5 days. Laboratory Results 07/27/20 21:37: POC Glucose 328 H 07/28/20 06:46: POC Glucose 242 H 07/28/20 06:55: WBC 8.5, RBC 4.49 L, Hgb 14.1, Hct 43.0, MCV 95.8 H, MCH 31.4, MCHC 32.8, RDW Std Deviation 48.5 H, RDW Coeff of Love 13.7, Plt Count 279, MPV 10.8 07/28/20 06:55: Sodium 139, Potassium 4.0, Chloride 106, Carbon Dioxide 26.0, Anion Gap 7, BUN 27 H, Creatinine 0.87, Estim Creat Clear Calc 73.16, Est GFR (MDRD) Af Amer 111, Est GFR (MDRD) Non-Af 92, BUN/Creatinine Ratio 31.2 H, Glucose 231 H, Calcium 8.3 L, Total Bilirubin 0.50, AST 40 H, ALT 97 H, Alkaline Phosphatase 74, Total Protein 6.5, Albumin 2.5 L, Globulin 4.0, Albumin/Globulin Ratio 0.6 L 07/28/20 11:20: POC Glucose 183 H Discharge Activity: Return to Normal Activity Weight Bearing Status: Full weight bearing Home Medications: Medications to take at Discharge Amlodipine [Norvasc] 5 mg PO DAILY 12/07/13 Clopidogrel Bisulfate [Plavix] 75 mg PO DAILY 12/07/13 Insulin Aspart [Novolog Flexpen] See Protocol SQ TIDCM 12/07/13 Insulin Glargine [Lantus SoloStar Pen] 72 units SC QHS 12/07/13 Isosorbide Mononitrate [Isosorbide Mononitrate ER] 60 mg PO DAILY 12/07/13 Losartan Potassium [Cozaar] 25 mg PO DAILY 12/07/13 Metformin HCl [Glucophage] 1,000 mg PO BIDCM 12/07/13 Metoprolol Tartrate [Lopressor (beta aixa)] 100 mg PO BID 12/07/13 buPROPion tablets [Wellbutrin tablets] 100 mg PO BID 12/07/13 Acetaminophen [Tylenol Tablet] 650 mg PO Q4H PRN PRN #0 tab 09/05/16 Albuterol Inhaler [Ventolin Hfa] 1 - 2 puff INHALATION Q4H PRN PRN #1 inhaler 09/05/16 Aspirin [Aspir-Low] 81 mg PO DAILY 12/26/16 Atorvastatin Calcium [Lipitor] 80 mg PO QHS 12/26/16 Ibuprofen 2 - 3 mg PO TID PRN #1 tab 01/13/17 nitroglycerin 0.4 mg sublingual tablet 0.4 mg SUBLINGUAL Q5M PRN 02/09/18 Acetaminophen [Tylenol Tablet] 650 mg PO Q6H PRN PRN tab 07/28/20 dexAMETHasone [Dexamethasone] 6 mg PO DAILY #9 tab 07/28/20 Following Prescriptions Were Given to Patient: dexAMETHasone [Dexamethasone] 6 mg PO DAILY #9 tab Transmission Status: Received by [facility] Phys[facility] [Primary [facility] Provider] - Please follow up with your Primary Care Physician in: in 7 days Disposition: Home Minutes spent on discharge:: 32 Patient Condition:: Stable Medical Necessity - Tobacco Use Smoking Status: Former smoker Meaningful Use Info Meaningful Use Diagnoses (Choose all that apply): None applicable Inpatient E&M: 66249 Disch Hosp
--- NOTE | 2020-07-31 15:03 | CASEMGMT ---
RN CM Discharge F/U Phone Call LACE: 12 Strata: 3 Discharge date: 07/28/2020 Call date: 07/31/2020 Call time: [phone] Attempted to reach pt without success at this time, message left for pt to call this RN CM back if/when able. SStaten RN CM Admission dx: COVID pna, Acute resp failure
== END 2020-07-28 14:58 | disposition home or self-care (01) | DRG 177 ==
LOC: ED 14:34 → PCU 14:43
PROVIDERS: Internal Medicine; Internal Medicine Infectious Disease; Admitting Provider Hospitalist; Emergency Provider Emergency Medicine; Visit Provider Internal Medicine
DX: U07.1 COVID-19 (principal); J96.01 Acute respiratory failure with hypoxia; J12.89 Other viral pneumonia; E87.2 Acidosis; J44.0 Chronic obstructive pulmonary disease with (acute) lower respiratory infection; I25.10 Atherosclerotic heart disease of native coronary artery without angina pectoris; I10 Essential (primary) hypertension; E78.5 Hyperlipidemia, unspecified; I27.21 Secondary pulmonary arterial hypertension; Z95.1 Presence of aortocoronary bypass graft; Z87.891 Personal history of nicotine dependence; Z79.02 Long term (current) use of antithrombotics/antiplatelets; Z79.4 Long term (current) use of insulin; Z79.82 Long term (current) use of aspirin; Z83.3 Family history of diabetes mellitus; Z91.041 Radiographic dye allergy status; Z95.5 Presence of coronary angioplasty implant and graft; I71.4 Abdominal aortic aneurysm, without rupture; E11.9 Type 2 diabetes mellitus without complications; E66.9 Obesity, unspecified; F41.9 Anxiety disorder, unspecified; F32.9 Major depressive disorder, single episode, unspecified; Z68.33 Body mass index [BMI] 33.0-33.9, adult; Z23 Encounter for immunization
CPT/HCPCS: 36415; 71045; 71275; 80048; 80053; 81001; 82550; 82962; 83605; 83615; 83880; 84484; 85025; 85027; 85379; 85610; 85730; 87040; 87086; 93005; 97110; 97116; 97162; 97165; 97530; 99251; 99285; G0008; J7030; J7050; Q9967; 90686; A4216; G0463

== ENCOUNTER 2020-08-31 15:35 | Emergency (ER) | payer MEDICARE, OTHER, SELFPAY ==
[2020-07-22 17:04] VITALS: BMI 33.5
[2020-08-31 15:36] VITALS: BP 128/48; PULSE 67; RESP 18; TEMP 36.4; O2SAT 94; BMI 33.4
[2020-08-31 15:51] LABS: Bedside Glucose 159 mg/dL (70-110)
--- NOTE | 2020-08-31 16:12 | ED.DCSUM_ITS ---
History of Present Illness Chief Complaint: Abn Labs Informant: Patient Narrative: Patient is a 75-year-old male who presents to the emergency department for hypoglycemic event. He states that he did take his insulin the morning and got busy and forgot to eat. He felt hypoglycemic and felt very poor. He ended up losing consciousness. He denies falling or injuring himself. He was able to take on the end prior and was feeling much better. When EMS arrived he was asymptomatic. He has had these episodes before in the past. Time of arrival he has no complaints. Of note he is recently getting over a pneumonia infection. He just completed antibiotics. He did have coronavirus just prior to that as well. He is currently on supplemental oxygen that he was sent home with due to his pneumonia. He otherwise denies any fevers or chills. No nausea/vomiting or diarrhea. No urinary symptoms. Past Medical History - Allergies and Home Meds Allergies/Adverse Reactions: Allergies lisinopril Allergy (Verified 03/26/19 08:41) Angioedema Sulfa (Sulfonamide Antibiotics) Allergy (Verified 03/26/19 08:41) Hives piperacillin Adverse Reaction (Severe, Verified 03/26/19 08:41) Unknown Primary Care Physician: [facility] [Primary Care Provider] - 3-5 Days Prior records reviewed: Yes Past Medical History: - - COPD, AAA Surgical History: angioplasty, coronary bypass surgery - 20 years ago., - - cardiac stents x 13 Smoking Status: Former smoker - Family History Paternal Family History: Family History (Last Reviewed 03/26/19 @ 09:[address] Shay Colon MD) Mother Heart disease Family History: Reports: Diabetes - Mother, Heart Disease - Father, - - Patient was notable alcoholic. Maternal Family History: Family History (Last Reviewed 03/26/19 @ 09:[address] Shay Colon MD) Mother Heart disease Family History: Reports: Diabetes, Heart Disease Review of Systems All systems negative except as indicated General: Denies: Chills, Fever, Sweats Eyes: Denies: Visual changes - bilaterally, Diplopia ENT: Denies: Rhinorrhea, Sore throat Cardiovascular: Denies: Chest pain, Palpitations Respiratory: Reports: Cough. Denies: Dyspnea, Dyspnea on exertion Gastrointestinal: Denies: Abdominal pain, Nausea, Vomiting, Diarrhea, Melena, Hematochezia Genitourinary: Denies: Dysuria, Hematuria, Frequency Musculoskeletal: Denies: Back pain, Extremity Pain Skin: Denies: Rash, Wounds Neurological: Denies: Headache, Weakness, Numbness Physical Exam Vital Signs/Narrative: Vital Signs Temp Pulse Resp BP Pulse Ox 08/31/20 15:36 97.5 F L 67 18 128/48 H 94 Inital Vital Signs reviewed: Yes General: Well nourished, Well developed, No Acute Distress Head: Normocephalic, Atraumatic Eyes: Perrl, EOMI ENT: Moist mucous membranes, No rhinorrhea Neck: Supple, Nontender Cardiovascular: Regular rate, Regular rhythm, No murmurs Respiratory: No distress, CTA bilaterally, Chest nontender Abdomen: Soft, Nontender, Nondistended, Normal bowel sounds Back: Nontender, Normal Inspection Extremities: Nontender, No edema. Negative for: Calf Tenderness Skin: Normal color, No rash Neurological: Alert, Oriented x3, Cranial nerves II-XII grossly intact, Normal Strength, Normal Sensation Psychological: Normal affect, Normal Mood Diagnostic/Tx/Re-eval - Medical Decision Making Patient presents to the ED after having a hypoglycemic event. He did take his morning insulin but did not eat after this. States he did some running around. He did eat honey and is feeling much better at this time. His glucose was within normal limits. He is requesting to eat a sandwich and will be provided 1. We will repeat basic lab work to make sure patient does not have a decrease in his glucose again. Patient has been asymptomatic throughout ED stay. He did eat a sandwich. Lab work did not reveal a significant acute abnormality. He wants to be discharged home at this time. We discharged home in stable condition. He is to help with his PCP. Warning signs and symptoms which to return to ED are reviewed. He understands and is agreeable this plan. All questions answered. ED Disposition - Plan for ED Patient: Disposition: Home or Assisted Living Diagnosis: Hypoglycemic event in diabetes Instructions: ED Diabetic Insulin Reaction [facility]errals[place] [facility] [Primary Care Provider] - 3-5 Days
[2020-08-31 16:51] LABS: Bedside Glucose 142 mg/dL (70-110)
[2020-08-31 17:07] LABS: Absolute Lymphocyte Count 1.17 X10^3/uL (0.83-4.51); Absolute Neutrophil Count 8.6 X10^3/uL (2.0-7.7); Basophil# 0.09 X10^3/uL; Basophil% 0.8 % (0-1); Eosinophil# 0.22 X10^3/uL; Hematocrit 40.7 % (40-54); Lymphocyte # 1.17 X10^3/ul (4.0); Lymphocyte % 10.9 % (19-41); Mean Corp Hgb Conc 31.9 g/dL (32-36); Mean Corpuscular Hgb 31.6 pg (27.0-32.0); Mean Platelet Vol. 11.1 fl (6.2-12.0); Monocyte# 0.58 X10^3/uL; Monocyte% 5.4 % (0-10); NRBC Flagged by Analyzer 0 % (0-5); Neutrophil # 8.61 X10^3/uL (2.7-7.7); Platelet Count 173 K/mm3 (150-450); RBC Distribution Width CV 15.2 % (11.6-14.6); RBC Distribution Width SD 55.4 fl (35.1-43.9); Red Blood Count 4.11 M/mm3 (4.6-6.2); White Blood Count 10.8 K/mm3 (4.4-11.0)
[2020-08-31 17:25] LABS: Anion Gap 9 (5-15); BUN 30 mg/dL (7-18); BUN/Creat Ratio 23.4 RATIO (10-20); Calcium,Total 8.3 mg/dL (8.5-10.1); Chloride 108 mmol/L (98-107); Creatinine, Serum 1.28 mg/dL (0.70-1.30); EST Glomerular Filtration Rate 58 mL/min (>60); Est Glom Filt Rate - Afr Amer 71 mL/min (>60); Estimated Creatinine Clearance 48.98 ml/min; Glucose 145 mg/dL (74-106); Sodium Level 141 mmol/L (136-145)
[2020-08-31 17:33] VITALS: BP 99/58; PULSE 62; RESP 14; O2SAT 98
== END 2020-08-31 17:49 | disposition home or self-care (01) ==
PROVIDERS: Emergency Provider Emergency Medicine
DX: E11.649 Type 2 diabetes mellitus with hypoglycemia without coma (principal); J44.9 Chronic obstructive pulmonary disease, unspecified; Z79.4 Long term (current) use of insulin; Z82.49 Family history of ischemic heart disease and other diseases of the circulatory system; Z87.891 Personal history of nicotine dependence; Z88.0 Allergy status to penicillin; Z88.2 Allergy status to sulfonamides; Z88.8 Allergy status to other drugs, medicaments and biological substances; Z95.5 Presence of coronary angioplasty implant and graft; Z95.1 Presence of aortocoronary bypass graft; Z87.01 Personal history of pneumonia (recurrent); Z86.19 Personal history of other infectious and parasitic diseases
CPT/HCPCS: 80048; 82962; 85025; 99285; J7030; A4216

== ENCOUNTER → 2021-01-02 10:04 | Outpatient (CLI) | payer MEDICARE, OTHER, SELFPAY ==
--- NOTE | 2021-01-02 10:15 | PR.ITP_ITS ---
General Information - General Information Admitting Diagnosis: COPD Gold Classification:: GOLD 3: Severe Oxygen: YES, 3 LITERS 14/04 - Education/Goals Barriers to Learning: Hearing Impairment, Vision Impairment Individual Counseling: Initial Assessment: Dyspnea control techniques at rest, activity, and ADLs, Inhaled and respiratory medications, ADL management and pacing, Nutrition & weight management, Home exercise plan & guidelines Patient Goals: Breathe better: Initial Assessment, Increase endurance/stamina: Initial Assessment, Control panic/anxiety: Initial Assessment, Symptom management: Initial Assessment Exercise - Initial Assessment - Visit Date of Eval: 01/02/21 - Problem/Goals Problems: Deconditioning, No regular exercise, Knowledge deficit exercise guidelines, Knowledge deficit exercise safety Goals:: [place]: 2-3/wk - Physician Prescribed Exercise Modalities: Treadmill, Airdyne, NuStep, SciFit Frequency (days/week): 3 Duration (Minutes):: 35-45 Intensity: 60-80% of age predicted maximum heart rate reserve METs - Progression: 0.5-1.0 MET, RPE 11-14 WEEK: 2.0 Target Heart Rate:: 95-124 - Plan Plan and Plan to Review:: Benefits of exercise, Core components of exercise, How to measure dyspnea level, How to monitor dyspnea level, Exercise intensity, Exercise safety guideline, Home exercise guidelines, [place]: 3- Disease Management - Initial - Problems/Goals-Hypoxemia Hypoxemia Problems:: Hypoxemia Hypoxemia Goals:: Hypoxemia managed, Port system, Using O2 as Rx's safely - Problems/Goals-Medications Medication Goals: Adherence to prescribed medications, Correct technique/timing & care of MDI, DPI, nebulizer, and spacer. - Problems/Goals-Bronchial Hygiene Bronchial Hygiene Problems:: Ineffective secretion clearance, Respiratory infection Prevention/Management Bronchial Hygiene Goals:: Pt demonstrates effective cough, effective secretion clearance., Pt describes signs and symptoms of infection. - Initial Assessment Port O2:: 3 Does pt report taking home meds as prescribed?: Yes Medications: Yes MDI, Yes DPI, Yes NEB, No Spacer Patient Reports:: Prod cough daily <1 Tbsp, Nasal Congestion - Plans Hypoxemia Plan:: Monitor SpO2 rest & with exercise Reviewed prescribed medications:: Purpose, Schedule, Side effects, Importance of compliance Instruct correct technique/timing & care:: MDI, Return demo use of inhaler Bronchial Hygiene Plan: Controlled cough, Vibratory PEP device, Role of exercise in secretion clearance, Hydration, Hand hygiene, Signs/symptoms to report: Psychosocial - Initial Assess - Problems/Goals Problems: Impaired Q.O.L. - Psychosocial Test Depression:: Impaired QOL - Plan Reviewed screening results: Yes Instructions given regarding:: Benefits of exercise, Relaxation techniques, Training in coping strategies Tobacco - Initial Assessment - Program Goals Tobacco Program Goals: Complete smoking cessation. Attend education classes. Improve Knowledge Test score - Stage of Change Stages of Change:: Action - Learning Barriers Learning Barriers: Hearing, Vision, Ready to Learn - Family Support Do you have family support?: Yes - Tobacco Use Tobacco Use: Non-smoker How long ago did you quit using tobacco products?: Greater than or equal to 6 months ago Do you use smokeless tobacco?: No - Intervention Smoking Cessation Referral:: No Individual Education/Counseling:: No Education Schedule Given:: Yes - Education Gave Education Materials For:: Pulmonary Disease, Risk Factors, Breathing Techni ques, Medical Compliance, Pulmonary A&P, Exacerbation Signs & Symptoms, Stress & Relaxation Nutrition/Wt Mgmt - Initial - Problems/Goals Problems: Overweight Goals: BMI 21-25, Wt Loss 1-2 lbs per week - Weight Management Knowledge Deficit Management of:: Overweight Admit Height:: 5 ft 8 in Admit Weight:: 224 lb Admit BMI:: 34.0 - Diabetes Diabetes:: Yes Insulin: Yes Do you monitor your blood sugar at home?: Yes - Intervention Referral to dietitian:: Yes Referral to Diabetic Clinic:: Yes Will attend diet classes:: Yes - Plan Nutrition Plan: Yes Review BMI or WC & identify target wt & strategies for wt control, Yes Nutrition education class:, Yes Weight control education class: Patient Health Questionnaire Initial Assessment 1. Little interest or pleasure in doing things: Nearly every day 2. Feeling down, depressed, or hopeless: More than half the days 3. Trouble falling or staying asleep, or sleeping too much: Nearly every day 4. Feeling tired or having little energy: More than half the days 5. Poor appetite or overeating: More than half the days 6. Feeling bad about yourself -- or that you are a failure or have let yourself or your family down: More than half the days 7. Trouble concentrating on things, such as reading the newspaper or watching television: More than half the days 8. Moving or speaking so slowly that other people could have noticed. Or the opposite - being so fidgety or restless that you have been moving around a lot more than usual: More than half the days 9. Thoughts that you would be better off , or of hurting yourself in some way: Not at all How difficult have these problems made it for you to do your work, take care of things at home, or get along with other people?: Very difficult Total Score: 18 COPD Knowledge Test Initial COPD is a lung disease that:: Makes it hard to breathe & gets worse over time In the [place] the term COPD describes 2 main lung conditions:: Cystic fibrosis & chronic bronchitis The most common lung irritant that causes COPD is:: Cigarette smoke Common signs and symptoms of COPD include:: An ongoing cough/cough that produces a large amount of mucus, & SOB If you have COPD, what steps can you take?: All of the above Swelling of the ankles is common in COPD:: True Fatigue [tiredness] is common in COPD:: True Wheezing is common in COPD:: True Crushing chest pain is common in COPD:: False Rapid weight loss is common in COPD:: False Breathlessness is a normal response to exercise: True Exercise should be avoided if it makes you short of breath: True All bronchodilators act within 10 minutes: True A spacer device increases the medication to the lungs: True Annual flu vaccine is recommended for pts w/lung disease: True COPD Knowledge Test Total Score:: 11 Self-Efficacy Initial Assessment We would like to know how confident you are in doing certain activities. Please select your confidence level for:: Select your confidence level for the following using the scale 1-10 where 1 is not at all confident and 10 is totally confident. Your score is the average of all 6 responses. Fatigue: How confident are you that you can keep the fatigue caused by your disease from interfering with the things you want to do? Select Number: 8 Physical Discomfort or Pain: How confident are you that you can keep the physical discomfort or pain of your disease from interfering with the things you want to do? Select Number: 8 Emotional Distress: How confident are you that you can keep the emotional distress caused by your disease from interfering with the things you want to do? Select Number: 8 Other Symptoms or Health Problems: How confident are you that you can keep other symptoms or health problems from interfering with the things you want to do? Select Number: 6 Different Tasks and Activities: How confident are you that you can do the different tasks and activities needed to manage your health condition so as to reduce your need to see a doctor? Select Number: 9 Medication: How confident are you that you can do things other than just taking medication to reduce how much your illness affects your everyday life? Select Number: 8 Total Score:: 7 Nutrition Survey - Nutrition Survey Instructions Scoring Instructions: Scoring is as follows: Yes = 1 points. No = 0 point. Patient score that is >/=12 is considered to be at potential nutritional risk and could benefit from a referral to a registered dietitian. - Nutrition Survey Initial Have you lost >10 lbs over the past 2 months without trying?: No Are you following a special diet at home for diabetes, low fat, or low salt?: No Are you interested in meeting with a dietitian for help understanding your diet?: No Do you eat less than 3 meals a day?: Yes Do you eat fatty meats ([place], sausage, ribs, etc), fried foods, desserts, large amounts of salad dressings, margarine, butter, or cheese most days?: Yes Do you have food allergies? [Enter types in comment field]: No Do you eat in restaurants more than 3 times a week?: No Do you season food with salt, seasoning salt, or garlic salt?: No Do you used canned, boxed, frozen meals, or soups, seasoning packets?: Yes Total Score:: 3
--- NOTE | 2021-01-02 10:15 | PR.HP_ITS ---
History of Present Illness Arrival date:: 01/02/21 Arrival time:: 10:00 Date of Referral:: 12/20/20 Date of Evaluation: 01/02/21 Referring Physician: [facility] Primary Diagnosis: COPD History of Present Illness: COPD GOLD CLASSIFICATION III, COVID-19 RELATED PNEUMONIA, LACTIC ACIDOSIS- SECONDARY TO HYPOXIC RESPIRATORY FAILURE. mMRC Breathless Scale: When is the patient short of breath? Y/N Grade: Description of Breathlessness: 0 I only get breathless with strenuous exercise. 1 I get short of breath when hurrying on level ground or walking up a slight hill. 2 On level ground, I walk slower than people of the same age because of breathless, or have to stop for breath when walking at my own pace. 3 I stop for breath after walking 100 yards or after a few minutes on level ground. 4 I am too breathless to leave the house or I am breathless when dressing. Respiratory Problems: Yes: Retain Secretions, Fatigue, Wheezing, Able to Speak in Full Sentences, Dyspnea at Rest, Dyspnea with Activity, Dyspnea Lying Down Flat, Cough with Secretions Home Medications: Home Medications Amlodipine [Norvasc] 5 mg PO DAILY 12/07/13 Clopidogrel Bisulfate [Plavix] 75 mg PO DAILY 12/07/13 Insulin Aspart [Novolog Flexpen] See Protocol SQ TIDCM 12/07/13 Insulin Glargine [Lantus SoloStar Pen] 72 units SC QHS 12/07/13 Isosorbide Mononitrate [Isosorbide Mononitrate ER] 60 mg PO DAILY 12/07/13 Losartan Potassium [Cozaar] 25 mg PO DAILY 12/07/13 Metformin HCl [Glucophage] 1,000 mg PO BIDCM 12/07/13 Metoprolol Tartrate [Lopressor (beta aixa)] 100 mg PO BID 12/07/13 buPROPion tablets [Wellbutrin tablets] 100 mg PO BID 12/07/13 Acetaminophen [Tylenol Tablet] 650 mg PO Q4H PRN PRN #0 tab 09/05/16 Albuterol Inhaler [Ventolin Hfa] 1 - 2 puff INHALATION Q4H PRN PRN #1 inhaler 09/05/16 Aspirin [Aspir-Low] 81 mg PO DAILY 12/26/16 Atorvastatin Calcium [Lipitor] 80 mg PO QHS 12/26/16 Ibuprofen 2 - 3 mg PO TID PRN #1 tab 01/13/17 nitroglycerin 0.4 mg sublingual tablet 0.4 mg SUBLINGUAL Q5M PRN 02/09/18 Acetaminophen [Tylenol Tablet] 650 mg PO Q6H PRN PRN tab 07/28/20 dexAMETHasone [Dexamethasone] 6 mg PO DAILY #9 tab 07/28/20 Allergies/Adverse Reactions: Allergies lisinopril Allergy (Verified 03/26/19 08:41) Angioedema Sulfa (Sulfonamide Antibiotics) Allergy (Verified 03/26/19 08:41) Hives piperacillin Adverse Reaction (Severe, Verified 03/26/19 08:41) Unknown - Secretions Normal Color:: FAIRLY LIGHT TO SOME BLOOD Thick:: Yes Thin:: No Amount/Day:: 2 TSP Cough:: Yes A.T.C.: Yes Hx of Sleep Apnea: Yes Do you snore loudly (louder than talking or can be heard through closed doors)?: Yes - JUST HAD CPAP SET UP AT HOME FOR QHS Do you often feel tired/ fatigued/ sleepy during daytime?: Yes Has anyone observed you stop breathing during sleep?: Yes History of Hypertension (for STOP score): Yes STOP Results: Positive Medical Utilization Do you use a peak flow meter at home?: No Do you use a spacer device with your inhalers?: No Number of hospital visits in the last year?: 1 Number of emergency room visits in the last year?: 2 Do you see your physician on a regular schedule?: No Comments:: LOOKING TO ESTABLISH CARE WITH MORE LOCAL PHYSICIANS. Advanced Directives - Advanced Directives Power of Preschool Director: Yes Living Will: Yes Advance Directives Information Provided: No Advance Directives on File: No - PATIENT TO BRING DOCUMENT FOR SCANNING TO EHR DNR Order?:: No - MOLST See MOLST form: No Past Medical History - Covid-19 Screening Fever: No Unexplained muscle aches: No Current respiratory symptoms: Yes - GOLD CLASSIFICATION III MODERATE-SEVERE COPD END OF JUNE 2020 Upper respiratory infections symptoms: Yes - COVID-19 RELATED PNEUMONIA; HAS NOT HAD THE COVID-VACCINE Has tested positive for COVID-19 in last 30 days: No Had contact w/person w/symptoms or Covid-19 (+) last 14 days: No Has High Risk Exposures ID'd by Health dept/Inf Control team: No 65 years or older:: Yes Lives in Assisted Living facility:: No Has a chronic lung disease or moderate to severe asthma:: Yes Has a serious heart condition:: Yes Severely obese (Body Mass Index of 40 or higher):: No Diabetic:: Yes Has chronic kidney disease undergoing dialysis:: No Has liver disease:: No Medical History: Past Medical History (Last Updated 07/22/20 @ 14:[address] 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 Carmen Tilley MD) History of coronary artery stent placement (Chronic) Onset Date: 05/03/16 Z95.5 PCI-HASMUKH X 2-SVG-OM3 2008;PCI-HASMUKH right post AV; HASMUKH-RCA X 3 10/30/13; PNL-YRS-YTUH 05/03/16 H/O coronary artery bypass surgery (Chronic) Onset Date: 1995 Z95.1 CABG x 5 Sequential JENSEN-LAD and D3, SVG-OM1, SVG-RBLB2, SVG-D1 1995 History of cataract surgery Z98.49 History of left heart catheterization Onset Date: 01/18/19 Z98.890 Family History: Family History (Last Reviewed 03/26/19 @ 09:[address] Shay Colon MD) Mother Heart disease - Current/ Previous Services Pulmonary Rehab:: No - Comments Comments: Patient did cardiac rehab in 1995 following CABG and again in 2016 following PCI intervention and coronary stenting. Social History - Smoking History Smoking Status: Former smoker Hx Tobacco Use: No Hx Smoking Exposure: No - Alcohol Use Alcohol Usage: No - Substance Abuse Hx Substance Use: No - Occupation Occupation (List type of work in comments):: Retired - Hobbies, Recreation, Social Activities Hobbies: Other - FISHING BUT NOT ABLE TO DO IT NOW Recreational Activities: I am able to engage in a few activities Functioning ADL/IADL - Current Ability Current Ability: Independent Self-Care (e.g.,grooming, dressing, & bathing), Independent Ambulation, Independent Transfer, Independent Household tasks (e.g., light meal prep, laundry, shopping) - Pt Functioning Prior to Problem Prior Functioning: Self-Care (e.g.,grooming, dressing, & bathing): Independent, Ambulation: Independent, Transfer: Independent, Household tasks (e.g., light meal prep, laundry, shopping): Independent Social Environment - Status Marital Status: - Current Living Arrangements Living Environment:: Alone - Children How many children do you have?: 3 - 3 STEP CHILDREN, 3-BIOLOGICAL Do any of your children live nearby?: Yes - Safety Do you feel safe in your surroundings?: Yes Review of Systems Review of Systems: Right click = Denies (Slash). Left click = Reports ([place]) Respiratory: Reports: SOB upon Exertion, Wheezing, Dizziness/Lightheadedness - IF STAYS OFF OXYGEN TO LONG SHOWERING GETS LIGHTHEADED. DISCUSSED WITH PATIENT IMMPORTANCE OF WEARING OXYGEN DURING SHOWER., Fatigue, Sleep, Normal. Denies: Cough, SOB at Rest, Sputum production, Appetite, Normal - EAT TO MUCH. Is Patient Pain Free?: Yes Pain Location: chest, abdomen - LEFT SIDE OF CHEST AND ABDOMINE, FEELS LIKE HE PULLED A MUSCLE. Pain Level: 4/10 Risk Factor Assessment - Chief Complaint Chief Complaint: Patient is a 75/male of the [facility] [place] who presents to pulmonary rehab today following recent COVID-19 related pneumonia secondary to his COPD GOLD Classification III. Patient also had related lactic acidosis- secondary to hypoxic respiratory failure as a result of the COVID-19 pneumonia. - Vital Signs Temperature: 97.3 F Pulse Rate: 96 Respiratory Rate: 16 Pulse Ox: 96 - ON 3 LITERS OXYGEN NASAL. - Diabetes Diabetic History: Type II, Medication Dependent, Insulin Dependent - Obesity Height: 5 ft 8 in Weight:: 224 lb Weight in Pounds: 224.0 lbs Weight Source: Estimated by Patient Body Mass Index (BMI): 34.0 Nutritional Referral for Obesity: Yes - Why Weight & Medical Nutritional Services, INT DSMNT & MNGT - Physical Activity Physical Inactivity: None - Risk Stratification Risk Guidelines: Lowest Risk: Risk Factor for Smoking, Risk Factor for Dyslipidemia, Risk Factor for Depression, Moderate Risk: Risk Factor for Diabetes - glucose 145, a1c is 8.2, Highest Risk: Risk Factor for Obesity - 34., Risk Factor for Sedentary Lifestyle - For Smoking Smoking Risk Guidelines: Smoking Low Risk: None or quit greater than 6 months ago. Smoking Moderate Risk: Smoker or quit 6 months or less ago. Smoking High Risk: Smoker - For Dyslipidemia Dyslipidemia Risk Guidelines: Low Risk: Moderate Risk: High Risk: 15-25% fat 25.1-29% fat >/= 30% fat. <7% sat fat 7-9% sat fat >9% sat fat. <150 mg chol 150-299 mg chol >/= 300 mg chol. LDL <100 LDL 100-129 LDL >/= 130. Chol/HDL ratio <5.0 Chol/HDL ratio 5.0-6.0 Chol/HDL ratio >6.0. Triglycerides <100 Triglycerides 100- 149 Triglycerides >/= 150 - For Diabetes Mellitus Diabetes Risk Guidelines: Diabetes Low Risk: HgA1c <6.5% and/or FBG <120. Diabetes Moderate Risk: HgA1c 6.6-7.9% and/or FBG 120-180. Diabetes High Risk: HgA1c >/= 8% and/or FBG >180 - For Obesity/Overweight Obesity/Overweight Risk Guidelines: Obesity Low Risk: BMI <25.0. Obesity Moderate Risk: BMI 25-29.9. Obesity High Risk: BMI >/= 30.0 - For Hypertension Hypertension Risk Guidelines: Hypertension Low Risk: Systolic <120 and Diastolic <80. Hypertension Moderate Risk: Systolic 120-139 and Diastolic 80-89. Hypertension High Risk: Systolic >/= 140 and Diastolic >/= 90 - For Sedentary Lifestyle Sedentary Lifestyle Risk Guidelines: Sedentary Lifestyle Low Risk: >/= 1,500 kcal/week. Sedentary Lifestyle Moderate Risk: 700-1,499 kcal/week. Sedentary Lifestyle High Risk: < 700 kcal/week - For Depression Depression Risk Guidelines: Depression Low Risk: Not clinically depressed. Depression Moderate Risk: Mildly depressed. Depression High Risk: Clinically depressed Motivation - Motivation to Participate On a scale of 1 to 10, how prepared are you to commit to attending program?: 10 What do you see as barriers to successfully being able to complete the program?: NONE What do you see as the benefits of succesfully completing the program? In other words, what do you hope to get out of participating in the program?: BEING ABLE OT GET OUT AND GO, BREATHE BETTER Are there issues you are dealing with that will interfere with completing the program?: HAVING TO WALK FROM THE PARKING LOT TO THE MAIN ENTRANCE. Do you have a spouse or signficant other, family or friends who will help support you to complete the program?: YES Diagnostic Data Review - Pulmonary Function Test FEV1:: 2.21 FVC:: 2.84 Gold Classification: GOLD class III(severe COPD)with FEV1/FVC<70, 30%</=FEV1< 50% predicted
[2021-01-02 10:48] VITALS: BMI 34.0
[2021-01-02 11:17] VITALS: PULSE 96; RESP 16; TEMP 36.3; O2SAT 96; BMI 34.0
== END ==
DX: E78.5 Hyperlipidemia, unspecified (principal); I10 Essential (primary) hypertension; E66.9 Obesity, unspecified; E11.9 Type 2 diabetes mellitus without complications

== ENCOUNTER 2021-01-19 14:15 | Outpatient (RCR) | payer OTHER, SELFPAY ==
[2021-01-02 11:17] VITALS: BMI 34.0
== END 2021-01-19 23:59 ==
LOC: PR 14:15
DX: J44.9 Chronic obstructive pulmonary disease, unspecified (principal); Z86.16 Personal history of COVID-19
CPT/HCPCS: 97150; G0424

== ENCOUNTER 2021-02-05 14:15 | Outpatient (RCR) | payer OTHER, SELFPAY ==
[2021-01-02 11:17] VITALS: BMI 34.0
--- NOTE | 2021-01-30 06:41 | PCM.PR.TP ---
Exercise - 30-Day Assessment - Physician Prescribed Exercise Modalities: Treadmill, Airdyne, NuStep, SciFit Frequency (days/week): 3 Duration (Minutes):: 30-45 Intensity: 60-80% of age predicted maximum heart rate reserve Aerobic Exercise [30-60 min 3-7x/week]:: Progressing Target heart rate: 95-124 Fabby-13 METs - Progression: 0.5-1.0 MET, RPE 11-14 WEEK: 3.0 - increase from 2.0 - Home Exercise Home Exercise:: No Disease Management - 30-Day - Hypoxemia Reassessment: Demonstrates knowledge of O2 Rx at rest, Demonstrates knowledge of O2 Rx with exercise, Using O2 as prescribed, Has home O2 as prescribed, Uses port O2 as prescribed - Medications Medication list reviewed:: Yes Taking medications 100% of the time:: Met Medication reassessment: Yes Pt demonstrates correct technique timing for MDI, Yes Pt demonstrates correct technique timing for DPI, Yes Pt demonstrates correct technique timing for NEB, Yes Pt demonstrates correct technique timing for spacer - Bronchial Hygiene Bronchial Hygiene Plan: Yes Pt demo correct for improved hydration, Yes Pt demo correct for hand hygiene Psychosocial - 30-Day - Assessment Reassessment: Management of stress & depression, Practicing interventions, Demonstrate coping strategies, COPD assessment w/ CAT, Geriatric depression screening, Self efficacy score Tobacco - Initial Assessment Tobacco - 30-Day Assessment - Stage of Change Stages of Change:: Action - Learning Barriers Learning Barriers: Participates in education - Family Support Do you have family support?: Yes - Tobacco Use Tobacco Use: Non-smoker Do you use smokeless tobacco?: No - Intervention Smoking Cessation Referral:: No Individual Education/Counseling:: No Education Schedule Given:: Yes - Education Gave Education Materials For:: Pulmonary Disease, Risk Factors, Breathing Techniques, Medical Compliance, Pulmonary A&P, Exacerbation Signs & Symptoms, Stress & Relaxation Tobacco - 60-Day Assessment Tobacco - 90-Day Assessment Tobacco - Final Assessment Nutrition/Wt Mgmt - 30-Day - Weight Management Weight Assessment:: Wt loss 1-2 lbs per week Weight:: 233 lb - gained 9 pounds Weight Goals Progress:: Not progressing Patient Health Questionnaire 30-Day Re-eval Assessment 1. Little interest or pleasure in doing things: More than half the days 2. Feeling down, depressed, or hopeless: Several days 3. Trouble falling or staying asleep, or sleeping too much: More than half the days 4. Feeling tired or having little energy: Several days 5. Poor appetite or overeating: Several days 6. Feeling bad about yourself -- or that you are a failure or have let yourself or your family down: Several days 7. Trouble concentrating on things, such as reading the newspaper or watching television: Several days 8. Moving or speaking so slowly that other people could have noticed. Or the opposite - being so fidgety or restless that you have been moving around a lot more than usual: Several days 9. Thoughts that you would be better off , or of hurting yourself in some way: Not at all How difficult have these problems made it for you to do your work, take care of things at home, or get along with other people?: Very difficult Total Score: 10 Self-Efficacy 30-Day Re-eval Assessment We would like to know how confident you are in doing certain activities. Please select your confidence level for:: Select your confidence level for the following using the scale 1-10 where 1 is not at all confident and 10 is totally confident. Your score is the average of all 6 responses. Fatigue: How confident are you that you can keep the fatigue caused by your disease from interfering with the things you want to do? Select Number: 8 Physical Discomfort or Pain: How confident are you that you can keep the physical discomfort or pain of your disease from interfering with the things you want to do? Select Number: 8 Emotional Distress: How confident are you that you can keep the emotional distress caused by your disease from interfering with the things you want to do? Select Number: 8 Other Symptoms or Health Problems: How confident are you that you can keep other symptoms or health problems from interfering with the things you want to do? Select Number: 7 Different Tasks and Activities: How confident are you that you can do the different tasks and activities needed to manage your health condition so as to reduce your need to see a doctor? Select Number: 9 Medication: How confident are you that you can do things other than just taking medication to reduce how much your illness affects your everyday life? Select Number: 8 Total Score:: 8 Nutrition Survey
== END 2021-02-19 23:59 ==
LOC: PR 14:15
DX: J44.9 Chronic obstructive pulmonary disease, unspecified (principal); Z86.16 Personal history of COVID-19
CPT/HCPCS: 97150; G0424

== ENCOUNTER 2021-02-21 08:31 | Outpatient (RCR) | payer OTHER, SELFPAY ==
[2021-01-02 11:17] VITALS: BMI 34.0
--- NOTE | 2021-03-02 10:24 | PCM.PR.TP ---
Exercise - 60-Day Assessment - Physician Prescribed Exercise Frequency (days/week): 0 Duration (Minutes):: 0 Intensity: 60-80% of age predicted maximum heart rate reserve Aerobic Exercise [30-60 min 3-7x/week]:: Not progressing - Patient has not attended his scheduled SD sessions. His last date of attendance was on 02/05/2021 and patient has been a No-Call/No-Show. Disease Management - 60-Day - Medications Medication list reviewed:: No Tobacco - Initial Assessment Tobacco - 30-Day Assessment Tobacco - 60-Day Assessment - Stage of Change Stages of Change:: Relapse - Patient has been a No-Call/ No-Show for his scheduled SD sessions since 02/05/2021. Patient has been discharged. Tobacco - 90-Day Assessment Tobacco - Final Assessment Nutrition Survey
== END 2021-03-21 23:59 ==
LOC: PR 08:31
DX: J44.9 Chronic obstructive pulmonary disease, unspecified (principal); Z86.16 Personal history of COVID-19
CPT/HCPCS: 97150; G0424